=== PATIENT | male | born 1950 | race Caucasian/White ===

== ENCOUNTER → 2016-08-12 | Outpatient (CLI) | payer OTHER ==
[~2016-08-12] MED LIST: ACET-1138 PO; ASPEC81 PO; CLB200 PO; CLC100 PO; CYAN1LOZ PO; FRRG PO; MULT-506 PO; OMEG10007 PO; PRT40 PO; PYRI50TA77 PO; RXC5 PO; SNK PO; VTMD1000 PO
[2016-08-12 12:26] LABS: BASO % 0.4 %; BASO ABS # 0.02 K/uL (0-0.2); COMPLETE YES; EOS % 1.9 %; IG% 0.2 %; LYMPH % 42.2 %; LYMPH ABS # 1.96 K/uL (1.2-3.4); MEAN CELL VOLUME 90.5 fL (80-100); MEAN CORPUSCULAR HEMOGLOBIN 31.6 pg (25-34); MEAN CORPUSCULAR HGB CONC 34.9 g/dl (32-36); MEAN PLATELET VOLUME 10.4 fL (7.4-10.4); MONO % 12.3 %; PLATELET COUNT 215 K/uL (130-400); RED BLOOD COUNT 4.53 M/uL (4.7-6.1); WHITE BLOOD COUNT 4.64 K/uL (4.8-10.8)
== END | disposition home or self-care (01) ==
LOC: C.LABPVFM 10:07
PROVIDERS: ATTEND Nurse Practitioner
DX: D64.9 Anemia, unspecified (principal)

== ENCOUNTER → 2017-02-12 | Outpatient (CLI) | payer OTHER ==
[2017-02-12 17:49] LABS: BASO % 0.4 %; BASO ABS # 0.02 K/uL (0-0.2); COMPLETE YES; EOS % 0.6 %; HEMATOCRIT 42.4 % (42-52); IG% 0.2 %; LYMPH % 27.1 %; LYMPH ABS # 1.29 K/uL (1.2-3.4); MEAN CELL VOLUME 89.5 fL (80-100); MEAN CORPUSCULAR HEMOGLOBIN 30.6 pg (25-34); MEAN CORPUSCULAR HGB CONC 34.2 g/dl (32-36); MEAN PLATELET VOLUME 10.3 fL (7.4-10.4); MONO % 9.2 %; NEUT % 62.5 %; PLATELET COUNT 198 K/uL (130-400); RED BLOOD COUNT 4.74 M/uL (4.7-6.1); WHITE BLOOD COUNT 4.76 K/uL (4.8-10.8)
[2017-02-12 18:11] LABS: BLOOD UREA NITROGEN 13 mg/dl (7-18); BUN/CREATININE RATIO 11.6 (10-20); CALCIUM 9.4 mg/dl (8.5-10.1); CARBON DIOXIDE 26 mmol/L (21-32); CHLORIDE 108 mmol/L (98-107); GLUCOSE 90 mg/dl (70-99); POTASSIUM 4.1 mmol/L (3.5-5.1); SODIUM 140 mmol/L (136-145)
[2017-02-13 12:47] LABS: LYME DISEASE AB IGG NEG (NEG); LYME DISEASE AB IGM NEG (NEG)
== END | disposition home or self-care (01) ==
LOC: C.LABPVFM 16:16
PROVIDERS: ATTEND Nurse Practitioner
DX: R41.3 Other amnesia (principal); R53.83 Other fatigue; D64.9 Anemia, unspecified

== ENCOUNTER 2021-02-14 21:11 | Inpatient (IN) ==
--- NOTE | 2021-02-14 21:21 | Emergency Department Note ---
History of Present Illness General Chief Complaint: Altered Mental Status Stated Complaint: PSYCH EVAL Time Seen by Provider: 02/14/21 21:20 Source: EMS Mode of arrival: EMS Limitations: altered mental status History of Present Illness Provider complaint: other (Dementia) Onset (ago): month(s) Duration: getting worse History of same: Yes Relieved By: + none Exacerbated By: + none Context: no recent alcohol abuse or no recent drug abuse Associated psychiatric symptoms: no depression, no suicidal ideation, no homicidal ideation, no racing thoughts, no auditory hallucinations or no visual hallucinations Associated symptoms: no confusion or no shortness of breath Treatments prior to arrival: + none Home Medications Medication Instructions Recorded Confirmed Type multivit with min-folic 1 tab PO DAILY 03/10/19 01/14/21 History acid-lutein 400 mcg-250 mcg chewable tablet (Centrum Silver) cholecalciferol (vitamin D3) 125 5,000 units PO DAILY #30 tab 05/21/19 01/14/21 History mcg (5,000 unit) tablet atorvastatin 10 mg tablet 10 mg PO DAILY #30 tab 07/22/20 01/14/21 Rx aspirin 81 mg tablet,delayed 81 mg PO DAILY 08/28/20 01/14/21 History release (Aspirin Low Dose) buspirone 5 mg tablet 5 mg PO DAILY #30 tab 09/05/20 01/14/21 Rx donepezil 10 mg tablet 10 mg PO DAILY #30 tab 09/05/20 01/14/21 Rx magnesium 250 mg tablet 250 mg PO DAILY #30 tab 09/05/20 01/14/21 Rx docusate sodium 100 mg capsule 100 mg PO BID PRN 10/23/20 01/14/21 History (Colace) tamsulosin 0.4 mg capsule 0.4 mg PO DAILY #30 cap 10/23/20 01/14/21 Rx omeprazole 20 mg capsule,delayed 20 mg PO DAILY #30 cap 11/14/20 01/14/21 Rx release quetiapine 25 mg tablet (Seroquel) 25 mg PO DAILY #30 tab 01/14/21 01/14/21 Rx escitalopram oxalate 20 mg tablet 20 mg PO DAILY #30 tab 02/07/21 Rx Allergies Allergy/AdvReac Type Severity Reaction Status Date / Time No Known Allergies Allergy Verified 01/14/21 10:57 Past Med/Surg History Medical History Arthritis of right hip Cellulitis and abscess of face Cerebral infarct Dementia Dental abscess Depression with anxiety Elevated BP without diagnosis of hypertension Expressive aphasia Hyperlipidemia Vitamin D insufficiency Surgical History H/O total hip arthroplasty Right History of hernia repair Family History Mother Myocardial infarction Other Hypertension Denies family history of Ovarian cancer Prostate cancer Breast cancer Colorectal cancer Social History Smoking Status: Unknown if ever smoked Second Hand Exposure: No (unknown); Do You Dip or Chew Tobacco: No (unknown); Tobacco Cessation Education Requested by Patient: No (unknown) Hx Alcohol Use: No (unknown) Hx Substance Use: No Preferred Language: Korean Communication Ability: Impaired Superintendent Plant Required: No Beliefs That Will Affect Care: None marital status: Single Current Living Situation: Alone Current Living Situation Comment: pt lives at home alone, family is concerned for safety. current occupational status: disabled Other Information That Helps Us Care for You: No Feels Safe at Home: Yes Safety Concerns: Feels Safe At This Time Childhood Exposure to Second-Hand Smoke: No caffeine: Yes during the past year weight has: remained stable Dental Care, Regularly: Yes Seatbelt Use: always Sunscreen Use: No Assistive Devices: None Review of Systems See HPI for pertinent positives & negatives. Unobtainable due to cognitive status Physical Exam Vital Signs Vital Signs - 24 hr 02/14/21 21:31 02/14/21 22:08 02/15/21 00:05 Temperature 36.7 C Temperature Source Oral Pulse Rate 78 Pulse Rate [Apical] 64 90 Pulse Rate [Right Finger] Pulse Rhythm [Apical] Regular Pulse Strength [Apical] Respiratory Rate 20 16 20 Respiratory Effort / Characteristics Non-Labored Non-Labored Spontaneous Respiratory Depth Normal Normal Normal Respiratory Pattern Blood Pressure 144/85 H Blood Pressure [Left Arm] Blood Pressure [Right Arm] 144/106 H 130/91 Blood Pressure Mean 104 Blood Pressure Mean [Left Arm] Blood Pressure Mean [Right Arm] 118 104 Blood Pressure Position [Left Arm] Blood Pressure Position [Right Arm] Pulse Oximetry 95 96 96 Oxygen Delivery Method Room Air Room Air Room Air Sepsis Recent Fever Within 48 Hours No Sepsis New/Unexplained Change in Mental Status N/A Sepsis Action Taken by Nursing No Action Required 02/15/21 01:00 02/15/21 07:48 Temperature 37.2 C 36.7 C Temperature Source Oral Oral Pulse Rate Pulse Rate [Apical] 71 Pulse Rate [Right Finger] 55 L Pulse Rhythm [Apical] Regular Pulse Strength [Apical] Normal Respiratory Rate 18 16 Respiratory Effort / Characteristics Non-Labored Spontaneous Respiratory Depth Normal Respiratory Pattern Regular Blood Pressure Blood Pressure [Left Arm] 142/83 H Blood Pressure [Right Arm] 162/97 H Blood Pressure Mean Blood Pressure Mean [Left Arm] 102 Blood Pressure Mean [Right Arm] 118 Blood Pressure Position [Left Arm] Sitting Blood Pressure Position [Right Arm] Sitting Pulse Oximetry 96 97 Oxygen Delivery Method Room Air Room Air Sepsis Recent Fever Within 48 Hours Sepsis New/Unexplained Change in Mental Status Sepsis Action Taken by Nursing GENERAL: Disheveled in appearance, no apparent distress. EYE EXAM: Normal conjunctiva. PERRL, no anisocoria and EOM's grossly intact w/o pain. OROPHARYNX: Moist mucus membranes. Grossly normal dentition. NECK: Supple, no nuchal rigidity, no adenopathy, non-tender. No signs of meningismus. LUNGS: Clear to auscultation. Normal chest wall mechanics. HEART: NSR, no MRG. ABDOMEN: Abdomen soft, non-tender, normo-active bowel sounds, no masses, no rebound or guarding. BACK: No CVA TTP. SKIN: No rashes and no bruising. UPPER EXTREMITIES: Upper extremities are grossly normal. LOWER EXTREMITIES: Grossly normal, no edema. NEURO EXAM: Awake and alert, occasionally follows basic commands, disorganized and occasionally tangential nonslurred speech, cranial nerves II-XII grossly intact, moves all 4 extremities on command w/o issue. Course Administered Medications Aspirin (Aspirin 81 Mg Ectab) 81 mg PO DAILY [facility] Stop: 03/17/21 08:59 Last Admin: 02/15/21 08:33 Dose: 81 mg Documented by: [id number] Atorvastatin Calcium (Atorvastatin 10 Mg Tab) 10 mg PO DAILY [facility] Stop: 03/17/21 08:59 Last Admin: 02/15/21 08:34 Dose: 10 mg Documented by: [id number] Buspirone HCl (Buspirone 5 Mg Tab) 5 mg PO DAILY [facility] Stop: 03/17/21 08:59 Last Admin: 02/15/21 08:34 Dose: 5 mg Documented by: [id number] Donepezil HCl (Donepezil Hcl 10 Mg Tab) 10 mg PO DAILY [facility] Stop: 03/17/21 08:59 Last Admin: 02/15/21 08:34 Dose: 10 mg Documented by: [id number] Escitalopram Oxalate (Escitalopram Oxalate 20 Mg Tab) 20 mg PO DAILY [facility] Stop: 03/17/21 08:59 Last Admin: 02/15/21 08:35 Dose: 20 mg Documented by: [id number] Multivitamins/Minerals (Cerovite Adv Formula Tab) 1 tab PO DAILY [facility] Stop: 03/17/21 08:59 Last Admin: 02/15/21 08:35 Dose: 1 tab Documented by: [id number] Pantoprazole Sodium (Pantoprazole 40 Mg Tab) 40 mg PO DAILY [facility] Stop: 03/17/21 08:59 Last Admin: 02/15/21 08:35 Dose: 40 mg Documented by: [id number] Quetiapine Fumarate (Quetiapine Fumarate 25 Mg Tablet) 25 mg PO DAILY [facility] Stop: 03/17/21 08:59 Last Admin: 02/15/21 08:35 Dose: 25 mg Documented by: [id number] Tamsulosin HCl (Tamsulosin Hcl 0.4 Mg Cap) 0.4 mg PO DAILY [facility] Stop: 03/17/21 08:59 Last Admin: 02/15/21 08:35 Dose: 0.4 mg Documented by: [id number] Vitamin D (Cholecalciferol 1,000 Units 25 Mcg Tab) 5,000 units PO DAILY [facility] Stop: 03/17/21 08:59 Last Admin: 02/15/21 08:34 Dose: 5,000 units Documented by: [id number] Discontinued Medications Ceftriaxone Sodium (Rocephin) 2,000 mg in 70 mls @ 140 mls/hr IV NOW STA Stop: 02/14/21 23:43 Last Infusion: 02/15/21 00:04 Dose: 0 mls/hr Documented by: [id number] Admin: 02/14/21 23:25 Dose: 140 mls/hr Documented by: [id number] Medical Decision Making Differential Diagnosis Infection, dehydration, metabolic abnormality, hypo/hyperglycemia, electrolyte disturbance, anemia, hypoxia, cardiac sources, intracerebral event, toxicologic, neurologic, as well as other pathologies. Medical Records Attestation: I reviewed the patient's medical records. Home Medications Current Medication List: was personally reviewed by me Laboratory Data Attestation: I reviewed the patient's lab results. Result diagrams: 02/15/21 08:29 02/15/21 08:29 Lab Results 02/14/21 02/14/21 02/14/21 Range/Units 21:30 22:00 22:00 WBC 5.75 (4.8-10.8) K/uL RBC 4.52 L (4.7-6.1) M/uL Hgb 13.8 L (14.0-18.0) g/dL Hct 40.4 L (42-52) % MCV 89.4 (80-100) fL MCH 30.5 (25-34) pg MCHC 34.2 (32-36) g/dL RDW Std Deviation 44.4 (36.4-46.3) fL RDW Coeff of Anjelica 13.5 (11.5-14.5) % Plt Count 168 (130-400) K/uL MPV 10.2 (7.4-10.4) fL Immature Gran % (Auto) 0.2 % Neut % (Auto) 68.7 % Lymph % (Auto) 16.5 % [place] % (Auto) 12.0 % Eos % (Auto) 2.4 % Baso % (Auto) 0.2 % Neut # (Auto) 3.95 (1.4-6.5) K/uL Lymph # (Auto) 0.95 L (1.2-3.4) K/uL [place] # (Auto) 0.69 H (0.11-0.59) K/uL Eos # (Auto) 0.14 (0-0.5) K/uL Baso # (Auto) 0.01 (0-0.2) K/uL Immature Gran # (Auto) 0.01 (0.00-0.02) K/uL PT 10.1 (9.0-12.0) Seconds INR 1.0 (0.9-1.1) Sodium (136-145) mmol/L Potassium (3.5-5.1) mmol/L Chloride (98-107) mmol/L Carbon Dioxide (21-32) mmol/L Anion Gap (3-11) BUN (7-18) mg/dl Creatinine (0.6-1.4) mg/dl Est Cr Clr Drug Dosing ml/min Est GFR ( Amer) ml/min Est GFR (Non-Af Amer) ml/min BUN/Creatinine Ratio (10-20) Glucose (70-99) mg/dl Calcium (8.5-10.1) mg/dl Total Bilirubin (0.2-1) mg/dl AST (15-37) U/L ALT (12-78) U/L Alkaline Phosphatase (45-117) U/L Troponin I (0-0.045) ng/ml Total Protein (6.4-8.2) gm/dl Albumin (3.4-5.0) gm/dl Globulin (2.5-4.0) gm/dl Albumin/Globulin Ratio (0.9-2) TSH (0.300-4.500) uIu/ml Urine Color Yellow Urine Appearance Cloudy A (Clear) Urine pH 5.5 (4.5-7.5) Ur Specific [place] 1.005 (1.000-1.030) Urine Protein Negative (Negative) Urine Glucose (UA) Negative (Negative) Urine Ketones Negative (Negative) Urine Blood Trace H (Negative) Urine Nitrite Negative (Negative) Urine Bilirubin Negative (Negative) Urine Urobilinogen Negative (Negative) Ur Leukocyte Esterase 2+ H (Negative) Urine WBC (Auto) 10-30 H (0-5) /hpf Urine RBC (Auto) 5-10 H (0-4) /hpf U Hyaline Cast (Auto) 1-5 (0-5) /lpf U Epithel Cells (Auto) 0-5 (0-5) /lpf Urine Bacteria (Auto) 4+ H (Negative) COVID-19 Eval Order SARS-CoV-2 (PCR) (Negative) 02/14/21 02/14/21 02/14/21 Range/Units 22:00 22:00 22:00 WBC (4.8-10.8) K/uL RBC (4.7-6.1) M/uL Hgb (14.0-18.0) g/dL Hct (42-52) % MCV (80-100) fL MCH (25-34) pg MCHC (32-36) g/dL RDW Std Deviation (36.4-46.3) fL RDW Coeff of Anjelica (11.5-14.5) % Plt Count (130-400) K/uL MPV (7.4-10.4) fL Immature Gran % (Auto) % Neut % (Auto) % Lymph % (Auto) % [place] % (Auto) % Eos % (Auto) % Baso % (Auto) % Neut # (Auto) (1.4-6.5) K/uL Lymph # (Auto) (1.2-3.4) K/uL [place] # (Auto) (0.11-0.59) K/uL Eos # (Auto) (0-0.5) K/uL Baso # (Auto) (0-0.2) K/uL Immature Gran # (Auto) (0.00-0.02) K/uL PT (9.0-12.0) Seconds INR (0.9-1.1) Sodium 135 L (136-145) mmol/L Potassium 3.7 (3.5-5.1) mmol/L Chloride 104 (98-107) mmol/L Carbon Dioxide 27 (21-32) mmol/L Anion Gap 4.0 (3-11) BUN 15 (7-18) mg/dl Creatinine 1.02 (0.6-1.4) mg/dl Est Cr Clr Drug Dosing 48.3 ml/min Est GFR ( Amer) 86.5 ml/min Est GFR (Non-Af Amer) 74.6 ml/min BUN/Creatinine Ratio 14.4 (10-20) Glucose 91 (70-99) mg/dl Calcium 8.7 (8.5-10.1) mg/dl Total Bilirubin 0.9 (0.2-1) mg/dl AST 21 (15-37) U/L ALT 33 (12-78) U/L Alkaline Phosphatase 89 (45-117) U/L Troponin I < 0.015 (0-0.045) ng/ml Total Protein 7.0 (6.4-8.2) gm/dl Albumin 3.5 (3.4-5.0) gm/dl Globulin 3.5 (2.5-4.0) gm/dl Albumin/Globulin Ratio 1.0 (0.9-2) TSH 3.350 (0.300-4.500) uIu/ml Urine Color Urine Appearance (Clear) Urine pH (4.5-7.5) Ur Specific [place] (1.000-1.030) Urine Protein (Negative) Urine Glucose (UA) (Negative) Urine Ketones (Negative) Urine Blood (Negative) Urine Nitrite (Negative) Urine Bilirubin (Negative) Urine Urobilinogen (Negative) Ur Leukocyte Esterase (Negative) Urine WBC (Auto) (0-5) /hpf Urine RBC (Auto) (0-4) /hpf U Hyaline Cast (Auto) (0-5) /lpf U Epithel Cells (Auto) (0-5) /lpf Urine Bacteria (Auto) (Negative) COVID-19 Eval Order Cancelled Covid19 at [facility] SARS-CoV-2 (PCR) (Negative) 02/14/21 02/15/21 02/15/21 Range/Units 22:00 08:29 08:29 WBC 5.36 (4.8-10.8) K/uL RBC 4.75 (4.7-6.1) M/uL Hgb 14.5 (14.0-18.0) g/dL Hct 42.7 (42-52) % MCV 89.9 (80-100) fL MCH 30.5 (25-34) pg MCHC 34.0 (32-36) g/dL RDW Std Deviation 44.6 (36.4-46.3) fL RDW Coeff of Anjelica 13.5 (11.5-14.5) % Plt Count 172 (130-400) K/uL MPV 9.7 (7.4-10.4) fL Immature Gran % (Auto) 0.2 % Neut % (Auto) 57.8 % Lymph % (Auto) 24.4 % [place] % (Auto) 13.8 % Eos % (Auto) 3.4 % Baso % (Auto) 0.4 % Neut # (Auto) 3.10 (1.4-6.5) K/uL Lymph # (Auto) 1.31 (1.2-3.4) K/uL [place] # (Auto) 0.74 H (0.11-0.59) K/uL Eos # (Auto) 0.18 (0-0.5) K/uL Baso # (Auto) 0.02 (0-0.2) K/uL Immature Gran # (Auto) 0.01 (0.00-0.02) K/uL PT (9.0-12.0) Seconds INR (0.9-1.1) Sodium 138 (136-145) mmol/L Potassium 3.8 (3.5-5.1) mmol/L Chloride 109 H (98-107) mmol/L Carbon Dioxide 25 (21-32) mmol/L Anion Gap 4.0 (3-11) BUN 14 (7-18) mg/dl Creatinine 0.99 (0.6-1.4) mg/dl Est Cr Clr Drug Dosing 49.8 ml/min Est GFR ( Amer) 89.7 ml/min Est GFR (Non-Af Amer) 77.4 ml/min BUN/Creatinine Ratio 14.3 (10-20) Glucose 85 (70-99) mg/dl Calcium 9.2 (8.5-10.1) mg/dl Total Bilirubin (0.2-1) mg/dl AST (15-37) U/L ALT (12-78) U/L Alkaline Phosphatase (45-117) U/L Troponin I (0-0.045) ng/ml Total Protein (6.4-8.2) gm/dl Albumin (3.4-5.0) gm/dl Globulin (2.5-4.0) gm/dl Albumin/Globulin Ratio (0.9-2) TSH (0.300-4.500) uIu/ml Urine Color Urine Appearance (Clear) Urine pH (4.5-7.5) Ur Specific [place] (1.000-1.030) Urine Protein (Negative) Urine Glucose (UA) (Negative) Urine Ketones (Negative) Urine Blood (Negative) Urine Nitrite (Negative) Urine Bilirubin (Negative) Urine Urobilinogen (Negative) Ur Leukocyte Esterase (Negative) Urine WBC (Auto) (0-5) /hpf Urine RBC (Auto) (0-4) /hpf U Hyaline Cast (Auto) (0-5) /lpf U Epithel Cells (Auto) (0-5) /lpf Urine Bacteria (Auto) (Negative) COVID-19 Eval Order SARS-CoV-2 (PCR) NEGATIVE (Negative) ECG Data Additional Comments: Normal sinus rhythm, rate of 75, normal [place], wide QRS, right bundle branch block pattern. Left axis deviation. No significant change from comparison EKG August 29, 2020. MDM Narrative Patient did present with concern for change in mentation. The patient does live on his own but is cared for by his brothers intermittently. One of the primary caretakers is Med. There is no designated POA. Patient has had worsening dementia over the last several months. No reported trauma. The patient has not been bathing showering and refuses to use indoor plumbing. The patient was found to be trying to use the bathroom outside and was perseverating out in the [place] his [place] when police arrived and subsequently did bring the patient here for further evaluation and treatment. No reported trauma. Home health has been evaluating the patient. Patient did have bladder completed along with an EKG. The patient's blood work is grossly unremarkable. Urinalysis does show the possibility of infection and given the patient's worsening dementia will be treated with Rocephin. Covid negative. As the patient is unable to be placed at this time believe the patient would warrant medical admission and further evaluation and treatment. I did speak with the on-call hospitalist Dr. Dennis and the patient was admitted to the medicine service. Impression & Plan Acute UTI, Dementia Discharge Plan Visit Data Chief Complaint: Altered Mental Status Stated Complaint: PSYCH EVAL ED Provider: Huseyin Suazo Discharge Problem: Acute UTI, Dementia Patient Disposition: Admitted As Inpatient Discharge Instructions Interventions: ED Discharge Assessment Last Done: 02/15/21 00:34
[2021-02-14 21:52] LABS: Appearance Urine Cloudy (Clear); Bacteria Urine Automated 4+ (Negative); Bilirubin Urine Negative (Negative); Blood Urine Trace (Negative); Color Urine Yellow; Epithelial Cell Urine Auto 0-5 /lpf (0-5); Glucose Urine UA Negative (Negative); Ketones Urine Negative (Negative); Leukocyte Esterase Urine 2+ (Negative); Nitrite Urine Negative (Negative); Protein Urine Negative (Negative); Specific Gravity Urine 1.005 (1.000-1.030); Urobilinogen Urine Negative (Negative); pH Urine 5.5 (4.5-7.5)
[2021-02-14 22:24] LABS: Prothrombin Time 10.1 Seconds (9.0-12.0)
[2021-02-14 22:28] LABS: Basophils # (auto) 0.01 K/uL (0-0.2); Basophils % (auto) 0.2 %; Eosinophils # (auto) 0.14 K/uL (0-0.5); Eosinophils % (auto) 2.4 %; Hematocrit (blood only) 40.4 % (42-52); Hemoglobin 13.8 g/dL (14.0-18.0); Immature Granulocytes # (auto) 0.01 K/uL (0.00-0.02); Immature Granulocytes % (auto) 0.2 %; Lymphocytes # (auto) 0.95 K/uL (1.2-3.4); Lymphocytes % (auto) 16.5 %; Mean Corpuscular Hemoglobin 30.5 pg (25-34); Mean Corpuscular Hgb Conc 34.2 g/dL (32-36); Mean Corpuscular Volume 89.4 fL (80-100); Mean Platelet Volume 10.2 fL (7.4-10.4); Monocytes # (auto) 0.69 K/uL (0.11-0.59); Neutrophils # (auto) 3.95 K/uL (1.4-6.5); Neutrophils % (auto) 68.7 %; Platelet Count 168 K/uL (130-400); RDW Coefficient of Variation 13.5 % (11.5-14.5); RDW Standard Deviation 44.4 fL (36.4-46.3); Red Blood Count 4.52 M/uL (4.7-6.1); White Blood Count 5.75 K/uL (4.8-10.8)
[2021-02-14 22:39] LABS: Alanine Aminotransferase 33 U/L (12-78); Albumin Level 3.5 gm/dl (3.4-5.0); Aspartate Aminotransferase 21 U/L (15-37); BUN Creatinine Ratio 14.4 (10-20); Blood Urea Nitrogen 15 mg/dl (7-18); Calcium 8.7 mg/dl (8.5-10.1); Carbon Dioxide 27 mmol/L (21-32); Chloride 104 mmol/L (98-107); Creatinine Clr Calc Pharmacy 48.3 ml/min; Est GFR (African American) 86.5 ml/min; Est GFR (Non-African American) 74.6 ml/min; Glucose 91 mg/dl (70-99); Potassium 3.7 mmol/L (3.5-5.1); Sodium 135 mmol/L (136-145)
[2021-02-14 22:49] LABS: Alkaline Phosphatase 89 U/L (45-117); Bilirubin,Total 0.9 mg/dl (0.2-1); Globulin 3.5 gm/dl (2.5-4.0); Troponin I < 0.015 ng/ml (0-0.045)
[2021-02-14] MEDS ORDERED: cefTRIAXone SODIUM 2,000 MG/70 ML BAG IV STA (23:14)
--- NOTE | 2021-02-14 23:52 | History & Physical Report ---
Date of Service February 14, 2021 Assessment & Plan (1) Altered mental state: Plan: AMS Unclear if this is from his prior stroke with expressive aphasia, or secondary to his UTI or related to his history of dementia or some combination of these. No clear electrolyte abnormalities - continue to treat infection as below - continue Dementia management as below - continue to reorient - call family to get collateral as well as a sense of his baseline Complicated UTI complicated by gender, prior history of recurrent UTI with no prior positive urine cultures nl. WBC, afebrile, unclear if symptomatic - continue Ceftriaxone - follow up urine cultures, tailor abx. to sensitivity - follow CBC BPH - continue Tamsulosin - bladder scan as needed Dementia - continue home Donepezil HLD - continue statin Hx. Stroke - continue ASA GERD - continue PPI DVT: SCD's Code: full Diet: regular Dispo: PT, OT, and Case management for discharge planning ordered (2) Complicated UTI (urinary tract infection): (3) BPH (benign prostatic hyperplasia): (4) Dementia: (5) Cerebral infarct: (6) Hyperlipidemia: (7) Expressive aphasia: (8) GERD (gastroesophageal reflux disease): (9) Insomnia: History of Present Illness Chief Complaint: AMS Primary Care Provider: TATYANA Haney Americo Anderson presented to the ER for altered mental status. He was seen by his PCP Dr. Corona one day prior where it was noted that he had not had any recent falls but does have a history of BPH with prior UTI's. He was not able to answer any of my questions when I spoke with him. He was tangential and confabulating. He was brought in by the police for acting bizarre. He lives alone but has family that will check in on him. Allergies Allergy/AdvReac Type Severity Reaction Status Date / Time No Known Allergies Allergy Verified 01/14/21 10:57 Home Medications Medication Instructions Recorded Confirmed Type multivit with min-folic 1 tab PO DAILY 03/10/19 01/14/21 History acid-lutein 400 mcg-250 mcg chewable tablet (Centrum Silver) cholecalciferol (vitamin D3) 125 5,000 units PO DAILY #30 tab 05/21/19 01/14/21 History mcg (5,000 unit) tablet atorvastatin 10 mg tablet 10 mg PO DAILY #30 tab 07/22/20 01/14/21 Rx aspirin 81 mg tablet,delayed 81 mg PO DAILY 08/28/20 01/14/21 History release (Aspirin Low Dose) buspirone 5 mg tablet 5 mg PO DAILY #30 tab 09/05/20 01/14/21 Rx donepezil 10 mg tablet 10 mg PO DAILY #30 tab 09/05/20 01/14/21 Rx magnesium 250 mg tablet 250 mg PO DAILY #30 tab 09/05/20 01/14/21 Rx docusate sodium 100 mg capsule 100 mg PO BID PRN 10/23/20 01/14/21 History (Colace) tamsulosin 0.4 mg capsule 0.4 mg PO DAILY #30 cap 10/23/20 01/14/21 Rx omeprazole 20 mg capsule,delayed 20 mg PO DAILY #30 cap 11/14/20 01/14/21 Rx release quetiapine 25 mg tablet (Seroquel) 25 mg PO DAILY #30 tab 01/14/21 01/14/21 Rx escitalopram oxalate 20 mg tablet 20 mg PO DAILY #30 tab 02/07/21 Rx Past Med/Surg History Medical History Arthritis of right hip Cellulitis and abscess of face Cerebral infarct Dementia Dental abscess Depression with anxiety Elevated BP without diagnosis of hypertension Expressive aphasia Hyperlipidemia Vitamin D insufficiency Surgical History H/O total hip arthroplasty Right History of hernia repair Family History Mother Myocardial infarction Other Hypertension Denies family history of Ovarian cancer Prostate cancer Breast cancer Colorectal cancer Social History Smoking Status: Unknown if ever smoked Second Hand Exposure: No (unknown); Do You Dip or Chew Tobacco: No (unknown); Tobacco Cessation Education Requested by Patient: No (unknown) Hx Alcohol Use: No (unknown) Hx Substance Use: No Preferred Language: Malawian Communication Ability: Impaired Zipper Trimmer Required: No Beliefs That Will Affect Care: None marital status: Single Current Living Situation: Alone Current Living Situation Comment: pt lives at home alone, family is concerned for safety. current occupational status: disabled Other Information That Helps Us Care for You: No Feels Safe at Home: Yes Safety Concerns: Feels Safe At This Time Childhood Exposure to Second-Hand Smoke: No caffeine: Yes during the past year weight has: remained stable Dental Care, Regularly: Yes Seatbelt Use: always Sunscreen Use: No Assistive Devices: None Review of Systems Review of Systems: Unobtainable due to cognitive status Physical Exam Constitutional: WD/WN, vitals as above Eyes: PERRL, conjunctivae normal, anicteric sclerae ENMT: external ear and nose normal, oropharynx normal Neck: normal visual inspection Respiratory: normal respiratory effort, able to speak in complete sentences and symmetric chest movement; does not use accessory muscles and no cough Cardiovascular: Rate/Rhythm: regular rate and regular rhythm Heart Sounds: no murmur Extremities: no pedal edema Gastrointestinal (Abdomen): - soft, nTTP - bowel sounds present - no masses appreciated - no guarding Skin: no rashes, warm and dry Neurologic: awake and + confused; no focal motor deficits Psychiatric: Orientation: + not alert and + not oriented x 3 Eye Contact: + poor eye contact Affect: euthymic affect Results & Data Results & Data ([facility]) Vital Signs (Past 12 Hours) Vital Signs Temp Pulse Pulse Resp BP BP Pulse Ox 02/14/21 22:08 64 16 144/106 H 96 02/14/21 21:31 36.7 C 78 20 144/85 H 95 CBC Results Results Complete Blood Count Results: RBC 4.75 M/uL (4.7-6.1) 02/15/21 WBC 5.36 K/uL (4.8-10.8) 02/15/21 Hgb 14.5 g/dL (14.0-18.0) 02/15/21 Hct 42.7 % (42-52) 02/15/21 Plt Count 172 K/uL (130-400) 02/15/21 Chemistry (BMP) Results BMP Results: Sodium 138 mmol/L (136-145) 02/15/21 Potassium 3.8 mmol/L (3.5-5.1) 02/15/21 Chloride 109 mmol/L (98-107) H 02/15/21 BUN 14 mg/dl (7-18) 02/15/21 Creatinine 0.99 mg/dl (0.6-1.4) 02/15/21 Glucose 85 mg/dl (70-99) 02/15/21 Code Status & VTE Plan VTE Prophylaxis Plan VTE Prophylaxis will be ordered: Yes Supervising Physician Co-Signing Physician Notes Attending addendum: I have physically seen this patient, have supervised the medical residents activities, and agree with the H&P unless as otherwise noted. Assessment and Plan: Confusion/underlying dementia/halfway placement- Likely aggravated by underlying UTI, which will be treated Consult social service, Consult PT/OT Complicated UTI- Follow urine culture and sensitivities Empiric ceftriaxone 2 g IV daily, that was begun in the ED IV fluids Remaining orders and notations as noted Resident Activity Tracking Resident Involvement: Resident Care Provided Care Provided: Adult Hospital Medicine
[2021-02-15] MEDS ORDERED: DOCUSATE SODIUM 100 MG CAP PO PRN (00:53)
[2021-02-15] MEDS ORDERED: POLYETHYLENE (MIRALAX) 17 GM PACK PO PRN (00:53)
[2021-02-15] MEDS ORDERED: ACETAMINOPHEN 325 MG TAB PO PRN (00:53)
--- NOTE | 2021-02-15 07:47 | Electrocardiogram Report ---
Test Reason : Blood Pressure : / mmHG Vent. Rate : 075 BPM Atrial Rate : 075 BPM P-R Int : 194 ms QRS Dur : 148 ms QT Int : 428 ms P-R-T Axes : 044 -30 009 degrees QTc Int : 477 ms Normal sinus rhythm Left atrial enlargement Left axis deviation Right bundle branch block Abnormal ECG When compared with ECG of 29-AUG-2020 17:05, No significant change was found Confirmed by Gray Melendez ([id number]) on 02/15/2021 7:46:42 AM Referred By: REFERRED SELF Confirmed By:Gray Melendez
[2021-02-15] MEDS: ASPIRIN 81 MG ECTAB PO SCH (08:33)
[2021-02-15] MEDS: ATORVASTATIN 10 MG TAB PO SCH (08:34)
[2021-02-15] MEDS: busPIRone 5 MG TAB PO SCH (08:34)
[2021-02-15] MEDS: CHOLECALCIFEROL 1,000 UNITS 25 MCG TAB PO SCH (08:34)
[2021-02-15] MEDS: DONEPEZIL HCL 10 MG TAB PO SCH (08:34)
[2021-02-15] MEDS: TAMSULOSIN HCL 0.4 MG CAP PO SCH (08:35)
[2021-02-15] MEDS: PANTOprazole 40 MG TAB PO SCH (08:35)
[2021-02-15] MEDS: ESCITALOPRAM OXALATE 20 MG TAB PO SCH (08:35)
[2021-02-15] MEDS: CEROVITE ADV FORMULA TAB PO SCH (08:35)
[2021-02-15] MEDS: QUEtiapine FUMARATE 25 MG TABLET PO SCH (08:35)
[2021-02-15 09:10] LABS: Basophils # (auto) 0.02 K/uL (0-0.2); Basophils % (auto) 0.4 %; Eosinophils # (auto) 0.18 K/uL (0-0.5); Eosinophils % (auto) 3.4 %; Hematocrit (blood only) 42.7 % (42-52); Hemoglobin 14.5 g/dL (14.0-18.0); Immature Granulocytes # (auto) 0.01 K/uL (0.00-0.02); Immature Granulocytes % (auto) 0.2 %; Lymphocytes # (auto) 1.31 K/uL (1.2-3.4); Lymphocytes % (auto) 24.4 %; Mean Corpuscular Hemoglobin 30.5 pg (25-34); Mean Corpuscular Volume 89.9 fL (80-100); Mean Platelet Volume 9.7 fL (7.4-10.4); Monocytes # (auto) 0.74 K/uL (0.11-0.59); Monocytes % (auto) 13.8 %; Neutrophils % (auto) 57.8 %; Platelet Count 172 K/uL (130-400); RDW Coefficient of Variation 13.5 % (11.5-14.5); RDW Standard Deviation 44.6 fL (36.4-46.3); Red Blood Count 4.75 M/uL (4.7-6.1); White Blood Count 5.36 K/uL (4.8-10.8)
[2021-02-15 09:26] LABS: BUN Creatinine Ratio 14.3 (10-20); Calcium 9.2 mg/dl (8.5-10.1); Creatinine Clr Calc Pharmacy 49.8 ml/min; Est GFR (African American) 89.7 ml/min; Est GFR (Non-African American) 77.4 ml/min; Potassium 3.8 mmol/L (3.5-5.1)
--- NOTE | 2021-02-15 10:09 | Hospitalist Progress Note ---
Date of Service February 15, 2021 Assessment & Plan (1) Altered mental state: Plan: 70 yo M with PMH of stroke with expressive aphasia, dementia, BPH, recurrent UTIs, insomnia presenting with altered mental status AMS - Likely multifactorial with contribution from past stroke with expressive aphasia, dementia and current UTI - Encourage frequent reorientation and redirection - Seroquel 12.5 mg PRN for agitation/delirium - Labs ordered today to evaluate for organic cause of AMS- B12, TSH, RPR, B1 Dementia - Continue donepezil - Case management in process of facilitating patient's discharge to [facility] for long-term care Complicated UTI - complicated by gender, prior history of recurrent UTI with no prior positive urine cultures - WBC wnl, afebrile, no symptoms at this time - continue Ceftriaxone - follow up urine cultures, tailor abx. to sensitivity - follow CBC BPH - continue Tamsulosin - bladder scan as needed HLD - continue statin Hx. Stroke - continue ASA GERD - continue PPI DVT: SCD's Code: full Diet: regular Dispo: PT, OT, and Case management. Family strongly advocates for care facility rather than return to home (2) Complicated UTI (urinary tract infection): (3) BPH (benign prostatic hyperplasia): (4) Dementia: (5) Cerebral infarct: (6) Hyperlipidemia: (7) Expressive aphasia: (8) GERD (gastroesophageal reflux disease): (9) Insomnia: Admission and Anticipated Discharge Date Admission Date: February 14, 2021 Supervising Physician Co-Signing Physician Notes Attending Attestation Pt seen/examined, chart reviewed, care plan d/w PGY1 Dr Jorge Alberto Joel. I agree w/ the russ components of his documentation. Pt unable to provide any meaningful history or ROS during my bedside visit. exam - gen - NAD, oriented to person only mouth - MMM heart - RRR, s1 s2 lungs - CTA b/l abd - soft NT ext - no edema musculo - no signs of injury psych - oriented to person only; alert; does follow commands although inconsistently A/P: advancing dementia with behavioral disturbance leading to admission. ?UTI (and/or prostatitis)? suspect the bulk of what family is seeing at home is simply worsening of his advanced dementia. to be complete will check "mimics" including B12, B1, TSH, RPR. needs LANA to r/o prostatitis as urine cx is negative. agree w/ SNF placement in memory unit. Jonh Lowry MD Subjective Pt was distracted and inconsistently responded to interviewer in morning. Denied acute complaints, says he's voiding without issue. Asked for brother's presence repeatedly. Spoke with family to get collateral, pt has reportedly had dementia for at least past 2 years and has acutely worsened over last few months. They worry for his safety and believe he should be in a care facility after discharge as pt lives alone in mobile home and needs constant supervision by family members. Review of Systems Review of Systems: All systems reviewed & are unremarkable except as noted in HPI & below Limited by patient's mental status Physical Exam Constitutional: WD/WN, vitals as above Eyes: PERRL, conjunctivae normal, anicteric sclerae Neck: normal visual inspection Respiratory: normal respiratory effort; no respiratory distress Cardiovascular: Rate/Rhythm: regular rate and regular rhythm Heart Sounds: no murmur Extremities: no pedal edema Gastrointestinal (Abdomen): normal bowel sounds, soft, nontender, no hepatosplenomegaly Skin: no rashes, warm and dry Neurologic: deep tendon reflexes 2+ bilaterally, awake and + confused; no focal motor deficits AOx1 Psychiatric: Orientation: + not alert and + not oriented x 3 Eye Contact: + poor eye contact Affect: euthymic affect Results & Data Results & Data ([facility]) Vital Signs (Past 12 Hours) Vital Signs Temp Pulse Pulse Resp BP BP Pulse Ox 02/15/21 07:48 36.7 C 55 L 16 142/83 H 97 02/15/21 01:00 37.2 C 71 18 162/97 H 96 02/15/21 00:05 90 20 130/91 96 Resident Activity Tracking Resident Involvement: Resident Care Provided Care Provided: Adult Hospital Medicine
[2021-02-15 13:39] LABS: Thyroid Stimulating Hormone 5.68 uIu/ml (0.300-4.500)
[2021-02-15 13:52] LABS: T4 Free Thyroxine 1.21 ng/dl (0.8-1.6)
--- NOTE | 2021-02-15 19:49 | Billing Data ---
Date of Service February 15, 2021 Coding Level of Care Code 91873 Initial Inpt Care Lvl 2
[2021-02-15] MEDS: QUEtiapine FUMARATE 25 MG TABLET PO PRN (21:03)
--- NOTE | 2021-02-15 21:55 | Billing Data ---
Date of Service February 15, 2021 Coding Level of Care Code 37905 Subseq Hosp Care Lvl 2
[2021-02-15] MEDS ORDERED: cefTRIAXone SODIUM 1,000 MG in DEXTROSE 5% 50 ML IV SCH (22:00)
[2021-02-16 06:13] LABS: Basophils # (auto) 0.01 K/uL (0-0.2); Basophils % (auto) 0.2 %; Eosinophils # (auto) 0.17 K/uL (0-0.5); Eosinophils % (auto) 3.7 %; Hematocrit (blood only) 41.2 % (42-52); Hemoglobin 13.9 g/dL (14.0-18.0); Immature Granulocytes # (auto) 0.01 K/uL (0.00-0.02); Immature Granulocytes % (auto) 0.2 %; Lymphocytes # (auto) 1.41 K/uL (1.2-3.4); Lymphocytes % (auto) 30.5 %; Mean Corpuscular Hemoglobin 30.3 pg (25-34); Mean Corpuscular Hgb Conc 33.7 g/dL (32-36); Mean Platelet Volume 9.7 fL (7.4-10.4); Monocytes # (auto) 0.64 K/uL (0.11-0.59); Monocytes % (auto) 13.8 %; Neutrophils # (auto) 2.39 K/uL (1.4-6.5); Neutrophils % (auto) 51.6 %; Platelet Count 163 K/uL (130-400); RDW Coefficient of Variation 13.7 % (11.5-14.5); Red Blood Count 4.58 M/uL (4.7-6.1); White Blood Count 4.63 K/uL (4.8-10.8)
[2021-02-16 06:44] LABS: Albumin Level 3.5 gm/dl (3.4-5.0); BUN Creatinine Ratio 13.9 (10-20); Calcium 9.3 mg/dl (8.5-10.1); Creatinine Clr Calc Pharmacy 45.2 ml/min; Est GFR (African American) 79.8 ml/min; Est GFR (Non-African American) 68.9 ml/min; Potassium 3.6 mmol/L (3.5-5.1)
[2021-02-16 06:47] LABS: Bilirubin,Total 1.2 mg/dl (0.2-1); Globulin 3.4 gm/dl (2.5-4.0); Total Protein 6.9 gm/dl (6.4-8.2)
[2021-02-16] MEDS: CHOLECALCIFEROL 1,000 UNITS 25 MCG TAB PO SCH (09:20)
[2021-02-16] MEDS: DONEPEZIL HCL 10 MG TAB PO SCH (09:20)
[2021-02-16] MEDS: QUEtiapine FUMARATE 25 MG TABLET PO SCH (09:20)
[2021-02-16] MEDS: CEROVITE ADV FORMULA TAB PO SCH (09:20)
[2021-02-16] MEDS: ATORVASTATIN 10 MG TAB PO SCH (09:20)
[2021-02-16] MEDS: PANTOprazole 40 MG TAB PO SCH (09:21)
[2021-02-16] MEDS: busPIRone 5 MG TAB PO SCH (09:21)
[2021-02-16] MEDS: ESCITALOPRAM OXALATE 20 MG TAB PO SCH (09:21)
[2021-02-16] MEDS: TAMSULOSIN HCL 0.4 MG CAP PO SCH (09:21)
[2021-02-16] MEDS: ASPIRIN 81 MG ECTAB PO SCH (09:21)
--- NOTE | 2021-02-16 09:30 | Hospitalist Progress Note ---
Date of Service February 16, 2021 Assessment & Plan (1) Altered mental state: Plan: 70 yo M with PMH of stroke with expressive aphasia, dementia, BPH, recurrent UTIs, insomnia presenting with altered mental status and acute UTI AMS - Likely multifactorial with contribution from past stroke with expressive aphasia, dementia and current UTI - Encourage frequent reorientation and redirection - Seroquel 12.5 mg PRN for agitation/delirium - B12 wnl, TSH elevated to 5.7 from 3.4 on day prior- possibly subclinical hypothyroidism, will recheck - RPR pending, B1 pending Dementia - Continue donepezil - Case management in process of facilitating patient's discharge to [facility] long term for long-term care Complicated UTI/prostatis - Complicated by gender, prior history of recurrent UTI with no prior positive urine cultures - No leukocytosis, afebrile, no symptoms at this time - UCx negative, will treat as prostatitis- d/c ceftriaxone, initiate Keflex 500 mg BID - PSA ordered BPH - continue Tamsulosin - bladder scan as needed HLD - continue statin Hx. Stroke - continue ASA GERD - continue PPI DVT: SCD's Code: full Diet: regular Dispo: PT, OT, and Case management. Family strongly advocates for care facility rather than return to home (2) Complicated UTI (urinary tract infection): (3) BPH (benign prostatic hyperplasia): (4) Dementia: (5) Cerebral infarct: (6) Hyperlipidemia: (7) Expressive aphasia: (8) GERD (gastroesophageal reflux disease): (9) Insomnia: Admission and Anticipated Discharge Date Admission Date: February 15, 2021 Supervising Physician Co-Signing Physician Notes Attending Attestation Pt seen/examined, chart reviewed, care plan d/w PGY1 Dr Jorge Alberto Joel. I agree w/ the russ components of his documentation. Pt again unable to provide any meaningful history or ROS during my bedside visit. None of his speech or sentences made any sense. exam - gen - NAD, oriented to person only, sitting in chair mouth - MMM heart - RRR, s1 s2 lungs - CTA b/l abd - soft NT ND BS+ ext - no edema psych - oriented to person only; alert; does follow commands although very inconsistently A/P: 1. advancing dementia with behavioral disturbance leading to admission. 2. ?UTI (and/or prostatitis)? although urine cx was negative. advise LANA and/or checking PSA to r/o prostatitis. while waiting to do both would d/c rocephin; change to keflex 500 BID. cont seroquel for behavioral disturbance - adjust as needed. await B1, RPR labs. B12 wnl. TSH on 02/14 was wnl. PT, OT evals. dispo - SNF. Jonh Lowry MD Subjective Pt was distracted and inconsistently responded to interviewer in morning. Denied acute complaints, stated he's voiding without issue but interview limited by patient's mental status. Review of Systems Review of Systems: Limited by patient's mental status Physical Exam Constitutional: WD/WN, vitals as above Eyes: PERRL, conjunctivae normal, anicteric sclerae Neck: normal visual inspection Respiratory: normal respiratory effort; no respiratory distress Cardiovascular: Rate/Rhythm: regular rate and regular rhythm Heart Sounds: no murmur Extremities: no pedal edema Gastrointestinal (Abdomen): normal bowel sounds, soft, nontender, no hepatosplenomegaly Skin: no rashes, warm and dry Neurologic: + confused; no focal motor deficits Psychiatric: Orientation: oriented to person; + not oriented to place and + not oriented to time Eye Contact: + poor eye contact Results & Data Results & Data ([facility]) Vital Signs (Past 12 Hours) Vital Signs Temp Pulse Resp BP Pulse Ox 02/16/21 08:05 36.4 C L 69 14 116/77 94 02/15/21 23:26 36.6 C 62 18 127/84 94 Resident Activity Tracking Resident Involvement: Resident Care Provided Care Provided: Adult Hospital Medicine
--- NOTE | 2021-02-16 20:02 | Billing Data ---
Date of Service February 16, 2021 Coding Level of Care Code 58579 Subseq Hosp Care Lvl 2
[2021-02-16] MEDS: cephALEXin 500 MG CAP PO SCH (20:23)
[2021-02-17 07:04] LABS: Basophils # (auto) 0.02 K/uL (0-0.2); Basophils % (auto) 0.5 %; Eosinophils # (auto) 0.19 K/uL (0-0.5); Eosinophils % (auto) 4.4 %; Hemoglobin 13.9 g/dL (14.0-18.0); Immature Granulocytes # (auto) 0.01 K/uL (0.00-0.02); Immature Granulocytes % (auto) 0.2 %; Lymphocytes # (auto) 1.39 K/uL (1.2-3.4); Lymphocytes % (auto) 31.9 %; Mean Corpuscular Hemoglobin 30.4 pg (25-34); Mean Corpuscular Hgb Conc 33.9 g/dL (32-36); Mean Corpuscular Volume 89.7 fL (80-100); Mean Platelet Volume 9.9 fL (7.4-10.4); Monocytes # (auto) 0.63 K/uL (0.11-0.59); Monocytes % (auto) 14.4 %; Neutrophils # (auto) 2.12 K/uL (1.4-6.5); Neutrophils % (auto) 48.6 %; Platelet Count 161 K/uL (130-400); RDW Coefficient of Variation 13.5 % (11.5-14.5); RDW Standard Deviation 44.6 fL (36.4-46.3); Red Blood Count 4.57 M/uL (4.7-6.1); White Blood Count 4.36 K/uL (4.8-10.8)
--- NOTE | 2021-02-17 07:11 | Hospitalist Progress Note ---
Date of Service February 17, 2021 Assessment & Plan (1) Altered mental state: Plan: 70 yo M with PMH of stroke with expressive aphasia, dementia, BPH, recurrent UTIs, insomnia presenting with altered mental status and acute UTI AMS - Likely multifactorial with contribution from past stroke with expressive aphasia, dementia and current UTI. Most contribution is likely from acute worsening of baseline dementia as opposed to acute UTI (which may not represent true infection) - Encourage frequent reorientation and redirection - Seroquel 12.5 mg PRN for agitation/delirium - B12 wnl, TSH elevated to 5.7 from 3.4 on day prior- possibly subclinical hypothyroidism, will recheck - RPR pending, B1 pending Dementia - Continue donepezil - Case management in process of facilitating patient's discharge to [facility] for long-term care. Bed available tomorrow. Complicated UTI/prostatitis - Complicated by gender, prior history of recurrent UTI with no prior positive urine cultures - No leukocytosis, afebrile, no symptoms at this time - UCx negative, will treat as prostatitis- d/c ceftriaxone, initiated Keflex 500 mg BID - PSA- 1.89 and LANA normal, patient unlikely to have prostatitis BPH - continue Tamsulosin - bladder scan as needed HLD - continue statin Hx. Stroke - continue ASA GERD - continue PPI DVT: SCD's Code: full Diet: regular Dispo: [facility] on 02/18 (2) Complicated UTI (urinary tract infection): (3) BPH (benign prostatic hyperplasia): (4) Dementia: (5) Cerebral infarct: (6) Hyperlipidemia: (7) Expressive aphasia: (8) GERD (gastroesophageal reflux disease): (9) Insomnia: Admission and Anticipated Discharge Date Admission Date: February 15, 2021 Supervising Physician Co-Signing Physician Notes I personally examined the patient and verified all russ points of history and exam, discussed case, and agree with decision making with Dr Joel. No meaningful HPI or review of systems obtainable. Vitals noted, in general he is awake and alert disoriented pleasant no distress. HEENT normocephalic atraumatic mucous membranes moist. Breathing unlabored no accessory muscle use good effort. Skin shows no rashes no pallor or icterus. Dementia with behavioral disturbance and questionable UTIcontinue current care. Work on SNF placement. Given his dementia, would hesitate to immediately label all altered mental status as a UTIwould want to look for other metabolic causes, or if he has a positive UA look for other signs or symptoms of urinary tract infection, given how relatively common asymptomatic bacteriuria is. Stable for SNF when bed availableotherwise as above. Subjective Pt inconsistently responded to interviewer in morning. Denied acute complaints, stated he's voiding without issue but interview limited by patient's mental status. Review of Systems Review of Systems: Limited by patient's mental status Physical Exam Constitutional: WD/WN, vitals as above Eyes: PERRL, conjunctivae normal, anicteric sclerae Neck: normal visual inspection Respiratory: normal respiratory effort; no respiratory distress Cardiovascular: Rate/Rhythm: regular rate and regular rhythm Heart Sounds: no murmur Extremities: no pedal edema Gastrointestinal (Abdomen): normal bowel sounds, soft, nontender, no hepatosplenomegaly Skin: no rashes, warm and dry Neurologic: + confused; no focal motor deficits Psychiatric: Orientation: oriented to person; + not oriented to place and + not oriented to time Eye Contact: + poor eye contact Affect: euthymic affect Genitourinary: LANA- prostate enlarged, nontender, no nodularity felt Results & Data Results & Data ([facility]) Vital Signs (Past 12 Hours) Vital Signs Temp Pulse Resp BP Pulse Ox 02/17/21 00:01 93 02/16/21 23:40 36.6 C 70 18 154/89 H 88 L Resident Activity Tracking Resident Involvement: Resident Care Provided Care Provided: Adult Hospital Medicine
[2021-02-17 07:48] LABS: BUN Creatinine Ratio 15.5 (10-20); Calcium 8.7 mg/dl (8.5-10.1); Creatinine Clr Calc Pharmacy 38.8 ml/min; Est GFR (African American) 66.4 ml/min; Est GFR (Non-African American) 57.3 ml/min; Potassium 3.9 mmol/L (3.5-5.1); Prostate Specific Antigen 1.89 ng/ml (0-4)
[2021-02-17] MEDS: cephALEXin 500 MG CAP PO SCH ×2 (08:12→20:05)
[2021-02-17] MEDS: CHOLECALCIFEROL 1,000 UNITS 25 MCG TAB PO SCH (08:12)
[2021-02-17] MEDS: ESCITALOPRAM OXALATE 20 MG TAB PO SCH (08:12)
[2021-02-17] MEDS: ATORVASTATIN 10 MG TAB PO SCH (08:12)
[2021-02-17] MEDS: CEROVITE ADV FORMULA TAB PO SCH (08:12)
[2021-02-17] MEDS: busPIRone 5 MG TAB PO SCH (08:13)
[2021-02-17] MEDS: PANTOprazole 40 MG TAB PO SCH (08:13)
[2021-02-17] MEDS: QUEtiapine FUMARATE 25 MG TABLET PO SCH (08:13)
[2021-02-17] MEDS: TAMSULOSIN HCL 0.4 MG CAP PO SCH (08:13)
[2021-02-17] MEDS: DONEPEZIL HCL 10 MG TAB PO SCH (08:13)
[2021-02-17] MEDS: ASPIRIN 81 MG ECTAB PO SCH (08:13)
--- NOTE | 2021-02-17 12:57 | Discharge Summary ---
Date of Service February 18, 2021 Admission HPI Per Admitting Provider Americo Anderson presented to the ER for altered mental status. He was seen by his PCP Dr. Corona one day prior where it was noted that he had not had any recent falls but does have a history of BPH with prior UTI's. He was not able to answer any of my questions when I spoke with him. He was tangential and confabulating. He was brought in by the police for acting bizarre. He lives alone but has family that will check in on him. Admission Exam Per Admitting Provider Constitutional: WD/WN, vitals as above Eyes: PERRL, conjunctivae normal, anicteric sclerae ENMT: external ear and nose normal, oropharynx normal Neck: normal visual inspection Respiratory: normal respiratory effort, able to speak in complete sentences and symmetric chest movement; does not use accessory muscles and no cough Cardiovascular: Rate/Rhythm: regular rate and regular rhythm Heart Sounds: no murmur Extremities: no pedal edema Gastrointestinal (Abdomen) - soft, nTTP - bowel sounds present - no masses appreciated - no guarding Skin: no rashes, warm and dry Neurologic: awake and + confused; no focal motor deficits Psychiatric: Orientation: + not alert and + not oriented x 3 Eye Contact: + poor eye contact Affect: euthymic affect Principal Diagnosis Altered mental status Discharge Exam Constitutional WD/WN, vitals as above Eyes PERRL, conjunctivae normal, anicteric sclerae ENMT external ear and nose normal, oropharynx normal Neck normal visual inspection Respiratory normal respiratory effort; no respiratory distress Cardiovascular Rate/Rhythm: regular rate and regular rhythm Heart Sounds: no murmur Extremities: no pedal edema Gastrointestinal (Abdomen) normal bowel sounds, soft, nontender, no hepatosplenomegaly Skin no rashes, warm and dry Neurologic + confused; no focal motor deficits Psychiatric Orientation: oriented to person; + not oriented to place and + not oriented to time Eye Contact: + poor eye contact Affect: euthymic affect Genitourinary Prostate normal, nontender Discharge Data Allergies Allergy/AdvReac Type Severity Reaction Status Date / Time No Known Allergies Allergy Verified 01/14/21 10:57 Consultations 02/14/21 23:27 ED Decision to Admit Stat Hospital Course (1) Altered mental state: 70 yo M with PMH of stroke with expressive aphasia, dementia, BPH, recurrent UTIs, insomnia presenting with altered mental status and acute UTI. Hospitalized from 02/14 to 02/18 for AMS. AMS/Dementia - Likely multifactorial with contribution from past stroke with expressive aphasia, dementia and current potential UTI. Pt responded fairly well to redirection and did not have any behavioral issues during hospital stay. No PRNs for agitation or delirium were administered. Home donepezil was continued. Collateral from family revealed patient's dementia has acutely worsened over past few months and they believe he cannot live safely alone. Pt's AMS did not improve during hospital stay. Given his history of previous recurrent UTIs despite negative urine cultures and currently asymptomatic with repeat negative urine culture, it is less likely his AMS can be attributed to UTI. It is more likely his AMS is due to his worsening baseline dementia. Further deteriorations in mental status should warrant evaluation beyond possible UTI, including encephalopathy and neuropsychiatric conditions such as B12 deficiency, liver or thyroid dysfunction. Complicated UTI/prostatitis - Urinalysis was suspicious for infection, which was complicated by gender, prior history of recurrent UTI with no prior positive urine cultures. Ceftriaxone was initiated in ED. Pt did not have any fevers, nausea, vomiting, abdominal pain, dysuria or urinary incontinence/frequency. Ceftriaxone was later discontinued in place of Keflex. Prostatitis was also considered, though less likely due to negative LANA and PSA in normal range. Pt discharged with 5 days of PO Keflex to treat possible UTI. BPH - Continued tamsulosin HLD - Continued home atorvastatin Hx. Stroke - Continued daily ASA GERD - Continued PPI (2) Complicated UTI (urinary tract infection): (3) BPH (benign prostatic hyperplasia): (4) Dementia: (5) Cerebral infarct: (6) Hyperlipidemia: (7) Expressive aphasia: (8) GERD (gastroesophageal reflux disease): (9) Insomnia: Discharge Plan Discharge Items Patient Disposition: Home - Home Health Services Reason For Visit: COMPLICATED UTI Discharge Diagnosis: Altered mental status Activity: Per Instructions section Non-emergency contact: Primary Care Provider Call non-emergency contact if: you have any medication questions, your symptoms worsen and you have a fever Follow-up/Referrals: Bailee Corona CRNP [Primary Care Provider] - Diet: Heart Healthy Addtl Attending Provider Instructions: You were admitted to the hospital for altered mental status. Altered mental status -You were admitted to the hospital for altered mental status. We performed several tests to determine the cause of your symptoms, and found that you may have had a urinary tract infection. We treated you with antibiotics, which you will continue after discharge. Your altered mental status may be linked to the possible urinary tract infection you had as well as your diagnosed dementia. You will be transferred to a half-way facility after discharge for long-term care. A discharge summary will be sent to your primary care physician to ensure continuity of care. Please bring this discharge summary with you to your next office appointment so that your provider can review it at that time. Follow-up appointments: Make a follow-up appointment with your PCP within the next week. It is very important that you follow up with them shortly after discharge from the hospital. Keep all your follow-up appointments as already scheduled. If you cannot make an appointment, notify your provider. Medications: Your medication list has been reviewed and reconciled upon discharge to ensure accuracy and continuity of care. An updated list of all your medications is included with your hospital discharge paperwork. Please review this list closely, and make note of any changes. We sent a new medication called Keflex to your pharmacy. Take Keflex 500 mg twice a day for 5 days Take your medications as instructed; do not skip a dose of your medicines. Make sure all of your doctors know every medicine you are taking (including [id number] medicines, vitamins, and supplements). Call your primary care provider before taking any new medicines (including [id number] medicines, vitamins, and supplements), because some of these may interact with your current medications, or may make your symptoms worse. Tell your primary care provider if you cannot afford your medications. CONTACT YOUR PRIMARY CARE PROVIDER if you experience any of the following: Fever Pain when urinating Inability to hold urine Abdominal pain Difficulty following your treatment plan, or difficulty taking medications CALL 911 OR GO TO THE EMERGENCY DEPARTMENT if you experience any of the following: Sudden, severe abdominal pain or nausea/vomiting Severe chest pain, or chest pain that radiates (moves) to your jaw or arm Sudden, severe shortness of breath or difficulty breathing Thank you for allowing us to participate in your care. Pending Studies at Discharge: No Stand-Alone Forms: My [employer], Smoking Cessation Medications and DC Order Prescriptions: New cephalexin 500 mg Capsule 500 mg PO BID Qty: 10 RF: 0 Continued atorvastatin 10 mg tablet 10 mg PO DAILY Qty: 30 RF: 11 omeprazole 20 mg capsule,delayed release(DR/EC) 20 mg PO DAILY Qty: 30 RF: 5 escitalopram oxalate 20 mg tablet 20 mg PO DAILY Qty: 30 RF: 11 magnesium 250 mg tablet 250 mg PO DAILY Qty: 30 RF: 0 donepezil 10 mg tablet 10 mg PO DAILY Qty: 30 RF: 11 buspirone 5 mg tablet 5 mg PO DAILY Qty: 30 RF: 11 docusate sodium [Colace] 100 mg capsule 100 mg PO BID PRNRF: 0 tamsulosin 0.4 mg capsule 0.4 mg PO DAILY Qty: 30 RF: 11 quetiapine [Seroquel] 25 mg tablet 25 mg PO DAILY Qty: 30 RF: 5 Centrum Silver 400-250 mcg tablet,chewable 1 tab PO DAILY RF: 0 cholecalciferol (vitamin D3) 5,000 unit tablet 5,000 units PO DAILY Qty: 30 RF: 0 aspirin [Aspirin Low Dose] 81 mg Tablet,Delayed Release (Dr/Ec) 81 mg PO DAILY RF: 0 Admission Data Admit Date/Time: 02/15/21 10:07 Attending Provider: Zeus Rangel Admit Provider: Benito Dominguez Primary Care Provider: Bailee Corona Other Providers: Quentin Mandujano ; [facility] ; [facility] ; Jonh Lowry Other Interventions: Discharge Summary Assessment (RN) Last Done: 02/18/21 11:20 Resident Activity Tracking Resident Involvement: Resident Care Provided Care Provided: Adult Hospital Medicine
--- NOTE | 2021-02-17 19:49 | Billing Data ---
Date of Service February 17, 2021 Coding Level of Care Code 53610 Subseq Hosp Care Lvl 2
[2021-02-18] MEDS: CHOLECALCIFEROL 1,000 UNITS 25 MCG TAB PO SCH (07:27)
[2021-02-18] MEDS: ESCITALOPRAM OXALATE 20 MG TAB PO SCH (07:27)
[2021-02-18] MEDS: cephALEXin 500 MG CAP PO SCH ×2 (07:27→20:18)
[2021-02-18] MEDS: ASPIRIN 81 MG ECTAB PO SCH (07:27)
[2021-02-18] MEDS: DONEPEZIL HCL 10 MG TAB PO SCH (07:27)
[2021-02-18] MEDS: TAMSULOSIN HCL 0.4 MG CAP PO SCH (07:28)
[2021-02-18] MEDS: ATORVASTATIN 10 MG TAB PO SCH (07:28)
[2021-02-18] MEDS: CEROVITE ADV FORMULA TAB PO SCH (07:28)
[2021-02-18] MEDS: PANTOprazole 40 MG TAB PO SCH (07:28)
[2021-02-18] MEDS: busPIRone 5 MG TAB PO SCH (07:28)
[2021-02-18] MEDS: QUEtiapine FUMARATE 25 MG TABLET PO SCH (07:28)
[2021-02-18 07:51] LABS: Hematocrit (blood only) 44.7 % (42-52); Hemoglobin 15.3 g/dL (14.0-18.0); Mean Corpuscular Hemoglobin 30.7 pg (25-34); Mean Corpuscular Hgb Conc 34.2 g/dL (32-36); Mean Corpuscular Volume 89.8 fL (80-100); Mean Platelet Volume 9.5 fL (7.4-10.4); Platelet Count 167 K/uL (130-400); RDW Coefficient of Variation 13.5 % (11.5-14.5); RDW Standard Deviation 44.7 fL (36.4-46.3); Red Blood Count 4.98 M/uL (4.7-6.1); White Blood Count 5.81 K/uL (4.8-10.8)
[2021-02-18 08:19] LABS: BUN Creatinine Ratio 16.4 (10-20); Calcium 9.2 mg/dl (8.5-10.1); Creatinine Clr Calc Pharmacy 38.8 ml/min; Est GFR (African American) 66.4 ml/min; Est GFR (Non-African American) 57.3 ml/min; Potassium 3.7 mmol/L (3.5-5.1)
--- NOTE | 2021-02-18 16:23 | Hospitalist Progress Note ---
Date of Service February 18, 2021 Assessment & Plan (1) Altered mental state: Plan: 70 yo M with PMH of stroke with expressive aphasia, dementia, BPH, recurrent UTIs, insomnia presenting with altered mental status and acute UTI. Hospitalized from 02/14 to 02/18 for AMS. AMS/Dementia - Likely multifactorial with contribution from past stroke with expressive aphasia, dementia and current potential UTI. Pt responds fairly well to redirection and no behavioral issues yet during hospital stay. Given his history of previous recurrent UTIs despite negative urine cultures and currently asymptomatic with repeat negative urine culture, it is less likely his AMS can be attributed to UTI. It is more likely his AMS is due to his worsening baseline dementia. Further deteriorations in mental status should warrant evaluation beyond possible UTI, including encephalopathy and neuropsychiatric conditions such as B12 deficiency, liver or thyroid dysfunction - Continue home donepezil - Seroquel PRN for agitation - Patient medically stable and awaiting completion of disposition planning and discharge to long-term care facility. Case management ongoing. Complicated UTI/prostatitis - Urinalysis was suspicious for infection, which was complicated by gender, prior history of recurrent UTI with no prior positive urine cultures. Ceftriaxone was initiated in ED. Pt did not have any fevers, nausea, vomiting, abdominal pain, dysuria or urinary incontinence/frequency. Ceftriaxone was later discontinued in place of Keflex. Prostatitis was also considered, though less likely due to negative LANA and PSA in normal range. -Continuing 5 days of PO Keflex to treat possible UTI. BPH - Continued tamsulosin HLD - Continued home atorvastatin Hx. Stroke - Continued daily ASA GERD - Continued PPI (2) Complicated UTI (urinary tract infection): (3) BPH (benign prostatic hyperplasia): (4) Dementia: (5) Cerebral infarct: (6) Hyperlipidemia: (7) Expressive aphasia: (8) GERD (gastroesophageal reflux disease): (9) Insomnia: Admission and Anticipated Discharge Date Admission Date: February 15, 2021 Supervising Physician Co-Signing Physician Notes I personally examined the patient and verified all russ points of history and exam, discussed case, and agree with decision making with Dr Joel. No meaningful HPI or review of systems obtainable. Vitals noted, in general he is awake and alert disoriented pleasant no distress. HEENT normocephalic atraumatic mucous membranes moist. Breathing unlabored no accessory muscle use good effort. Skin shows no rashes no pallor or icterus. Dementia with behavioral disturbance and questionable UTIcontinue current care. Working on SNF placement. Given his dementia, would hesitate to immediately label all altered mental status as a UTIwould want to look for other metabolic causes, or if he has a positive UA look for other signs or symptoms of urinary tract infection, given how relatively common asymptomatic bacteriuria is. Stable for SNF when bed availableotherwise as above. awaiting placement - situation apparently somewhat difficult Subjective Pt inconsistently responded to interviewer in morning. Denied acute complaints, stated he's voiding without issue but interview limited by patient's mental status. Review of Systems Review of Systems: All systems reviewed & are unremarkable except as noted in Subjective Limited by patient's mental status Physical Exam Constitutional: WD/WN, vitals as above Eyes: PERRL, conjunctivae normal, anicteric sclerae ENMT: external ear and nose normal, oropharynx normal Neck: normal visual inspection Respiratory: normal respiratory effort; no respiratory distress Cardiovascular: Rate/Rhythm: regular rate and regular rhythm Heart Sounds: no murmur Extremities: no pedal edema Gastrointestinal (Abdomen): normal bowel sounds, soft, nontender, no hepatosplenomegaly Skin: no rashes, warm and dry Neurologic: + confused; no focal motor deficits Psychiatric: Orientation: oriented to person; + not oriented to place and + not oriented to time Eye Contact: + poor eye contact Results & Data Results & Data ([facility]) Vital Signs (Past 12 Hours) Vital Signs Temp Pulse Pulse Resp BP BP Pulse Ox 02/18/21 11:20 36.3 C L 71 61 16 167/82 H 128/82 95 02/18/21 07:56 36.3 C L 61 16 128/82 95 Resident Activity Tracking Resident Involvement: Resident Care Provided Care Provided: Adult Hospital Medicine
--- NOTE | 2021-02-18 19:20 | Billing Data ---
Date of Service February 18, 2021 Coding Level of Care Code 24152 Subseq Hosp Care Lvl 1
[2021-02-19] MEDS: cephALEXin 500 MG CAP PO SCH ×2 (07:27→20:16)
[2021-02-19] MEDS: CHOLECALCIFEROL 1,000 UNITS 25 MCG TAB PO SCH (07:27)
[2021-02-19] MEDS: TAMSULOSIN HCL 0.4 MG CAP PO SCH (07:27)
[2021-02-19] MEDS: ATORVASTATIN 10 MG TAB PO SCH (07:28)
[2021-02-19] MEDS: busPIRone 5 MG TAB PO SCH (07:28)
[2021-02-19] MEDS: CEROVITE ADV FORMULA TAB PO SCH (07:28)
[2021-02-19] MEDS: QUEtiapine FUMARATE 25 MG TABLET PO SCH (07:28)
[2021-02-19] MEDS: PANTOprazole 40 MG TAB PO SCH (07:28)
[2021-02-19] MEDS: ASPIRIN 81 MG ECTAB PO SCH (07:29)
[2021-02-19] MEDS: DONEPEZIL HCL 10 MG TAB PO SCH (07:29)
[2021-02-19] MEDS: ESCITALOPRAM OXALATE 20 MG TAB PO SCH (07:29)
--- NOTE | 2021-02-19 17:44 | Hospitalist Progress Note ---
Date of Service February 19, 2021 Assessment & Plan (1) Altered mental state: Plan: 70 yo M with PMH of stroke with expressive aphasia, dementia, BPH, recurrent UTIs, insomnia presenting with altered mental status and acute UTI AMS/Dementia - Likely multifactorial with contribution from past stroke with expressive aphasia, dementia and current potential UTI. Pt responds fairly well to redirection and no behavioral issues yet during hospital stay. Given his history of previous recurrent UTIs despite negative urine cultures and currently asymptomatic with repeat negative urine culture, it is less likely his AMS can be attributed to UTI. It is more likely his AMS is due to his worsening baseline dementia. Further deteriorations in mental status should warrant evaluation beyond possible UTI, including encephalopathy and neuropsychiatric conditions such as B12 deficiency, liver or thyroid dysfunction - Continue home donepezil - Seroquel PRN for agitation - Patient medically stable and awaiting completion of disposition planning and discharge to long-term care facility. Case management ongoing. Complicated UTI/prostatitis - Urinalysis was suspicious for infection, which was complicated by gender, prior history of recurrent UTI with no prior positive urine cultures. Ceftriaxone was initiated in ED. Pt did not have any fevers, nausea, vomiting, abdominal pain, dysuria or urinary incontinence/frequency. Ceftriaxone was later discontinued in place of Keflex. Prostatitis was also considered, though less likely due to negative LANA and PSA in normal range. -Continuing PO Keflex to treat possible UTI. BPH - Continue tamsulosin HLD - Continue home atorvastatin Hx. Stroke - Continue daily ASA GERD - Continue PPI (2) Complicated UTI (urinary tract infection): (3) BPH (benign prostatic hyperplasia): (4) Dementia: (5) Cerebral infarct: (6) Hyperlipidemia: (7) Expressive aphasia: (8) GERD (gastroesophageal reflux disease): (9) Insomnia: Admission and Anticipated Discharge Date Admission Date: February 15, 2021 Supervising Physician Co-Signing Physician Notes I personally examined the patient and verified all russ points of history and exam, discussed case, and agree with decision making with Dr Joel. No meaningful HPI or review of systems obtainable. Vitals noted, sleeping comfortably, no distress. HEENT normocephalic atraumatic mucous membranes moist. Breathing unlabored no accessory muscle use good effort. Skin shows no rashes no pallor or icterus. Dementia with behavioral disturbance and questionable UTIcontinue current care. Working on SNF placement. Given his dementia, would hesitate to immediately label all altered mental status as a UTIwould want to look for other metabolic causes, or if he has a positive UA look for other signs or symptoms of urinary tract infection, given how relatively common asymptomatic bacteriuria is. Stable for SNF when bed availableotherwise as above. awaiting placement - situation apparently somewhat difficult Subjective Pt inconsistently responded to interviewer in morning. Denied acute complaints but interview limited by patient's mental status. Review of Systems Review of Systems: Limited by patient's mental status Physical Exam Constitutional: WD/WN, vitals as above Eyes: PERRL, conjunctivae normal, anicteric sclerae Neck: normal visual inspection Respiratory: normal respiratory effort; no respiratory distress Cardiovascular: Rate/Rhythm: regular rate and regular rhythm Heart Sounds: no murmur Extremities: no pedal edema Gastrointestinal (Abdomen): normal bowel sounds, soft, nontender, no hepatosplenomegaly Skin: no rashes, warm and dry Neurologic: + confused; no focal motor deficits Psychiatric: Orientation: oriented to person; + not oriented to place and + not oriented to time Eye Contact: + poor eye contact Affect: euthymic affect Results & Data Results & Data ([facility]) Vital Signs (Past 12 Hours) Vital Signs Temp Pulse Resp BP BP Pulse Ox 02/19/21 15:42 36.7 C 55 L 16 157/96 H 96 02/19/21 07:44 36.5 C 61 16 119/69 94 Resident Activity Tracking Resident Involvement: Resident Care Provided Care Provided: Adult Hospital Medicine
--- NOTE | 2021-02-19 19:29 | Billing Data ---
Date of Service February 19, 2021 Coding Level of Care Code 61764 Subseq Hosp Care Lvl 1
[2021-02-20] MEDS: CHOLECALCIFEROL 1,000 UNITS 25 MCG TAB PO SCH (08:08)
[2021-02-20] MEDS: busPIRone 5 MG TAB PO SCH (08:08)
[2021-02-20] MEDS: cephALEXin 500 MG CAP PO SCH ×2 (08:08→20:42)
[2021-02-20] MEDS: CEROVITE ADV FORMULA TAB PO SCH (08:08)
[2021-02-20] MEDS: DONEPEZIL HCL 10 MG TAB PO SCH (08:08)
[2021-02-20] MEDS: TAMSULOSIN HCL 0.4 MG CAP PO SCH (08:08)
[2021-02-20] MEDS: ASPIRIN 81 MG ECTAB PO SCH (08:09)
[2021-02-20] MEDS: ESCITALOPRAM OXALATE 20 MG TAB PO SCH (08:09)
[2021-02-20] MEDS: ATORVASTATIN 10 MG TAB PO SCH (08:09)
[2021-02-20] MEDS: QUEtiapine FUMARATE 25 MG TABLET PO SCH (08:09)
[2021-02-20] MEDS: PANTOprazole 40 MG TAB PO SCH (08:09)
--- NOTE | 2021-02-20 18:35 | Hospitalist Progress Note ---
Date of Service February 20, 2021 Assessment & Plan (1) Altered mental state: Plan: 70 yo M with PMH of stroke with expressive aphasia, dementia, BPH, recurrent UTIs, insomnia presenting with altered mental status and acute UTI AMS/Dementia - Likely multifactorial with contribution from past stroke with expressive aphasia, dementia and current potential UTI. Pt responds fairly well to redirection and no behavioral issues yet during hospital stay. Given his history of previous recurrent UTIs despite negative urine cultures and currently asymptomatic with repeat negative urine culture, it is less likely his AMS can be attributed to UTI. It is more likely his AMS is due to his worsening baseline dementia. Further deteriorations in mental status should warrant evaluation beyond possible UTI, including encephalopathy and neuropsychiatric conditions such as B12 deficiency, liver or thyroid dysfunction - Continue home donepezil - Seroquel PRN for agitation - Patient medically stable dispo planning has been difficult. pt's son and case management working on it. Complicated UTI/prostatitis - Urinalysis was suspicious for infection, which was complicated by gender, prior history of recurrent UTI with no prior positive urine cultures. Ceftriaxone was initiated in ED. Pt did not have any fevers, nausea, vomiting, abdominal pain, dysuria or urinary incontinence/frequency. Ceftriaxone was later discontinued in place of Keflex. Prostatitis was also considered, though less likely due to negative LANA and PSA in normal range. -Continuing PO Keflex to treat possible UTI. BPH - Continue tamsulosin HLD - Continue home atorvastatin Hx. Stroke - Continue daily ASA GERD - Continue PPI (2) Complicated UTI (urinary tract infection): (3) BPH (benign prostatic hyperplasia): (4) Dementia: (5) Cerebral infarct: (6) Hyperlipidemia: (7) Expressive aphasia: (8) GERD (gastroesophageal reflux disease): (9) Insomnia: Admission and Anticipated Discharge Date Admission Date: February 15, 2021 Subjective no new problems identified, still waiting placement. sleeping comfortably. Physical Exam Physical Exam: resting comforatbly nad heent nc at mmm breathing unlabored no accessory muscles good effort skin no rashes no pallor or icterus Results & Data Results & Data ([facility]) Vital Signs (Past 12 Hours) Vital Signs Temp Pulse Resp BP Pulse Ox 02/20/21 15:53 98.1 F 69 18 130/81 95 02/20/21 08:17 97.9 F 52 L 16 121/81 99 PG Care Time/CCT Total # of Minutes Spent Total Time Spent with Patient: Total time spent is greater than 50% in coordination of care (as documented) at patient's floor/unit and/or counseling patient: Coding Level of Care Code 40626 Subseq Hosp Care Lvl 1 Diagnoses Altered mental state R41.82 Complicated UTI (urinary tract infection) N39.0 BPH (benign prostatic hyperplasia) N40.0 Dementia F03.90 Cerebral infarct I63.9 Hyperlipidemia E78.5 Expressive aphasia R47.01 GERD (gastroesophageal reflux disease) K21.9 Insomnia G47.00
[2021-02-21] MEDS: cephALEXin 500 MG CAP PO SCH ×2 (10:05→20:37)
[2021-02-21] MEDS: ATORVASTATIN 10 MG TAB PO SCH (10:05)
[2021-02-21] MEDS: ESCITALOPRAM OXALATE 20 MG TAB PO SCH (10:06)
[2021-02-21] MEDS: busPIRone 5 MG TAB PO SCH (10:06)
[2021-02-21] MEDS: PANTOprazole 40 MG TAB PO SCH (10:06)
[2021-02-21] MEDS: ASPIRIN 81 MG ECTAB PO SCH (10:06)
[2021-02-21] MEDS: CEROVITE ADV FORMULA TAB PO SCH (10:06)
[2021-02-21] MEDS: CHOLECALCIFEROL 1,000 UNITS 25 MCG TAB PO SCH (10:06)
[2021-02-21] MEDS: QUEtiapine FUMARATE 25 MG TABLET PO SCH (10:06)
[2021-02-21] MEDS: TAMSULOSIN HCL 0.4 MG CAP PO SCH (10:07)
[2021-02-21] MEDS: DONEPEZIL HCL 10 MG TAB PO SCH (10:07)
--- NOTE | 2021-02-21 19:14 | Hospitalist Progress Note ---
Date of Service February 21, 2021 Assessment & Plan (1) Altered mental state: Plan: 70 yo M with PMH of stroke with expressive aphasia, dementia, BPH, recurrent UTIs, insomnia presenting with altered mental status and acute UTI AMS/Dementia - Likely multifactorial with contribution from past stroke with expressive aphasia, dementia and current potential UTI. Pt responds fairly well to redirection and no behavioral issues yet during hospital stay. Given his history of previous recurrent UTIs despite negative urine cultures and currently asymptomatic with repeat negative urine culture, it is less likely his AMS can be attributed to UTI. It is more likely his AMS is due to his worsening baseline dementia. Further deteriorations in mental status should warrant evaluation beyond possible UTI, including encephalopathy and neuropsychiatric conditions such as B12 deficiency, liver or thyroid dysfunction - Continue home donepezil - Seroquel PRN for agitation - Patient medically stable dispo planning has been difficult. pt's son and case management working on it. It sounds like he may be able to move to personal care by early to mid next week Complicated UTI/prostatitis - Urinalysis was suspicious for infection, which was complicated by gender, prior history of recurrent UTI with no prior positive urine cultures. Ceftriaxone was initiated in ED. Pt did not have any fevers, nausea, vomiting, abdominal pain, dysuria or urinary incontinence/frequency. Ceftriaxone was later discontinued in place of Keflex. Prostatitis was also considered, though less likely due to negative LANA and PSA in normal range. -Continuing PO Keflex to treat possible UTI. 7 days total for complicated UTI. BPH - Continue tamsulosin HLD - Continue home atorvastatin Hx. Stroke - Continue daily ASA GERD - Continue PPI (2) Complicated UTI (urinary tract infection): (3) BPH (benign prostatic hyperplasia): (4) Dementia: (5) Cerebral infarct: (6) Hyperlipidemia: (7) Expressive aphasia: (8) GERD (gastroesophageal reflux disease): (9) Insomnia: Admission and Anticipated Discharge Date Admission Date: February 15, 2021 Subjective Eating breakfast. Still has his pancake left, although he has his syrup open. No complaints that he can voice. Review of Systems Review of Systems: Unobtainable due to cognitive status Physical Exam Physical Exam: Awake and alert but seems quite disoriented today. Pleasant no distress. HEENT normocephalic atraumatic mucous membranes moist. Breathing unlabored no accessory muscle use good effort. Skin shows no rashes no pallor or icterus. Neuro without focal deficits. Results & Data Results & Data ([facility]) Vital Signs (Past 12 Hours) Vital Signs Temp Pulse Resp BP Pulse Ox 02/21/21 14:59 97.9 F 89 16 136/90 95 02/21/21 07:54 98.6 F 67 16 132/80 95 PG Care Time/CCT Total # of Minutes Spent Total Time Spent with Patient: Total time spent is greater than 50% in coordination of care (as documented) at patient's floor/unit and/or counseling patient: Coding Level of Care Code 10990 Subseq Hosp Care Lvl 1 Diagnoses Altered mental state R41.82 Complicated UTI (urinary tract infection) N39.0 BPH (benign prostatic hyperplasia) N40.0 Dementia F03.90 Cerebral infarct I63.9 Hyperlipidemia E78.5 Expressive aphasia R47.01 GERD (gastroesophageal reflux disease) K21.9 Insomnia G47.00
[2021-02-22] MEDS: CEROVITE ADV FORMULA TAB PO SCH (09:35)
[2021-02-22] MEDS: cephALEXin 500 MG CAP PO SCH ×2 (09:35→21:54)
[2021-02-22] MEDS: ASPIRIN 81 MG ECTAB PO SCH (09:36)
[2021-02-22] MEDS: QUEtiapine FUMARATE 25 MG TABLET PO SCH (09:36)
[2021-02-22] MEDS: ATORVASTATIN 10 MG TAB PO SCH (09:37)
[2021-02-22] MEDS: TAMSULOSIN HCL 0.4 MG CAP PO SCH (09:37)
[2021-02-22] MEDS: busPIRone 5 MG TAB PO SCH (09:37)
[2021-02-22] MEDS: ESCITALOPRAM OXALATE 20 MG TAB PO SCH (09:37)
[2021-02-22] MEDS: CHOLECALCIFEROL 1,000 UNITS 25 MCG TAB PO SCH (09:38)
[2021-02-22] MEDS: DONEPEZIL HCL 10 MG TAB PO SCH (09:38)
[2021-02-22] MEDS: PANTOprazole 40 MG TAB PO SCH (09:38)
--- NOTE | 2021-02-22 19:47 | Hospitalist Progress Note ---
Date of Service February 22, 2021 Assessment & Plan (1) Altered mental state: Plan: 70 yo M with PMH of stroke with expressive aphasia, dementia, BPH, recurrent UTIs, insomnia presenting with altered mental status and acute UTI AMS/Dementia - Likely multifactorial with contribution from past stroke with expressive aphasia, dementia and current potential UTI. Pt responds fairly well to redirection and no behavioral issues yet during hospital stay. Given his history of previous recurrent UTIs despite negative urine cultures and currently asymptomatic with repeat negative urine culture, it is less likely his AMS can be attributed to UTI. It is more likely his AMS is due to his worsening baseline dementia. Further deteriorations in mental status should warrant evaluation beyond possible UTI, including encephalopathy and neuropsychiatric conditions such as B12 deficiency, liver or thyroid dysfunction - Continue home donepezil - Seroquel PRN for agitation - Patient medically stable, anticipate probably personal care next week for disposition. Complicated UTI/prostatitis - Urinalysis was suspicious for infection, which was complicated by gender, prior history of recurrent UTI with no prior positive urine cultures. Ceftriaxone was initiated in ED. Pt did not have any fevers, nausea, vomiting, abdominal pain, dysuria or urinary incontinence/frequency. Ceftriaxone was later discontinued in place of Keflex. Prostatitis was also considered, though less likely due to negative LANA and PSA in normal range. -Continuing PO Keflex to treat possible UTI. 7 days total for complicated UTI. (Antibiotics to be completed after morning dose of 8/8) BPH - Continue tamsulosin HLD - Continue home atorvastatin Hx. Stroke - Continue daily ASA GERD - Continue PPI (2) Complicated UTI (urinary tract infection): (3) BPH (benign prostatic hyperplasia): (4) Dementia: (5) Cerebral infarct: (6) Hyperlipidemia: (7) Expressive aphasia: (8) GERD (gastroesophageal reflux disease): (9) Insomnia: Admission and Anticipated Discharge Date Admission Date: February 15, 2021 Subjective Sleeping comfortably. No new issues identified. Physical Exam Physical Exam: In general he is laying in bed appearing comfortable no distress. HEENT normocephalic atraumatic. Breathing unlabored no accessory muscle use. Skin without pallor or icterus. No new focal neuro deficits at rest. Results & Data Results & Data ([facility]) Vital Signs (Past 12 Hours) Vital Signs Temp Pulse Pulse Resp BP Pulse Ox 02/22/21 15:53 98.6 F 102 H 17 122/86 97 02/22/21 12:15 96.4 F L 68 18 121/79 94 02/22/21 07:57 98.1 F 63 14 120/76 94 PG Care Time/CCT Total # of Minutes Spent Total Time Spent with Patient: Total time spent is greater than 50% in coordination of care (as documented) at patient's floor/unit and/or counseling patient: Coding Level of Care Code 76431 Subseq Hosp Care Lvl 1 Diagnoses Altered mental state R41.82 Complicated UTI (urinary tract infection) N39.0 BPH (benign prostatic hyperplasia) N40.0 Dementia F03.90 Cerebral infarct I63.9 Hyperlipidemia E78.5 Expressive aphasia R47.01 GERD (gastroesophageal reflux disease) K21.9 Insomnia G47.00
[2021-02-23] MEDS: cephALEXin 500 MG CAP PO SCH (09:01)
[2021-02-23] MEDS: QUEtiapine FUMARATE 25 MG TABLET PO SCH (09:02)
[2021-02-23] MEDS: busPIRone 5 MG TAB PO SCH (09:02)
[2021-02-23] MEDS: ESCITALOPRAM OXALATE 20 MG TAB PO SCH (09:03)
[2021-02-23] MEDS: DONEPEZIL HCL 10 MG TAB PO SCH (09:03)
[2021-02-23] MEDS: ASPIRIN 81 MG ECTAB PO SCH (09:03)
[2021-02-23] MEDS: TAMSULOSIN HCL 0.4 MG CAP PO SCH (09:03)
[2021-02-23] MEDS: CHOLECALCIFEROL 1,000 UNITS 25 MCG TAB PO SCH (09:03)
[2021-02-23] MEDS: CEROVITE ADV FORMULA TAB PO SCH (09:04)
[2021-02-23] MEDS: PANTOprazole 40 MG TAB PO SCH (09:04)
[2021-02-23] MEDS: ATORVASTATIN 10 MG TAB PO SCH (09:04)
--- NOTE | 2021-02-23 16:54 | Hospitalist Progress Note ---
Date of Service February 23, 2021 Assessment & Plan (1) Altered mental state: Plan: 70 yo M with PMH of stroke with expressive aphasia, dementia, BPH, recurrent UTIs, insomnia presenting with altered mental status and acute UTI AMS/Dementia - Likely multifactorial with contribution from past stroke with expressive aphasia, dementia and current potential UTI. Pt responds fairly well to redirection and no behavioral issues yet during hospital stay. Given his history of previous recurrent UTIs despite negative urine cultures and currently asymptomatic with repeat negative urine culture, it is less likely his AMS can be attributed to UTI. It is more likely his AMS is due to his worsening baseline dementia. Further deteriorations in mental status should warrant evaluation beyond possible UTI, including encephalopathy and neuropsychiatric conditions such as B12 deficiency, liver or thyroid dysfunction - Continue home donepezil - Seroquel PRN for agitation - Patient medically stable, anticipate probably personal care next week for disposition. (See case management notes) Complicated UTI/prostatitis - Urinalysis was suspicious for infection, which was complicated by gender, prior history of recurrent UTI with no prior positive urine cultures. Ceftriaxone was initiated in ED. Pt did not have any fevers, nausea, vomiting, abdominal pain, dysuria or urinary incontinence/frequency. Ceftriaxone was later discontinued in place of Keflex. Prostatitis was also considered, though less likely due to negative LANA and PSA in normal range. -Continuing PO Keflex to treat possible UTI. Was treated for 7 days total for complicated UTI. BPH - Continue tamsulosin HLD - Continue home atorvastatin Hx. Stroke - Continue daily ASA GERD - Continue PPI (2) Complicated UTI (urinary tract infection): (3) BPH (benign prostatic hyperplasia): (4) Dementia: (5) Cerebral infarct: (6) Hyperlipidemia: (7) Expressive aphasia: (8) GERD (gastroesophageal reflux disease): (9) Insomnia: Admission and Anticipated Discharge Date Admission Date: February 15, 2021 Subjective Sleeping comfortably Physical Exam Physical Exam: Sleeping comfortably. No distress. HEENT normocephalic atraumatic. Breathing unlabored no accessory muscle use. No focal neuro deficits at rest. Results & Data Results & Data ([facility]) Vital Signs (Past 12 Hours) Vital Signs Temp Pulse Resp BP Pulse Ox 02/23/21 14:56 98.2 F 90 18 136/90 93 02/23/21 07:40 97.7 F 74 16 123/80 94 PG Care Time/CCT Total # of Minutes Spent Total Time Spent with Patient: Total time spent is greater than 50% in coordination of care (as documented) at patient's floor/unit and/or counseling patient: Coding Level of Care Code 82675 Subseq Hosp Care Lvl 1 Diagnoses Altered mental state R41.82 Complicated UTI (urinary tract infection) N39.0 BPH (benign prostatic hyperplasia) N40.0 Dementia F03.90 Cerebral infarct I63.9 Hyperlipidemia E78.5 Expressive aphasia R47.01 GERD (gastroesophageal reflux disease) K21.9 Insomnia G47.00
[2021-02-23] MEDS: QUEtiapine FUMARATE 25 MG TABLET PO PRN (21:20)
--- NOTE | 2021-02-24 09:12 | Hospitalist Progress Note ---
Date of Service February 24, 2021 Assessment & Plan (1) Altered mental state: Plan: 70 yo M with PMH of stroke with expressive aphasia, dementia, BPH, recurrent UTIs, insomnia presenting with altered mental status and acute UTI encephalopathy suspect metabolic encephalopathy - Likely multifactorial with contribution from past stroke with expressive aphasia, dementia and initial concern for UTI. Pt responds fairly well to redirection and no behavioral issues yet during hospital stay. Given his negative urine cultures and currently asymptomatic with repeat negative urine culture, It is more likely his AMS is due to his worsening baseline dementia. - Continue home donepezil - Seroquel scheduled for sleep and PRN for agitation - Patient medically stable, anticipate probably personal care next week for disposition. (See case management notes) Complicated UTI/prostatitis - Urinalysis was suspicious for infection, which was complicated by gender, prior history of recurrent UTI with no prior positive urine cultures. Ceftriaxone was initiated in ED. Pt did not have any fevers, nausea, vomiting, abdominal pain, dysuria or urinary incontinence/frequency. Ceftriaxone was later discontinued in place of Keflex. Prostatitis was also considered, though less likely due to negative LANA and PSA in normal range. -Continuing PO Keflex to treat possible UTI. Was treated for 7 days total for complicated UTI. BPH - Continue tamsulosin HLD - Continue home atorvastatin Hx. Stroke - Continue daily ASA GERD - Continue PPI (2) Complicated UTI (urinary tract infection): (3) BPH (benign prostatic hyperplasia): (4) Dementia: (5) Cerebral infarct: (6) Hyperlipidemia: (7) Expressive aphasia: (8) GERD (gastroesophageal reflux disease): (9) Insomnia: Admission and Anticipated Discharge Date Admission Date: February 15, 2021 Subjective Patient was seen with presence of his at the bedside reportedly he had a difficult morning ambulating around taking his clothes off etc. Patient continues with encephalopathy felt to be secondary to prolonged hypoglycemic state Review of Systems Review of Systems: Unable to obtain due to mental status Physical Exam Physical Exam: The patient appeared well nourished and normally developed. He was slow of mentation and speech but when aroused he was able to have somewhat of a slow conversation with simple answers Vital signs as documented. Head exam is normocephalic atraumatic Neck is without JVD, thyromegaly, or carotid bruits. Lungs are clear to auscultation, no focal loss of breath sounds Cardiac exam, Rhythm is regular.. No murmurs, rubs or gallops. Abdominal exam reveals normal bowel sounds, soft non tender, no masses Extremities are nonedematous and both pedal pulses are present Neurologic exam is awake and able to follow commands,, no focal loss of strength or sensation Skin is without bruises or rashes Psychologically is with concerns for encephalopathy unclear if longstanding memory issues are present Results & Data Results & [facility] ([facility]) Vital Signs (Past 12 Hours) Vital Signs Temp Pulse Resp BP Pulse Ox 02/24/21 07:42 98.2 F 66 16 109/67 93 02/23/21 22:40 98.8 F 74 16 135/75 94 PG Care Time/CCT Total # of Minutes Spent Total Time Spent with Patient: Total time spent is greater than 50% in coordination of care (as documented) at patient's floor/unit and/or counseling patient: Coding Level of Care Code 64299 Subseq Hosp Care Lvl 2 Diagnoses Altered mental state R41.82 Complicated UTI (urinary tract infection) N39.0 BPH (benign prostatic hyperplasia) N40.0 Dementia F03.90 Cerebral infarct I63.9 Hyperlipidemia E78.5 Expressive aphasia R47.01 GERD (gastroesophageal reflux disease) K21.9 Insomnia G47.00
[2021-02-24] MEDS: ATORVASTATIN 10 MG TAB PO SCH (10:04)
[2021-02-24] MEDS: ASPIRIN 81 MG ECTAB PO SCH (10:04)
[2021-02-24] MEDS: CHOLECALCIFEROL 1,000 UNITS 25 MCG TAB PO SCH (10:04)
[2021-02-24] MEDS: busPIRone 5 MG TAB PO SCH (10:04)
[2021-02-24] MEDS: PANTOprazole 40 MG TAB PO SCH (10:05)
[2021-02-24] MEDS: ESCITALOPRAM OXALATE 20 MG TAB PO SCH (10:05)
[2021-02-24] MEDS: DONEPEZIL HCL 10 MG TAB PO SCH (10:05)
[2021-02-24] MEDS: CEROVITE ADV FORMULA TAB PO SCH (10:05)
[2021-02-24] MEDS: TAMSULOSIN HCL 0.4 MG CAP PO SCH (10:05)
[2021-02-24] MEDS ORDERED: MELATONIN 3 MG TAB PO ONE (17:42)
[2021-02-24] MEDS ORDERED: QUEtiapine FUMARATE 25 MG TABLET PO SCH ×2 (21:00)
[2021-02-25 08:34] LABS: Hematocrit (blood only) 39.2 % (42-52); Hemoglobin 13.6 g/dL (14.0-18.0); Mean Corpuscular Hemoglobin 31.1 pg (25-34); Mean Corpuscular Hgb Conc 34.7 g/dL (32-36); Mean Corpuscular Volume 89.5 fL (80-100); Mean Platelet Volume 9.7 fL (7.4-10.4); Platelet Count 194 K/uL (130-400); RDW Coefficient of Variation 13.2 % (11.5-14.5); RDW Standard Deviation 43.4 fL (36.4-46.3); Red Blood Count 4.38 M/uL (4.7-6.1); White Blood Count 6.67 K/uL (4.8-10.8)
--- NOTE | 2021-02-25 08:57 | Hospitalist Progress Note ---
Date of Service February 25, 2021 Assessment & Plan (1) Altered mental state: Plan: 70 yo M with PMH of stroke with expressive aphasia, dementia, BPH, recurrent UTIs, insomnia presenting with altered mental status and acute UTI encephalopathy suspect metabolic encephalopathy - Likely multifactorial with contribution from past stroke with expressive aphasia, dementia and initial concern for UTI. Pt responds fairly well to redirection and no behavioral issues yet during hospital stay. Given his negative urine cultures and currently asymptomatic with repeat negative urine culture, It is more likely his AMS is due to his worsening baseline dementia. - Continue home donepezil - Seroquel PRN for agitation - Patient medically stable, anticipate probably personal care this week for disposition. (See case management notes) Complicated UTI/prostatitis - Urinalysis was suspicious for infection, which was complicated by gender, prior history of recurrent UTI with no prior positive urine cultures. Ceftriaxone was initiated in ED. Pt did not have any fevers, nausea, vomiting, abdominal pain, dysuria or urinary incontinence/frequency. Ceftriaxone was later discontinued in place of Keflex. Prostatitis was also considered, though less likely due to negative LANA and PSA in normal range. -Completed PO Keflex to treat possible UTI, treated for 7 days total for complicated UTI. BPH - Continue tamsulosin HLD - Continue home atorvastatin Hx. Stroke - Continue daily ASA GERD - Continue PPI (2) Complicated UTI (urinary tract infection): (3) BPH (benign prostatic hyperplasia): (4) Dementia: (5) Cerebral infarct: (6) Hyperlipidemia: (7) Expressive aphasia: (8) GERD (gastroesophageal reflux disease): (9) Insomnia: Admission and Anticipated Discharge Date Admission Date: February 15, 2021 Subjective pt is pleasantly confused but answers questions non sensically for personal long-term placement Review of Systems Review of Systems: Unable to obtain due to mental status Physical Exam Physical Exam: The patient appeared well nourished and normally developed. He was slow of mentation and speech but when aroused he was able to have somewhat of a slow conversation with simple answers Vital signs as documented. Head exam is normocephalic atraumatic Neck is without JVD, thyromegaly, or carotid bruits. Lungs are clear to auscultation, no focal loss of breath sounds Cardiac exam, Rhythm is regular.. No murmurs, rubs or gallops. Abdominal exam reveals normal bowel sounds, soft non tender, no masses Extremities are nonedematous and both pedal pulses are present Neurologic exam is awake and able to follow commands,, no focal loss of strength or sensation Skin is without bruises or rashes Psychologically is with concerns for encephalopathy unclear if longstanding memory issues are present Results & Data Results & Data ([facility]) Vital Signs (Past 12 Hours) Vital Signs Temp Pulse Resp BP Pulse Ox 02/25/21 08:11 98.4 F 64 16 134/84 94 02/24/21 22:44 97.5 F L 72 18 121/79 93 PG Care Time/CCT Total # of Minutes Spent Total Time Spent with Patient: Total time spent is greater than 50% in coor dination of care (as documented) at patient's floor/unit and/or counseling patient: Coding Level of Care Code 27369 Subseq Hosp Care Lvl 3 Diagnoses Altered mental state R41.82 Complicated UTI (urinary tract infection) N39.0 BPH (benign prostatic hyperplasia) N40.0 Dementia F03.90 Cerebral infarct I63.9 Hyperlipidemia E78.5 Expressive aphasia R47.01 GERD (gastroesophageal reflux disease) K21.9 Insomnia G47.00
[2021-02-25 09:04] LABS: BUN Creatinine Ratio 16.9 (10-20); Calcium 8.8 mg/dl (8.5-10.1); Creatinine Clr Calc Pharmacy 49.8 ml/min; Est GFR (African American) 89.7 ml/min; Est GFR (Non-African American) 77.4 ml/min; Potassium 3.6 mmol/L (3.5-5.1)
[2021-02-25] MEDS: DONEPEZIL HCL 10 MG TAB PO SCH (10:00)
[2021-02-25] MEDS: PANTOprazole 40 MG TAB PO SCH (10:00)
[2021-02-25] MEDS: CEROVITE ADV FORMULA TAB PO SCH (10:00)
[2021-02-25] MEDS: CHOLECALCIFEROL 1,000 UNITS 25 MCG TAB PO SCH (10:00)
[2021-02-25] MEDS: TAMSULOSIN HCL 0.4 MG CAP PO SCH (10:00)
[2021-02-25] MEDS: ESCITALOPRAM OXALATE 20 MG TAB PO SCH (10:00)
[2021-02-25] MEDS: ASPIRIN 81 MG ECTAB PO SCH (10:00)
[2021-02-25] MEDS: ATORVASTATIN 10 MG TAB PO SCH (10:00)
[2021-02-26] MEDS: ESCITALOPRAM OXALATE 20 MG TAB PO SCH (08:46)
[2021-02-26] MEDS: DONEPEZIL HCL 10 MG TAB PO SCH (08:46)
[2021-02-26] MEDS: ATORVASTATIN 10 MG TAB PO SCH (08:47)
[2021-02-26] MEDS: ASPIRIN 81 MG ECTAB PO SCH (08:47)
[2021-02-26] MEDS: CHOLECALCIFEROL 1,000 UNITS 25 MCG TAB PO SCH (08:47)
[2021-02-26] MEDS: CEROVITE ADV FORMULA TAB PO SCH (08:47)
[2021-02-26] MEDS: PANTOprazole 40 MG TAB PO SCH (08:47)
[2021-02-26] MEDS: TAMSULOSIN HCL 0.4 MG CAP PO SCH (08:48)
--- NOTE | 2021-02-26 17:40 | Discharge Summary ---
Date of Service February 26, 2021 Principal Diagnosis infectious encephalopathy from complicated UTI POA dementia Discharge Exam Patient was pleasantly demented cooperative and appeared in no distress Discharge Data Allergies Allergy/AdvReac Type Severity Reaction Status Date / Time No Known Allergies Allergy Verified 01/14/21 10:57 Consultations 02/14/21 23:27 ED Decision to Admit Stat Hospital Course (1) Altered mental state: 70 yo M with PMH of stroke with expressive aphasia, dementia, BPH, recurrent UTIs, insomnia presenting with altered mental status and acute UTI encephalopathy suspect metabolic encephalopathy - Likely multifactorial with contribution from past stroke with expressive aphasia, dementia and initial concern for UTI. Pt responds fairly well to redirection and no behavioral issues yet during hospital stay. It is more likely his altered sensorium is contributed to his worsening baseline dementia. - Continue home donepezil -May consider Seroquel PRN for agitation - Patient medically stable, anticipate probably personal care this week for disposition. (See case management notes) Complicated UTI/prostatitis - Urinalysis was suspicious for infection, which was complicated by gender, prior history of recurrent UTI with no prior positive urine cultures. Ceftriaxone was initiated in ED. Pt did not have any fevers, nausea, vomiting, abdominal pain, dysuria or urinary incontinence/frequency. Ceftriaxone was later discontinued in place of Keflex. Prostatitis was also considered, though less likely due to negative LANA and PSA in normal range. -Completed PO Keflex to treat possible UTI, for complicated UTI. BPH - Continue tamsulosin HLD - Continue home atorvastatin Hx. Stroke - Continue daily ASA GERD - Continue PPI (2) Complicated UTI (urinary tract infection): (3) BPH (benign prostatic hyperplasia): (4) Dementia: (5) Cerebral infarct: (6) Hyperlipidemia: (7) Expressive aphasia: (8) GERD (gastroesophageal reflux disease): (9) Insomnia: Total Time Total Time Spent Total Time Spent (In Minutes): It required less than 30 minutes to prepare this patient for discharge Discharge Plan Discharge Items Patient Disposition: Personal Shelter Reason For Visit: COMPLICATED UTI Discharge Diagnosis: Altered mental status Activity: Per Instructions section Non-emergency contact: Primary Care Provider Call non-emergency contact if: you have any medication questions, your symptoms worsen and you have a fever Follow-up/Referrals: Bailee Corona CRNP [Primary Care Provider] - 03/03/21 11:00 am Diet: Heart Healthy Addtl Attending Provider Instructions: You were admitted to the hospital for altered mental status. Altered mental status -You were admitted to the hospital for altered mental status. We performed several tests to determine the cause of your symptoms, and found that you may have had a urinary tract infection. We treated you with antibiotics, which you will continue after discharge. Your altered mental status may be linked to the possible urinary tract infection you had as well as your diagnosed dementia. You will be transferred to a senior care facility after discharge for long-term care. A discharge summary will be sent to your primary care physician to ensure continuity of care. Please bring this discharge summary with you to your next office appointment so that your provider can review it at that time. Follow-up appointments: Make a follow-up appointment with your PCP within the next week. It is very important that you follow up with them shortly after discharge from the hospital. Keep all your follow-up appointments as already scheduled. If you cannot make an appointment, notify your provider. Medications: Your medication list has been reviewed and reconciled upon discharge to ensure accuracy and continuity of care. An updated list of all your medications is included with your hospital discharge paperwork. Please review this list closely, and make note of any changes. We sent a new medication called Keflex to your pharmacy. Take Keflex 500 mg twice a day for 5 days Take your medications as instructed; do not skip a dose of your medicines. Make sure all of your doctors know every medicine you are taking (including [id number] medicines, vitamins, and supplements). Call your primary care provider before taking any new medicines (including [id number] medicines, vitamins, and supplements), because some of these may interact with your current medications, or may make your symptoms worse. Tell your primary care provider if you cannot afford your medications. CONTACT YOUR PRIMARY CARE PROVIDER if you experience any of the following: Fever Pain when urinating Inability to hold urine Abdominal pain Difficulty following your treatment plan, or difficulty taking medications CALL 911 OR GO TO THE EMERGENCY DEPARTMENT if you experience any of the following: Sudden, severe abdominal pain or nausea/vomiting Severe chest pain, or chest pain that radiates (moves) to your jaw or arm Sudden, severe shortness of breath or difficulty breathing Thank you for allowing us to participate in your care. Pending Studies at Discharge: No Stand-Alone Forms: My [facility], Smoking Cessation Skilled Items Patient informed of condition?: Yes DNR: No Discharge Level of Care: Other Communicable Disease: No Discharge Prognosis: Stable Lines: None Urinary Catheter: No Medications and DC Order Prescriptions: New cephalexin 500 mg Capsule 500 mg PO BID Qty: 10 RF: 0 Continued magnesium 250 mg tablet 250 mg PO DAILY Qty: 30 RF: 0 atorvastatin 10 mg tablet 10 mg PO DAILY Qty: 30 RF: 11 donepezil 10 mg tablet 10 mg PO DAILY Qty: 30 RF: 11 aspirin [Aspirin Low Dose] 81 mg Tablet,Delayed Release (Dr/Ec) 81 mg PO DAILY Qty: 90 RF: 3 tamsulosin 0.4 mg capsule 0.4 mg PO DAILY Qty: 30 RF: 11 docusate sodium [Colace] 100 mg capsule 100 mg PO BID PRN (Reason: constipation) Qty: 90 RF: 0 omeprazole 20 mg capsule,delayed release(DR/EC) 20 mg PO DAILY Qty: 30 RF: 5 escitalopram oxalate 20 mg tablet 20 mg PO DAILY Qty: 30 RF: 11 cholecalciferol (vitamin D3) 5,000 unit tablet 5,000 units PO DAILY Qty: 30 RF: 0 Centrum Silver 400-250 mcg tablet,chewable 1 tab PO DAILY Qty: 90 RF: 3 Discontinued buspirone 5 mg tablet 5 mg PO DAILY Qty: 30 RF: 11 quetiapine [Seroquel] 25 mg tablet 25 mg PO DAILY Qty: 30 RF: 5 Discharge Orders: Discharge Order (Routine); Ordered 02/26/21 Ordered By: Wang Coles Admission Data Admit Date/Time: 02/15/21 10:07 Attending Provider: Wang Coles Admit Provider: Benito Dominguez Primary Care Provider: Bailee Corona Other Providers: Quentin Mandujano ; Jonh Lowry Other Interventions: Discharge Summary Assessment (RN) Last Done: 02/26/21 09:58 Coding Level of Care Code D/C DAY MANAGEMENT <30 MINS Diagnoses Altered mental state R41.82 Complicated UTI (urinary tract infection) N39.0 BPH (benign prostatic hyperplasia) N40.0 Dementia F03.90 Cerebral infarct I63.9 Hyperlipidemia E78.5 Expressive aphasia R47.01 GERD (gastroesophageal reflux disease) K21.9 Insomnia G47.00
== END 2021-02-26 11:08 | disposition home or self-care (01) | DRG 689 ==
LOC: ED 21:11 → 3N 21:11 → SUATTDRO 02-15 10:07
DX: G93.41 Metabolic encephalopathy; Z79.82 Long term (current) use of aspirin; K21.9 Gastro-esophageal reflux disease without esophagitis; N39.0 Urinary tract infection, site not specified; E78.5 Hyperlipidemia, unspecified; F03.90 Unspecified dementia, unspecified severity, without behavioral disturbance, psychotic disturbance, mood disturbance, and anxiety; N41.9 Inflammatory disease of prostate, unspecified; I69.320 Aphasia following cerebral infarction; N40.0 Benign prostatic hyperplasia without lower urinary tract symptoms

== ENCOUNTER 2021-08-25 17:54 | Inpatient (IN) ==
[2021-08-25] MEDS ORDERED: LORazepam 2 MG/4 ML VIAL IV STA (18:31)
[2021-08-25] MEDS ORDERED: SODIUM CHLORIDE 0.9% 1000ML 1,000 ML IV ONE ×2 (18:31→18:36)
[2021-08-25] MEDS ORDERED: cefTRIAXone SODIUM 1,000 MG/50 ML BAG IV STA (18:31)
--- NOTE | 2021-08-25 18:36 | Emergency Department Note ---
Impression & Plan Sepsis, Altered mental state, Acute UTI ED Provider Note NAME: LAURA DOE AGE: 70 SEX: M : 1950 ARRIVES VIA: Ambulance INFORMANT: Patient, Concha Groves [facility] ED PROVIDER(S): Zeus Whitfield DO CHIEF COMPLAINT: Altered mental status HPI: Patient is a 70-year-old male brought in from [facility] for increased agitation and confusion over this past weekend. It has been getting gradually worse and today he has been uncontrollable and very agitated. He has been very agitated and aggressive towards everyone within [place]. He was brought in by police and EMS handcuffed spitting and kicking. He denies all complaints. He denies any headache or change in vision. No chest pain or shortness of breath. No cough or runny nose. No belly pain, nausea, vomiting, or diarrhea. No dysuria, urgency, or frequency. His brother notes that he sometimes does get this and has severe dementia and has had UTIs recently Concha from the [facility] gives the remainder of the history as directed above. ROS: Review of systems Limited secondary to mentation PAST MEDICAL HISTORY:See Below PAST SURGICAL HISTORY:See Below FAMILY HISTORY:See Below SOCIAL HISTORY:See Below HOME MEDICATIONS:See Below ALLERGIES:See Below VITALS:See Below PHYSICAL EXAMINATION: GENERAL: Lying in bed agitated already in four-point restraints HEAD: NC/AT EYE EXAM: normal conjunctiva. PERRL and EOM's grossly intact. OROPHARYNX: no exudate, no erythema, lips, buccal mucosa, and tongue normal and mucous membranes are moist NECK: supple, no nuchal rigidity, no adenopathy, non-tender LUNGS: Clear to auscultation. Normal chest wall mechanics HEART: no murmurs, S1 normal and S2 normal ABDOMEN: abdomen soft, non-tender, normo-active bowel sounds, no masses, no rebound or guarding. UPPER EXTREMITIES: upper extremities are grossly normal. LOWER EXTREMITIES: No pitting edema. NEURO EXAM: Awake alert oriented to person but not place or year thrashing around in four-point restraints MEDICAL DECISION MAKING: Patient is a 70-year-old gentleman who presents ER for above-stated complaint. Patient was febrile and extremely agitated.He was given IV Ativan for sedation time 2 mg. IV was established blood work was obtained. Labs show Mild leuk openia 3.9 thousand. No significant anemia. INR was unremarkable. BMP with a slightly elevated BUN at 25. Lactate was elevated at 3. LFTs bilirubin and troponin was negative. Lipase is unremarkable. UA does suggest a UTI although was contaminated. He was given IV fluids and IV Rocephin. He was updated bedside. CT head was negative. Did discuss with family attempted to call his brother initially upon arrival and then discussed with the [facility] and also contacted his brother Kory who agreed with treatment And sedation for the agitation. He was restrained. He was given Ativan and eventually removed from restraints. Triage Nursing notes reviewed. Limited review of prior medical records performed Vital Signs: reviewed and remarkable for febrile Differential diagnosis: Differential diagnoses includes but is not limited to toxic, metabolic, infectious, traumatic, cardiac, neurologic, hematologic, psychiatric and inflammatory etiologies. ER treatment provided: See below Diagnostics interpreted by me: ECG: none Cardiac Monitoring: An order was placed for continuous cardiac monitoring. The monitor shows a rate of 55 with sinus rhythm. Laboratory studies: As stated above and show below. Imaging studies: CT head was negative Chest x-ray was unremarkable Consultation(s): none Procedures: none Critical Care: I have personally spent 32 minutes of critical care time in the direct manageme nt of this patient. This includes bedside care, interpretation of diagnostic studies, and testing, discussion with consultants, patient, and family members, and other required patient management activities. This 32 minutes is in excess of all separately billable procedures. Past Med/Surg History Medical History Arthritis of right hip Cellulitis and abscess of face Dementia Dental abscess Depression with anxiety Elevated BP without diagnosis of hypertension Expressive aphasia Hyperlipidemia Vitamin D insufficiency Surgical History H/O total hip arthroplasty Right History of hernia repair Family History Mother Myocardial infarction Other Hypertension Denies family history of Ovarian cancer Prostate cancer Breast cancer Colorectal cancer Social History Smoking Status: Unknown if ever smoked Second Hand Exposure: No (unknown); Hx Alcohol Use: No (unknown) Hx Substance Use: No Preferred Language: Amharic Communication Ability: Impaired [employer] Intern[employer] Required: No Beliefs That Will Affect Care: None marital status: Single Current Living Situation: Alone Current Living Situation Comment: pt lives at home alone, family is concerned for safety. current occupational status: disabled Feels Safe at Home: Declines to Answer Childhood Exposure to Second-Hand Smoke: No caffeine: Yes during the past year weight has: remained stable Dental Care, Regularly: Yes Seatbelt Use: always Sunscreen Use: No Assistive Devices: None Allergies Allergies Allergy/AdvReac Type Severity Reaction Status Date / Time No Known Allergies Allergy Verified 08/25/21 19:21 Home Meds Home Medications Medication Instructions Recorded Confirmed docusate sodium 100 mg capsule 100 mg PO DAILY 08/25/21 08/25/21 (Colace) multivitamin-iron 9 mg-folic acid 1 tab PO DAILY 08/25/21 08/25/21 400 mcg-calcium and minerals tablet (Therems-M) quetiapine 50 mg tablet 50 mg PO HS 08/25/21 08/25/21 Previous Rx's Medication Instructions Recorded aspirin 81 mg tablet,delayed 81 mg PO DAILY #90 tab 02/26/21 release (Aspirin Low Dose) atorvastatin 10 mg tablet 10 mg PO DAILY #30 tab 02/26/21 cholecalciferol (vitamin D3) 125 5,000 units PO DAILY #30 tab 02/26/21 mcg (5,000 unit) tablet donepezil 10 mg tablet 10 mg PO DAILY #30 tab 02/26/21 escitalopram oxalate 20 mg tablet 20 mg PO DAILY #30 tab 02/26/21 omeprazole 20 mg capsule,delayed 20 mg PO DAILY #30 cap 02/26/21 release tamsulosin 0.4 mg capsule 0.4 mg PO DAILY #30 cap 02/26/21 Results & Data (ED) Vital Signs Vital Signs - 24 hr 08/25/21 17:41 08/25/21 18:27 08/25/21 19:20 Temperature 38.1 C H Temperature Source Rectal Pulse Rate 90 72 Pulse Rate from SpO2 Sensor Pulse Rhythm Regular Pulse Strength Normal Respiratory Rate 16 15 Respiratory Effort / Characteristics Non-Labored Respiratory Depth Normal Blood Pressure 133/84 Blood Pressure Mean 100 Blood Pressure Position Lying Pulse Oximetry 98 96 Oxygen Delivery Method Room Air Sepsis Recent Fever Within 48 Hours Yes Sepsis New/Unexplained Change in Mental Status Yes Sepsis Action Taken by Nursing Physician Notified 08/25/21 19:30 08/25/21 20:00 08/25/21 20:30 Temperature Temperature Source Pulse Rate 71 61 59 L Pulse Rate from SpO2 Sensor Pulse Rhythm Pulse Strength Respiratory Rate 16 17 21 Respiratory Effort / Characteristics Respiratory Depth Blood Pressure 140/74 Blood Pressure Mean 96 Blood Pressure Position Pulse Oximetry Oxygen Delivery Method Sepsis Recent Fever Within 48 Hours Sepsis New/Unexplained Change in Mental Status Sepsis Action Taken by Nursing 08/25/21 21:00 08/25/21 21:30 Temperature Temperature Source Pulse Rate 54 L 52 L Pulse Rate from SpO2 Sensor 54 L 52 L Pulse Rhythm Pulse Strength Respiratory Rate 15 13 Respiratory Effort / Characteristics Respiratory Depth Blood Pressure Blood Pressure Mean Blood Pressure Position Pulse Oximetry 93 94 Oxygen Delivery Method Sepsis Recent Fever Within 48 Hours Sepsis New/Unexplained Change in Mental Status Sepsis Action Taken by Nursing Laboratory Data Result diagrams: 08/25/21 18:46 08/25/21 18:46 Lab Results 08/25/21 08/25/21 08/25/21 Range/Units 18:46 18:46 18:46 WBC 3.93 L (4.8-10.8) K/uL RBC 4.41 L (4.7-6.1) M/uL Hgb 13.8 L (14.0-18.0) g/dL Hct 40.1 L (42-52) % MCV 90.9 (80-100) fL MCH 31.3 (25-34) pg MCHC 34.4 (32-36) g/dL RDW Std Deviation 43.8 (36.4-46.3) fL RDW Coeff of Anjelica 13.2 (11.5-14.5) % Plt Count 137 (130-400) K/uL MPV 9.8 (7.4-10.4) fL Immature Gran % (Auto) 0.0 % Neut % (Auto) 52.3 % Lymph % (Auto) 32.1 % [place] % (Auto) 14.5 % Eos % (Auto) 0.8 % Baso % (Auto) 0.3 % Neut # (Auto) 2.06 (1.4-6.5) K/uL Lymph # (Auto) 1.26 (1.2-3.4) K/uL [place] # (Auto) 0.57 (0.11-0.59) K/uL Eos # (Auto) 0.03 (0-0.5) K/uL Baso # (Auto) 0.01 (0-0.2) K/uL Immature Gran # (Auto) 0.00 (0.00-0.02) K/uL PT 10.3 (9.0-12.0) Seconds INR 1.0 (0.9-1.1) Sodium 137 (136-145) mmol/L Potassium 3.9 (3.5-5.1) mmol/L Chloride 103 (98-107) mmol/L Carbon Dioxide 22 (21-32) mmol/L Anion Gap 12 H (3-11) BUN 25 H (6-23) mg/dl Creatinine 1.39 (0.6-1.4) mg/dl Est Cr Clr Drug Dosing Not Reportable Est GFR ( Amer) 59.5 ml/min Est GFR (Non-Af Amer) 51.3 ml/min BUN/Creatinine Ratio 18.0 (10-20) Glucose 92 (70-99(Fasting)) mg/dl Lactate (0.4-2.0) mmol/L Calcium 9.3 (8.5-10.1) mg/dl Total Bilirubin 0.6 (0.2-1.0) mg/dl AST 20 (13-39) U/L ALT 16 (7-52) U/L Alkaline Phosphatase 82 (34-104) U/L Troponin I < 0.03 (0-0.04) ng/ml Total Protein 6.9 (6.0-8.3) gm/dl Albumin 4.1 (3.4-5.0) gm/dl Globulin 2.8 (2.5-4.0) gm/dl Albumin/Globulin Ratio 1.5 (0.9-2) Lipase 37 (11-82) U/L Urine Color Urine Appearance (Clear) Urine pH (4.5-7.5) Ur Specific [place] (1.000-1.030) Urine Protein (Negative) Urine Glucose (UA) (Negative) Urine Ketones (Negative) Urine Blood (Negative) Urine Nitrite (Negative) Urine Bilirubin (Negative) Urine Urobilinogen (Negative) Ur Leukocyte Esterase (Negative) Urine WBC (Auto) (0-5) /hpf Urine RBC (Auto) (0-4) /hpf U Hyaline Cast (Auto) (0-5) /lpf U Epithel Cells (Auto) (0-5) /lpf Urine Bacteria (Auto) (Negative) Urine Yeast (None Prsent) SARS-CoV-2, RNA, NAAT (NEGATIVE) 08/25/21 08/25/21 08/25/21 Range/Units 18:46 18:46 18:46 WBC (4.8-10.8) K/uL RBC (4.7-6.1) M/uL Hgb (14.0-18.0) g/dL Hct (42-52) % MCV (80-100) fL MCH (25-34) pg MCHC (32-36) g/dL RDW Std Deviation (36.4-46.3) fL RDW Coeff of Anjelica (11.5-14.5) % Plt Count (130-400) K/uL MPV (7.4-10.4) fL Immature Gran % (Auto) % Neut % (Auto) % Lymph % (Auto) % [place] % (Auto) % Eos % (Auto) % Baso % (Auto) % Neut # (Auto) (1.4-6.5) K/uL Lymph # (Auto) (1.2-3.4) K/uL [place] # (Auto) (0.11-0.59) K/uL Eos # (Auto) (0-0.5) K/uL Baso # (Auto) (0-0.2) K/uL Immature Gran # (Auto) (0.00-0.02) K/uL PT (9.0-12.0) Seconds INR (0.9-1.1) Sodium (136-145) mmol/L Potassium (3.5-5.1) mmol/L Chloride (98-107) mmol/L Carbon Dioxide (21-32) mmol/L Anion Gap (3-11) BUN (6-23) mg/dl Creatinine (0.6-1.4) mg/dl Est Cr Clr Drug Dosing Est GFR ( Amer) ml/min Est GFR (Non-Af Amer) ml/min BUN/Creatinine Ratio (10-20) Glucose (70-99(Fasting)) mg/dl Lactate 3.9 H* (0.4-2.0) mmol/L Calcium (8.5-10.1) mg/dl Total Bilirubin (0.2-1.0) mg/dl AST (13-39) U/L ALT (7-52) U/L Alkaline Phosphatase (34-104) U/L Troponin I (0-0.04) ng/ml Total Protein (6.0-8.3) gm/dl Albumin (3.4-5.0) gm/dl Globulin (2.5-4.0) gm/dl Albumin/Globulin Ratio (0.9-2) Lipase (11-82) U/L Urine Color Dark Yellow Urine Appearance Turbid A (Clear) Urine pH 5.0 (4.5-7.5) Ur Specific [place] 1.028 (1.000-1.030) Urine Protein 1+ H (Negative) Urine Glucose (UA) Negative (Negative) Urine Ketones 1+ H (Negative) Urine Blood 3+ H (Negative) Urine Nitrite Negative (Negative) Urine Bilirubin Negative (Negative) Urine Urobilinogen Negative (Negative) Ur Leukocyte Esterase 3+ H (Negative) Urine WBC (Auto) >30 H (0-5) /hpf Urine RBC (Auto) 5-10 H (0-4) /hpf U Hyaline Cast (Auto) 1-5 (0-5) /lpf U Epithel Cells (Auto) 20-30 H (0-5) /lpf Urine Bacteria (Auto) Negative (Negative) Urine Yeast Budding A (None Prsent) SARS-CoV-2, RNA, NAAT NEGATIVE (NEGATIVE) 08/25/21 Range/Units 20:43 WBC (4.8-10.8) K/uL RBC (4.7-6.1) M/uL Hgb (14.0-18.0) g/dL Hct (42-52) % MCV (80-100) fL MCH (25-34) pg MCHC (32-36) g/dL RDW Std Deviation (36.4-46.3) fL RDW Coeff of Anjelica (11.5-14.5) % Plt Count (130-400) K/uL MPV (7.4-10.4) fL Immature Gran % (Auto) % Neut % (Auto) % Lymph % (Auto) % [place] % (Auto) % Eos % (Auto) % Baso % (Auto) % Neut # (Auto) (1.4-6.5) K/uL Lymph # (Auto) (1.2-3.4) K/uL [place] # (Auto) (0.11-0.59) K/uL Eos # (Auto) (0-0.5) K/uL Baso # (Auto) (0-0.2) K/uL Immature Gran # (Auto) (0.00-0.02) K/uL PT (9.0-12.0) Seconds INR (0.9-1.1) Sodium (136-145) mmol/L Potassium (3.5-5.1) mmol/L Chloride (98-107) mmol/L Carbon Dioxide (21-32) mmol/L Anion Gap (3-11) BUN (6-23) mg/dl Creatinine (0.6-1.4) mg/dl Est Cr Clr Drug Dosing Est GFR ( Amer) ml/min Est GFR (Non-Af Amer) ml/min BUN/Creatinine Ratio (10-20) Glucose (70-99(Fasting)) mg/dl Lactate 0.8 (0.4-2.0) mmol/L Calcium (8.5-10.1) mg/dl Total Bilirubin (0.2-1.0) mg/dl AST (13-39) U/L ALT (7-52) U/L Alkaline Phosphatase (34-104) U/L Troponin I (0-0.04) ng/ml Total Protein (6.0-8.3) gm/dl Albumin (3.4-5.0) gm/dl Globulin (2.5-4.0) gm/dl Albumin/Globulin Ratio (0.9-2) Lipase (11-82) U/L Urine Color Urine Appearance (Clear) Urine pH (4.5-7.5) Ur Specific [place] (1.000-1.030) Urine Protein (Negative) Urine Glucose (UA) (Negative) Urine Ketones (Negative) Urine Blood (Negative) Urine Nitrite (Negative) Urine Bilirubin (Negative) Urine Urobilinogen (Negative) Ur Leukocyte Esterase (Negative) Urine WBC (Auto) (0-5) /hpf Urine RBC (Auto) (0-4) /hpf U Hyaline Cast (Auto) (0-5) /lpf U Epithel Cells (Auto) (0-5) /lpf Urine Bacteria (Auto) (Negative) Urine Yeast (None Prsent) SARS-CoV-2, RNA, NAAT (NEGATIVE) Administered Medications Discontinued Medications Sodium Chloride (Nss 1000ml) 1,000 mls @ 999 mls/hr IV .Q1H1M ONE Stop: 08/25/21 19:31 Last Infusion: 08/25/21 19:42 Dose: 0 mls/hr Documented by: [id number] Admin: 08/25/21 18:41 Dose: 999 mls/hr Documented by: [id number] Ceftriaxone Sodium (Rocephin) 1,000 mg in 50 mls @ 100 mls/hr IV NOW STA Stop: 08/25/21 19:00 Last Infusion: 08/25/21 19:14 Dose: 0 mls/hr Documented by: [id number] Admin: 08/25/21 18:44 Dose: 100 mls/hr Documented by: [id number] Lorazepam (Ativan) 2 mg in 4 mls @ 4 mls/min IV NOW STA Stop: 08/25/21 18:32 Last Admin: 08/25/21 18:39 Dose: 4 mls/min Documented by: [id number] Sodium Chloride (Nss 1000ml) 1,000 mls @ 999 mls/hr IV .Q1H1M ONE Stop: 08/25/21 19:36 Last Infusion: 08/25/21 19:42 Dose: 0 mls/hr Documented by: [id number] Admin: 08/25/21 18:41 Dose: 999 mls/hr Documented by: [id number] Imaging Data Radiologist's Impression: Chest X-Ray 08/25/21 18:27 XR chest 1V portable CLINICAL HISTORY: Altered mental status. COMPARISON STUDY: Chest radiograph October 12, 2020. FINDINGS: Lung volumes are mildly diminished. Hazy left basilar density is unchanged. There is no pneumothorax or pleural effusion. Cardiac size is normal. Mediastinal contours are normal. There is no evidence for pulmonary edema. IMPRESSION: No acute cardiopulmonary findings. No significant change in appearance of the chest. ACT 112: Negative or not required by law. Electronically signed by: Tra Fernandez M.D. 08/25/2021 7:[address] 08/25/21 18:36 CT OF THE HEAD WITHOUT CONTRAST CLINICAL HISTORY: Altered mental status. COMPARISON STUDY: Head CT June 03, 2018. MRI of the brain June 21, 2018. CT DOSE: 1311.06 mGy.cm TECHNIQUE: Helical axial images of the head were obtained without IV contrast. Automated exposure control was utilized for the study. A dose lowering technique was utilized adhering to the principles of ALARA. FINDINGS: No acute intracranial hemorrhage, midline shift or mass effect is present. The ventricular system is unremarkable. White matter hypodensity suggests small vessel disease. The basal cisterns are patent. No extra-axial collections are present. There are no findings to suggest acute dural sinus thrombosis or acute territorial infarct. No significant calvarial abnormalities are present. IMPRESSION: No acute intracranial findings. ACT 112: Negative or not required by law. Electronically signed by: Tra Fernandez M.D. 08/25/2021 8:36 PM Discharge Plan Visit Data Chief Complaint: Urinary Symptoms ED Provider: Zeus Whitfield Discharge Problem: Sepsis, Altered mental state, Acute UTI Forms Stand Alone Forms: My [facility] Prescriptions Prescriptions: No Action atorvastatin 10 mg tablet 10 mg PO DAILY Qty: 30 RF: 11 donepezil 10 mg tablet 10 mg PO DAILY Qty: 30 RF: 11 aspirin [Aspirin Low Dose] 81 mg Tablet,Delayed Release (Dr/Ec) 81 mg PO DAILY Qty: 90 RF: 3 tamsulosin 0.4 mg capsule 0.4 mg PO DAILY Qty: 30 RF: 11 omeprazole 20 mg capsule,delayed release(DR/EC) 20 mg PO DAILY Qty: 30 RF: 5 escitalopram oxalate 20 mg tablet 20 mg PO DAILY Qty: 30 RF: 11 cholecalciferol (vitamin D3) 5,000 unit tablet 5,000 units PO DAILY Qty: 30 RF: 0 quetiapine 50 mg tablet 50 mg PO HS RF: 0 Therems-M 9 mg iron-400 mcg Tablet 1 tab PO DAILY RF: 0 docusate sodium [Colace] 100 mg capsule 100 mg PO DAILY RF: 0 Referrals Referrals: Kalie Orozco [Primary Care Provider] -
[2021-08-25 19:03] LABS: Basophils # (auto) 0.01 K/uL (0-0.2); Basophils % (auto) 0.3 %; Eosinophils # (auto) 0.03 K/uL (0-0.5); Eosinophils % (auto) 0.8 %; Hematocrit (blood only) 40.1 % (42-52); Hemoglobin 13.8 g/dL (14.0-18.0); Lymphocytes # (auto) 1.26 K/uL (1.2-3.4); Lymphocytes % (auto) 32.1 %; Mean Corpuscular Hemoglobin 31.3 pg (25-34); Mean Corpuscular Hgb Conc 34.4 g/dL (32-36); Mean Corpuscular Volume 90.9 fL (80-100); Mean Platelet Volume 9.8 fL (7.4-10.4); Monocytes # (auto) 0.57 K/uL (0.11-0.59); Monocytes % (auto) 14.5 %; Neutrophils # (auto) 2.06 K/uL (1.4-6.5); Neutrophils % (auto) 52.3 %; Platelet Count 137 K/uL (130-400); RDW Coefficient of Variation 13.2 % (11.5-14.5); RDW Standard Deviation 43.8 fL (36.4-46.3); Red Blood Count 4.41 M/uL (4.7-6.1); White Blood Count 3.93 K/uL (4.8-10.8)
[2021-08-25 19:16] LABS: Prothrombin Time 10.3 Seconds (9.0-12.0)
[2021-08-25 19:18] LABS: Appearance Urine Turbid (Clear); Bacteria Urine Automated Negative (Negative); Bilirubin Urine Negative (Negative); Blood Urine 3+ (Negative); Color Urine Dark Yellow; Epithelial Cell Urine Auto 20-30 /lpf (0-5); Glucose Urine UA Negative (Negative); Ketones Urine 1+ (Negative); Leukocyte Esterase Urine 3+ (Negative); Nitrite Urine Negative (Negative); Protein Urine 1+ (Negative); Specific Gravity Urine 1.028 (1.000-1.030); Urobilinogen Urine Negative (Negative); WBC Urine Automated >30 /hpf (0-5)
[2021-08-25 19:24] LABS: Alanine Aminotransferase 16 U/L (7-52); Albumin Globulin Ratio 1.5 (0.9-2); Albumin Level 4.1 gm/dl (3.4-5.0); Alkaline Phosphatase 82 U/L (34-104); Anion Gap 12 (3-11); Aspartate Aminotransferase 20 U/L (13-39); Bilirubin,Total 0.6 mg/dl (0.2-1.0); Blood Urea Nitrogen 25 mg/dl (6-23); Calcium 9.3 mg/dl (8.5-10.1); Carbon Dioxide 22 mmol/L (21-32); Chloride 103 mmol/L (98-107); Est GFR (African American) 59.5 ml/min; Est GFR (Non-African American) 51.3 ml/min; Globulin 2.8 gm/dl (2.5-4.0); Glucose 92 mg/dl (70-99(Fasting)); Lipase 37 U/L (11-82); Potassium 3.9 mmol/L (3.5-5.1); Sodium 137 mmol/L (136-145); Total Protein 6.9 gm/dl (6.0-8.3); Troponin I < 0.03 ng/ml (0-0.04)
--- NOTE | 2021-08-25 19:46 | XRay Report ---
XR chest 1V portable CLINICAL HISTORY: Altered mental status. COMPARISON STUDY: Chest radiograph October 12, 2020. FINDINGS: Lung volumes are mildly diminished. Hazy left basilar density is unchanged. There is no pne umothorax or pleural effusion. Cardiac size is normal. Mediastinal contours are normal. There is no e vidence for pulmonary edema. IMPRESSION: No acute cardiopulmonary findings. No significant change in appearance of the chest. ACT 112: Negative or not required by law. Electronically signed by: Tra Fernandez M.D. 08/25/2021 7:45 PM
--- NOTE | 2021-08-25 20:38 | CT Scan Report ---
CT OF THE HEAD WITHOUT CONTRAST CLINICAL HISTORY: Altered mental status. COMPARISON STUDY: Head CT June 03, 2018. MRI of the brain June 21, 2018. CT DOSE: 1311.06 mGy.cm TECHNIQUE: Helical axial images of the head were obtained without IV contrast. Automated exposure con trol was utilized for the study. A dose lowering technique was utilized adhering to the principles o f ALARA. FINDINGS: No acute intracranial hemorrhage, midline shift or mass effect is present. The ventricular system is unremarkable. White matter hypodensity suggests small vessel disease. The basal cisterns ar e patent. No extra-axial collections are present. There are no findings to suggest acute dural sinus thrombosis or acute territorial infarct. No significant calvarial abnormalities are present. IMPRESSION: No acute intracranial findings. ACT 112: Negative or not required by law. Electronically signed by: Tra Fernandez M.D. 08/25/2021 8:36 PM
--- NOTE | 2021-08-25 21:31 | History & Physical Report ---
Date of Service August 25, 2021 Assessment & Plan (1) Altered mental state: Plan: Patient presents with agitated delirium - confusion, combativeness and aggression - progressive over the last 2-3 days. Possibly secondary to UTI as below. Patient has had similar presentations with UTI in the past. He is febrile at 38.1, blood pressure stable. Lactate initially 3.9 which has improved to 0.8 with IVF (2L NSS given in ER) - possibly secondary to agitation with underlying sepsis as well. CT Head is unremarkable - no acute intracranial pathology. -Admit to medical -Maintain 1:1 observation as needed -Restraints as needed -Fall precautions -Check Mg, PO4, TSH, Ammonia -Frequent orientation and delirium prevention strategies -Continue Seroquel qHS (2) Complicated UTI (urinary tract infection): Plan: Urine culture sent -Monitor culture results -Continue Ceftriaxone 1gm IV daily (3) Dementia: Plan: Chronic -Continue Aricept 10mg po daily -Frequent orientation, avoid delirium inducing agents (4) GERD (gastroesophageal reflux disease): Plan: Chronic -Pepcid 40mg po daily while inpatient (5) BPH (benign prostatic hyperplasia): Plan: Chronic -Continue Flomax -Monitor UOP, Bladder scan as needed for decreased UOP (6) Hyperlipidemia: Plan: Chronic -Continue Atorvastatin 10mg po daily Plan: F/E/N - NSS at 80mL/hr x 1 liter, montior electrolytes and replete as needed - check Mg and PO4 x 1, regular diet as tolerated when mental state improves Ppx - Lovenox Code - Full per chart review Dispo - Observation to medical History of Present Illness Chief Complaint: [facility] Primary Care Provider: [facility] Americo Anderson is a 70yo C male with histoyr of HLP, GERD and Dementia presenting from his prison with worsening agitation and combativeness. Patient has had some worsening confusion over the last 2-3 days. Tonight he was very combative with staff and residents at [facility]. He was brought in by police and EMS - handcuffs in place. Patient was kicking, spitting and cursing at staff. Limited history obtained but patient denies all complaints, specific ally GOFF, visual change, chest pain, SOB, cough, runny nose, abdominal pain, nausea, vomiting, diarrhea or dysuria. ER Course: Ceftriaxone 1gm, NSS x 2L, Ativan 2mg IV Allergies Allergy/AdvReac Type Severity Reaction Status Date / Time No Known Allergies Allergy Verified 08/25/21 19:21 Home Medications Medication Instructions Recorded Confirmed Type aspirin 81 mg tablet,delayed 81 mg PO DAILY #90 tab 02/26/21 08/25/21 Rx release (Aspirin Low Dose) atorvastatin 10 mg tablet 10 mg PO DAILY #30 tab 02/26/21 08/25/21 Rx cholecalciferol (vitamin D3) 125 5,000 units PO DAILY #30 tab 02/26/21 08/25/21 Rx mcg (5,000 unit) tablet donepezil 10 mg tablet 10 mg PO DAILY #30 tab 02/26/21 08/25/21 Rx escitalopram oxalate 20 mg tablet 20 mg PO DAILY #30 tab 02/26/21 08/25/21 Rx omeprazole 20 mg capsule,delayed 20 mg PO DAILY #30 cap 02/26/21 08/25/21 Rx release tamsulosin 0.4 mg capsule 0.4 mg PO DAILY #30 cap 02/26/21 08/25/21 Rx docusate sodium 100 mg capsule 100 mg PO DAILY 08/25/21 08/25/21 History (Colace) multivitamin-iron 9 mg-folic acid 1 tab PO DAILY 08/25/21 08/25/21 History 400 mcg-calcium and minerals tablet (Therems-M) quetiapine 50 mg tablet 50 mg PO HS 08/25/21 08/25/21 History Past Med/Surg History Medical History Arthritis of right hip Cellulitis and abscess of face Dementia Dental abscess Depression with anxiety Elevated BP without diagnosis of hypertension Expressive aphasia Hyperlipidemia Vitamin D insufficiency Surgical History H/O total hip arthroplasty Right History of hernia repair Family History Mother Myocardial infarction Other Hypertension Denies family history of Ovarian cancer Prostate cancer Breast cancer Colorectal cancer Social History Smoking Status: Unknown if ever smoked Second Hand Exposure: No (unknown); Hx Alcohol Use: No (unknown) Hx Substance Use: No Preferred Language: Serbian Communication Ability: Impaired Medical Office Specialist Required: No Beliefs That Will Affect Care: None marital status: Single Current Living Situation: Alone Current Living Situation Comment: pt lives at home alone, family is concerned for safety. current occupational status: disabled Feels Safe at Home: Declines to Answer Childhood Exposure to Second-Hand Smoke: No caffeine: Yes during the past year weight has: remained stable Dental Care, Regularly: Yes Seatbelt Use: always Sunscreen Use: No Assistive Devices: None Review of Systems Review of Systems: Unobtainable due to reduced consciousness Physical Exam Physical Exam: General: patient somnolent after receiving Ativan in the ER, unable to answer questions or follow commands. PERRL, withdraws 4 extremities from noxious stimuli Skin: warm, dry, intact, bruising present on bilateral arms, legs HEENT: NC/AT, PERRL, anicteric sclera, conjunctiva without injection, external ear normal to inspection, nares patent, moist mucus membranes, trachea midline, no LAD, no thyromegaly, no JVD Heart: +S1/S2, regular, no m/r/g Lungs: equal air entry bilaterally, no rales/rhonchi/wheezes Abd: +BS, soft, NT/ND, no masses/organomegaly/ascites Ext: warm, 2+ pulses in UE/LE bilaterally, no clubbing/cyanosis or edema Neuro:somnolent after sedation, nonverbal at present, no focal deficits on limited exam Results & Data Results & Data ([facility]) Vital Signs (Past 12 Hours) Vital Signs Temp Pulse Resp BP Pulse Ox 08/25/21 18:27 96 08/25/21 17:41 38.1 C H 90 16 133/84 98 Laboratory Results Laboratory Results WBC 3.93 K/uL (4.8-10.8) L 08/25/21 18:46 RBC 4.41 M/uL (4.7-6.1) L 08/25/21 18:46 Hgb 13.8 g/dL (14.0-18.0) L 08/25/21 18:46 Hct 40.1 % (42-52) L 08/25/21 18:46 MCV 90.9 fL (80-100) 08/25/21 18:46 MCH 31.3 pg (25-34) 08/25/21 18:46 MCHC 34.4 g/dL (32-36) 08/25/21 18:46 RDW Std Deviation 43.8 fL (36.4-46.3) 08/25/21 18:46 RDW Coeff of Anjelica 13.2 % (11.5-14.5) 08/25/21 18:46 Plt Count 137 K/uL (130-400) 08/25/21 18:46 MPV 9.8 fL (7.4-10.4) 08/25/21 18:46 Immature Gran % (Auto) 0.0 % 08/25/21 18:46 Neut % (Auto) 52.3 % 08/25/21 18:46 Lymph % (Auto) 32.1 % 08/25/21 18:46 Mckean % (Auto) 14.5 % 08/25/21 18:46 Eos % (Auto) 0.8 % 08/25/21 18:46 Baso % (Auto) 0.3 % 08/25/21 18:46 Neut # (Auto) 2.06 K/uL (1.4-6.5) 08/25/21 18:46 Lymph # (Auto) 1.26 K/uL (1.2-3.4) 08/25/21 18:46 Mckean # (Auto) 0.57 K/uL (0.11-0.59) 08/25/21 18:46 Eos # (Auto) 0.03 K/uL (0-0.5) 08/25/21 18:46 Baso # (Auto) 0.01 K/uL (0-0.2) 08/25/21 18:46 Immature Gran # (Auto) 0.00 K/uL (0.00-0.02) 08/25/21 18:46 PT 10.3 Seconds (9.0-12.0) 08/25/21 18:46 INR 1.0 (0.9-1.1) 08/25/21 18:46 Sodium 137 mmol/L (136-145) 08/25/21 18:46 Potassium 3.9 mmol/L (3.5-5.1) 08/25/21 18:46 Chloride 103 mmol/L (98-107) 08/25/21 18:46 Carbon Dioxide 22 mmol/L (21-32) 08/25/21 18:46 Anion Gap 12 (3-11) H 08/25/21 18:46 BUN 25 mg/dl (6-23) H 08/25/21 18:46 Creatinine 1.39 mg/dl (0.6-1.4) 08/25/21 18:46 Est Cr Clr Drug Dosing Not Reportable 08/25/21 18:46 Est GFR ( Amer) 59.5 ml/min 08/25/21 18:46 Est GFR (Non-Af Amer) 51.3 ml/min 08/25/21 18:46 BUN/Creatinine Ratio 18.0 (10-20) 08/25/21 18:46 Glucose 92 mg/dl (70-99(Fasting)) 08/25/21 18:46 Lactate 0.8 mmol/L (0.4-2.0) 08/25/21 20:43 Calcium 9.3 mg/dl (8.5-10.1) 08/25/21 18:46 Total Bilirubin 0.6 mg/dl (0.2-1.0) 08/25/21 18:46 AST 20 U/L (13-39) 08/25/21 18:46 ALT 16 U/L (7-52) 08/25/21 18:46 Alkaline Phosphatase 82 U/L (34-104) 08/25/21 18:46 Troponin I < 0.03 ng/ml (0-0.04) 08/25/21 18:46 Total Protein 6.9 gm/dl (6.0-8.3) 08/25/21 18:46 Albumin 4.1 gm/dl (3.4-5.0) 08/25/21 18:46 Globulin 2.8 gm/dl (2.5-4.0) 08/25/21 18:46 Albumin/Globulin Ratio 1.5 (0.9-2) 08/25/21 18:46 Lipase 37 U/L (11-82) 08/25/21 18:46 Urine Color Dark Yellow 08/25/21 18:46 Urine Appearance Turbid (Clear) A 08/25/21 18:46 Urine pH 5.0 (4.5-7.5) 08/25/21 18:46 Ur Specific Jennings 1.028 (1.000-1.030) 08/25/21 18:46 Urine Protein 1+ (Negative) H 08/25/21 18:46 Urine Glucose (UA) Negative (Negative) 08/25/21 18:46 Urine Ketones 1+ (Negative) H 08/25/21 18:46 Urine Blood 3+ (Negative) H 08/25/21 18:46 Urine Nitrite Negative (Negative) 08/25/21 18:46 Urine Bilirubin Negative (Negative) 08/25/21 18:46 Urine Urobilinogen Negative (Negative) 08/25/21 18:46 Ur Leukocyte Esterase 3+ (Negative) H 08/25/21 18:46 Urine WBC (Auto) >30 /hpf (0-5) H 08/25/21 18:46 Urine RBC (Auto) 5-10 /hpf (0-4) H 08/25/21 18:46 U Hyaline Cast (Auto) 1-5 /lpf (0-5) 08/25/21 18:46 U Epithel Cells (Auto) 20-30 /lpf (0-5) H 08/25/21 18:46 Urine Bacteria (Auto) Negative (Negative) 08/25/21 18:46 Urine Yeast Budding (None Prsent) A 08/25/21 18:46 SARS-CoV-2, RNA, NAAT NEGATIVE (NEGATIVE) 08/25/21 18:46 Impressions Chest X-Ray 08/25/21 18:27 XR chest 1V portable CLINICAL HISTORY: Altered mental status. COMPARISON STUDY: Chest radiograph October 12, 2020. FINDINGS: Lung volumes are mildly diminished. Hazy left basilar density is unchanged. There is no pneumothorax or pleural effusion. Cardiac size is normal. Mediastinal contours are normal. There is no evidence for pulmonary edema. IMPRESSION: No acute cardiopulmonary findings. No significant change in appearance of the chest. ACT 112: Negative or not required by law. Electronically signed by: Tra Fernandez M.D. 08/25/2021 7:[address] 08/25/21 18:36 CT OF THE HEAD WITHOUT CONTRAST CLINICAL HISTORY: Altered mental status. COMPARISON STUDY: Head CT June 03, 2018. MRI of the brain June 21, 2018. CT DOSE: 1311.06 mGy.cm TECHNIQUE: Helical axial images of the head were obtained without IV contrast. Automated exposure control was utilized for the study. A dose lowering technique was utilized adhering to the principles of ALARA. FINDINGS: No acute intracranial hemorrhage, midline shift or mass effect is present. The ventricular system is unremarkable. White matter hypodensity suggests small vessel disease. The basal cisterns are patent. No extra-axial collections are present. There are no findings to suggest acute dural sinus thrombosis or acute territorial infarct. No significant calvarial abnormalities are present. IMPRESSION: No acute intracranial findings. ACT 112: Negative or not required by law. Electronically signed by: Tra Fernandez M.D. 08/25/2021 8:36 PM Code Status & VTE Plan VTE Prophylaxis Plan VTE Prophylaxis will be ordered: Yes PG Care Time/CCT Total # of Minutes Spent Total Time Spent with Patient: Total time spent is greater than 50% in coordination of care (as documented) at patient's floor/unit and/or counseling patient: Coding Level of Care Code INT OBSERVATION CARE 70M LVL 3 Diagnoses Altered mental state R41.82 Dementia F03.91 Dementia behavioral disturbance: with behavioral disturbance Dementia type: unspecified type Complicated UTI (urinary tract infection) N39.0 GERD (gastroesophageal reflux disease) K21.9 BPH (benign prostatic hyperplasia) N40.0 Hyperlipidemia E78.5 (1) Dementia Dementia behavioral disturbance: with behavioral disturbance Dementia type: unspecified type Qualified Code(s): F03.91 - Unspecified dementia with behavioral disturbance
[2021-08-25] MEDS ORDERED: SODIUM CHLORIDE 0.9% 1000ML 1,000 ML IV SCH (23:31)
[2021-08-25] MEDS ORDERED: ONDANSETRON INJ 2 MG/ML 2 ML VIAL IV PRN (23:31)
[2021-08-25] MEDS ORDERED: ACETAMINOPHEN 325 MG TAB PO PRN (23:31)
[2021-08-26 00:01] LABS: Magnesium 1.8 mg/dl (1.7-2.4); Phosphorus 3.3 mg/dl (2.5-4.9)
[2021-08-26] MEDS: ENOXAPARIN INJ 40 MG/0.4 ML SYR SQ SCH ×2 (00:44→20:03)
[2021-08-26 05:52] LABS: Basophils # (auto) 0.01 K/uL (0-0.2); Basophils % (auto) 0.3 %; Eosinophils # (auto) 0.03 K/uL (0-0.5); Hematocrit (blood only) 41.3 % (42-52); Hemoglobin 13.8 g/dL (14.0-18.0); Lymphocytes # (auto) 1.31 K/uL (1.2-3.4); Lymphocytes % (auto) 42.3 %; Mean Corpuscular Hemoglobin 30.5 pg (25-34); Mean Corpuscular Hgb Conc 33.4 g/dL (32-36); Mean Corpuscular Volume 91.2 fL (80-100); Mean Platelet Volume 9.8 fL (7.4-10.4); Monocytes # (auto) 0.51 K/uL (0.11-0.59); Monocytes % (auto) 16.5 %; Neutrophils # (auto) 1.24 K/uL (1.4-6.5); Neutrophils % (auto) 39.9 %; Platelet Count 120 K/uL (130-400); RDW Coefficient of Variation 13.3 % (11.5-14.5); RDW Standard Deviation 44.3 fL (36.4-46.3); Red Blood Count 4.53 M/uL (4.7-6.1)
[2021-08-26 06:13] LABS: BUN Creatinine Ratio 17.9 (10-20); Calcium 8.3 mg/dl (8.5-10.1); Est GFR (African American) 94.3 ml/min; Est GFR (Non-African American) 81.3 ml/min; Potassium 3.7 mmol/L (3.5-5.1)
[2021-08-26 06:22] LABS: Thyroid Stimulating Hormone 4.592 uIu/ml (0.300-4.500)
[2021-08-26 06:49] LABS: Ovalocytes 1+
[2021-08-26 07:11] LABS: T4 Free Thyroxine 0.76 ng/dl (0.61-1.60)
[2021-08-26] MEDS: ESCITALOPRAM OXALATE 20 MG TAB PO SCH (08:05)
[2021-08-26] MEDS: ATORVASTATIN 10 MG TAB PO SCH (08:06)
[2021-08-26] MEDS: ASPIRIN 81 MG ECTAB PO SCH (08:06)
[2021-08-26] MEDS: CHOLECALCIFEROL 5,000 UNITS 125 MCG TAB PO SCH (08:07)
[2021-08-26] MEDS: TAMSULOSIN HCL 0.4 MG CAP PO SCH (08:07)
[2021-08-26] MEDS: DONEPEZIL HCL 10 MG TAB PO SCH (08:07)
[2021-08-26] MEDS: DOCUSATE SODIUM 100 MG CAP PO SCH (08:08)
[2021-08-26] MEDS: FAMOTIDINE 40 MG TABLET PO SCH (08:08)
[2021-08-26] MEDS ORDERED: FLUCONAZOLE 200 MG/100 ML BAG IV ONE (09:00)
--- NOTE | 2021-08-26 15:23 | Hospitalist Progress Note ---
Date of Service August 26, 2021 Assessment & Plan (1) Altered mental state: Plan: Patient presents with agitated delirium - confusion, combativeness and aggression - progressive over the last 2-3 days. Acute metabolic encephalopathy which is multifactoral likely exacerbated UTI and bacteremia as below. Patient has had similar presentations with UTI in the past. He is febrile at 38.1, blood pressure stable. Lactate initially 3.9 which has improved to 0.8 with IVF (2L NSS given in ER). CT Head is unremarkable - no acute intracranial pathology. -Admit to medical -Maintain 1:1 observation as needed -Restraints as needed -Fall precautions -Check Mg, PO4, TSH, Ammonia -Frequent orientation and delirium prevention strategies -Continue Seroquel qHS (2) Sepsis: Plan: -Met sepsis criteria w/ fever, HR 90, elevated lactate, grossly infected urine which has now resolved, afebrile and lactate normalized w/ hydration -Continue empiric abx -Gentle maintenance fluids were ordered at 80 ml/hr but pt ripped tubing apart -Blood cultures ordered, first set positive for GPC as noted below -Await final urine and blood culture results (3) Bacteremia: Plan: -Preliminary growth of GPC noted on first set of blood cultures -Await second set -Continue Rocephin for now until final culture data received -I would presume that urine is the source (4) Complicated UTI (urinary tract infection): Plan: Urine culture sent, although noting preliminarily no growth his grossly positive UA would suggest otherwise -Continue Ceftriaxone 1gm IV daily -Follow up with final culture results -Add Diflucan 200mg IV x1 (given today 08/26) and then start 100mg daily x 6 days for total of 7 (5) Dementia: Plan: Chronic -Continue Aricept 10mg po daily -Frequent orientation, avoid delirium inducing agents (6) GERD (gastroesophageal reflux disease): Plan: Chronic -Pepcid 40mg po daily while inpatient (7) BPH (benign prostatic hyperplasia): Plan: Chronic -Continue Flomax -Monitor UOP, Bladder scan as needed for decreased UOP (8) Hyperlipidemia: Plan: Chronic -Continue Atorvastatin 10mg po daily (9) Pancytopenia: Plan: -?d/t current infection -Monitor, as previously his wbc count has been normal prior to this admission -Platelets normal on 08/25 Plan: Make full admission due to bacteremia Await culture results Will need PT/OT assessment if/when he is more cooperative Follow up labs in AM Continue current interventions as above Admission and Anticipated Discharge Date Admission Date: August 25, 2021 Subjective Patient was seen on rounds this morning. He was agitated and not cooperative this morning. Wouldn't answer any questions. Per RN, ripped tubing apart that was infusing IVF. Review of Systems Review of Systems: Pt agitated w/ history of dementia, so accurate ROS is not obtainable Physical Exam Physical Exam: Exam was limited due to his lack of cooperation GENERAL: 70 yo well-developed, well-nourished WM. NAD. LUNGS: Clear to auscultation bilaterally. No W/R/R. CARDIOVASCULAR: Regular rate and rhythm. No M/G/R. No JVD. ABDOMEN: unable to examine EXTREMITIES: No edema. Non-tender. Peripheral pulses +2/4. NEUROLOGIC: agitated and uncooperative during my visit PSYCHIATRIC: Uncooperative SKIN: Warm, dry, intact. Results & Data Results & Data ([facility]) Vital Signs (Past 12 Hours) Vital Signs Temp Pulse Resp BP Pulse Ox 08/26/21 07:24 36.4 C L 84 18 122/75 99 Laboratory Results 08/26/21 05:38 08/26/21 05:38 PG Care Time/CCT Total # of Minutes Spent Total Time Spent with Patient: Total time spent is greater than 50% in coordination of care (as documented) at patient's floor/unit and/or counseling patient: Coding Level of Care Code 97732 Subseq Hosp Care Lvl 2 Diagnoses Altered mental state R41.82 Altered mental status type: unspecified Complicated UTI (urinary tract infection) N39.0 Dementia F03.91 Dementia behavioral disturbance: with behavioral disturbance Dementia type: unspecified type GERD (gastroesophageal reflux disease) K21.9 BPH (benign prostatic hyperplasia) N40.0 Hyperlipidemia E78.5 Bacteremia R78.81 Sepsis A41.9 Sepsis acute organ dysfunction status: unspecified Sepsis type: sepsis due to unspecified organism Pancytopenia D61.818 (1) Altered mental state Altered mental status type: unspecified Qualified Code(s): R41.82 - Altered mental status, unspecified (2) Dementia Dementia behavioral disturbance: with behavioral disturbance Dementia type: unspecified type Qualified Code(s): F03.91 - Unspecified dementia with behavioral disturbance (3) Sepsis Sepsis acute organ dysfunction status: unspecified Sepsis type: sepsis due to unspecified organism Qualified Code(s): A41.9 - Sepsis, unspecified organism
[2021-08-26] MEDS ORDERED: cefTRIAXone SODIUM 1,000 MG in DEXTROSE 5% 50 ML IV SCH (18:00)
[2021-08-26] MEDS: QUEtiapine FUMARATE 25 MG TABLET PO SCH (20:02)
[2021-08-27 07:13] LABS: Basophils # (auto) 0.02 K/uL (0-0.2); Basophils % (auto) 0.5 %; Eosinophils # (auto) 0.07 K/uL (0-0.5); Eosinophils % (auto) 1.9 %; Hemoglobin 13.3 g/dL (14.0-18.0); Lymphocytes # (auto) 1.46 K/uL (1.2-3.4); Lymphocytes % (auto) 39.8 %; Mean Corpuscular Hemoglobin 30.4 pg (25-34); Mean Corpuscular Hgb Conc 33.3 g/dL (32-36); Mean Corpuscular Volume 91.5 fL (80-100); Mean Platelet Volume 10.2 fL (7.4-10.4); Monocytes # (auto) 0.58 K/uL (0.11-0.59); Monocytes % (auto) 15.8 %; Neutrophils # (auto) 1.54 K/uL (1.4-6.5); Platelet Count 126 K/uL (130-400); RDW Coefficient of Variation 13.4 % (11.5-14.5); RDW Standard Deviation 44.5 fL (36.4-46.3); Red Blood Count 4.37 M/uL (4.7-6.1); White Blood Count 3.67 K/uL (4.8-10.8)
[2021-08-27 07:35] LABS: BUN Creatinine Ratio 12.6 (10-20); Calcium 8.5 mg/dl (8.5-10.1); Creatinine Clr Calc Pharmacy 54.5 ml/min; Est GFR (African American) 85.5 ml/min; Est GFR (Non-African American) 73.8 ml/min; Magnesium 1.8 mg/dl (1.7-2.4); Ovalocytes 1+; Potassium 3.4 mmol/L (3.5-5.1)
[2021-08-27] MEDS: ESCITALOPRAM OXALATE 20 MG TAB PO SCH (08:10)
[2021-08-27] MEDS: DONEPEZIL HCL 10 MG TAB PO SCH (08:11)
[2021-08-27] MEDS: FAMOTIDINE 40 MG TABLET PO SCH (08:11)
[2021-08-27] MEDS: ASPIRIN 81 MG ECTAB PO SCH (08:11)
[2021-08-27] MEDS: DOCUSATE SODIUM 100 MG CAP PO SCH (08:12)
[2021-08-27] MEDS: CHOLECALCIFEROL 5,000 UNITS 125 MCG TAB PO SCH (08:12)
[2021-08-27] MEDS: TAMSULOSIN HCL 0.4 MG CAP PO SCH (08:12)
[2021-08-27] MEDS: ATORVASTATIN 10 MG TAB PO SCH (08:13)
[2021-08-27] MEDS: FLUCONAZOLE 100 MG TAB PO SCH (08:15)
--- NOTE | 2021-08-27 08:30 | Hospitalist Progress Note ---
Date of Service August 27, 2021 Assessment & Plan (1) Altered mental state: Plan: Patient presents with agitated delirium - confusion, combativeness and aggression - progressive over the last 2-3 days. Acute metabolic encephalopathy which is multifactoral likely exacerbated UTI and bacteremia as below. Patient has had similar presentations with UTI in the past. He is febrile at 38.1, blood pressure stable. Lactate initially 3.9 which has improved to 0.8 with IVF (2L NSS given in ER). CT Head is unremarkable - no acute intracranial pathology. -Admit to medical -Maintain 1:1 observation as needed -Restraints as needed -Fall precautions -Check Mg, PO4, TSH, Ammonia -Frequent orientation and delirium prevention strategies -Continue Seroquel qHS (2) Sepsis: Plan: -Met sepsis criteria w/ fever, HR 90, elevated lactate, grossly infected urine which has now resolved, afebrile and lactate normalized w/ hydration -Continue empiric abx -Gentle maintenance fluids were ordered at 80 ml/hr but pt ripped tubing apart -Blood cultures ordered, first set positive for GPC as noted below -Await final urine and blood culture results (3) Bacteremia: Plan: -Preliminary growth of GPC noted on first set of blood cultures -Await second set -Continue Rocephin for now until final culture data received -I would presume that urine is the source (4) Complicated UTI (urinary tract infection): Plan: Urine culture sent, although noting preliminarily no growth his grossly positive UA would suggest otherwise -Continue Ceftriaxone 1gm IV daily -Follow up with final culture results -Add Diflucan 200mg IV x1 (given today 08/26) and then start 100mg daily x 6 days for total of 7 (5) Dementia: Plan: Chronic -Continue Aricept 10mg po daily -Frequent orientation, avoid delirium inducing agents (6) GERD (gastroesophageal reflux disease): Plan: Chronic -Pepcid 40mg po daily while inpatient (7) BPH (benign prostatic hyperplasia): Plan: Chronic -Continue Flomax -Monitor UOP, Bladder scan as needed for decreased UOP (8) Hyperlipidemia: Plan: Chronic -Continue Atorvastatin 10mg po daily (9) Pancytopenia: Plan: -?d/t current infection -Monitor, as previously his wbc count has been normal prior to this admission -Platelets normal on 08/25 Plan: Make full admission due to bacteremia Await culture results Will need PT/OT assessment if/when he is more cooperative Follow up labs in AM Continue current interventions as above Admission and Anticipated Discharge Date Admission Date: August 26, 2021 Results & Data Results & Data ([facility]) Vital Signs (Past 12 Hours) Vital Signs Temp Pulse Resp BP BP Pulse Ox 08/27/21 07:16 98.2 F 88 18 129/73 98 08/26/21 22:25 98.1 F 63 16 108/69 96 PG Care Time/CCT Total # of Minutes Spent Total Time Spent with Patient: Total time spent is greater than 50% in coordination of care (as documented) at patient's floor/unit and/or counseling patient: Coding Diagnoses Altered mental state R41.82 Altered mental status type: unspecified Sepsis A41.9 Sepsis acute organ dysfunction status: unspecified Sepsis type: sepsis due to unspecified organism Bacteremia R78.81 Complicated UTI (urinary tract infection) N39.0 Dementia F03.91 Dementia behavioral disturbance: with behavioral disturbance Dementia type: unspecified type GERD (gastroesophageal reflux disease) K21.9 BPH (benign prostatic hyperplasia) N40.0 Hyperlipidemia E78.5 Pancytopenia D61.818 (1) Altered mental state Altered mental status type: unspecified Qualified Code(s): R41.82 - Altered mental status, unspecified (2) Sepsis Sepsis acute organ dysfunction status: unspecified Sepsis type: sepsis due to unspecified organism Qualified Code(s): A41.9 - Sepsis, unspecified organism (3) Dementia Dementia behavioral disturbance: with behavioral disturbance Dementia type: unspecified type Qualified Code(s): F03.91 - Unspecified dementia with behavioral disturbance
[2021-08-27] MEDS ORDERED: POTASSIUM CHLORIDE CRTAB 20 MEQ TABCR PO STA ×2 (08:38→11:33)
[2021-08-27] MEDS ORDERED: VANCOMYCIN CONSULT ACTIVE PRN (11:38)
--- NOTE | 2021-08-27 11:38 | Hospitalist Progress Note ---
Date of Service August 27, 2021 Assessment & Plan (1) Altered mental state: Plan: Patient presents with agitated delirium - confusion, combativeness and aggression - progressive over the last 2-3 days. Acute metabolic encephalopathy which is multifactoral likely exacerbated UTI and bacteremia as below. Patient has had similar presentations with UTI in the past. CT Head is unremarkable - no acute intracranial pathology. -Maintain 1:1 observation as needed -Restraints as needed -Fall precautions -Frequent orientation and delirium prevention strategies -Continue Seroquel qHS (2) Bacteremia: Plan: -Preliminary growth of GPC noted on first set of blood cultures -Second set is still pending -Continue on Rocephin; however, staph species is noted, thus will need to d/c Rocephin and start Vanco -Will order Vancomycin 1g IV now and then pharm to continue dosing (3) Complicated UTI (urinary tract infection): Plan: Urine culture sent, although noting preliminarily no growth his grossly positive UA would suggest otherwise -D/C Rocephin as noted above, change to Vanco -Continue daily Diflucan 100mg x 5 more doses after today for jarvis in urine -Attempted CT imaging to r/o pyelo or hydro, unfortunately, pt refused, will attempt portable renal ultrasound. U/S is not modality of choice for inflammation, but may be the only imaging study that patient will comply with. -Due to the recurrence of his UTIs, will consider urology consult while he is in house (4) Dementia: Plan: Chronic -Continue Aricept 10mg po daily -Frequent orientation, avoid delirium inducing agents (5) GERD (gastroesophageal reflux disease): Plan: Chronic -Pepcid 40mg po daily while inpatient (6) BPH (benign prostatic hyperplasia): Plan: Chronic -Continue Flomax -Monitor UOP, Bladder scan as needed for decreased UOP (7) Hyperlipidemia: Plan: Chronic -Continue Atorvastatin 10mg po daily (8) Pancytopenia: Plan: -?d/t current infection -Monitor, as previously his wbc count has been normal prior to this admission -Platelets normal on 08/25, slowly improving (9) Hypokalemia: Plan: -Replacement ordered Plan: Change abx, await final culture results Will need PT/OT assessment if/when he is more cooperative Renal ultrasound Replace K+ Follow up labs in AM Continue current interventions as above D/C planning Admission and Anticipated Discharge Date Admission Date: August 26, 2021 Subjective Pt seen on rounds this morning. He is currently resting in bed, being cooperative and voices no complaints. Denies cp, dyspnea, n/v/d, abd pain. A CT scan was ordered this morning to further assess his tract and kidneys, while he was pleasant prior to going to radiology, when he got down there he refused the scan. Study was subsequently not performed. No other issues/concerns verbalized by RN. Review of Systems Review of Systems: Unremarkable except for as noted in HPI and below. Again, obtaining an accurate ROS in this patient is difficult due to his dementia. Physical Exam Physical Exam: GENERAL: 70 yo well-developed, well-nourished WM. Cooperative. NAD. LUNGS: Clear to auscultation bilaterally. No accessory muscle use. No W/R/R. CARDIOVASCULAR: Regular rate and rhythm. ABDOMEN: Soft, non-tender and non-distended. BS normoactive x 4 quad. EXTREMITIES: No edema. Non-tender. Peripheral pulses +2/4. NEUROLOGIC: Awake, alert. PSYCHIATRIC: Cooperative. Appropriate mood and affect. SKIN: Warm, dry, intact. Abrasion noted to RLL. Results & Data Results & Data ([facility]) Vital Signs (Past 12 Hours) Vital Signs Temp Pulse Resp BP Pulse Ox 08/27/21 07:16 36.8 C 88 18 129/73 98 Laboratory Results 08/27/21 06:44 08/27/21 06:44 Spec: [id number] Collected: 08/25/21 Received: 08/25/[address]: Zeus Whitfield, Source: Blood OV Order: Ordered: Blood Culture Comments: Comment Default is separate sites, same time Blood culture drawn venously from Right Arm. Procedure Result Verified Site Blood Culture Aerobic Preliminary 08/27/21 Organism 1 Staphylococcus species Sens Sensitivities Dependent on Further Identification Phoned positive Blood Culture Gram Stain report to MARGARITO HAWKINS on 08/26/21 at 1346 by [id number]. [place] [id number]. Blood Culture Anaerobic Preliminary 08/27/21 Organism 1 Staphylococcus species Sens Sensitivities Dependent on Further Identification PG Care Time/CCT Total # of Minutes Spent Total Time Spent with Patient: Total time spent is greater than 50% in coordination of care (as documented) at patient's floor/unit and/or counseling patient: Coding Level of Care Code 12543 Subseq Hosp Care Lvl 2 Diagnoses Altered mental state R41.82 Altered mental status type: unspecified Bacteremia R78.81 Complicated UTI (urinary tract infection) N39.0 Dementia F03.91 Dementia behavioral disturbance: with behavioral disturbance Dementia type: unspecified type GERD (gastroesophageal reflux disease) K21.9 BPH (benign prostatic hyperplasia) N40.0 Hyperlipidemia E78.5 Pancytopenia D61.818 Hypokalemia E87.6 (1) Dementia Dementia behavioral disturbance: with behavioral disturbance Dementia type: unspecified type Qualified Code(s): F03.91 - Unspecified dementia with behavioral disturbance (2) Altered mental state Altered mental status type: unspecified Qualified Code(s): R41.82 - Altered mental status, unspecified
[2021-08-27] MEDS ORDERED: VANCOMYCIN HCL 1,500 MG in SODIUM CHLORIDE 0.9% 500 ML IV ONE (12:00)
--- NOTE | 2021-08-27 14:44 | Pharmacy Report ---
Pharmacy Vanc AUC Short Note - Date of Service August 27, 2021 - Assessment & Plan Assessment * Mr Anderson is a 70 year old M receiving Vancomycin for treatment of bacteremia, ?UTI. * Pertinent microbiologic data includes: 1/2 blood cx with Staph sp x2, UCx: no growth (though UA grossly positive) * BCx PCR: negative S aureus, negative MRSA --- suspect Coag neg staph. Hope to de-escalate therapy when sensitivities available. * PMH significant for recurrent UTIs, BPH, dementia, assisted resident. Plan Vancomycin * AUC/JERED is the preferred PK/PD target for vancomycin * AUC guided dosing is effective and associated with decreased risk of nephrotoxicity compared to traditional trough targets * Vanc 1500mg (~22 mg/kg) x1 dose, then * Vanc 750mg IV q12h * This regimen is predicted to produce a trough level of 18.2 mcg/mL, and is predicted to achieve target AUC/JERED of 400-600 mg/L.hr. It may be associated with a 14% risk of nephrotoxicity * Will check a vanc level in the next day or so, if patient remains on vancomycin (cultures pending). Pharmacy will continue to follow and will adjust dose/frequency as necessary. Thank you.
--- NOTE | 2021-08-27 19:03 | Ultrasound Report ---
RENAL ULTRASOUND HISTORY: Flank pain. r/o hydro COMPARISON: None. FINDINGS: Right kidney: 9.7 cm. No hydronephrosis. Normal corticomedullary differentiation and cortical thickne ss. Left kidney: 9.1 cm. No hydronephrosis. Normal corticomedullary differentiation and cortical thicknes s. Bladder: The bladder is decompressed. There is mild bladder wall thickening. A small hyperechoic focu s within the bladder base is difficult to assess due to the bladder decompression. IMPRESSION: 1. No hydronephrosis. 2. The bladder is decompressed. This may account for the bladder wall thickening. Recommend correlati on with urinalysis. 3. A small hyperechoic focus within the bladder base which is difficult to assess due to the bladder decompression. This could represent median lobe hypertrophy of the prostate gland. A bladder mass is considered less likely not entirely excluded. Consider repeat dedicated bladder ultrasound once the p atient's bladder is full. ACT 112: Negative or not required by law. Electronically signed by: Noe Oliveira M.D. 08/27/2021 7:01 PM
[2021-08-27] MEDS: QUEtiapine FUMARATE 25 MG TABLET PO SCH (20:38)
[2021-08-27] MEDS: ENOXAPARIN INJ 40 MG/0.4 ML SYR SQ SCH (20:38)
[2021-08-28] MEDS: VANCOMYCIN HCL 750 MG in SODIUM CHLORIDE 0.9% 250 ML IV SCH ×3 (00:52→23:29)
[2021-08-28 06:54] LABS: Basophils # (auto) 0.01 K/uL (0-0.2); Basophils % (auto) 0.3 %; Eosinophils # (auto) 0.15 K/uL (0-0.5); Eosinophils % (auto) 4.4 %; Hematocrit (blood only) 42.7 % (42-52); Hemoglobin 14.4 g/dL (14.0-18.0); Lymphocytes # (auto) 1.21 K/uL (1.2-3.4); Lymphocytes % (auto) 35.5 %; Mean Corpuscular Hgb Conc 33.7 g/dL (32-36); Mean Corpuscular Volume 91.8 fL (80-100); Mean Platelet Volume 10.2 fL (7.4-10.4); Monocytes # (auto) 0.45 K/uL (0.11-0.59); Monocytes % (auto) 13.2 %; Neutrophils # (auto) 1.59 K/uL (1.4-6.5); Neutrophils % (auto) 46.6 %; Platelet Count 130 K/uL (130-400); RDW Coefficient of Variation 13.5 % (11.5-14.5); RDW Standard Deviation 44.7 fL (36.4-46.3); Red Blood Count 4.65 M/uL (4.7-6.1); White Blood Count 3.41 K/uL (4.8-10.8)
[2021-08-28 07:56] LABS: BUN Creatinine Ratio 15.9 (10-20); Calcium 8.8 mg/dl (8.5-10.1); Creatinine Clr Calc Pharmacy 52.4 ml/min; Est GFR (African American) 81.7 ml/min; Est GFR (Non-African American) 70.5 ml/min; Potassium 4.3 mmol/L (3.5-5.1)
[2021-08-28] MEDS: ASPIRIN 81 MG ECTAB PO SCH (09:16)
[2021-08-28] MEDS: DONEPEZIL HCL 10 MG TAB PO SCH (09:17)
[2021-08-28] MEDS: ATORVASTATIN 10 MG TAB PO SCH (09:17)
[2021-08-28] MEDS: DOCUSATE SODIUM 100 MG CAP PO SCH (09:17)
[2021-08-28] MEDS: CHOLECALCIFEROL 5,000 UNITS 125 MCG TAB PO SCH (09:17)
[2021-08-28] MEDS: FLUCONAZOLE 100 MG TAB PO SCH (09:18)
[2021-08-28] MEDS: FAMOTIDINE 40 MG TABLET PO SCH (09:18)
[2021-08-28] MEDS: ESCITALOPRAM OXALATE 20 MG TAB PO SCH (09:18)
[2021-08-28] MEDS: TAMSULOSIN HCL 0.4 MG CAP PO SCH (09:19)
--- NOTE | 2021-08-28 15:52 | Hospitalist Progress Note ---
Date of Service August 28, 2021 Assessment & Plan (1) Altered mental state: Plan: Patient presents with agitated delirium - confusion, combativeness and aggression - progressive over the last 2-3 days. Acute metabolic encephalopathy which is multifactoral likely exacerbated UTI and bacteremia as below. Patient has had similar presentations with UTI in the past. CT Head is unremarkable - no acute intracranial pathology. -Maintain 1:1 observation as needed -Restraints as needed -Fall precautions -Frequent orientation and delirium prevention strategies -Continue Seroquel qHS -Suspect that this is all secondary to his acute infection -He does not warrant psych eval -Pt has been pleasant and cooperative last two days (I suspect d/t his UTI being treated) (2) Bacteremia: Plan: -Preliminary growth of GPC noted on first set of blood cultures which was identified as coagulase neg staph on final -Abx were changed from Rocephin to Vanco when GPC were noted on prelim blood culture -Only 1 set out of the 2 blood cultures obtained were positive -I suspect that this represents a contaminant as pt only had one isolated low grade temp on admission and no leukocytosis -Will subsequently only treat for total of 7 days as patient is NOT bacteremic (3) Complicated UTI (urinary tract infection): Plan: Urine culture sent, although noting preliminarily no growth his grossly positive UA would suggest otherwise -D/C Rocephin as noted above, changed to Vanco on 08/27 d/t GPC on one set of blood cultures -Continue daily Diflucan 100mg x 5 more doses after today for jarvis in urine -Renal u/s performed, findings c/w cystitis. Also questionable bladder mass, will warrant urology f/u -Due to the recurrence of his UTIs & abnormality on ultrasound, I did ask urology to see him, but they felt he could follow up as outpatient -Will treat for total of 7 days of antibiotics -At this time will NOT place pt on chronic antibiotic suppression, this can be d/w urology as outpatient (4) Dementia: Plan: Chronic -Continue Aricept 10mg po daily -Frequent orientation, avoid delirium inducing agents (5) GERD (gastroesophageal reflux disease): Plan: Chronic -Pepcid 40mg po daily while inpatient (6) BPH (benign prostatic hyperplasia): Plan: Chronic -Continue Flomax -Monitor UOP, Bladder scan as needed for decreased UOP (7) Hyperlipidemia: Plan: Chronic -Continue Atorvastatin 10mg po daily (8) Pancytopenia: Plan: -H&H normalized -Platelets have also normalized today -Likely transient drop d/t current infection (9) Hypokalemia: Plan: -Replaced/resolved Plan: Discussed d/c planning w/ case management. Plan to return to [facility]. No need to obtain f/u labs in AM Will d/c Vancomycin after dose is completed this evening and start oral Cefdinir in AM Admission and Anticipated Discharge Date Admission Date: August 26, 2021 Subjective Pt seen on rounds this morning. He is currently resting in bed, being cooperative and voices no complaints. No issues reported by RN. Review of Systems Review of Systems: Unremarkable except for as noted in HPI and below. Again, obtaining an accurate ROS in this patient is difficult due to his dementia. Physical Exam Physical Exam: GENERAL: 70 yo well-developed, well-nourished WM. Cooperative. NAD. LUNGS: Clear to auscultation bilaterally. No accessory muscle use. No W/R/R. CARDIOVASCULAR: Regular rate and rhythm. ABDOMEN: Soft, non-tender and non-distended. BS normoactive x 4 quad. EXTREMITIES: No edema. Non-tender. Peripheral pulses +2/4. PSYCHIATRIC: Cooperative. Appropriate mood and affect. SKIN: Warm, dry, intact. Results & Data Results & Data ([facility]) Vital Signs (Past 12 Hours) Vital Signs Temp Pulse Resp BP BP Pulse Ox 08/28/21 15:26 36.5 C 59 L 18 123/82 98 08/28/21 07:25 36.4 C L 66 16 133/80 97 Laboratory Results 08/28/21 06:16 08/28/21 06:16 Diagnostic Findings Renal Ultrasound 08/27/21 14:30 RENAL ULTRASOUND HISTORY: Flank pain. r/o hydro COMPARISON: None. FINDINGS: Right kidney: 9.7 cm. No hydronephrosis. Normal corticomedullary differentiation and cortical thickness. Left kidney: 9.1 cm. No hydronephrosis. Normal corticomedullary differentiation and cortical thickness. Bladder: The bladder is decompressed. There is mild bladder wall thickening. A small hyperechoic focus within the bladder base is difficult to assess due to the bladder decompression. IMPRESSION: 1. No hydronephrosis. 2. The bladder is decompressed. This may account for the bladder wall thickening. Recommend correlation with urinalysis. 3. A small hyperechoic focus within the bladder base which is difficult to assess due to the bladder decompression. This could represent median lobe hypertrophy of the prostate gland. A bladder mass is considered less likely not entirely excluded. Consider repeat dedicated bladder ultrasound once the patient's bladder is full. ACT 112: Negative or not required by law. Electronically signed by: Noe Oliveira M.D. 08/27/2021 7:01 PM PG Care Time/CCT Total # of Minutes Spent Total Time Spent with Patient: Total time spent is greater than 50% in coordination of care (as documented) at patient's floor/unit and/or counseling patient: Coding Level of Care Code 83973 Subseq Hosp Care Lvl 2 Diagnoses Altered mental state R41.82 Altered mental status type: unspecified Bacteremia R78.81 Complicated UTI (urinary tract infection) N39.0 Dementia F03.91 Dementia behavioral disturbance: with behavioral disturbance Dementia type: unspecified type GERD (gastroesophageal reflux disease) K21.9 BPH (benign prostatic hyperplasia) N40.0 Hyperlipidemia E78.5 Pancytopenia D61.818 Hypokalemia E87.6 (1) Altered mental state Altered mental status type: unspecified Qualified Code(s): R41.82 - Altered mental status, unspecified (2) Dementia Dementia behavioral disturbance: with behavioral disturbance Dementia type: unspecified type Qualified Code(s): F03.91 - Unspecified dementia with behavioral disturbance
[2021-08-28] MEDS: QUEtiapine FUMARATE 25 MG TABLET PO SCH (20:19)
[2021-08-28] MEDS: ENOXAPARIN INJ 40 MG/0.4 ML SYR SQ SCH (20:19)
[2021-08-29] MEDS ORDERED: CEFDINIR 300 MG CAP PO SCH (09:00)
[2021-08-29] MEDS: DONEPEZIL HCL 10 MG TAB PO SCH (09:47)
[2021-08-29] MEDS: FLUCONAZOLE 100 MG TAB PO SCH (09:47)
[2021-08-29] MEDS: TAMSULOSIN HCL 0.4 MG CAP PO SCH (09:47)
[2021-08-29] MEDS: ASPIRIN 81 MG ECTAB PO SCH (09:47)
[2021-08-29] MEDS: ESCITALOPRAM OXALATE 20 MG TAB PO SCH (09:47)
[2021-08-29] MEDS: FAMOTIDINE 40 MG TABLET PO SCH (09:47)
[2021-08-29] MEDS: CHOLECALCIFEROL 5,000 UNITS 125 MCG TAB PO SCH (09:47)
[2021-08-29] MEDS: DOCUSATE SODIUM 100 MG CAP PO SCH (09:48)
[2021-08-29] MEDS: ATORVASTATIN 10 MG TAB PO SCH (09:48)
[2021-08-29] MEDS ORDERED: VANCOMYCIN TROUGH ONE (11:30)
--- NOTE | 2021-08-29 11:31 | Discharge Summary ---
Date of Service August 29, 2021 Admission HPI Per Admitting Provider Americo Anderson is a 70yo C male with histoyr of HLP, GERD and Dementia presenting from his custodial with worsening agitation and combativeness. Patient has had some worsening confusion over the last 2-3 days. Tonight he was very combative with staff and residents at [place]. He was brought in by police and EMS - handcuffs in place. Patient was kicking, spitting and cursing at staff. Limited history obtained but patient denies all complaints, specifically GOFF, visual change, chest pain, SOB, cough, runny nose, abdominal pain, nausea, vomiting, diarrhea or dysuria. ER Course: Ceftriaxone 1gm, NSS x 2L, Ativan 2mg IV Principal Diagnosis 1. UTI 2. Agitated behavior d/t #1 3. Possible bladder mass--will require f/u Discharge Exam GENERAL: 70 yo well-developed, well-nourished WM. Cooperative. NAD. LUNGS: Clear to auscultation bilaterally. No accessory muscle use. No W/R/R. CARDIOVASCULAR: Regular rate and rhythm. ABDOMEN: Soft, non-tender and non-distended. BS normoactive x 4 quad. EXTREMITIES: No edema. Non-tender. Peripheral pulses +2/4. PSYCHIATRIC: Cooperative. Appropriate mood and affect. SKIN: Warm, dry, intact. Discharge Data Allergies Allergy/AdvReac Type Severity Reaction Status Date / Time No Known Allergies Allergy Verified 08/25/21 19:21 Consultations 08/25/21 20:37 ED Decision to Admit Stat Ordered Studies Chest X-Ray 08/25/21 18:27 XR chest 1V portable CLINICAL HISTORY: Altered mental status. COMPARISON STUDY: Chest radiograph October 12, 2020. FINDINGS: Lung volumes are mildly diminished. Hazy left basilar density is unchanged. There is no pneumothorax or pleural effusion. Cardiac size is normal. Mediastinal contours are normal. There is no evidence for pulmonary edema. IMPRESSION: No acute cardiopulmonary findings. No significant change in appearance of the chest. ACT 112: Negative or not required by law. Electronically signed by: Tra Fernandez M.D. 08/25/2021 7:[address] 08/25/21 18:36 CT OF THE HEAD WITHOUT CONTRAST CLINICAL HISTORY: Altered mental status. COMPARISON STUDY: Head CT June 03, 2018. MRI of the brain June 21, 2018. CT DOSE: 1311.06 mGy.cm TECHNIQUE: Helical axial images of the head were obtained without IV contrast. Automated exposure control was utilized for the study. A dose lowering technique was utilized adhering to the principles of ALARA. FINDINGS: No acute intracranial hemorrhage, midline shift or mass effect is present. The ventricular system is unremarkable. White matter hypodensity suggests small vessel disease. The basal cisterns are patent. No extra-axial collections are present. There are no findings to suggest acute dural sinus thrombosis or acute territorial infarct. No significant calvarial abnormalities are present. IMPRESSION: No acute intracranial findings. ACT 112: Negative or not required by law. Electronically signed by: Tra Fernandez M.D. 08/25/2021 8:36 PM Renal Ultrasound 08/27/21 14:30 RENAL ULTRASOUND HISTORY: Flank pain. r/o hydro COMPARISON: None. FINDINGS: Right kidney: 9.7 cm. No hydronephrosis. Normal corticomedullary differentiation and cortical thickness. Left kidney: 9.1 cm. No hydronephrosis. Normal corticomedullary differentiation and cortical thickness. Bladder: The bladder is decompressed. There is mild bladder wall thickening. A small hyperechoic focus within the bladder base is difficult to assess due to the bladder decompression. IMPRESSION: 1. No hydronephrosis. 2. The bladder is decompressed. This may account for the bladder wall thickening. Recommend correlation with urinalysis. 3. A small hyperechoic focus within the bladder base which is difficult to assess due to the bladder decompression. This could represent median lobe hypertrophy of the prostate gland. A bladder mass is considered less likely not entirely excluded. Consider repeat dedicated bladder ultrasound once the patient's bladder is full. ACT 112: Negative or not required by law. Electronically signed by: Noe Oliveira M.D. 08/27/2021 7:01 PM Hospital Course (1) Altered mental state: Patient presents with agitated delirium - confusion, combativeness and aggression - progressive over the last 2-3 days. Acute metabolic encephalopathy which is multifactoral likely exacerbated UTI and bacteremia as below. Patient has had similar presentations with UTI in the past. CT Head is unremarkable - no acute intracranial pathology. -Fall precautions -Frequent orientation and delirium prevention strategies -Continue Seroquel qHS -Suspect that this is all secondary to his acute infection -He does not warrant psych eval -Pt has been pleasant and cooperative last two days (I suspect d/t his UTI being treated) (2) Bacteremia: -Preliminary growth of GPC noted on first set of blood cultures which was identified as coagulase neg staph on final -Abx were changed from Rocephin to Vanco when GPC were noted on prelim blood culture -Only 1 set out of the 2 blood cultures obtained were positive -I suspect that this represents a contaminant as pt only had one isolated low grade temp on admission and no leukocytosis -Will subsequently only treat for total of 7 days as patient is NOT bacteremic (3) Complicated UTI (urinary tract infection): Urine culture sent, although noting preliminarily no growth his grossly positive UA would suggest otherwise -D/C Rocephin as noted above, changed to Vanco on 08/27 d/t GPC on one set of blood cultures. -Continue daily Diflucan 100mg x 4 more doses after today for jarvis in urine -Renal u/s performed, findings c/w cystitis. Also questionable bladder mass, will warrant urology f/u -Due to the recurrence of his UTIs & abnormality on ultrasound, I did ask urology to see him, but they felt he could follow up as outpatient -Will treat for total of 7 days of antibiotics -At this time will NOT place pt on chronic antibiotic suppression, this can be d/w urology as outpatient -Transitioned to oral Cefdinir this morning and will be completed as outpatient (4) Dementia: Chronic -Continue Aricept 10mg po daily -Frequent orientation, avoid delirium inducing agents (5) GERD (gastroesophageal reflux disease): Chronic -Pepcid 40mg po daily while inpatient (6) BPH (benign prostatic hyperplasia): Chronic -Continue Flomax -Monitor UOP, Bladder scan as needed for decreased UOP (7) Hyperlipidemia: Chronic -Continue Atorvastatin 10mg po daily (8) Pancytopenia: -H&H normalized -Platelets have also normalized today -Likely transient drop d/t current infection (9) Hypokalemia: -Replaced/resolved Patient is medically and hemodynamically stable for discharge back to [facility] today. Recommend follow up with PCP at [facility]. Will require f/u with urology due to questionable bladder mass. Complete course of antibiotics as directed. Above plan of care d/w Dr. Coles who has also seen this patient prior to discharge. Total Time Total Time Spent Total Time Spent (In Minutes): >30 minutes Discharge Plan Discharge Items Patient Disposition: Personal [facility] Reason For Visit: AGITATION, UTI Discharge Diagnosis: Urinary tract infection with agitated behavior (likely secondary to infection) Activity: Resume your previous activity Non-emergency contact: Primary Care Provider Call non-emergency contact if: you have any medication questions and your symptoms worsen Follow-up/Referrals: Elliott Jefferson DO [Physician] - 09/03/21 1:40 pm ([facility]) Kalie Orozco [Primary Care Provider] - Diet: Regular Addtl Attending Provider Instructions: * Complete course of Cefdinir & Fluconazole for urinary tract infection--this is what was contributing to the agitated behavior * Follow up with healthcare provider at [facility] * Follow up with Urology regarding possible bladder mass noted on ultrasound Pending Studies at Discharge: No Stand-Alone Forms: My [facility] [employer], Smoking Cessation Skilled Items Patient informed of condition?: Yes DNR: No Discharge Level of Care: Other Communicable Disease: No Discharge Prognosis: Improving Lines: None Urinary Catheter: No Medications and DC Order Prescriptions: New fluconazole 100 mg Tablet 100 mg PO QAM Qty: 4 RF: 0 cefdinir 300 mg capsule 300 mg PO BID 3 Days Qty: 7 RF: 0 Continued atorvastatin 10 mg tablet 10 mg PO DAILY Qty: 30 RF: 11 donepezil 10 mg tablet 10 mg PO DAILY Qty: 30 RF: 11 aspirin [Aspirin Low Dose] 81 mg Tablet,Delayed Release (Dr/Ec) 81 mg PO DAILY Qty: 90 RF: 3 tamsulosin 0.4 mg capsule 0.4 mg PO DAILY Qty: 30 RF: 11 omeprazole 20 mg capsule,delayed release(DR/EC) 20 mg PO DAILY Qty: 30 RF: 5 escitalopram oxalate 20 mg tablet 20 mg PO DAILY Qty: 30 RF: 11 cholecalciferol (vitamin D3) 5,000 unit tablet 5,000 units PO DAILY Qty: 30 RF: 0 quetiapine 50 mg tablet 50 mg PO HS RF: 0 Therems-M 9 mg iron-400 mcg Tablet 1 tab PO DAILY RF: 0 docusate sodium [Colace] 100 mg capsule 100 mg PO DAILY RF: 0 Discharge Orders: Discharge Order (Routine); Ordered 08/29/21 Ordered By: Peyton Guzman Admission Data Admit Date/Time: 08/26/21 15:24 Attending Provider: Wang Coles Admit Provider: Zaida Rod Primary Care Provider: Kalie Orozco Other Providers: Zaida Rod Other Interventions: Discharge Summary Assessment (RN) Last Done: 08/29/21 11:13 Coding Level of Care Code D/C DAY MANAGEMENT >30 MINS Diagnoses Altered mental state R41.82 Altered mental status type: unspecified Bacteremia R78.81 Complicated UTI (urinary tract infection) N39.0 Dementia F03.91 Dementia behavioral disturbance: with behavioral disturbance Dementia type: unspecified type GERD (gastroesophageal reflux disease) K21.9 BPH (benign prostatic hyperplasia) N40.0 Hyperlipidemia E78.5 Pancytopenia D61.818 Hypokalemia E87.6
[2021-08-29] MEDS ORDERED: HALOPERIDOL LACTATE 5 MG/ML 1 ML VIAL IM STA (11:51)
--- NOTE | 2021-09-08 11:14 | Coding Query ---
To promote full compliance with coding requirements relating to patient care, provider participation is requested in all cases of countersinker uncertainty. Please assist us with the question(s) below: Coding Question(s): The diagnosis below was documented in the ER, H&P, and 08/26 Progress Note, then subsequently fell off all further documentation. Please indicate if it is still a possible diagnosis or ruled out. Physician's Response(s): SEPSIS - (documented on ER, H&P and the 08/26 Progress Note documents, "Sepsis: - Met sepsis criteria w/ fever, HR 90, elevated lactate, grossly infected urine which has now resolved". The bacteremia is ruled out as of Discharge Summary, however, it is not clear if Sepsis was still possible or ruled-out) ( ) Diagnosed and POA ( ) Diagnosed and not POA (X) Ruled out ( ) Other (please specify) MTDD
== END 2021-08-29 12:04 | disposition home or self-care (01) | DRG 727 ==
LOC: 3N 17:54 → ED 17:54 → SUATTDRO 21:30 → 3N 23:02

== ENCOUNTER 2021-09-19 20:15 | Inpatient (IN) ==
[2021-09-19] MEDS ORDERED: SODIUM CHLORIDE 0.9% 1000ML 1,000 ML IV ONE (20:39)
--- NOTE | 2021-09-19 20:43 | Emergency Department Note ---
Impression & Plan Aggressive behavior, Acute UTI (urinary tract infection), Dementia ED Provider Note Name: LAURA DOE Age: 70 Sex: M Arrives Via: Ambulance Informant: EMS, Nursing ED Provider: Gene Stevens MD Chief Complaint: Agitation Impression: As per impressions above Medical Decision Makin-year-old gentleman arrives for evaluation of agitation and aggressive behavior. He has severe dementia and lives in an Alzheimer's unit at local nursing facility. This evening patient with worsening aggressive behavior and attacking staff. EMS and police were required to bring the patient to the ER and in route he received 2 mg of Ativan resulting in patient calming down and eventually falling asleep. Work-up here included septic work-up given his history of sepsis just a month ago with similar agitation. Fortunately does not appear that he is septic at this time with a normal lactate no white blood cell count elevation no fever. He does have a UTI on work-up. His abdomen soft he is breathing comfortably and is in no distress. He was given IV Rocephin given the history of pansensitive UTI. We did discuss case with his nursing facility but given the degree of agitation earlier they do not feel comfortable with him being returned at this time. Hospitalist was consulted for further management. There is no report of head injury nor falls and thus I do not feel getting a CT head at this time would be indicated given the findings of likely UTI. Prior Medical Record and Triage/Nursing Notes reviewed by Me Additional history obtained from chart Differentials:Infection, hypoglycemia, electrolyte abnormalities, overdose, toxicologic, cardiac sources, intracerebral event, neurologic, trauma, as well as other pathologies. Vital Signs: reviewed and remarkable for no significant abnormalities Interventions: Rocephin 1 g IV Labs:Reviewed and remarkable for no significant abnormalities Imaging:Acute findings as per radiologist. CXR EKG:Per My Interpretation: Indication AMS: NSR 62 bpm, qtc 456 with RBBB. No Ectopy. No Ischemia. Compared to EKG 02/14/21, no significant changes. Consults:Dr Delbert Oconnor hospitalist Plan: Disposition:Hospitalization. Condition: Fair History of Present Illness:70-year-old gentleman arrives for evaluation of acute altered mental status. Patient with long history of dementia lives in a nursing facility. Over the last day has been increasingly agitated and aggressive towards staff. Apparently he was hitting and biting staff. EMS and police were called and patient was handcuffed and tied to a bed to be brought into the ER for further evaluation. According to nursing patient achieved 2 mg IM Ativan by EMS prior to arrival which helped calm the patient down. Patient has no complaints eyes everything. He has no memory of what happened and cannot relate what is going on. Due to his dementia he is unable to give a story as to the current situation. I will note patient denies any current pain or difficulty breathing and is in no distress. Reportedly patient was admitted about 1 month ago for acute sepsis causing similar altered mental status. 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 EYES: No scleral icterus, unremarkable pupils. ENT: Mucous membranes moist, no nasal congestion. NECK: No masses appreciated, nomeningismus, trachea is midline. RESPIRATORY: No dyspnea. Clear to auscultation and equal bilaterally. No wheeze, no rhonchi. CARDIOVASCULAR: Regular rate and rhythm.No murmurs, rubs, gallops appreciated. GASTROINTESTINAL: Abdomen soft, non-tender, no peritonitis.Bowel sounds positive.No masses appreciated. BACK: No midline tenderness, no CVA tenderness EXTREMITIES: Normal motion all extremities, no cyanosis, no edema. NEUROLOGIC: Alert looking around room, not oriented, no acute motor or sensory deficits, no focal weakness, cranial nerves grossly intact. SKIN: No rash, no jaundice, no diaphoresis. PSYCH: dementia, periodically laughing GCS: 15 ED Course: Times/Reassessments: Sleeping no distress and no further agitation Gene Stevens MD Past Med/Surg History Medical History Arthritis of right hip Cellulitis and abscess of face Dementia Dental abscess Depression with anxiety Elevated BP without diagnosis of hypertension Expressive aphasia Hyperlipidemia Vitamin D insufficiency Surgical History H/O total hip arthroplasty History of hernia repair Family History Mother Myocardial infarction Other Hypertension Denies family history of Ovarian cancer Prostate cancer Breast cancer Colorectal cancer Social History Smoking Status: Unknown if ever smoked Second Hand Exposure: No (unknown); Preferred Language: Telugu Communication Ability: Impaired [employer] Commanding Officer Required: No Beliefs That Will Affect Care: None marital status: Single Current Living Situation: [facility] Current Living Situation Comment: [facility] current occupational status: disabled Feels Safe at Home: Yes Childhood Exposure to Second-Hand Smoke: No caffeine: Yes during the past year weight has: remained stable Dental Care, Regularly: Yes Seatbelt Use: always Sunscreen Use: No Assistive Devices: None Allergies Allergies Allergy/AdvReac Type Severity Reaction Status Date / Time No Known Allergies Allergy Verified 09/19/21 21:47 Home Meds Home Medications Medication Instructions Recorded Confirmed docusate sodium 100 mg capsule 100 mg PO DAILY 08/25/21 09/19/21 (Colace) quetiapine 50 mg tablet 50 mg PO HS 08/25/21 09/19/21 atorvastatin 10 mg tablet 10 mg PO HS 09/19/21 09/19/21 donepezil 10 mg tablet 10 mg PO HS 09/19/21 09/19/21 [id number]-[id number]-[id number] tablet 1 tab PO QAM 09/19/21 09/19/21 Previous Rx's Medication Instructions Recorded aspirin 81 mg tablet,delayed 81 mg PO DAILY #90 tab 02/26/21 release (Aspirin Low Dose) cholecalciferol (vitamin D3) 125 5,000 units PO DAILY #30 tab 02/26/21 mcg (5,000 unit) tablet escitalopram oxalate 20 mg tablet 20 mg PO DAILY #30 tab 02/26/21 omeprazole 20 mg capsule,delayed 20 mg PO DAILY #30 cap 02/26/21 release tamsulosin 0.4 mg capsule 0.4 mg PO DAILY #30 cap 09/03/21 Results & Data (ED) Vital Signs Vital Signs - 24 hr 09/19/21 20:07 09/19/21 22:07 Temperature 37.1 C Temperature Source Oral Pulse Rate 87 Pulse Rate [Finger] 87 75 Respiratory Rate 21 20 Blood Pressure 122/92 Blood Pressure [Right Arm] 122/92 123/81 Blood Pressure Mean 102 Blood Pressure Mean [Right Arm] 102 95 Pulse Oximetry 94 98 Oxygen Delivery Method Room Air Room Air Sepsis Recent Fever Within 48 Hours No Sepsis New/Unexplained Change in Mental Status Yes Sepsis Action Taken by Nursing Physician Notified Laboratory Data Result diagrams: 09/19/21 20:54 09/19/21 20:54 Lab Results 09/19/21 09/19/21 09/19/21 Range/Units 20:54 20:54 20:54 WBC 4.30 L (4.8-10.8) K/uL RBC 4.45 L (4.7-6.1) M/uL Hgb 13.9 L (14.0-18.0) g/dL Hct 40.4 L (42-52) % MCV 90.8 (80-100) fL MCH 31.2 (25-34) pg MCHC 34.4 (32-36) g/dL RDW Std Deviation 43.7 (36.4-46.3) fL RDW Coeff of Anjelica 13.1 (11.5-14.5) % Plt Count 150 (130-400) K/uL MPV 10.1 (7.4-10.4) fL Immature Gran % (Auto) 0.0 % Neut % (Auto) 53.7 % Lymph % (Auto) 32.6 % [place] % (Auto) 11.6 % Eos % (Auto) 1.6 % Baso % (Auto) 0.5 % Neut # (Auto) 2.31 (1.4-6.5) K/uL Lymph # (Auto) 1.40 (1.2-3.4) K/uL [place] # (Auto) 0.50 (0.11-0.59) K/uL Eos # (Auto) 0.07 (0-0.5) K/uL Baso # (Auto) 0.02 (0-0.2) K/uL Immature Gran # (Auto) 0.00 (0.00-0.02) K/uL Sodium 139 (136-145) mmol/L Potassium 3.7 (3.5-5.1) mmol/L Chloride 105 (98-107) mmol/L Carbon Dioxide 28 (21-32) mmol/L Anion Gap 6 (3-11) BUN 21 (6-23) mg/dl Creatinine 1.22 (0.6-1.4) mg/dl Est Cr Clr Drug Dosing Not Reportable Est GFR ( Amer) 69.7 ml/min Est GFR (Non-Af Amer) 60.1 ml/min BUN/Creatinine Ratio 17.2 (10-20) Glucose 85 (70-99(Fasting)) mg/dl Lactate 1.5 (0.4-2.0) mmol/L Calcium 9.9 (8.5-10.1) mg/dl Total Bilirubin 1.0 (0.2-1.0) mg/dl Direct Bilirubin 0.2 (0-0.2) mg/dl AST 17 (13-39) U/L ALT 14 (7-52) U/L Alkaline Phosphatase 69 (34-104) U/L Troponin I < 0.03 (0-0.04) ng/ml Total Protein 6.8 (6.0-8.3) gm/dl Albumin 4.3 (3.4-5.0) gm/dl Lipase 52 (11-82) U/L Procalcitonin (0-0.5) ng/ml Urine Color Urine Appearance (Clear) Urine pH (4.5-7.5) Ur Specific [place] (1.000-1.030) Urine Protein (Negative) Urine Glucose (UA) (Negative) Urine Ketones (Negative) Urine Blood (Negative) Urine Nitrite (Negative) Urine Bilirubin (Negative) Urine Urobilinogen (Negative) Ur Leukocyte Esterase (Negative) Urine WBC (Auto) (0-5) /hpf Urine RBC (Auto) (0-4) /hpf U Hyaline Cast (Auto) (0-5) /lpf U Epithel Cells (Auto) (0-5) /lpf Urine Bacteria (Auto) (Negative) Urine Yeast Urine Sperm (None Prsent) SARS-CoV-2, RNA, NAAT (NEGATIVE) 09/19/21 09/19/21 09/19/21 Range/Units 20:54 21:00 21:51 WBC (4.8-10.8) K/uL RBC (4.7-6.1) M/uL Hgb (14.0-18.0) g/dL Hct (42-52) % MCV (80-100) fL MCH (25-34) pg MCHC (32-36) g/dL RDW Std Deviation (36.4-46.3) fL RDW Coeff of Anjelica (11.5-14.5) % Plt Count (130-400) K/uL MPV (7.4-10.4) fL Immature Gran % (Auto) % Neut % (Auto) % Lymph % (Auto) % [place] % (Auto) % Eos % (Auto) % Baso % (Auto) % Neut # (Auto) (1.4-6.5) K/uL Lymph # (Auto) (1.2-3.4) K/uL [place] # (Auto) (0.11-0.59) K/uL Eos # (Auto) (0-0.5) K/uL Baso # (Auto) (0-0.2) K/uL Immature Gran # (Auto) (0.00-0.02) K/uL Sodium (136-145) mmol/L Potassium (3.5-5.1) mmol/L Chloride (98-107) mmol/L Carbon Dioxide (21-32) mmol/L Anion Gap (3-11) BUN (6-23) mg/dl Creatinine (0.6-1.4) mg/dl Est Cr Clr Drug Dosing Est GFR ( Amer) ml/min Est GFR (Non-Af Amer) ml/min BUN/Creatinine Ratio (10-20) Glucose (70-99(Fasting)) mg/dl Lactate (0.4-2.0) mmol/L Calcium (8.5-10.1) mg/dl Total Bilirubin (0.2-1.0) mg/dl Direct Bilirubin (0-0.2) mg/dl AST (13-39) U/L ALT (7-52) U/L Alkaline Phosphatase (34-104) U/L Troponin I (0-0.04) ng/ml Total Protein (6.0-8.3) gm/dl Albumin (3.4-5.0) gm/dl Lipase (11-82) U/L Procalcitonin < 0.05 (0-0.5) ng/ml Urine Color Yellow Urine Appearance Turbid A (Clear) Urine pH 5.5 (4.5-7.5) Ur Specific [place] 1.016 (1.000-1.030) Urine Protein 1+ H (Negative) Urine Glucose (UA) Negative (Negative) Urine Ketones Negative (Negative) Urine Blood 2+ H (Negative) Urine Nitrite Negative (Negative) Urine Bilirubin Negative (Negative) Urine Urobilinogen Negative (Negative) Ur Leukocyte Esterase 3+ H (Negative) Urine WBC (Auto) >30 H (0-5) /hpf Urine RBC (Auto) 0-4 (0-4) /hpf U Hyaline Cast (Auto) 1-5 (0-5) /lpf U Epithel Cells (Auto) 10-20 H (0-5) /lpf Urine Bacteria (Auto) Negative (Negative) Urine Yeast Not Reportable Urine Sperm Present A (None Prsent) SARS-CoV-2, RNA, NAAT NEGATIVE (NEGATIVE) Administered Medications Discontinued Medications Sodium Chloride (Nss 1000ml) 1,000 mls @ 999 mls/hr IV .[id number] ONE Stop: 09/19/21 21:39 Last Infusion: 09/19/21 22:28 Dose: 0 mls/hr Documented by: [id number] Admin: 09/19/21 21:07 Dose: 999 mls/hr Documented by: [id number] Imaging Data Radiologist's Impression: Chest X-Ray 09/19/21 20:39 XR chest 1V portable CLINICAL HISTORY: sepsis TECHNIQUE: Single frontal radiograph of the chest was obtained. Comparison: Comparison is made to chest one view 08/25/2021 FINDINGS: No lines and tubes are seen. The cardiomediastinal silhouette is normal. Lungs are underinflated but clear. No evidence of pleural effusion or pneumothorax. IMPRESSION: No acute chest disease. ACT 112: Negative or not required by law. Electronically signed by: Alan De Leon M.D. 09/19/2021 9:19 PM Discharge Plan Visit Data Chief Complaint: Confusion Stated Complaint: AMS ED Provider: Gene Stevens Discharge Problem: Aggressive behavior, Acute UTI (urinary tract infection), Dementia Forms Stand Alone Forms: [facility] [employer] Safety Step Prescriptions Prescriptions: No Action tamsulosin 0.4 mg capsule 0.4 mg PO DAILY Qty: 30 RF: 11 aspirin [Aspirin Low Dose] 81 mg Tablet,Delayed Release (Dr/Ec) 81 mg PO DAILY Qty: 90 RF: 3 omeprazole 20 mg capsule,delayed release(DR/EC) 20 mg PO DAILY Qty: 30 RF: 5 escitalopram oxalate 20 mg tablet 20 mg PO DAILY Qty: 30 RF: 11 cholecalciferol (vitamin D3) 5,000 unit tablet 5,000 units PO DAILY Qty: 30 RF: 0 Cerovite Silver Tablet 1 tab PO QAM RF: 0 atorvastatin 10 mg tablet 10 mg PO HS RF: 0 donepezil 10 mg tablet 10 mg PO HS RF: 0 quetiapine 50 mg tablet 50 mg PO HS RF: 0 docusate sodium [Colace] 100 mg capsule 100 mg PO DAILY RF: 0 Referrals Referrals: Kalie Orozco [Primary Care Provider] - Discharge Problem: Dementia Qualifiers: Dementia type: Alzheimer's Alzheimer's disease onset: early-onset Dementia behavioral disturbance: with behavioral disturbance Qualified Code(s): G30.0 - Alzheimer's disease with early onset
[2021-09-19 21:03] LABS: Basophils # (auto) 0.02 K/uL (0-0.2); Basophils % (auto) 0.5 %; Eosinophils # (auto) 0.07 K/uL (0-0.5); Eosinophils % (auto) 1.6 %; Hematocrit (blood only) 40.4 % (42-52); Hemoglobin 13.9 g/dL (14.0-18.0); Lymphocytes % (auto) 32.6 %; Mean Corpuscular Hemoglobin 31.2 pg (25-34); Mean Corpuscular Hgb Conc 34.4 g/dL (32-36); Mean Corpuscular Volume 90.8 fL (80-100); Mean Platelet Volume 10.1 fL (7.4-10.4); Monocytes % (auto) 11.6 %; Neutrophils # (auto) 2.31 K/uL (1.4-6.5); Neutrophils % (auto) 53.7 %; Platelet Count 150 K/uL (130-400); RDW Coefficient of Variation 13.1 % (11.5-14.5); RDW Standard Deviation 43.7 fL (36.4-46.3); Red Blood Count 4.45 M/uL (4.7-6.1)
--- NOTE | 2021-09-19 21:21 | XRay Report ---
XR chest 1V portable CLINICAL HISTORY: sepsis TECHNIQUE: Single frontal radiograph of the chest was obtained. Comparison: Comparison is made to chest one view 08/25/2021 FINDINGS: No lines and tubes are seen. The cardiomediastinal silhouette is normal. Lungs are underinflated but clear. No evidence of pleural effusion or pneumothorax. IMPRESSION: No acute chest disease. ACT 112: Negative or not required by law. Electronically signed by: Alan De Leon M.D. 09/19/2021 9:19 PM
[2021-09-19 21:26] LABS: Alanine Aminotransferase 14 U/L (7-52); Albumin Level 4.3 gm/dl (3.4-5.0); Alkaline Phosphatase 69 U/L (34-104); Anion Gap 6 (3-11); Aspartate Aminotransferase 17 U/L (13-39); BUN Creatinine Ratio 17.2 (10-20); Bilirubin Direct 0.2 mg/dl (0-0.2); Blood Urea Nitrogen 21 mg/dl (6-23); Calcium 9.9 mg/dl (8.5-10.1); Carbon Dioxide 28 mmol/L (21-32); Chloride 105 mmol/L (98-107); Est GFR (African American) 69.7 ml/min; Est GFR (Non-African American) 60.1 ml/min; Glucose 85 mg/dl (70-99(Fasting)); Lipase 52 U/L (11-82); Potassium 3.7 mmol/L (3.5-5.1); Sodium 139 mmol/L (136-145); Total Protein 6.8 gm/dl (6.0-8.3)
[2021-09-19 21:28] LABS: Troponin I < 0.03 ng/ml (0-0.04)
[2021-09-19 22:33] LABS: Appearance Urine Turbid (Clear); Bacteria Urine Automated Negative (Negative); Bilirubin Urine Negative (Negative); Blood Urine 2+ (Negative); Color Urine Yellow; Glucose Urine UA Negative (Negative); Ketones Urine Negative (Negative); Leukocyte Esterase Urine 3+ (Negative); Nitrite Urine Negative (Negative); Protein Urine 1+ (Negative); Specific Gravity Urine 1.016 (1.000-1.030); Urobilinogen Urine Negative (Negative); WBC Urine Automated >30 /hpf (0-5); pH Urine 5.5 (4.5-7.5)
[2021-09-19] MEDS ORDERED: cefTRIAXone SODIUM 1,000 MG/50 ML BAG IV STA (22:58)
[2021-09-19 23:11] LABS: RBC Urine Automated 0-4 /hpf (0-4); Sperm Urine Present (None Prsent)
--- NOTE | 2021-09-19 23:24 | History & Physical Report ---
Date of Service September 19, 2021 Assessment & Plan (1) Aggressive behavior: Plan: Aggressive behavior/dementia/agitation history- Patient referred from his current living facility due to agitation with aggressive behavior toward nurses Presumptively secondary to encephalopathy from UTI aggravating underlying baseline dementia Continue baseline medications: Aspirin, donepezil, Escitalopram and quetiapine Monitor behavior closely during this admission (2) Acute UTI (urinary tract infection): Plan: Acute urinary tract infection/BPH with LUTS- Follow urine culture sensitivity Ceftriaxone 1 g IV daily Continue tamsulosin (3) Dementia: Plan: See above (4) GERD (gastroesophageal reflux disease): Plan: Change omeprazole to pantoprazole per formulary interchange (5) BPH (benign prostatic hyperplasia): Plan: See above (6) Hyperlipidemia: Plan: Continue atorvastatin History of Present Illness Chief Complaint: HPI and review of systems are significantly reduced due to patient's mental state. Primary Care Provider: [facility] [place] Patient was brought to the emergency department by EMS due to agitation at his current living facility. He was found to have a urinary tract infection, but did not show any significant agitation while in the emergency department. Allergies Allergy/AdvReac Type Severity Reaction Status Date / Time No Known Allergies Allergy Verified 09/19/21 21:47 Home Medications Medication Instructions Recorded Confirmed Type aspirin 81 mg tablet,delayed 81 mg PO DAILY #90 tab 02/26/21 09/19/21 Rx release (Aspirin Low Dose) cholecalciferol (vitamin D3) 125 5,000 units PO DAILY #30 tab 02/26/21 09/19/21 Rx mcg (5,000 unit) tablet escitalopram oxalate 20 mg tablet 20 mg PO DAILY #30 tab 02/26/21 09/19/21 Rx omeprazole 20 mg capsule,delayed 20 mg PO DAILY #30 cap 02/26/21 09/19/21 Rx release docusate sodium 100 mg capsule 100 mg PO DAILY 08/25/21 09/19/21 History (Colace) quetiapine 50 mg tablet 50 mg PO HS 08/25/21 09/19/21 History tamsulosin 0.4 mg capsule 0.4 mg PO DAILY #30 cap 09/03/21 09/19/21 Rx atorvastatin 10 mg tablet 10 mg PO HS 09/19/21 09/19/21 History donepezil 10 mg tablet 10 mg PO HS 09/19/21 09/19/21 History vjjyytqnauwn-phzlbhjr-gcjqjx tablet 1 tab PO QAM 09/19/21 09/19/21 History Past Med/Surg History Medical History Arthritis of right hip Cellulitis and abscess of face Dementia Dental abscess Depression with anxiety Elevated BP without diagnosis of hypertension Expressive aphasia Hyperlipidemia Vitamin D insufficiency Surgical History H/O total hip arthroplasty History of hernia repair Family History Mother Myocardial infarction Other Hypertension Denies family history of Ovarian cancer Prostate cancer Breast cancer Colorectal cancer Social History Smoking Status: Unknown if ever smoked Second Hand Exposure: No (unknown); Hx Alcohol Use: No (Unknown: Patient unable to answer.) Hx Substance Use: No (Unknown: Patient unable to answer.) Preferred Language: Yoruba Communication Ability: Effective School Lunch Monitor Required: No Beliefs That Will Affect Care: None marital status: Single Current Living Situation: Care Home Current Living Situation Comment: [facility]. current occupational status: disabled Other Information That Helps Us Care for You: No Feels Safe at Home: Yes Safety Concerns: Feels Safe At This Time Childhood Exposure to Second-Hand Smoke: No caffeine: Yes during the past year weight has: remained stable Dental Care, Regularly: Yes Seatbelt Use: always Sunscreen Use: No Assistive Devices: Walker Review of Systems Review of Systems: Patient unable to contribute to review of systems due to altered mental state and baseline dementia Physical Exam Physical Exam: The patient is awake, confused, well developed and well nourished, normocephalic and atraumatic, lying in bed and in no acute distress. HEENT--PERRL, EOMI, mucous membranes and oropharynx dry. Neck--supple. No JVD. No bruits. Thyroid normal, trachea midline, no adenopathy. Heart--normal S1 and S2. No murmurs, rubs or gallops. Lungs--clear bilaterally, no respiratory distress, no accessory muscle use. Abdomen--normal bowel sounds and soft. Nontender. Nondistended Extremities--no cyanosis or clubbing. No edema. Dermatologic--normal skin turgor, normal color, no abnormal lymph nodes, no rash. Neurologic--cranial nerves II through XII grossly intact. Rheumatologic--normal range of motion. Psychiatric--confused. Results & Data Results & Data ([facility]) Vital Signs (Past 12 Hours) Vital Signs Temp Pulse Pulse Resp BP BP Pulse Ox 09/19/21 22:07 75 20 123/81 98 09/19/21 20:07 37.1 C 87 87 21 122/92 122/92 94 Laboratory Results Laboratory Results WBC 4.30 K/uL (4.8-10.8) L 09/19/21 20:54 RBC 4.45 M/uL (4.7-6.1) L 09/19/21 20:54 Hgb 13.9 g/dL (14.0-18.0) L 09/19/21 20:54 Hct 40.4 % (42-52) L 09/19/21 20:54 MCV 90.8 fL (80-100) 09/19/21 20:54 MCH 31.2 pg (25-34) 09/19/21 20:54 MCHC 34.4 g/dL (32-36) 09/19/21 20:54 RDW Std Deviation 43.7 fL (36.4-46.3) 09/19/21 20:54 RDW Coeff of Anjelica 13.1 % (11.5-14.5) 09/19/21 20:54 Plt Count 150 K/uL (130-400) 09/19/21 20:54 MPV 10.1 fL (7.4-10.4) 09/19/21 20:54 Immature Gran % (Auto) 0.0 % 09/19/21 20:54 Neut % (Auto) 53.7 % 09/19/21 20:54 Lymph % (Auto) 32.6 % 09/19/21 20:54 [place] % (Auto) 11.6 % 09/19/21 20:54 Eos % (Auto) 1.6 % 09/19/21 20:54 Baso % (Auto) 0.5 % 09/19/21 20:54 Neut # (Auto) 2.31 K/uL (1.4-6.5) 09/19/21 20:54 Lymph # (Auto) 1.40 K/uL (1.2-3.4) 09/19/21 20:54 [place] # (Auto) 0.50 K/uL (0.11-0.59) 09/19/21 20:54 Eos # (Auto) 0.07 K/uL (0-0.5) 09/19/21 20:54 Baso # (Auto) 0.02 K/uL (0-0.2) 09/19/21 20:54 Immature Gran # (Auto) 0.00 K/uL (0.00-0.02) 09/19/21 20:54 Sodium 139 mmol/L (136-145) 09/19/21 20:54 Potassium 3.7 mmol/L (3.5-5.1) 09/19/21 20:54 Chloride 105 mmol/L (98-107) 09/19/21 20:54 Carbon Dioxide 28 mmol/L (21-32) 09/19/21 20:54 Anion Gap 6 (3-11) 09/19/21 20:54 BUN 21 mg/dl (6-23) 09/19/21 20:54 Creatinine 1.22 mg/dl (0.6-1.4) 09/19/21 20:54 Est Cr Clr Drug Dosing Not Reportable 09/19/21 20:54 Est GFR ( Amer) 69.7 ml/min 09/19/21 20:54 Est GFR (Non-Af Amer) 60.1 ml/min 09/19/21 20:54 BUN/Creatinine Ratio 17.2 (10-20) 09/19/21 20:54 Glucose 85 mg/dl (70-99(Fasting)) 09/19/21 20:54 Lactate 1.5 mmol/L (0.4-2.0) 09/19/21 20:54 Calcium 9.9 mg/dl (8.5-10.1) 09/19/21 20:54 Total Bilirubin 1.0 mg/dl (0.2-1.0) 09/19/21 20:54 Direct Bilirubin 0.2 mg/dl (0-0.2) 09/19/21 20:54 AST 17 U/L (13-39) 09/19/21 20:54 ALT 14 U/L (7-52) 09/19/21 20:54 Alkaline Phosphatase 69 U/L (34-104) 09/19/21 20:54 Troponin I < 0.03 ng/ml (0-0.04) 09/19/21 20:54 Total Protein 6.8 gm/dl (6.0-8.3) 09/19/21 20:54 Albumin 4.3 gm/dl (3.4-5.0) 09/19/21 20:54 Lipase 52 U/L (11-82) 09/19/21 20:54 Procalcitonin < 0.05 ng/ml (0-0.5) 09/19/21 20:54 Urine Color Yellow 09/19/21 21:51 Urine Appearance Turbid (Clear) A 09/19/21 21:51 Urine pH 5.5 (4.5-7.5) 09/19/21 21:51 Ur Specific [place] 1.016 (1.000-1.030) 09/19/21 21:51 Urine Protein 1+ (Negative) H 09/19/21 21:51 Urine Glucose (UA) Negative (Negative) 09/19/21 21:51 Urine Ketones Negative (Negative) 09/19/21 21:51 Urine Blood 2+ (Negative) H 09/19/21 21:51 Urine Nitrite Negative (Negative) 09/19/21 21:51 Urine Bilirubin Negative (Negative) 09/19/21 21:51 Urine Urobilinogen Negative (Negative) 09/19/21 21:51 Ur Leukocyte Esterase 3+ (Negative) H 09/19/21 21:51 Urine WBC (Auto) >30 /hpf (0-5) H 09/19/21 21:51 Urine RBC (Auto) 0-4 /hpf (0-4) 09/19/21 21:51 U Hyaline Cast (Auto) 1-5 /lpf (0-5) 09/19/21 21:51 U Epithel Cells (Auto) 10-20 /lpf (0-5) H 09/19/21 21:51 Urine Bacteria (Auto) Negative (Negative) 09/19/21 21:51 Urine Yeast Not Reportable 09/19/21 21:51 Urine Sperm Present (None Prsent) A 09/19/21 21:51 SARS-CoV-2, RNA, NAAT NEGATIVE (NEGATIVE) 09/19/21 21:00 Impressions Chest X-Ray 09/19/21 20:39 XR chest 1V portable CLINICAL HISTORY: sepsis TECHNIQUE: Single frontal radiograph of the chest was obtained. Comparison: Comparison is made to chest one view 08/25/2021 FINDINGS: No lines and tubes are seen. The cardiomediastinal silhouette is normal. Lungs are underinflated but clear. No evidence of pleural effusion or pneumothorax. IMPRESSION: No acute chest disease. ACT 112: Negative or not required by law. Electronically signed by: Alan De Leon M.D. 09/19/2021 9:19 PM Code Status & VTE Plan Code Status Full code VTE Prophylaxis Plan VTE Prophylaxis will be ordered: Yes PG Care Time/CCT Total # of Minutes Spent Total Time Spent with Patient: Total time spent is greater than 50% in coordination of care (as documented) at patient's floor/unit and/or counseling patient: Coding Level of Care Code INT OBSERVATION CARE 70M LVL 3 Diagnoses Aggressive behavior R46.89 Acute UTI (urinary tract infection) N39.0 Dementia G30.0; F02.81 Alzheimer's disease onset: early-onset Dementia behavioral disturbance: with behavioral disturbance Dementia type: Alzheimer's GERD (gastroesophageal reflux disease) K21.9 BPH (benign prostatic hyperplasia) N40.0 Hyperlipidemia E78.5 (1) Dementia Alzheimer's disease onset: early-onset Dementia behavioral disturbance: with behavioral disturbance Dementia type: Alzheimer's Qualified Code(s): G30.0 - Alzheimer's disease with early onset; F02.81 - Dementia in other diseases classified elsewhere with behavioral disturbance
[2021-09-20] MEDS ORDERED: ONDANSETRON INJ 2 MG/ML 2 ML VIAL IV PRN (00:22)
[2021-09-20] MEDS ORDERED: HALOPERIDOL LACTATE 5 MG/ML 1 ML VIAL IM STA ×2 (08:36→08:37)
[2021-09-20] MEDS ORDERED: HALOPERIDOL LACTATE 5 MG/ML 1 ML VIAL ONE (08:38)
[2021-09-20] MEDS ORDERED: LORazepam 2 MG/1 ML VIAL IV STA (08:42)
[2021-09-20] MEDS ORDERED: LORazepam 2 MG/1 ML VIAL ONE ×2 (08:43→19:03)
[2021-09-20] MEDS ORDERED: THIAMINE HCL 500 MG in SODIUM CHLORIDE 0.9% 50 ML IV ONE (09:30)
[2021-09-20] MEDS: cefTRIAXone SODIUM 1,000 MG in DEXTROSE 5% 50 ML IV SCH (10:00)
--- NOTE | 2021-09-20 11:26 | Hospitalist Progress Note ---
Date of Service September 20, 2021 Assessment & Plan (1) Aggressive behavior: Plan: Aggressive behavior/dementia/agitation history- Patient referred from current living facility at [facility] due to severe agitation with aggressive behavior towards nursing Concha from facility reached out, requesting psych consult for combative/mood swings as I have noticed this seems to be progressively worsening and is concerned that patient could act out to patient's On admission assumed acute on chronic with worsened encephalopathy from UTI which patient has experienced before with worsening of baseline dementia Patient has been undergoing work-up for potential bladder cancer, was recommended for additional potential cystoscopy/CT with contrast but it does not appear this is been done. Head CT performed 08/25 although without contrast did not show any acute intracranial hemorrhage, midline shift, mass-effect, extra- axial collections, or obvious masses. 09/20 patient with code méndez, violent behavior yelling out nursing staff with various swings taken at providers/staff. Patient extremely combative and not redirectable, yells that Brain is not his name and repeats "get the fuck out."Require 2 mg of Ativan for sedation in the ER previously. In order to protect patient and staff safety patient did require both physical restraints and pharmacologic treatment with IM Haldol initially 2 mg but ultimately given 5 due to severity of combativeness and 2 mg of IV Ativan. - Continue ASA - Continue donepezil - Continue lexapro - Continue Quetiapine. EKG 09/20/21: QTc <480 (456), nsr. Continue UTI treatment as patient has had severe exacerbation with these in the past, but concerned that be having progressive behavioral disturbance with dementia versus involvement of bladder cancer/metabolic encephalopathy as noted below (2) Acute UTI (urinary tract infection): Plan: - Acute urinary tract infection/BPH with LUTS- - UC pending - Rocephin 1g daily - Continue tamsulosin - Attempting to obtain collateral regarding status of patient's potential bladder cancer evaluation and work-up was recently started by urology. Family was not available by phone morning of 09/20. [facility], patient unable to tolerate CT due to severe agitation at this time but would benefit from a CThead with CTA/P w/wo (3) Dementia: Plan: See above (4) GERD (gastroesophageal reflux disease): Plan: Change omeprazole to pantoprazole per formulary interchange (5) BPH (benign prostatic hyperplasia): Plan: See above (6) Hyperlipidemia: Plan: Continue atorvastatin Admission and Anticipated Discharge Date Admission Date: September 19, 2021 Subjective Code dev called for patient first in the morning, violent behavior yelling out nursing staff with various swings taken at providers/staff. Patient extremely combative and not redirectable, yells that Brain is not his name and repeats "get the fuck out."Require 2 mg of Ativan for sedation in the ER previously. In order to protect patient and staff safety patient did require both physical restraints and pharmacologic treatment with IM Haldol initially 2 mg but ultimately given 5 due to severity of combativeness and 2 mg of IV Ativan. Patient revisited in afternoon, still somnolent but improving, but actively confused and subjective unavailable. Attempted to call family, no answer at contact numbers. Review of Systems Review of Systems: Unobtainable due to cognitive status Physical Exam Physical Exam: General: Extremely agitated, not cooperative for exam see subjective. HEENT: Atraumatic, normocephalic. Dual acuity and hearing grossly intact. Pulm: Agitated but in no respiratory distress. On revisit in afternoon symmetrical chest rise, normal breathing. Cardiac: Unable to be assessed at time of morning visit Abdominal: Nontender, nondistended, soft. BS present. Extremities: Thin, warm, dry, atraumatic Results & Data Results & Data ([facility]) Vital Signs (Past 12 Hours) Vital Signs Temp Pulse Pulse Resp BP Pulse Ox 09/20/21 00:21 70 18 97 09/20/21 00:15 36.4 C L 54 L 18 137/83 96 PG Care Time/CCT Total # of Minutes Spent Total Time Spent with Patient: Total time spent is greater than 50% in coordination of care (as documented) at patient's floor/unit and/or counseling patient: Coding Level of Care Code 18424 Subseq Hosp Care Lvl 2 Diagnoses Aggressive behavior R46.89 Acute UTI (urinary tract infection) N39.0 Dementia G30.0; F02.81 Alzheimer's disease onset: early-onset Dementia behavioral disturbance: with behavioral disturbance Dementia type: Alzheimer's GERD (gastroesophageal reflux disease) K21.9 BPH (benign prostatic hyperplasia) N40.0 Hyperlipidemia E78.5 (1) Dementia Alzheimer's disease onset: early-onset Dementia behavioral disturbance: with behavioral disturbance Dementia type: Alzheimer's Qualified Code(s): G30.0 - Alzheimer's disease with early onset; F02.81 - Dementia in other diseases classified elsewhere with behavioral disturbance
[2021-09-20] MEDS: ASPIRIN 81 MG ECTAB PO SCH (16:17)
[2021-09-20] MEDS: ENOXAPARIN INJ 30 MG/0.3 ML SYR SQ SCH (16:18)
[2021-09-20] MEDS: DOCUSATE SODIUM 100 MG CAP PO SCH (16:18)
[2021-09-20] MEDS: CHOLECALCIFEROL 5,000 UNITS 125 MCG TAB PO SCH (16:18)
[2021-09-20] MEDS: CEROVITE ADV FORMULA TAB PO SCH (16:19)
[2021-09-20] MEDS: ESCITALOPRAM OXALATE 20 MG TAB PO SCH (16:19)
[2021-09-20] MEDS: PANTOprazole 40 MG TAB PO SCH (16:20)
[2021-09-20] MEDS: TAMSULOSIN HCL 0.4 MG CAP PO SCH (16:20)
[2021-09-20] MEDS: ATORVASTATIN 10 MG TAB PO SCH (20:22)
[2021-09-20] MEDS: DONEPEZIL HCL 10 MG TAB PO SCH (20:23)
[2021-09-20] MEDS: QUEtiapine FUMARATE 25 MG TABLET PO SCH (20:23)
--- NOTE | 2021-09-21 06:21 | Electrocardiogram Report ---
Test Reason : Blood Pressure : / mmHG Vent. Rate : 062 BPM Atrial Rate : 062 BPM P-R Int : 196 ms QRS Dur : 148 ms QT Int : 450 ms P-R-T Axes : 036 -25 -09 degrees QTc Int : 456 ms Normal sinus rhythm Right bundle branch block Possible Anterolateral infarct , age undetermined Abnormal ECG When compared with ECG of 14-FEB-2021 21:47, Borderline criteria for Anterolateral infarct are now Present Confirmed by Jim Mcdaniel ([id number]) on 09/21/2021 6:20:45 AM Referred By: REFERRED SELF Confirmed By:Jim Mcdaniel
[2021-09-21] MEDS: DOCUSATE SODIUM 100 MG CAP PO SCH (08:05)
[2021-09-21] MEDS: ASPIRIN 81 MG ECTAB PO SCH (08:05)
[2021-09-21] MEDS: CEROVITE ADV FORMULA TAB PO SCH (08:05)
[2021-09-21] MEDS: ENOXAPARIN INJ 30 MG/0.3 ML SYR SQ SCH (08:05)
[2021-09-21] MEDS: PANTOprazole 40 MG TAB PO SCH (08:05)
[2021-09-21] MEDS: cefTRIAXone SODIUM 1,000 MG in DEXTROSE 5% 50 ML IV SCH (08:05)
[2021-09-21] MEDS: CHOLECALCIFEROL 5,000 UNITS 125 MCG TAB PO SCH (08:05)
[2021-09-21] MEDS: ESCITALOPRAM OXALATE 20 MG TAB PO SCH (08:05)
[2021-09-21] MEDS: TAMSULOSIN HCL 0.4 MG CAP PO SCH (08:06)
[2021-09-21 08:27] LABS: Basophils # (auto) 0.01 K/uL (0-0.2); Basophils % (auto) 0.1 %; Eosinophils # (auto) 0.07 K/uL (0-0.5); Eosinophils % (auto) 0.8 %; Hematocrit (blood only) 39.9 % (42-52); Immature Granulocytes # (auto) 0.02 K/uL (0.00-0.02); Immature Granulocytes % (auto) 0.2 %; Lymphocytes # (auto) 0.97 K/uL (1.2-3.4); Lymphocytes % (auto) 11.3 %; Mean Corpuscular Hemoglobin 31.7 pg (25-34); Mean Corpuscular Hgb Conc 35.1 g/dL (32-36); Mean Corpuscular Volume 90.3 fL (80-100); Mean Platelet Volume 9.9 fL (7.4-10.4); Monocytes # (auto) 1.11 K/uL (0.11-0.59); Monocytes % (auto) 12.9 %; Neutrophils % (auto) 74.7 %; Platelet Count 139 K/uL (130-400); RDW Coefficient of Variation 13.1 % (11.5-14.5); RDW Standard Deviation 43.1 fL (36.4-46.3); Red Blood Count 4.42 M/uL (4.7-6.1); White Blood Count 8.58 K/uL (4.8-10.8)
[2021-09-21 08:46] LABS: BUN Creatinine Ratio 15.9 (10-20); Calcium 8.5 mg/dl (8.5-10.1); Creatinine Clr Calc Pharmacy 51.8 ml/min; Est GFR (African American) 81.7 ml/min; Est GFR (Non-African American) 70.5 ml/min; Magnesium 1.8 mg/dl (1.7-2.4); Phosphorus 2.7 mg/dl (2.5-4.9); Potassium 3.8 mmol/L (3.5-5.1)
[2021-09-21] MEDS: LORazepam 2 MG/1 ML VIAL IV PRN ×3 (08:56→20:41)
--- NOTE | 2021-09-21 16:00 | Hospitalist Progress Note ---
Date of Service September 21, 2021 Assessment & Plan (1) Aggressive behavior: Plan: Aggressive behavior/dementia/agitation history- Patient referred from current living facility at [place] due to severe agitation with aggressive behavior towards nursing Concha from facility reached out, requesting psych consult for combative/mood swings as I have noticed this seems to be progressively worsening and is concerned that patient could act out to other patients On admission assumed acute on chronic with worsened encephalopathy from UTI which patient has experienced before with worsening of baseline dementia Patient has been undergoing work-up for potential bladder cancer, was recommended for additional potential cystoscopy/CT with contrast but it does not appear this is been done. Head CT performed 08/25 although without contrast did not show any acute intracranial hemorrhage, midline shift, mass-effect, extra- axial collections, or obvious masses. 09/20 patient with code méndez, violent behavior yelling out nursing staff with various swings taken at providers/staff. Patient extremely combative and not redirectable, yells that Brain is not his name and repeats "get the f-- out."Required 2 mg of Ativan for sedation in the ER previously. In order to protect patient and staff safety patient did require both physical restraints and pharmacologic treatment with IM Haldol initially 2 mg but ultimately given 5 due to severity of combativeness and 2 mg of IV Ativan. Continue donepezil, Lexapro, Seroquel- EKG 09/20/21: QTc <480 (456), nsr. Continue UTI treatment as patient has had severe exacerbation with these in the past, but concerned that be having progressive behavioral disturbance with dementia versus involvement of bladder cancer/metabolic encephalopathy as noted below Consult psych to determine if adjustment to his current medication regimen may better manage his symptoms that are likely d/t progressively worsening dementia Maintain four-point restraints as long as patient continues to have aggressive and violent behavior. (2) Acute UTI (urinary tract infection): Plan: Acute urinary tract infection/BPH with LUTS- UC pending--prelim results note no growth (<1,000 colonies) but based on urinalysis, will treat Continue Rocephin 1g daily Continue tamsulosin Attempting to obtain collateral regarding status of patient's potential bladder cancer evaluation and work-up was recently started by urology. Family was not available by phone morning of 09/20. A CT of his abdomen and pelvis was attempted during his last admission however he refused the scan after he went down to radiology. Subsequently, kidney ultrasound was ordered and performed at bedside. (3) Dementia: Plan: See above (4) GERD (gastroesophageal reflux disease): Plan: Change omeprazole to pantoprazole per formulary interchange (5) BPH (benign prostatic hyperplasia): Plan: See above (6) Hyperlipidemia: Plan: Continue atorvastatin Plan: Interventions as outlined above Psych consult, appreciate recommendations Admission and Anticipated Discharge Date Admission Date: September 19, 2021 Subjective Patient seen on daily rounds this morning. He is currently resting comfortably in bed, he is currently in four-point restraints due to violent/aggressive behavior. Currently subdued, RN had just medicated w/ Ativan prior to my visit. Remains confused but not cursing or acting violent/aggressive presently. Review of Systems Review of Systems: Patient unable to contribute to review of systems due to altered mental state and baseline dementia Physical Exam Physical Exam: GENERAL: 70 yo well-developed, well-nourished WM. NAD. LUNGS: Clear to auscultation bilaterally. No w/r/r. CARDIOVASCULAR: Regular rate and rhythm. No M/G/R. No JVD. ABDOMEN: Soft, non-tender and non-distended. BS normal x 4 quad. EXTREMITIES: No edema. Non-tender. Peripheral pulses +2/4. in 4-point restraints. NEUROLOGIC: Awake, alert but subdued. Confused. No obvious neurologic deficits. PSYCHIATRIC: Confused, somewhat cooperative. SKIN: Warm, dry, intact. No rashes or lesions. Results & Data Results & Data ([facility]) Vital Signs (Past 12 Hours) Vital Signs Temp Pulse Resp BP Pulse Ox 09/21/21 05:07 36.5 C 67 14 118/77 98 Laboratory Results 09/21/21 08:15 09/21/21 08:15 PG Care Time/CCT Total # of Minutes Spent Total Time Spent with Patient: Total time spent is greater than 50% in coordination of care (as documented) at patient's floor/unit and/or counseling patient: Coding Level of Care Code 59224 Subseq Hosp Care Lvl 2 Diagnoses Aggressive behavior R46.89 Acute UTI (urinary tract infection) N39.0 Dementia G30.0; F02.81 Alzheimer's disease onset: early-onset Dementia behavioral disturbance: with behavioral disturbance Dementia type: Alzheimer's GERD (gastroesophageal reflux disease) K21.9 BPH (benign prostatic hyperplasia) N40.0 Hyperlipidemia E78.5 (1) Dementia Alzheimer's disease onset: early-onset Dementia behavioral disturbance: with behavioral disturbance Dementia type: Alzheimer's Qualified Code(s): G30.0 - Alzheimer's disease with early onset; F02.81 - Dementia in other diseases classified elsewhere with behavioral disturbance
[2021-09-21] MEDS: ATORVASTATIN 10 MG TAB PO SCH (20:39)
[2021-09-21] MEDS: DONEPEZIL HCL 10 MG TAB PO SCH (20:39)
[2021-09-21] MEDS: QUEtiapine FUMARATE 25 MG TABLET PO SCH (20:39)
[2021-09-22] MEDS: ASPIRIN 81 MG ECTAB PO SCH (08:29)
[2021-09-22] MEDS: DOCUSATE SODIUM 100 MG CAP PO SCH (08:30)
[2021-09-22] MEDS: cefTRIAXone SODIUM 1,000 MG in DEXTROSE 5% 50 ML IV SCH (08:30)
[2021-09-22] MEDS: CEROVITE ADV FORMULA TAB PO SCH (08:30)
[2021-09-22] MEDS: TAMSULOSIN HCL 0.4 MG CAP PO SCH (08:30)
[2021-09-22] MEDS: CHOLECALCIFEROL 5,000 UNITS 125 MCG TAB PO SCH (08:30)
[2021-09-22] MEDS: ESCITALOPRAM OXALATE 20 MG TAB PO SCH (08:30)
[2021-09-22] MEDS: ENOXAPARIN INJ 30 MG/0.3 ML SYR SQ SCH (08:30)
[2021-09-22] MEDS: PANTOprazole 40 MG TAB PO SCH (08:30)
[2021-09-22] MEDS: LORazepam 2 MG/1 ML VIAL IV PRN ×2 (08:58→19:59)
--- NOTE | 2021-09-22 13:07 | Hospitalist Progress Note ---
Date of Service September 22, 2021 Assessment & Plan (1) Aggressive behavior: Plan: Aggressive behavior/dementia/agitation history- Patient referred from current living facility at [place] due to severe agitation with aggressive behavior towards nursing Concha from facility reached out, requesting psych consult for combative/mood swings as I have noticed this seems to be progressively worsening and is concerned that patient could act out to other patients On admission assumed acute on chronic with worsened encephalopathy from UTI which patient has experienced before with worsening of baseline dementia Patient has been undergoing work-up for potential bladder cancer, was recommended for additional potential cystoscopy/CT with contrast but it does not appear this is been done. Head CT performed 08/25 although without contrast did not show any acute intracranial hemorrhage, midline shift, mass-effect, extra- axial collections, or obvious masses. 09/20 patient with code méndez, violent behavior yelling out nursing staff with various swings taken at providers/staff. Patient extremely combative and not redirectable, yells that Brain is not his name and repeats "get the f-- out."Required 2 mg of Ativan for sedation in the ER previously. In order to protect patient and staff safety patient did require both physical restraints and pharmacologic treatment with IM Haldol initially 2 mg but ultimately given 5 due to severity of combativeness and 2 mg of IV Ativan. Apparently a staff member was exposed to bodily fluids--obtained consent from brother, Brad, on 09/22 to test pt for HIV Continue donepezil, Lexapro, Seroquel- EKG 09/20/21: QTc <480 (456), nsr. Continue UTI treatment as patient has had severe exacerbation with these in the past, but concerned that be having progressive behavioral disturbance with dementia versus involvement of bladder cancer/metabolic encephalopathy as noted below Consult psych to determine if adjustment to his current medication regimen may better manage his symptoms that are likely d/t progressively worsening dementia Four-point restraints to be utilized in event of aggressive and violent behavior. (2) Acute UTI (urinary tract infection): Plan: Acute urinary tract infection/BPH with LUTS- UC pending--prelim results note no growth (<1,000 colonies) but based on urinalysis, will treat Continue Rocephin 1g daily Continue tamsulosin Attempting to obtain collateral regarding status of patient's potential bladder cancer evaluation and work-up was recently started by urology. Family is unsure as to where he is at in this process. Will reach out to urology regarding this. A CT of his abdomen and pelvis was attempted during his last admission however he refused the scan after he went down to radiology. Subsequently, kidney ultrasound was ordered and performed at bedside. (3) Dementia: Plan: See above (4) GERD (gastroesophageal reflux disease): Plan: Change omeprazole to pantoprazole per formulary interchange (5) BPH (benign prostatic hyperplasia): Plan: See above (6) Hyperlipidemia: Plan: Continue atorvastatin Plan: Interventions as outlined above Psych consult, appreciate recommendations As noted above, HIV testing to be carried out d/t staff exposure to bodily fluids--I personally obtained consent from brother, Brad, on 09/22 Admission and Anticipated Discharge Date Admission Date: September 19, 2021 Subjective Patient seen on daily rounds this morning. He is currently out of his restraints and is resting peacefully. Per RN, had just been medicated prior to my visit with Ativan. Review of Systems Review of Systems: Patient unable to contribute to review of systems due to altered mental state and baseline dementia Physical Exam Physical Exam: GENERAL: 70 yo well-developed, well-nourished WM. NAD. LUNGS: Clear to auscultation bilaterally. No w/r/r. CARDIOVASCULAR: Regular rate and rhythm. No M/G/R. No JVD. ABDOMEN: Soft, non-tender and non-distended. BS normal x 4 quad. EXTREMITIES: No edema. Non-tender. Peripheral pulses +2/4. in 4-point restraints. NEUROLOGIC: Awakens briefly but then dozes back off. No obvious neurologic deficits. PSYCHIATRIC: Confused SKIN: Warm, dry, intact. No rashes or lesions. Results & Data Results & Data ([facility]) Vital Signs (Past 12 Hours) Vital Signs Temp Pulse Resp BP Pulse Ox 09/21/21 21:07 87 16 129/80 99 09/21/21 20:35 99 09/21/21 15:55 36.1 C L 87 18 129/80 99 Intake and Output 09/21/21 09/22/21 09/22/21 22:59 06:59 14:59 Intake Total 250 / 750 350 / 750 290 / 290 Output Total 150 / 150 Balance 250 / 600 200 / 600 290 / 290 Intake: IV 50 / 50 cefTRIAXone SODIUM 1,000 mg In 50 / 50 Dextrose 5% 50 ml @ 100 mls/hr IV Q24H [facility] Rx#:[id number] Oral 250 / 700 350 / 700 240 / 240 Output: Urine 150 / 150 Other: # Unmeasured Voids 1 1 1 Laboratory Results no labs drawn this AM PG Care Time/CCT Total # of Minutes Spent Total Time Spent with Patient: Total time spent is greater than 50% in coordination of care (as documented) at patient's floor/unit and/or counseling patient: Coding Level of Care Code 46847 Subseq Hosp Care Lvl 2 Diagnoses Aggressive behavior R46.89 Acute UTI (urinary tract infection) N39.0 Dementia G30.0; F02.81 Alzheimer's disease onset: early-onset Dementia behavioral disturbance: with behavioral disturbance Dementia type: Alzheimer's GERD (gastroesophageal reflux disease) K21.9 BPH (benign prostatic hyperplasia) N40.0 Hyperlipidemia E78.5 (1) Dementia Alzheimer's disease onset: early-onset Dementia behavioral disturbance: with behavioral disturbance Dementia type: Alzheimer's Qualified Code(s): G30.0 - Alzheimer's disease with early onset; F02.81 - Dementia in other diseases classified elsewhere with behavioral disturbance
[2021-09-22] MEDS ORDERED: QUEtiapine FUMARATE 25 MG TABLET PO ONE (13:24)
[2021-09-22] MEDS ORDERED: OLANZapine 10 MG/2.1 ML SDV IM PRN (13:35)
[2021-09-22] MEDS ORDERED: QUEtiapine FUMARATE 25 MG TABLET PO PRN (15:01)
--- NOTE | 2021-09-22 15:01 | Psychiatric Consultation ---
Date of Consultation September 22, 2021 Impression / Recommendations Impression Diagnostically consistent with encephalopathy/delirium, presumably from UTI, superimposed on progressive major cognitive impairment with behavioral disturbance. Goal in dementia is to avoid medication management of behaviors if possible by maximizing non-pharmacologic strategies for behavioral management. However, given worsening agitation/aggression he requires ongoing antipsychotic use and titration as risk/benefit profile continues to favor treatment. Note all antipsychotic medications carry black box warning for increased risk of all- cause mortality in setting of dementia. EKG QTc <500ms. Unclear specific etiology of dementia but no known history of visual hallucinations to suggest lewy body, no evidence per chart review for Parkinson's. Suspect Alzheimer's versus vascular. If he continues to require antipsychotic dose escalations may consider reducing escitalopram to reduce risk of further QTc prolongation. If further dose increases of seroquel are ineffective will consider risperidone. (1) Encephalopathy: (2) Major neurocognitive disorder due to multiple etiologies with behavioral disturbance: (3) Expressive aphasia: -Could consider 1-on-1 given level of agitation but seems that this often increases his agitation -Increase seroquel 50 mg BID po & 25 mg BID prn for agitation if he agrees to po option -For behavioral emergency: olanzapine 2.5 mg ODT or IM x 1 (DO NOT exceed 10mg per 24 hours, NEVER co-administer with IM or IV benzodiazepines, avoid within 2 hours of IM or IV benzo use) -Attempt to limit use of lorazepam as this can worsen delirium and cause paradoxically increase in agitation in dementia -Continue medical workup to rule out and treat any underlying causes contributing to potential delirium, avoid or limit use of deliriogenic medications (benzodiazepines, opioids, anticholinergics) -Continue with delirium prevention measures: raising blinds during the day, closing at night, frequent re-orientation, contact with family/friends, explaining procedures/nursing care measures prior to physical contact, correct any hearing and visual impairments Psych History Identifying Data 70 yo man with history of agitated delirium, dementia with behavioral disturbance, UTI, HLD, expressive aphasia, GERD admitted medically from his personal half-way for increasing aggression and concern for UTI. Psychiatry was consulted for recommendations given agitation. Chief Complaint "mumbles" History of Present Illness Americo has a history of recent admission for acute agitation and worsening aggression in the setting of UTI on top of worsening dementia. He was readmitted on 09/19/21 for similar behavioral agitation with multiple code méndez events since admission. He has received IM haldol, IV ativan and po seroquel with limited benefit. He has also required periods of mechanical restraint due to agitation toward nursing staff including biting, scratching and hitting providers causing visible damage. He intermittently agrees to take po medication. On the way to see him for the consult, a code méndez was called and he was observed to kick and try to bite staff and to repeatedly remove blankets or coverings from his body, preferring to remain nude. Per discussion with nursing staff as soon as mechanical restraints are removed he tends to quickly re- escalate either due to getting out of bed and becoming quickly agitated by nursing attempts to re-direct him or to walk with him to ensure his safety. Periods of agitation seem to be triggered by interactions with care providers or on awakening. At times documentation notes that he seems to believe he is in his home, tends to be confused about his current location. Provided reassurance and re-oriented him. He attempted to verbalize a few times in response to my questions but speech is mumbled and non-comprehensible. Allergies Allergy/AdvReac Type Severity Reaction Status Date / Time No Known Allergies Allergy Verified 09/19/21 21:47 Home Medications Medication Instructions Recorded Confirmed Type aspirin 81 mg tablet,delayed 81 mg PO DAILY #90 tab 02/26/21 09/19/21 Rx release (Aspirin Low Dose) cholecalciferol (vitamin D3) 125 5,000 units PO DAILY #30 tab 02/26/21 09/19/21 Rx mcg (5,000 unit) tablet escitalopram oxalate 20 mg tablet 20 mg PO DAILY #30 tab 02/26/21 09/19/21 Rx omeprazole 20 mg capsule,delayed 20 mg PO DAILY #30 cap 02/26/21 09/19/21 Rx release docusate sodium 100 mg capsule 100 mg PO DAILY 08/25/21 09/19/21 History (Colace) quetiapine 50 mg tablet 50 mg PO HS 08/25/21 09/19/21 History tamsulosin 0.4 mg capsule 0.4 mg PO DAILY #30 cap 09/03/21 09/19/21 Rx atorvastatin 10 mg tablet 10 mg PO HS 09/19/21 09/19/21 History donepezil 10 mg tablet 10 mg PO HS 09/19/21 09/19/21 History elhpllafopaq-ijreviza-gigrcn tablet 1 tab PO QAM 09/19/21 09/19/21 History Personal History Living Arrangements: Personal Care Facility Beliefs That Will Affect Care: None Patient History Medical History Arthritis of right hip Cellulitis and abscess of face Dementia Dental abscess Depression with anxiety Elevated BP without diagnosis of hypertension Expressive aphasia Hyperlipidemia Vitamin D insufficiency Surgical History H/O total hip arthroplasty Right History of hernia repair Family History Mother Myocardial infarction Other Hypertension Denies family history of Ovarian cancer Prostate cancer Breast cancer Colorectal cancer Social History Smoking Status: Unknown if ever smoked Second Hand Exposure: No (unknown); Hx Alcohol Use: No (Unknown: Patient unable to answer.) Hx Substance Use: No (Unknown: Patient unable to answer.) Preferred Language: Austrian Communication Ability: Effective Food Service Order Clerk Required: No Beliefs That Will Affect Care: None marital status: Single Current Living Situation: Senior Care Current Living Situation Comment: [employer]. current occupational status: disabled Other Information That Helps Us Care for You: No Feels Safe at Home: Yes Safety Concerns: Feels Safe At This Time Childhood Exposure to Second-Hand Smoke: No caffeine: Yes during the past year weight has: remained stable Dental Care, Regularly: Yes Seatbelt Use: always Sunscreen Use: No Assistive Devices: None and Walker Physical Exam Psychiatric: Orientation: alert and oriented to person Apperance: appropriately groomed; + inappropriately dressed Eye Contact: + poor eye contact Motor Behavior: no abnormal motor movements Speech: + abnormal rat e/rhythm/volume of speech (expressive aphasia) Affect: + blunted affect Mood: + irritable mood Thought Process: + incoherent thought process Cognition: + recent memory not intact, + remote memory not intact, + attention not intact and + language not intact Insight: + severely impaired insight Judgement: + severely impaired judgement Vital Signs (Past 24 Hours): Last Vital Signs Temp 36.1 C L 09/21/21 15:55 Pulse 87 09/21/21 21:07 Resp 16 09/21/21 21:07 BP 129/80 09/21/21 21:07 Pulse Ox 99 09/21/21 21:07 Review of Systems Unobtainable due to cognitive status Results & Data (PSY) Laboratory Results electrolytes normal Diagnostic Findings EKG on 09/19/21 with QTc 456 Medications Administered Aspirin (Aspirin 81 Mg Ectab) 81 mg PO DAILY KAI Stop: 10/20/21 08:59 Last Admin: 09/22/21 08:29 Dose: 81 mg Documented by: [id number] Admin: 09/21/21 08:05 Dose: Not Given Documented by: [id number] Admin: 09/20/21 16:17 Dose: Not Given Documented by: [id number] Atorvastatin Calcium (Atorvastatin 10 Mg Tab) 10 mg PO HS KAI Stop: 10/20/21 20:59 Last Admin: 09/21/21 20:39 Dose: 10 mg Documented by: [id number] Admin: 09/20/21 20:22 Dose: Not Given Documented by: [id number] Docusate Sodium (Docusate Sodium 100 Mg Cap) 100 mg PO DAILY KAI Stop: 10/20/21 08:59 Last Admin: 09/22/21 08:30 Dose: Not Given Documented by: [id number] Admin: 09/21/21 08:05 Dose: Not Given Documented by: [id number] Admin: 09/20/21 16:18 Dose: Not Given Documented by: [id number] Donepezil HCl (Donepezil Hcl 10 Mg Tab) 10 mg PO HS KAI Stop: 10/20/21 20:59 Last Admin: 09/21/21 20:39 Dose: 10 mg Documented by: [id number] Admin: 09/20/21 20:23 Dose: Not Given Documented by: [id number] Enoxaparin Sodium (Enoxaparin Inj 30 Mg/0.3 Ml Syr) 30 mg SQ Q24H KAI Stop: 10/20/21 08:59 Last Admin: 09/22/21 08:30 Dose: Not Given Documented by: [id number] Admin: 09/21/21 08:05 Dose: Not Given Documented by: [id number] Admin: 09/20/21 16:18 Dose: Not Given Documented by: [id number] Escitalopram Oxalate (Escitalopram Oxalate 20 Mg Tab) 20 mg PO DAILY KAI Stop: 10/20/21 08:59 Last Admin: 09/22/21 08:30 Dose: 20 mg Documented by: [id number] Admin: 09/21/21 08:05 Dose: Not Given Documented by: [id number] Admin: 09/20/21 16:19 Dose: Not Given Documented by: [id number] Ceftriaxone Sodium 1,000 mg/ (Dextrose) 50 mls @ 100 mls/hr IV Q24H [facility]; Protocol Stop: 09/30/21 08:59 Last Infusion: 09/22/21 09:00 Dose: 0 mls/hr Documented by: [id number] Admin: 09/22/21 08:30 Dose: 100 mls/hr Documented by: [id number] Infusion: 09/21/21 08:40 Dose: 0 mls/hr Documented by: [id number] Admin: 09/21/21 08:05 Dose: 100 mls/hr Documented by: [id number] Infusion: 09/20/21 10:30 Dose: 0 mls/hr Documented by: [id number] Admin: 09/20/21 10:00 Dose: 100 mls/hr Documented by: [id number] Lorazepam (Lorazepam 2 Mg/1 Ml Vial) 1 mg IV Q4H PRN PRN Reason: Agitation Stop: 10/20/21 19:05 Last Admin: 09/22/21 08:58 Dose: 1 mg Documented by: [id number] Admin: 09/21/21 20:41 Dose: 1 mg Documented by: [id number] Admin: 09/21/21 14:05 Dose: 1 mg Documented by: [id number] Admin: 09/21/21 08:56 Dose: 1 mg Documented by: [id number] Multivitamins/Minerals (Cerovite Adv Formula Tab) 1 tab PO QAM [facility] Stop: 10/20/21 08:59 Last Admin: 09/22/21 08:30 Dose: 1 tab Documented by: [id number] Admin: 09/21/21 08:05 Dose: Not Given Documented by: [id number] Admin: 09/20/21 16:19 Dose: Not Given Documented by: [id number] Olanzapine (Olanzapine 10 Mg/2.1 Ml Sdv) 2.5 mg IM TID PRN PRN Reason: Agitation Stop: 10/22/21 13:34 Last Admin: 09/22/21 14:22 Dose: 2.5 mg Documented by: [id number] Pantoprazole Sodium (Pantoprazole 40 Mg Tab) 40 mg PO DAILY [facility] Stop: 10/20/21 08:59 Last Admin: 09/22/21 08:30 Dose: 40 mg Documented by: [id number] Admin: 09/21/21 08:05 Dose: Not Given Documented by: [id number] Admin: 09/20/21 16:20 Dose: Not Given Documented by: [id number] Tamsulosin HCl (Tamsulosin Hcl 0.4 Mg Cap) 0.4 mg PO DAILY [facility] Stop: 10/20/21 08:59 Last Admin: 09/22/21 08:30 Dose: 0.4 mg Documented by: [id number] Admin: 09/21/21 08:06 Dose: Not Given Documented by: [id number] Admin: 09/20/21 16:20 Dose: Not Given Documented by: [id number] Vitamin D (Cholecalciferol 5,000 Units 125 Mcg Tab) 5,000 units PO DAILY KAI Stop: 10/20/21 08:59 Last Admin: 09/22/21 08:30 Dose: 5,000 units Documented by: [id number] Admin: 09/21/21 08:05 Dose: Not Given Documented by: [id number] Admin: 09/20/21 16:18 Dose: Not Given Documented by: [id number] Coding Level of Care Code 43305 Inpt Consult Level 3 Diagnoses Encephalopathy G93.40 Major neurocognitive disorder due to multiple etiologies with behavioral disturbance F02.81 Expressive aphasia R47.01
[2021-09-22] MEDS: DONEPEZIL HCL 10 MG TAB PO SCH (19:42)
[2021-09-22] MEDS: QUEtiapine FUMARATE 25 MG TABLET PO SCH (19:42)
[2021-09-22] MEDS: ATORVASTATIN 10 MG TAB PO SCH (19:42)
[2021-09-23] MEDS: LORazepam 2 MG/1 ML VIAL IV PRN ×2 (00:22→05:48)
[2021-09-23] MEDS: cefTRIAXone SODIUM 1,000 MG in DEXTROSE 5% 50 ML IV SCH (08:40)
[2021-09-23] MEDS: ENOXAPARIN INJ 30 MG/0.3 ML SYR SQ SCH (08:40)
[2021-09-23] MEDS: QUEtiapine FUMARATE 25 MG TABLET PO SCH ×2 (08:41→20:02)
[2021-09-23] MEDS: OLANZapine ZYDIS 5 MG ORALLY DIS. TAB PO PRN (08:41)
[2021-09-23] MEDS: ASPIRIN 81 MG ECTAB PO SCH (08:41)
[2021-09-23] MEDS: TAMSULOSIN HCL 0.4 MG CAP PO SCH (08:42)
[2021-09-23] MEDS: ESCITALOPRAM OXALATE 20 MG TAB PO SCH (08:42)
[2021-09-23] MEDS: CHOLECALCIFEROL 5,000 UNITS 125 MCG TAB PO SCH (08:42)
[2021-09-23] MEDS: CEROVITE ADV FORMULA TAB PO SCH (08:42)
[2021-09-23] MEDS: PANTOprazole 40 MG TAB PO SCH (08:43)
[2021-09-23] MEDS: DOCUSATE SODIUM 100 MG CAP PO SCH (08:43)
--- NOTE | 2021-09-23 11:29 | Psychiatric Progress Note ---
Date of Service September 23, 2021 Impression / Recommendations Impression Diagnostically consistent with encephalopathy/delirium, presumably from UTI, superimposed on progressive major cognitive impairment with behavioral disturbance. Goal in dementia is to avoid medication management of behaviors if possible by maximizing non-pharmacologic strategies for behavioral management. However, given worsening agitation/aggression he requires ongoing antipsychotic use and titration as risk/benefit profile continues to favor treatment. Note all antipsychotic medications carry black box warning for increased risk of all- cause mortality in setting of dementia. EKG QTc <500ms. Unclear specific etiology of dementia but no known history of visual hallucinations to suggest lewy body, no evidence per chart review for Parkinson's. Suspect Alzheimer's versus vascular. 09/23/21: Given ongoing concern for potential delirium contribution would continue to attempt to limit lorazepam and utilize alternative prn medications for agitation. Continue to maximize behavioral interventions and strategies such as providing music or other activities he enjoys doing at [facility], clustering care, encouraging activity when he allows for staff assistance, pre-medicating with prn seroquel if he requires care that it is anticipated may provoke anxiety, utilizing 1:1 if he in restraints and minimizing restraints as much as possible. Consider addition of PT to help with movement/reducing delirium/main taining strength. Appears to be tolerating higher dose of seroquel and prn doses without any evidence for EPS or side effects. Continue with current doses. (1) Encephalopathy: (2) Major neurocognitive disorder due to multiple etiologies with behavioral disturbance: (3) Expressive aphasia: -Could consider 1-on-1 given level of agitation, especially if requiring restraints -Consider PT to help encourage movement during the day and improve stability if tolerated -Continue with seroquel 50 mg BID po & 25 mg BID prn for agitation if he agrees to po option -For behavioral emergency: olanzapine 2.5 mg ODT or IM x 1 (DO NOT exceed 10mg per 24 hours, NEVER co-administer with IM or IV benzodiazepines, avoid within 2 hours of IM or IV benzo use) -Attempt to limit use of lorazepam as this can worsen delirium and cause paradoxically increase in agitation in dementia -Continue medical workup to rule out and treat any underlying causes contributing to potential delirium, avoid or limit use of deliriogenic medications (benzodiazepines, opioids, anticholinergics) -Continue with delirium prevention measures: raising blinds during the day, closing at night, frequent re-orientation, contact with family/friends, explaining procedures/nursing care measures prior to physical contact, correct any hearing and visual impairments, clustering care Interval History Identifying Information 70 yo man with history of agitated delirium, dementia with behavioral disturbance, UTI, HLD, expressive aphasia, GERD admitted medically from his personal custodial for increasing aggression and concern for UTI. Psychiatry was consulted for recommendations given agitation. Chief Complaint sleeping Review of Systems Notes Ate breakfast, sleeping Subjective Subjective Patient was seen & assessed and interval progress reviewed. Per review of chart he required soft mechanical restraint for most of the afternoon yesterday and overnight and received prn doses of lorazepam 1mg IV x3 overnight. This morning he took his po medications including the additional of seroquel in qAM. He appeared to have eaten about 1/2 of his breakfast and was sleeping this morning in his room and given periods of agitation it was not deemed helpful to wake him up so he was left to sleep. Assessed skin integrity around his soft restraints with no visible bruising or skin breakdown. He was no longer in leg restraints and but still with arm restraints. Discussed with nursing and loosened arm restraints so he was able to fully move his arms within the bed and around without being able to fully extend out to hit staff. No evidence for muscle stiffness nor EPS on exam. Physical Exam Psychiatric Orientation: + not alert Apperance: appropriately dressed and appropriately groomed Eye Contact: + poor eye contact Motor Behavior: no abnormal motor movements Affect: + constricted affect Insight: + severely impaired insight Judgement: + severely impaired judgement Vital Signs (Past 24 Hours) Last Vital Signs Temp 36.9 C 09/23/21 07:51 Pulse 61 09/23/21 07:51 Resp 15 09/23/21 07:51 BP 109/66 09/23/21 07:51 Pulse Ox 97 09/23/21 07:51 Results & Data ([facility]) Current Inpatient Medications Current Inpatient Medications: Current Inpatient Medications Acetaminophen (Acetaminophen 325 Mg Tab) 650 mg PO Q4H PRN PRN Reason: pain/fever Stop: 10/20/21 00:21 Aspirin (Aspirin 81 Mg Ectab) 81 mg PO DAILY [facility] Stop: 10/20/21 08:59 Last Admin: 09/23/21 08:41 Dose: 81 mg Documented by: Atorvastatin Calcium (Atorvastatin 10 Mg Tab) 10 mg PO HS KAI Stop: 10/20/21 20:59 Last Admin: 09/22/21 19:42 Dose: 10 mg Documented by: Docusate Sodium (Docusate Sodium 100 Mg Cap) 100 mg PO DAILY [facility] Stop: 10/20/21 08:59 Last Admin: 09/23/21 08:43 Dose: 100 mg Documented by: Donepezil HCl (Donepezil Hcl 10 Mg Tab) 10 mg PO HS [facility] Stop: 10/20/21 20:59 Last Admin: 09/22/21 19:42 Dose: 10 mg Documented by: Enoxaparin Sodium (Enoxaparin Inj 30 Mg/0.3 Ml Syr) 30 mg SQ Q24H [facility] Stop: 10/20/21 08:59 Last Admin: 09/23/21 08:40 Dose: 30 mg Documented by: Escitalopram Oxalate (Escitalopram Oxalate 20 Mg Tab) 20 mg PO DAILY [facility] Stop: 10/20/21 08:59 Last Admin: 09/23/21 08:42 Dose: 20 mg Documented by: Ceftriaxone Sodium 1,000 mg/ (Dextrose) 50 mls @ 100 mls/hr IV Q24H [facility]; Protocol Stop: 09/30/21 08:59 Last Infusion: 09/23/21 09:18 Dose: Infused Documented by: Lorazepam (Lorazepam 2 Mg/1 Ml Vial) 1 mg IV Q4H PRN PRN Reason: Agitation Stop: 10/20/21 19:05 Last Admin: 09/23/21 05:48 Dose: 1 mg Documented by: Melatonin (Melatonin 3 Mg Tab) 3 mg PO HS PRN PRN Reason: Sleep Stop: 10/20/21 19:08 Multivitamins/Minerals (Cerovite Adv Formula Tab) 1 tab PO QAM [facility] Stop: 10/20/21 08:59 Last Admin: 09/23/21 08:42 Dose: 1 tab Documented by: Olanzapine (Olanzapine 10 Mg/2.1 Ml Sdv) 2.5 mg IM QID PRN PRN Reason: Agitation Stop: 10/22/21 13:34 Olanzapine (Olanzapine Zydis 5 Mg Orally Dis. Tab) 2.5 mg PO QID PRN PRN Reason: Agitation Stop: 10/22/21 15:00 Last Admin: 09/23/21 08:41 Dose: 2.5 mg Documented by: Ondansetron HCl (Ondansetron Inj 2 Mg/Ml 2 Ml Vial) 4 mg IV Q6H PRN PRN Reason: Nausea Stop: 10/20/21 00:21 Pantoprazole Sodium (Pantoprazole 40 Mg Tab) 40 mg PO DAILY KAI Stop: 10/20/21 08:59 Last Admin: 09/23/21 08:43 Dose: 40 mg Documented by: Quetiapine Fumarate (Quetiapine Fumarate 25 Mg Tablet) 50 mg PO BID [facility]AI Stop: 10/22/21 20:59 Last Admin: 09/23/21 08:41 Dose: 50 mg Documented by: Quetiapine Fumarate (Quetiapine Fumarate 25 Mg Tablet) 25 mg PO BID PRN PRN Reason: Agitation Stop: 10/22/21 20:59 Tamsulosin HCl (Tamsulosin Hcl 0.4 Mg Cap) 0.4 mg PO DAILY [facility] Stop: 10/20/21 08:59 Last Admin: 09/23/21 08:42 Dose: 0.4 mg Documented by: Vitamin D (Cholecalciferol 5,000 Units 125 Mcg Tab) 5,000 units PO DAILY [facility] Stop: 10/20/21 08:59 Last Admin: 09/23/21 08:42 Dose: 5,000 units Documented by:
--- NOTE | 2021-09-23 13:36 | Hospitalist Progress Note ---
Date of Service September 23, 2021 Assessment & Plan (1) Aggressive behavior: Plan: Aggressive behavior/dementia/agitation history- Patient referred from current living facility at [facility] due to severe agitation with aggressive behavior towards nursing Concha from facility reached out, requested psych consult for combative/mood swings as I have noticed this seems to be progressively worsening and is concerned that patient could act out to other patients On admission assumed acute on chronic with worsened encephalopathy from UTI which patient has experienced before with worsening of baseline dementia Patient has been undergoing work-up for potential bladder cancer, was recommended for additional potential cystoscopy which hasn't been done yet. Head CT performed 08/25 although without contrast did not show any acute intracranial pathology. 09/20 patient with code méndez, violent behavior yelling out nursing staff with various swings taken at providers/staff. Patient extremely combative and not redirectable, yells that Brain is not his name and repeats "get the f-- out."Required 2 mg of Ativan for sedation in the ER previously. In order to protect patient and staff safety patient did require both physical restraints and pharmacologic treatment with IM Haldol initially 2 mg but ultimately given 5 due to severity of combativeness and 2 mg of IV Ativan. Apparently a staff member was exposed to bodily fluids--obtained consent from brother, Brad, on 09/22 to test pt for HIV Continue donepezil, Lexapro, Seroquel- EKG 09/20/21: QTc <480 (456), nsr. Continue UTI treatment as patient has had severe exacerbation with these in the past, but concerned that behaviors reflect dementia with progressive behavioral disturbance vs metabolic encephalopathy d/t UTI as noted below Consulted psych, seen by Dr. Rome, appreciate her recommendations Four-point restraints to be utilized in event of aggressive and violent behavior. Avoid IV Ativan as if these behaviors are reflective of delirium, benzodiazepines will potentially exacerbate behaviors. Subsequently will discontinue. IM Zyprexa will be utilized as needed for agitation as preferred first-line. Will increase Seroquel to 50mg BID and also use 25mg BID prn agitation (if he is able/willing/cooperative with PO, if not then IM Zyprexa will be used). (2) Acute UTI (urinary tract infection): Plan: Acute urinary tract infection/BPH with LUTS- UC with no growth (<1,000 colonies) but based on urinalysis, will treat Continue Rocephin 1g daily, today day #4 Continue tamsulosin Attempted to obtain information re: work up for bladder tumor, he was seen by urology last month with plan to set up o/p cysto. Family is no longer interested in pursuing this work up. A CT of his abdomen and pelvis was attempted during his last admission however he refused the scan after he went down to radiology. (3) Dementia: Plan: See above (4) GERD (gastroesophageal reflux disease): Plan: Change omeprazole to pantoprazole per formulary interchange (5) BPH (benign prostatic hyperplasia): Plan: See above (6) Hyperlipidemia: Plan: Continue atorvastatin Plan: I have had a lengthy conversation with patient's brothers, Med and Brad this morning, ultimately their next of kin as Americo's mother recently 2 weeks ago. He does have an adult son however is estranged and the son was adopted by another man so subsequently Americo no longer is his legal parent. Regardless, Brain's brothers want to discuss plans moving forward with the son but they seem to be the primary decision makers. No one holds POA for Brain. At this time, family does not wish to pursue further work-up for possible bladder cancer as they understand that this ultimately will not change his progression in his dementia. Furthermore, they understand that attempting to work him up for this may only further exacerbate his agitation and combative behavior. It is not even certain that he would cooperate with treatment if cancer was diagnosed. I have also discussed with him the possibility of initiating hospice. They do seem to be interested in this. Lastly, it has been decided to make Brain a DNR/DNI as they have verbalized that he would not want aggressive/heroic measures to sustain his life. Admission and Anticipated Discharge Date Admission Date: September 22, 2021 Subjective Patient seen on daily rounds this morning. Patient is currently asleep, but remains in restraints. RN was able to get him to take his pills this morning. It was noted that patient was medicated 3 times on 7p to 7a shift with IV Ativan 1mg by nursing. This was given instead of the preferred IM Zyprexa. Review of Systems Review of Systems: Patient unable to contribute to review of systems due to altered mental state and baseline dementia Physical Exam 2 Physical Exam: GENERAL: 70 yo well-developed, well-nourished WM. NAD. LUNGS: Clear to auscultation bilaterally. No w/r/r. CARDIOVASCULAR: Regular rate and rhythm. No M/G/R. No JVD. ABDOMEN: Soft, non-tender and non-distended. BS normal x 4 quad. EXTREMITIES: No edema. Non-tender. Peripheral pulses +2/4. PSYCHIATRIC: Sleeping presently in 4 point restraints during my exam SKIN: Warm, dry, intact. No rashes or lesions. Results & Data Results & Data ([facility]) Vital Signs (Past 12 Hours) Vital Signs Temp Pulse Resp BP Pulse Ox 09/23/21 07:51 36.9 C 61 15 109/66 97 Laboratory Results none today PG Care Time/CCT Total # of Minutes Spent Total Time Spent with Patient: Total time spent is greater than 50% in coordination of care (as documented) at patient's floor/unit and/or counseling patient: Coding Level of Care Code 67014 Subseq Hosp Care Lvl 2 Diagnoses Aggressive behavior R46.89 Acute UTI (urinary tract infection) N39.0 Dementia G30.0; F02.81 Alzheimer's disease onset: early-onset Dementia behavioral disturbance: with behavioral disturbance Dementia type: Alzheimer's GERD (gastroesophageal reflux disease) K21.9 BPH (benign prostatic hyperplasia) N40.0 Hyperlipidemia E78.5 (1) Dementia Alzheimer's disease onset: early-onset Dementia behavioral disturbance: with behavioral disturbance Dementia type: Alzheimer's Qualified Code(s): G30.0 - Alzheimer's disease with early onset; F02.81 - Dementia in other diseases classified elsewhere with behavioral disturbance
[2021-09-23] MEDS: ATORVASTATIN 10 MG TAB PO SCH (20:02)
[2021-09-23] MEDS: DONEPEZIL HCL 10 MG TAB PO SCH (20:02)
[2021-09-23] MEDS: OLANZapine 10 MG/2.1 ML SDV IM PRN (21:58)
[2021-09-24] MEDS: QUEtiapine FUMARATE 25 MG TABLET PO SCH ×2 (09:25→19:50)
[2021-09-24] MEDS: CHOLECALCIFEROL 5,000 UNITS 125 MCG TAB PO SCH (09:25)
[2021-09-24] MEDS: cefTRIAXone SODIUM 1,000 MG in DEXTROSE 5% 50 ML IV SCH (09:25)
[2021-09-24] MEDS: ASPIRIN 81 MG ECTAB PO SCH (09:26)
[2021-09-24] MEDS: TAMSULOSIN HCL 0.4 MG CAP PO SCH (09:26)
[2021-09-24] MEDS: ENOXAPARIN INJ 30 MG/0.3 ML SYR SQ SCH (09:26)
[2021-09-24] MEDS: PANTOprazole 40 MG TAB PO SCH (09:26)
[2021-09-24] MEDS: CEROVITE ADV FORMULA TAB PO SCH (09:26)
[2021-09-24] MEDS: ESCITALOPRAM OXALATE 20 MG TAB PO SCH (09:26)
[2021-09-24] MEDS: DOCUSATE SODIUM 100 MG CAP PO SCH (09:27)
--- NOTE | 2021-09-24 11:01 | Hospitalist Progress Note ---
Date of Service September 24, 2021 Assessment & Plan (1) Aggressive behavior: Plan: Aggressive behavior/dementia/agitation history- Patient referred from current living facility at [place] due to severe agitation with aggressive behavior towards nursing Concha from facility reached out, requested psych consult for combative/mood swings as I have noticed this seems to be progressively worsening and is concerned that patient could act out to other patients On admission assumed acute on chronic with worsened encephalopathy from UTI which patient has experienced before with worsening of baseline dementia Patient has been undergoing work-up for potential bladder cancer, was recommended for additional potential cystoscopy which hasn't been done yet. Head CT performed 08/25 although without contrast did not show any acute intracranial pathology. 09/20 patient with code méndez, violent behavior yelling out nursing staff with various swings taken at providers/staff. Patient extremely combative and not redirectable, yells that Brain is not his name and repeats "get the f-- out."Required 2 mg of Ativan for sedation in the ER previously. In order to protect patient and staff safety patient did require both physical restraints and pharmacologic treatment with IM Haldol initially 2 mg but ultimately given 5 due to severity of combativeness and 2 mg of IV Ativan. Apparently a staff member was exposed to bodily fluids--obtained consent from brother, Brad, on 09/22 to test pt for HIV Continue donepezil, Lexapro, Seroquel- EKG 09/20/21: QTc <480 (456), nsr. Continue UTI treatment as patient has had severe exacerbation with these in the past, but concerned that behaviors reflect dementia with progressive behavioral disturbance vs metabolic encephalopathy d/t UTI as noted below Consulted psych, seen by Dr. Rome, appreciate her recommendations Four-point restraints to be utilized in event of aggressive and violent behavior. Avoid IV Ativan as if these behaviors are reflective of delirium, benzodiazepines will potentially exacerbate behaviors. Subsequently will discontinue. IM Zyprexa will be utilized as needed for agitation as preferred first-line. Will increase Seroquel to 50mg BID and also use 25mg BID prn agitation (if he is able/willing/cooperative with PO, if not then IM Zyprexa will be used). (2) Acute UTI (urinary tract infection): Plan: Acute urinary tract infection/BPH with LUTS- UC with no growth (<1,000 colonies) but based on urinalysis, will treat Continue Rocephin 1g daily, today day #5/ Continue tamsulosin Attempted to obtain information re: work up for bladder tumor, he was seen by urology last month with plan to set up o/p cysto. Family is no longer interested in pursuing this work up. A CT of his abdomen and pelvis was attempted during his last admission however he refused the scan after he went down to radiology. Documented fever in chart of 38.4 C at 0112obtain stat CBC with differential, BMP, if able to obtain a repeat UA will also do so (3) Dementia: Plan: See above (4) GERD (gastroesophageal reflux disease): Plan: Change omeprazole to pantoprazole per formulary interchange (5) BPH (benign prostatic hyperplasia): Plan: See above (6) Hyperlipidemia: Plan: Continue atorvastatin Plan: I have had a lengthy conversation with patient's brothers, Med and Brad this morning, ultimately they're next of kin as Americo's mother recently 2 weeks ago. He does have an adult son however is estranged and the son was adopted by another man so subsequently Americo no longer is his legal parent. Regardless, Brain's brothers want to discuss plans moving forward with the son but they seem to be the primary decision makers. No one holds POA for Brain. At this time, family does not wish to pursue further work-up for possible bladder cancer as they understand that this ultimately will not change his progression in his dementia. Furthermore, they understand that attempting to work him up for this may only further exacerbate his agitation and combative behavior. It is not even certain that he would cooperate with treatment if cancer was diagnosed. I have also discussed with him the possibility of initiating hospice. They do seem to be interested in this. Lastly, it has been decided to make Brain a DNR/DNI as they have verbalized that he would not want aggressive/heroic measures to sustain his life. Repeat labs as indicated above to rule out infection as contributing factor to patient's agitation and combative behavior. It is possible he does have an underlying urinary tract infection that is not responding to the IV Rocephin. Unfortunately, without accurate culture data, this is only speculation and not confirmed. Therefore, it is reasonable to repeat labs and UA with urine culture. Admission and Anticipated Discharge Date Admission Date: September 22, 2021 Subjective Patient seen on daily rounds this morning. Patient is currently asleep, but his upper extremities are currently in restraints. Per nursing, patient was agitated and combative overnight but responded favorably to the IM Zyprexa. Appears upon chart review that patient did have a fever of 38.4 Celsius; however, doesn't appear a provider was made aware and no labs or repeat UA was obtained. Review of Systems Review of Systems: Patient unable to contribute to review of systems due to altered mental state and baseline dementia Physical Exam Physical Exam: GENERAL: 70 yo well-developed, well-nourished WM. NAD. LUNGS: Clear to auscultation bilaterally. No w/r/r. CARDIOVASCULAR: Regular rate and rhythm. No M/G/R. No JVD. ABDOMEN: Soft, non-tender and non-distended. BS normal x 4 quad. EXTREMITIES: No edema. Non-tender. Peripheral pulses +2/4. PSYCHIATRIC: Sleeping presently in 2 point restraints (b/l UE) during my exam SKIN: Warm, dry, intact. No rashes or lesions. Results & Data Results & Data ([facility]) Vital Signs (Past 12 Hours) Vital Signs Temp Pulse Resp BP Pulse Ox 09/24/21 01:12 38.4 C H 75 18 114/75 95 PG Care Time/CCT Total # of Minutes Spent Total Time Spent with Patient: Total time spent is greater than 50% in coordination of care (as documented) at patient's floor/unit and/or counseling patient: Coding Level of Care Code 51427 Subseq Hosp Care Lvl 2 Diagnoses Aggressive behavior R46.89 Acute UTI (urinary tract infection) N39.0 Dementia G30.0; F02.81 Alzheimer's disease onset: early-onset Dementia behavioral disturbance: with behavioral disturbance Dementia type: Alzheimer's GERD (gastroesophageal reflux disease) K21.9 BPH (benign prostatic hyperplasia) N40.0 Hyperlipidemia E78.5 (1) Dementia Alzheimer's disease onset: early-onset Dementia behavioral disturbance: with behavioral disturbance Dementia type: Alzheimer's Qualified Code(s): G30.0 - Alzheimer's disease with early onset; F02.81 - Dementia in other diseases classified elsewhere with behavioral disturbance
[2021-09-24 11:36] LABS: Basophils # (auto) 0.01 K/uL (0-0.2); Basophils % (auto) 0.1 %; Eosinophils # (auto) 0.07 K/uL (0-0.5); Hematocrit (blood only) 41.4 % (42-52); Hemoglobin 14.1 g/dL (14.0-18.0); Lymphocytes # (auto) 1.66 K/uL (1.2-3.4); Lymphocytes % (auto) 23.4 %; Mean Corpuscular Hemoglobin 31.1 pg (25-34); Mean Corpuscular Volume 91.2 fL (80-100); Mean Platelet Volume 10.5 fL (7.4-10.4); Monocytes # (auto) 0.87 K/uL (0.11-0.59); Monocytes % (auto) 12.3 %; Neutrophils # (auto) 4.47 K/uL (1.4-6.5); Neutrophils % (auto) 63.2 %; Platelet Count 154 K/uL (130-400); RDW Coefficient of Variation 13.3 % (11.5-14.5); RDW Standard Deviation 44.1 fL (36.4-46.3); Red Blood Count 4.54 M/uL (4.7-6.1); White Blood Count 7.08 K/uL (4.8-10.8)
[2021-09-24 11:40] LABS: Mean Corpuscular Hgb Conc 34.1 g/dL (32-36)
[2021-09-24 12:01] LABS: BUN Creatinine Ratio 22.5 (10-20); Calcium 9.5 mg/dl (8.5-10.1); Creatinine Clr Calc Pharmacy 49.9 ml/min; Est GFR (African American) 78.1 ml/min; Est GFR (Non-African American) 67.4 ml/min; Potassium 3.9 mmol/L (3.5-5.1)
--- NOTE | 2021-09-24 16:20 | Psychiatric Progress Note ---
Date of Service September 24, 2021 Impression / Recommendations Impression Diagnostically consistent with encephalopathy/delirium, presumably from UTI, superimposed on progressive major cognitive impairment with behavioral disturbance. Goal in dementia is to avoid medication management of behaviors if possible by maximizing non-pharmacologic strategies for behavioral management. However, given worsening agitation/aggression he requires ongoing antipsychotic use and titration as risk/benefit profile continues to favor treatment. Note all antipsychotic medications carry black box warning for increased risk of all- cause mortality in setting of dementia. EKG QTc <500ms. Unclear specific etiology of dementia but no known history of visual hallucinations to suggest lewy body, no evidence per chart review for Parkinson's. Suspect Alzheimer's versus vascular. 09/24/21: Continue to focus on behavioral strategies for de-escalation. Focus on removing soft restraints as soon as possible once he is calm. No evidence for EPS, appears to be tolerating scheduled seroquel and prn IM zyprexa well with less agitation today. (1) Encephalopathy: (2) Major neurocognitive disorder due to multiple etiologies with behavioral disturbance: (3) Expressive aphasia: -Could consider 1-on-1 given periods of agitation, especially if requiring restraints -Consider PT to help encourage movement during the day and improve stability if tolerated -Continue with seroquel 50 mg BID po & 25 mg BID prn for agitation if he agrees to po option -For behavioral emergency: olanzapine 2.5 mg ODT or IM x 1 (DO NOT exceed 10mg per 24 hours, NEVER co-administer with IM or IV benzodiazepines, avoid within 2 hours of IM or IV benzo use) -Attempt to limit use of lorazepam as this can worsen delirium and cause paradoxically increase in agitation in dementia -Continue medical workup to rule out and treat any underlying causes contributing to potential delirium, avoid or limit use of deliriogenic medications (benzodiazepines, opioids, anticholinergics) -Continue with delirium prevention measures: raising blinds during the day, closing at night, frequent re-orientation, contact with family/friends, explaining procedures/nursing care measures prior to physical contact, correct any hearing and visual impairments, clustering care Interval History Identifying Information 70 yo man with history of agitated delirium, dementia with behavioral disturbance, UTI, HLD, expressive aphasia, GERD admitted medically from his personal [facility] for increasing aggression and concern for UTI. Psychiatry was consulted for recommendations given agitation. Chief Complaint "yes". Subjective Subjective Patient was seen & assessed and interval progress reviewed. Stopped in to see Americo around 1pm-he appeared calm, was awake and watched TV. Made limited eye contact but vocalized a few words "no", "yes" in regard to questions about if he wanted more water. No other spontaneous speech. No evidence for EPS. He accepted offer to drink some water. No evidence for pain. Examined soft restraint sites and no evidence for skin breakdown. Physical Exam Psychiatric Orientation: oriented to person Apperance: appropriately dressed and appropriately groomed Eye Contact: + poor eye contact Motor Behavior: no abnormal motor movements Speech: + abnormal rate/rhythm/volume of speech (brief, soft) Affect: + constricted affect Cognition: language grossly intact (very sparse); + recent memory not intact, + remote memory not intact and + attention not intact Insight: + severely impaired insight Judgement: + severely impaired judgement Vital Signs (Past 24 Hours) Last Vital Signs Temp 35.8 C L 09/24/21 15:34 Pulse 52 L 09/24/21 15:34 Resp 16 09/24/21 15:34 BP 98/73 L 09/24/21 15:34 Pulse Ox 97 09/24/21 15:34 [facility] & [facility] Laboratory Results Laboratory Results - last 24 hr 09/24/21 09/24/21 11:15 11:15 WBC 7.08 RBC 4.54 L Hgb 14.1 Hct 41.4 L MCV 91.2 MCH 31.1 MCHC 34.1 RDW Std Deviation 44.1 RDW Coeff of Anjelica 13.3 Plt Count 154 MPV 10.5 H Immature Gran % (Auto) 0.0 Neut % (Auto) 63.2 Lymph % (Auto) 23.4 [place] % (Auto) 12.3 Eos % (Auto) 1.0 Baso % (Auto) 0.1 Neut # (Auto) 4.47 Lymph # (Auto) 1.66 [place] # (Auto) 0.87 H Eos # (Auto) 0.07 Baso # (Auto) 0.01 Immature Gran # (Auto) 0.00 Sodium 141 Potassium 3.9 Chloride 108 H Carbon Dioxide 25 Anion Gap 8 BUN 25 H Creatinine 1.11 Est Cr Clr Drug Dosing 49.9 Est GFR ( Amer) 78.1 Est GFR (Non-Af Amer) 67.4 BUN/Creatinine Ratio 22.5 H Glucose 118 H Calcium 9.5 Current Inpatient Medications Current Inpatient Medications: Current Inpatient Medications Acetaminophen (Acetaminophen 325 Mg Tab) 650 mg PO Q4H PRN PRN Reason: pain/fever Stop: 10/20/21 00:21 Aspirin (Aspirin 81 Mg Ectab) 81 mg PO DAILY [facility] Stop: 10/20/21 08:59 Last Admin: 09/24/21 09:26 Dose: 81 mg Documented by: Atorvastatin Calcium (Atorvastatin 10 Mg Tab) 10 mg PO HS [facility] Stop: 10/20/21 20:59 Last Admin: 09/23/21 20:02 Dose: 10 mg Documented by: Docusate Sodium (Docusate Sodium 100 Mg Cap) 100 mg PO DAILY [facility] Stop: 10/20/21 08:59 Last Admin: 09/24/21 09:27 Dose: 100 mg Documented by: Donepezil HCl (Donepezil Hcl 10 Mg Tab) 10 mg PO HS [facility] Stop: 10/20/21 20:59 Last Admin: 09/23/21 20:02 Dose: 10 mg Documented by: Enoxaparin Sodium (Enoxaparin Inj 30 Mg/0.3 Ml Syr) 30 mg SQ Q24H [facility] Stop: 10/20/21 08:59 Last Admin: 09/24/21 09:26 Dose: 30 mg Documented by: Escitalopram Oxalate (Escitalopram Oxalate 20 Mg Tab) 20 mg PO DAILY KAI Stop: 10/20/21 08:59 Last Admin: 09/24/21 09:26 Dose: 20 mg Documented by: Ceftriaxone Sodium 1,000 mg/ (Dextrose) 50 mls @ 100 mls/hr IV Q24H [facility]; Protocol Stop: 09/30/21 08:59 Last Infusion: 09/24/21 10:56 Dose: Infused Documented by: Melatonin (Melatonin 3 Mg Tab) 3 mg PO HS PRN PRN Reason: Sleep Stop: 10/20/21 19:08 Multivitamins/Minerals (Cerovite Adv Formula Tab) 1 tab PO QAM [facility] Stop: 10/20/21 08:59 Last Admin: 09/24/21 09:26 Dose: 1 tab Documented by: Olanzapine (Olanzapine 10 Mg/2.1 Ml Sdv) 2.5 mg IM QID PRN PRN Reason: Agitation Stop: 10/22/21 13:34 Last Admin: 09/23/21 21:58 Dose: 2.5 mg Documented by: Olanzapine (Olanzapine Zydis 5 Mg Orally Dis. Tab) 2.5 mg PO QID PRN PRN Reason: Agitation Stop: 10/22/21 15:00 Last Admin: 09/23/21 08:41 Dose: 2.5 mg Documented by: Ondansetron HCl (Ondansetron Inj 2 Mg/Ml 2 Ml Vial) 4 mg IV Q6H PRN PRN Reason: Nausea Stop: 10/20/21 00:21 Pantoprazole Sodium (Pantoprazole 40 Mg Tab) 40 mg PO DAILY KAI Stop: 10/20/21 08:59 Last Admin: 09/24/21 09:26 Dose: 40 mg Documented by: Quetiapine Fumarate (Quetiapine Fumarate 25 Mg Tablet) 50 mg PO BID KAI Stop: 10/22/21 20:59 Last Admin: 09/24/21 09:25 Dose: 50 mg Documented by: Quetiapine Fumarate (Quetiapine Fumarate 25 Mg Tablet) 25 mg PO BID PRN PRN Reason: Agitation Stop: 10/22/21 20:59 Tamsulosin HCl (Tamsulosin Hcl 0.4 Mg Cap) 0.4 mg PO DAILY KAI Stop: 10/20/21 08:59 Last Admin: 09/24/21 09:26 Dose: 0.4 mg Documented by: Vitamin D (Cholecalciferol 5,000 Units 125 Mcg Tab) 5,000 units PO DAILY KAI Stop: 10/20/21 08:59 Last Admin: 09/24/21 09:25 Dose: 5,000 units Documented by:
[2021-09-24 19:27] LABS: Appearance Urine Clear (Clear); Bacteria Urine Automated Negative (Negative); Blood Urine Negative (Negative); Color Urine Dark Yellow; Epithelial Cell Urine Auto 0-5 /lpf (0-5); Glucose Urine UA Negative (Negative); Ketones Urine 2+ (Negative); Leukocyte Esterase Urine 2+ (Negative); Nitrite Urine Positive (Negative); Protein Urine Trace (Negative); RBC Urine Automated 0-4 /hpf (0-4); Specific Gravity Urine 1.036 (1.000-1.030); Urobilinogen Urine Negative (Negative); WBC Urine Automated >30 /hpf (0-5)
[2021-09-24 19:41] LABS: Bilirubin Urine 1+ (Negative)
[2021-09-24] MEDS: DONEPEZIL HCL 10 MG TAB PO SCH (19:50)
[2021-09-24] MEDS: ATORVASTATIN 10 MG TAB PO SCH (19:50)
[2021-09-24] MEDS: OLANZapine ZYDIS 5 MG ORALLY DIS. TAB PO PRN (19:59)
[2021-09-24] MEDS: MELATONIN 3 MG TAB PO PRN (19:59)
[2021-09-25] MEDS: cefTRIAXone SODIUM 1,000 MG in DEXTROSE 5% 50 ML IV SCH (08:11)
[2021-09-25] MEDS: CHOLECALCIFEROL 5,000 UNITS 125 MCG TAB PO SCH (08:12)
[2021-09-25] MEDS: QUEtiapine FUMARATE 25 MG TABLET PO SCH ×2 (08:12→19:49)
[2021-09-25] MEDS: OLANZapine ZYDIS 5 MG ORALLY DIS. TAB PO PRN ×2 (08:12→20:46)
[2021-09-25] MEDS: PANTOprazole 40 MG TAB PO SCH (08:13)
[2021-09-25] MEDS: CEROVITE ADV FORMULA TAB PO SCH (08:13)
[2021-09-25] MEDS: TAMSULOSIN HCL 0.4 MG CAP PO SCH (08:13)
[2021-09-25] MEDS: ESCITALOPRAM OXALATE 20 MG TAB PO SCH (08:14)
[2021-09-25] MEDS: ENOXAPARIN INJ 30 MG/0.3 ML SYR SQ SCH (08:14)
[2021-09-25] MEDS: ASPIRIN 81 MG ECTAB PO SCH (08:14)
[2021-09-25] MEDS: DOCUSATE SODIUM 100 MG CAP PO SCH (09:58)
--- NOTE | 2021-09-25 10:30 | Hospitalist Progress Note ---
Date of Service September 25, 2021 Assessment & Plan (1) Aggressive behavior: Plan: Aggressive behavior/dementia/agitation history- Patient referred from current living facility at [facility] due to severe agitation with aggressive behavior towards nursing Concha from facility reached out, requested psych consult for combative/mood swings as I have noticed this seems to be progressively worsening and is concerned that patient could act out to other patients On admission assumed acute on chronic with worsened encephalopathy from UTI which patient has experienced before with worsening of baseline dementia Patient has been undergoing work-up for potential bladder cancer, was recommended for additional potential cystoscopy which hasn't been done yet. Head CT performed 08/25 although without contrast did not show any acute intracranial pathology. 09/20 patient with code méndez, violent behavior yelling out nursing staff with various swings taken at providers/staff. Patient extremely combative and not redirectable, yells that Brain is not his name and repeats "get the f-- out."Required 2 mg of Ativan for sedation in the ER previously. In order to protect patient and staff safety patient did require both physical restraints and pharmacologic treatment with IM Haldol initially 2 mg but ultimately given 5 due to severity of combativeness and 2 mg of IV Ativan. Apparently a staff member was exposed to bodily fluids--obtained consent from brother, Brad, on 09/22 to test pt for HIV which came back negative. Continue donepezil, Lexapro, Seroquel- EKG 09/20/21: QTc <480 (456), nsr. Continue UTI treatment as patient has had severe exacerbation with these in the past, but concerned that behaviors reflect dementia with progressive behavioral disturbance vs metabolic encephalopathy d/t UTI as noted below Consulted psych, seen by Dr. Rome, appreciate her recommendations Four-point restraints to be utilized in event of aggressive and violent behavior. Avoid IV Ativan as if these behaviors are reflective of delirium, benzodiazepines will potentially exacerbate behaviors. Subsequently will discontinue. IM Zyprexa will be utilized as needed for agitation as preferred first-line. Will increase Seroquel to 50mg BID and also use 25mg BID prn agitation (if he is able/willing/cooperative with PO, if not then IM Zyprexa will be used). At this time, cannot rule out delirium/metabolic encephalopathy as underlying cause of aggressive behaviors/agitation given that his repeat UA on 09/24 appears grossly infected. Urine culture pending, repeat blood cultures drawn on 09/25. (2) Acute UTI (urinary tract infection): Plan: Acute urinary tract infection/BPH with LUTS- UC with no growth (<1,000 colonies) but treated based on initial UA Treated (empirically) with Rocephin x 6 days Continue tamsulosin Attempted to obtain information re: work up for bladder tumor, he was seen by urology last month with plan to set up o/p cysto. Family is no longer interested in pursuing this work up. A CT of his abdomen and pelvis was attempted during his last admission however he refused the scan after he went down to radiology. Documented fever in chart of 38.4 C on 09/24 @ 0112repeat UA appears grossly infected, wbc count normal, urine appears concentrated and more acidic Gentle IV fluid hydration as he will tolerated Change IV antibiotics as follows: D/C Rocephin and start Invanz 1 g IV daily. I did discuss this with pharmacist prior to initiating this antibiotic and she is in agreement. Urine culture pending, will tailor antibiotics accordingly once culture data is finalized Ask urology to weigh in on case d/t recurrent UTIs, ?chronic abx suppression, appreciate recommendations (3) Dementia: Plan: See above (4) GERD (gastroesophageal reflux disease): Plan: Change omeprazole to pantoprazole per formulary interchange (5) BPH (benign prostatic hyperplasia): Plan: See above (6) Hyperlipidemia: Plan: Continue atorvastatin Plan: 09/23/21: I had a lengthy conversation with patient's brothers, Med and Brad on 09/23, ultimately they're next of kin as Americo's mother recently 2 weeks ago. He does have an adult son however is estranged and the son was adopted by his step father so subsequently Americo no longer is his legal parent. Also an adult daughter who Brain hasn't spoken to in 30 years. Regardless, Brain's brothers want to discuss plans moving forward with the son but they seem to be the primary decision makers. No one holds POA for Brain. At this time, family does not wish to pursue further work-up for possible bladder cancer as they understand that this ultimately will not change his progression in his dementia. Furthermore, they understand that attempting to work him up for this may only further exacerbate his agitation and combative behavior. It is not even certain that he would cooperate with treatment if cancer was diagnosed. I have also discussed with him the possibility of initiating hospice at some point. They do seem to be interested in this. Lastly, it has been decided to make Brain a DNR/DNI as they have verbalized that he would not want aggressive/heroic measures to sustain his life. 09/25/21: Evidently, there was an extensive conversation documented by case management and Med on 09/23/2021 after the conversation that I had with both Kory and Med together. According to the documentation, Med seemed to misinterpret some of the information indicating that I had recommended hospice, that the patient "likely has cancer," and if diagnosed with cancer that it would "likely not be able to be treated." This is not accurate. I actually spoke with Kory on both 09/22 and then again together with his brother, Med, on 09/23. During both discussions, I indicated that it is possible that Brain does have cancer but it is not known without pursuing diagnostic testing including cystoscopy and biopsy. The extent of my conversation also included that it is not certain that he would cooperate with not only the diagnostic testing but the treatment which may or may not include chemotherapy and/or radiation. However, it is not able to be determined what type of treatment would be necessary without confirming the diagnosis. Furthermore, I mentioned that hospice could be something to consider as an additional resource and form of support given the extent of social issues that the family is currently dealing with (recent of their mother and personal issues themselves). He would likely be hospice appropriate given his progressive dementia. I told the family that we could provide them with more information regarding hospice if they were interested; but, in the interim, I am treating him for a UTI and working with psychiatry to adjust other medications in hopes that we may see improvement in his behaviors. Lastly, I did NOT state that the patient could not return to [facility]. I did, however, state that if his behaviors did not improve and they did not feel that it would be SAFE for him to return to [facility], that we may have to consider other options, such as a facility that has a locked memory support unit. It was at that time that they verbalized interest in the [facility] which I stated we could look into. I have reached back out to Kory after reviewing this information in the chart but he was not available to discuss in order to clarify the above. Will reach back out to him this afternoon. I have spent an extensive amount of time on this case today (~60 minutes), reviewing records, reaching out to family, and discussions with other disciplines including pharmacy and psychiatry. Admission and Anticipated Discharge Date Admission Date: September 22, 2021 Subjective Patient seen on daily rounds this morning. He is currently awake, alert and talking but saying things that are nonsensical. Currently in 4 point restraints but not acting agitated. He states "I'm not going to hurt you." Per RN, pt was agitated again overnight despite Seroquel and Zyprexa. Was placed back in 4 point restraints that were continued until this morning. Review of Systems Review of Systems: Patient unable to contribute to review of systems due to altered mental state and baseline dementia Physical Exam Physical Exam: GENERAL: 70 yo well-developed, well-nourished WM. NAD. LUNGS: Clear to auscultation bilaterally. No w/r/r. CARDIOVASCULAR: Regular rate and rhythm. No M/G/R. No JVD. ABDOMEN: Soft, non-tender and non-distended. BS normal x 4 quad. EXTREMITIES: No edema. Non-tender. Peripheral pulses +2/4. PSYCHIATRIC: Sleeping presently in 2 point restraints (b/l UE) during my exam SKIN: Warm, dry, intact. No rashes or lesions. Results & Data Results & Data ([facility]) Vital Signs (Past 12 Hours) Vital Signs Temp Pulse Resp BP BP Pulse Ox 09/25/21 08:45 36.8 C 81 16 113/63 95 09/24/21 23:41 37.4 C 81 18 126/78 93 Laboratory Results 09/24/21 11:15 09/24/21 11:15 Urinalysis pH=5.0 Specific gravity=1.036 Urine glucose=negative Urine ketones=2+ Urine nitrites=Positive A Urine bilirubin=1+ Urine leukocyte esterase=2+ Urine WBC= >30 Urine RBC=0-4 PG Care Time/CCT Total # of Minutes Spent Total Time Spent with Patient: Total time spent is greater than 50% in coordination of care (as documented) at patient's floor/unit and/or counseling patient: Coding Level of Care Code 85604 Subseq Hosp Care Lvl 3 Diagnoses Aggressive behavior R46.89 Acute UTI (urinary tract infection) N39.0 Dementia G30.0; F02.81 Alzheimer's disease onset: early-onset Dementia behavioral disturbance: with behavioral disturbance Dementia type: Alzheimer's GERD (gastroesophageal reflux disease) K21.9 BPH (benign prostatic hyperplasia) N40.0 Hyperlipidemia E78.5 (1) Dementia Alzheimer's disease onset: early-onset Dementia behavioral disturbance: with behavioral disturbance Dementia type: Alzheimer's Qualified Code(s): G30.0 - Alzheimer's disease with early onset; F02.81 - Dementia in other diseases classified elsewhere with behavioral disturbance
[2021-09-25] MEDS: ERTAPENEM SODIUM 1,000 MG in SYRINGE 0 ML IV SCH (11:38)
[2021-09-25] MEDS: SODIUM CHLORIDE 0.9% 1000ML 1,000 ML IV SCH (12:10)
[2021-09-25] MEDS: OLANZapine 10 MG/2.1 ML SDV IM PRN (15:30)
[2021-09-25] MEDS ORDERED: OPTIRAY 320 100ml IV ONE (18:36)
--- NOTE | 2021-09-25 18:49 | CT Scan Report ---
ABDOMEN AND PELVIS CT WITH IV CONTRAST CT DOSE: 329.22 mGy.cm HISTORY: recurrent urinary tract infection, questionable bladder tumor TECHNIQUE: Multiaxial CT images of the abdomen and pelvis were performed following the use of intrave nous contrast. A dose lowering technique was utilized adhering to the principles of ALARA. COMPARISON STUDY: Renal ultrasound . FINDINGS: Mild dependent changes seen at the lung bases. Mild motion artifact. No pneumoperitoneum. N o pneumatosis. There is a right total hip arthroplasty. Bilateral L5 spondylolysis with associated gr mono 1 anterolisthesis. No suspicious lytic or blastic osseous lesions. The gallbladder is mildly dist ended. No gallbladder wall thickening. Normal caliber common bile duct. No hepatic or splenic masses. The adrenal glands, kidneys, and pancreas are unremarkable. The main portal vein is patent. Normal c aliber abdominal aorta. No retroperitoneal lymphadenopathy. No hydronephrosis. The prostate gland is moderately enlarged measuring 6 cm. No significant pelvic free fluid. Evaluation the bladder is near nondiagnostic due to the metallic artifact from the right hip prosthesis. No large bladder mass is id entified by CT. The bladder is completely filled with gas. Mild bladder wall thickening/trabeculation is noted. This is nonspecific but could be due to chronic outlet obstruction from the enlarged prost ate gland or a mild cystitis. Correlation with urinalysis recommended. No pelvic lymphadenopathy. Col onic diverticulosis. There is a single focus of gas within close proximity to the posterior bladder w all best seen image 341. This appears to represent a sigmoid diverticulum. A colovesical fistula is c onsidered less likely but not entirely excluded given the extensive gas within the bladder. There is also mild fat stranding at this location and mild colonic wall thickening raising the possibility of a mild acute diverticulitis. IMPRESSION: 1. Near nondiagnostic evaluation of the bladder due to the metallic artifact the right hip prosthesis . 2. The bladder is almost completely filled with gas. This is nonspecific but could be due to recent c atheterization/instrumentation. In addition, there are is a single focus of gas within close proximit y to the posterior bladder wall as described above. This appears to represent a sigmoid diverticulum. A colovesical fistula is considered less likely but not entirely excluded given the extensive gas wi thin the bladder. There is also mild fat stranding at this location and mild colonic wall thickening raising the possibility of a mild acute diverticulitis. Consider follow-up endoscopy to exclude the l ess likely possibility of underlying colonic lesion. 3. Mild bladder wall thickening/trabeculation. This is likely due to the chronic outlet obstruction f rom the enlarged prostate gland. A mild cystitis could also have a similar appearance. Recommend tamara elation with urinalysis. 4. Additional findings as described above. ACT 112: Negative or not required by law. Electronically signed by: Noe Oliveira M.D. 09/25/2021 6:48 PM
[2021-09-25] MEDS: MELATONIN 3 MG TAB PO PRN (19:49)
[2021-09-25] MEDS: DONEPEZIL HCL 10 MG TAB PO SCH (19:49)
[2021-09-25] MEDS: ATORVASTATIN 10 MG TAB PO SCH (19:49)
--- NOTE | 2021-09-25 22:00 | Communication Note ---
Date of Service: September 25, 2021 Brief Psych Contact Note: Saw Americo in the afternoon and he appeared more alert, was talking a variety of reality-based topics and less agitated, able to tolerate keeping on gown and blankets today. Per chart had increased agitation overnight especially with episodes of incontinence requiring nursing interventions. No evidence for EPS. A/Plan: Slight improvement today, more alert though still agitated with nursing care. -continue to limit soft restraint use to only when necessary for acute agitation/dangerousness -no new recommendations, continue with seroquel and zyprexa as needed for acute agitation.
[2021-09-26] MEDS: SODIUM CHLORIDE 0.9% 1000ML 1,000 ML IV SCH ×2 (00:48→12:33)
[2021-09-26] MEDS: ESCITALOPRAM OXALATE 20 MG TAB PO SCH (08:01)
[2021-09-26] MEDS: OLANZapine ZYDIS 5 MG ORALLY DIS. TAB PO PRN ×2 (08:01→21:07)
[2021-09-26] MEDS: QUEtiapine FUMARATE 25 MG TABLET PO SCH ×2 (08:01→20:19)
[2021-09-26] MEDS: TAMSULOSIN HCL 0.4 MG CAP PO SCH (08:01)
[2021-09-26] MEDS: ENOXAPARIN INJ 30 MG/0.3 ML SYR SQ SCH (08:02)
[2021-09-26] MEDS: ASPIRIN 81 MG ECTAB PO SCH (08:02)
[2021-09-26] MEDS: PANTOprazole 40 MG TAB PO SCH (08:02)
[2021-09-26] MEDS: CHOLECALCIFEROL 5,000 UNITS 125 MCG TAB PO SCH (08:02)
[2021-09-26] MEDS: CEROVITE ADV FORMULA TAB PO SCH (08:02)
[2021-09-26] MEDS: DOCUSATE SODIUM 100 MG CAP PO SCH (08:03)
[2021-09-26] MEDS: FINASTERIDE 5 MG TAB PO SCH (10:00)
[2021-09-26] MEDS: ERTAPENEM SODIUM 1,000 MG in SYRINGE 0 ML IV SCH (10:01)
--- NOTE | 2021-09-26 10:01 | Hospitalist Progress Note ---
Date of Service September 26, 2021 Assessment & Plan (1) Aggressive behavior: Plan: Aggressive behavior/dementia/agitation history- Patient referred from current living facility at [place] due to severe agitation with aggressive behavior towards nursing Concha from facility reached out, requested psych consult for combative/mood swings as I have noticed this seems to be progressively worsening and is concerned that patient could act out to other patients On admission assumed acute on chronic with worsened encephalopathy from UTI which patient has experienced before with worsening of baseline dementia Patient has been undergoing work-up for potential bladder cancer, was recommended for additional potential cystoscopy which hasn't been done yet. Head CT performed 08/25 although without contrast did not show any acute intracranial pathology. 09/20 patient with code méndez, violent behavior yelling out nursing staff with various swings taken at providers/staff. Patient extremely combative and not redirectable, yells that Brain is not his name and repeats "get the f-- out."Required 2 mg of Ativan for sedation in the ER previously. In order to protect patient and staff safety patient did require both physical restraints and pharmacologic treatment with IM Haldol initially 2 mg but ultimately given 5 due to severity of combativeness and 2 mg of IV Ativan. Apparently a staff member was exposed to bodily fluids--obtained consent from brother, Brad, on 09/22 to test pt for HIV which came back negative. Continue donepezil, Lexapro, Seroquel- EKG 09/20/21: QTc <480 (456), nsr. Continue UTI treatment as patient has had severe exacerbation with these in the past, but concerned that behaviors reflect dementia with progressive behavioral disturbance vs metabolic encephalopathy d/t UTI as noted below Consulted psych, seen by Dr. Rome, appreciate her recommendations Four-point restraints to be utilized in event of aggressive and violent behavior. Avoid IV Ativan as if these behaviors are reflective of delirium, benzodiazepines will potentially exacerbate behaviors. Subsequently discontinued. IM Zyprexa will be utilized as needed for agitation as preferred first-line. Will increase Seroquel to 50mg BID and also use 25mg BID prn agitation (if he is able/willing/cooperative with PO, if not then IM Zyprexa will be used). At this time, cannot rule out delirium/metabolic encephalopathy as underlying cause of aggressive behaviors/agitation given that his repeat UA on 09/24 appears grossly infected. Urine culture thus far shows no growth (<1,000 colonies) on prelim report, repeat blood cultures drawn on 09/25 are still pending; however, continue IV Invanz as outlined below (2) Acute UTI (urinary tract infection): Plan: Acute urinary tract infection/BPH with LUTS- UC with no growth (<1,000 colonies) but treated based on initial UA Treated (empirically) with Rocephin x 6 days Continue tamsulosin Attempted to obtain information re: work up for bladder tumor, he was seen by urology last month with plan to set up o/p cysto. Family is no longer interested in pursuing this work up. A CT of his abdomen and pelvis was attempted during his last admission however he refused the scan after he went down to radiology. Documented fever in chart of 38.4 C on 09/24 @ 0112repeat UA appears grossly infected, wbc count normal, urine appears concentrated and more acidic Gentle IV fluid hydration as he will tolerated Change IV antibiotics as follows: Rocephin d/c'd and started Invanz 1 g IV daily on 09/25. I did discuss this with pharmacist prior to initiating this antibiotic and she was in agreement. Urine culture prelim results as above (no growth), continue Invanz for now Asked urology to weigh in on case d/t recurrent UTIs, recurrent dirty UAs despite negative cultures, now abnormal CT, d/w Cristian Chappell PA-C, formal consult placed (3) Dementia: Plan: See above (4) GERD (gastroesophageal reflux disease): Plan: Change omeprazole to pantoprazole per formulary interchange (5) BPH (benign prostatic hyperplasia): Plan: Continue tamsulosin and add Proscar (6) Hyperlipidemia: Plan: Continue atorvastatin Plan: 09/23/21: I had a lengthy conversation with patient's brothers, Med and Brad on 09/23, ultimately they're next of kin as Americo's mother recently 2 weeks ago. He does have an adult son however is estranged and the son was adopted by his step father so subsequently Americo no longer is his legal parent. Also an adult daughter who Brain hasn't spoken to in 30 years. Regardless, Brain's brothers want to discuss plans moving forward with the son but they seem to be the primary decision makers. No one holds POA for Brain. At this time, family does not wish to pursue further work-up for possible bladder cancer as they understand that this ultimately will not change his progression in his dementia. Furthermore, they understand that attempting to work him up for this may only further exacerbate his agitation and combative behavior. It is not even certain that he would cooperate with treatment if cancer was diagnosed. I have also discussed with him the possibility of initiating hospice at some point. They do seem to be interested in this. Lastly, it has been decided to make Brain a DNR/DNI as they have verbalized that he would not want aggressive/heroic measures to sustain his life. 09/25/21: Evidently, there was an extensive conversation documented by case management and Med on 09/23/2021 after the conversation that I had with both Kory and Med together. According to the documentation, Med seemed to misinterpret some of the information indicating that I had recommended hospice, that the patient "likely has cancer," and if diagnosed with cancer that it would "likely not be able to be treated." This is not accurate. I actually spoke with Kory on both 09/22 and then again together with his brother, Med, on 09/23. During both discussions, I indicated that it is possible that Brain does have cancer but it is not known without pursuing diagnostic testing including cystoscopy and biopsy. The extent of my conversation also included that it is not certain that he would cooperate with not only the diagnostic testing but the treatment which may or may not include chemotherapy and/or radiation. However, it is not able to be d etermined what type of treatment would be necessary without confirming the diagnosis. Furthermore, I mentioned that hospice could be something to consider as an additional resource and form of support given the extent of social issues that the family is currently dealing with (recent of their mother and personal issues themselves). He would likely be hospice appropriate given his progressive dementia. I told the family that we could provide them with more information regarding hospice if they were interested; but, in the interim, I am treating him for a UTI and working with psychiatry to adjust other medications in hopes that we may see improvement in his behaviors. Lastly, I did NOT state that the patient could not return to [facility]. I did, however, state that if his behaviors did not improve and they did not feel that it would be SAFE for him to return to [facility], that we may have to consider other options, such as a facility that has a locked memory support unit. It was at that time that they verbalized interest in the [place] [facility] which I stated we could look into. I reached back out to Kory on 09/25 and discussed/reviewed the above information. He verbalized understanding. Obtained permission to medicate pt and perform CT scan completed 09/25. Will meet with him at the bedside today (09/26) @ 2pm to discuss results and review input from urology with a plan moving forward. Admission and Anticipated Discharge Date Admission Date: September 22, 2021 Subjective Patient seen on daily rounds this morning. He is currently sedated/sleeping, in 2-point restraints of the upper extremities. He states "I'm not going to hurt you." Per RN, pt was agitated again overnight, required IM Zyprexa this morning, woke up and ate a little breakfast and took pills and then went back to sleep. Review of Systems Review of Systems: Patient unable to contribute to review of systems due to altered mental state and baseline dementia Physical Exam Physical Exam: GENERAL: 70 yo well-developed, well-nourished WM. NAD. LUNGS: Clear to auscultation bilaterally. No w/r/r. CARDIOVASCULAR: Regular rate and rhythm. No M/G/R. No JVD. ABDOMEN: Soft, non-tender and non-distended. BS normal x 4 quad. EXTREMITIES: No edema. Non-tender. Peripheral pulses +2/4. PSYCHIATRIC: Sleeping presently in 2 point restraints (b/l UE) during my exam SKIN: Warm, dry, intact. No rashes or lesions. Results & Data Results & Data ([facility]) Vital Signs (Past 12 Hours) Vital Signs Temp Pulse Resp BP Pulse Ox 09/26/21 07:59 36.5 C 52 L 20 133/74 96 Diagnostic Findings Abdomen/Pelvis CT 09/25/21 14:[address] WITH IV CONTRAST CT DOSE: 329.22 mGy.cm HISTORY: recurrent urinary tract infection, questionable bladder tumor TECHNIQUE: Multiaxial CT images of the abdomen and pelvis were performed following the use of intravenous contrast. A dose lowering technique was utilized adhering to the principles of ALARA. COMPARISON STUDY: Renal ultrasound . FINDINGS: Mild dependent changes seen at the lung bases. Mild motion artifact. No pneumoperitoneum. No pneumatosis. There is a right total hip arthroplasty. Bilateral L5 spondylolysis with associated grade 1 anterolisthesis. No suspicious lytic or blastic osseous lesions. The gallbladder is mildly distended. No gallbladder wall thickening. Normal caliber common bile duct. No hepatic or splenic masses. The adrenal glands, kidneys, and pancreas are unremarkable. The main portal vein is patent. Normal caliber abdominal aorta. No retroperitoneal lymphadenopathy. No hydronephrosis. The prostate gland is moderately enlarged measuring 6 cm. No significant pelvic free fluid. Evaluation the bladder is near nondiagnostic due to the metallic artifact from the right hip prosthesis. No large bladder mass is identified by CT. The bladder is completely filled with gas. Mild bladder wall thickening/trabeculation is noted. This is nonspecific but could be due to chronic outlet obstruction from the enlarged prostate gland or a mild cystitis. Correlation with urinalysis recommended. No pelvic lymphadenopathy. Colonic diverticulosis. There is a single focus of gas within close proximity to the posterior bladder wall best seen image 341. This appears to represent a sigmoid diverticulum. A colovesical fistula is considered less likely but not entirely excluded given the extensive gas within the bladder. There is also mild fat stranding at this location and mild colonic wall thickening raising the possibility of a mild acute diverticulitis. IMPRESSION: 1. Near nondiagnostic evaluation of the bladder due to the metallic artifact the right hip prosthesis. 2. The bladder is almost completely filled with gas. This is nonspecific but could be due to recent catheterization/instrumentation. In addition, there are is a single focus of gas within close proximity to the posterior bladder wall as described above. This appears to represent a sigmoid diverticulum. A colovesical fistula is considered less likely but not entirely excluded given the extensive gas within the bladder. There is also mild fat stranding at this location and mild colonic wall thickening raising the possibility of a mild acute diverticulitis. Consider follow-up endoscopy to exclude the less likely possibility of underlying colonic lesion. 3. Mild bladder wall thickening/trabeculation. This is likely due to the chronic outlet obstruction from the enlarged prostate gland. A mild cystitis could also have a similar appearance. Recommend correlation with urinalysis. 4. Additional findings as described above. ACT 112: Negative or not required by law. Electronically signed by: Noe Oliveira M.D. 09/25/2021 6:48 PM PG Care Time/CCT Total # of Minutes Spent Total Time Spent with Patient: Total time spent is greater than 50% in coordination of care (as documented) at patient's floor/unit and/or counseling patient: Coding Level of Care Code 42261 Subseq Hosp Care Lvl 3 Diagnoses Aggressive behavior R46.89 Acute UTI (urinary tract infection) N39.0 Dementia G30.0; F02.81 Alzheimer's disease onset: early-onset Dementia behavioral disturbance: with behavioral disturbance Dementia type: Alzheimer's GERD (gastroesophageal reflux disease) K21.9 BPH (benign prostatic hyperplasia) N40.0 Hyperlipidemia E78.5 (1) Dementia Alzheimer's disease onset: early-onset Dementia behavioral disturbance: with behavioral disturbance Dementia type: Alzheimer's Qualified Code(s): G30.0 - Alzheimer's disease with early onset; F02.81 - Dementia in other diseases classified elsewhere with behavioral disturbance
--- NOTE | 2021-09-26 11:07 | Urology Consultation ---
Date of Consultation September 26, 2021 Assessment & Plan (1) Acute UTI (urinary tract infection): 70yo M admitted with increasing aggression presumably secondary to encephalopathy from UTI aggravating underlying baseline dementia. Urology consulted for recurrent UTI. - Plan of care reviewed with Dr. Alexis, on-call urologist. - Pt afebrile, hemodynamically stable. - Urine culture 3/ and 09/24 negative for infection. Blood cultures 3/4 final no growth, repeat preliminary no growth x 24 hours - On IV Ertapenem - CTAP notable for gas within the bladder. A single focus of gas within the posterior bladder wall possibly representing a sigmoid diverticulum, a colovesical fistula is considered less likely but not entirely excluded; Mild bladder wall thickening/trabeculation. - The gas within the bladder is non specific and could be from recent catheterization verse the beginning of emphysematous cystitis. - Given the concern for emphysematous cystitis, recommended insertion of Seo catheter for bladder decompression. - Continue broad spectrum antibiotic therapy, supportive care, and close monitoring. - Maintain Seo catheter. - Pt will still need a cystoscopy in the future for further evaluation of the bladder, however will hold off for now in the setting of possible infection. - Urology will follow. Supervising Physician Co-Signing Physician Notes Discussed patient with AWA. Agree with plan. Somewhat odd clinical presentation as urine cultures are negative, but CT is consistenty when air in bladder lumen and wall, which typically indications emphysematous cystitis. Patient was recently straight cathed, which could account for air in the bladder, but unlikely to cause that much air in lumen or air in bladder wall. Recommend seo catheter placement for maximal decompression along with current antibiotic regimen. Catheter will likely need to remain in place for 7-14 days. Ideally would repeat CT scan prior to removal if tolerated by patient. Patient will still require outpatient cystoscopy, however not recommended at this time due to concern for worsening infection or damage to the bladder. CT raises question of colovesical fistula, which does not waste/materials exchange specialist at this time. That can be further evaluated as an outpatient as well. Urology will continue to follow. History of Present Illness Reason for Consultation: recurrent UTI Attending Physician: Ernesto Liang History of Present Illness The patient is a 70 year-old male with history of agitated delirium, dementia with behavioral disturbance, UTI, HLD, expressive aphasia, GERD admitted medically from his personal halfway for increasing aggression presumptively secondary to encephalopathy from UTI aggravating underlying baseline dementia. Urology consulted for recurrent UTI. History of recent admission for acute agitation and worsening aggression in the setting of UTI on top of worsening dementia. Work-up during that admission with renal ultrasound noted a bladder abnormality, possible mass. The patient was seen as an outpatient by Dr. Jefferson on 09/03/21 who recommended further work-up with cystoscopy and contrasted CT imaging. However, he was readmitted to [facility] on 09/19/21 for similar behavioral agitation and concern for UTI. Chart review- Afebrile. Hemodynamically stable. Labs reviewed (09/24)- Wbc-7.08, Creatinine 1.11. Urine culture from admission (09/19) with no growth, but treated empirically with Rocephin x 6 days based on initial UA. Documented fever in chart of 38.4 C on 09/24 @ 0112 - Repeat UA appeared infected. Antibiotics changed from Rocephin to Ertapenem. Culture finalized with no growth. Blood cultures 09/19 final no growth. Repeat blood cultures 09/25 preliminary no growth x [address] abdomen pelvis IMPRESSION: 1. Near nondiagnostic evaluation of the bladder due to the metallic artifact the right hip prosthesis. 2. The bladder is almost completely filled with gas. This is nonspecific but could be due to recent catheterization/instrumentation. In addition, there are is a single focus of gas within close proximity to the posterior bladder wall as described above. This appears to represent a sigmoid diverticulum. A colovesical fistula is considered less likely but not entirely excluded given the extensive gas within the bladder. There is also mild fat stranding at this location and mild colonic wall thickening raising the possibility of a mild acute diverticulitis. Consider follow-up endoscopy to exclude the less likely possibility of underlying colonic lesion. 3. Mild bladder wall thickening/trabeculation. This is likely due to the chronic outlet obstruction from the enlarged prostate gland. A mild cystitis could also have a similar appearance. Recommend correlation with urinalysis. Pt examined at bedside this AM. Sleeping on arrival. Awakened briefly to name. In 2-point restraints of the upper extremities. Appears comfortable and in no acute distress at time of exam. Seo catheter intact, draining cloudy yellow urine with sediment in tubing. HPI otherwise limited due to current cognitive status. Allergies Allergy/AdvReac Type Severity Reaction Status Date / Time No Known Allergies Allergy Verified 09/19/21 21:47 Home Medications Medication Instructions Recorded Confirmed Type aspirin 81 mg tablet,delayed 81 mg PO DAILY #90 tab 02/26/21 09/19/21 Rx release (Aspirin Low Dose) cholecalciferol (vitamin D3) 125 5,000 units PO DAILY #30 tab 02/26/21 09/19/21 Rx mcg (5,000 unit) tablet escitalopram oxalate 20 mg tablet 20 mg PO DAILY #30 tab 02/26/21 09/19/21 Rx omeprazole 20 mg capsule,delayed 20 mg PO DAILY #30 cap 02/26/21 09/19/21 Rx release docusate sodium 100 mg capsule 100 mg PO DAILY 08/25/21 09/19/21 History (Colace) quetiapine 50 mg tablet 50 mg PO HS 08/25/21 09/19/21 History tamsulosin 0.4 mg capsule 0.4 mg PO DAILY #30 cap 09/03/21 09/19/21 Rx atorvastatin 10 mg tablet 10 mg PO HS 09/19/21 09/19/21 History donepezil 10 mg tablet 10 mg PO HS 09/19/21 09/19/21 History drkbphmhumnv-hoztiiej-hqskol tablet 1 tab PO QAM 09/19/21 09/19/21 History Patient History Medical History Arthritis of right hip Cellulitis and abscess of face Dementia Dental abscess Depression with anxiety Elevated BP without diagnosis of hypertension Expressive aphasia Hyperlipidemia Vitamin D insufficiency Surgical History H/O total hip arthroplasty Right History of hernia repair Family History Mother Myocardial infarction Other Hypertension Denies family history of Ovarian cancer Prostate cancer Breast cancer Colorectal cancer Social History Smoking Status: Unknown if ever smoked Second Hand Exposure: No (unknown); Hx Alcohol Use: No (Unknown: Patient unable to answer.) Hx Substance Use: No (Unknown: Patient unable to answer.) Preferred Language: Armenian Communication Ability: Effective Soils Technician Required: No Beliefs That Will Affect Care: None marital status: Single Current Living Situation: [facility] Current Living Situation Comment: [facility]. current occupational status: disabled Other Information That Helps Us Care for You: No Feels Safe at Home: Yes Safety Concerns: Feels Safe At This Time Childhood Exposure to Second-Hand Smoke: No caffeine: Yes during the past year weight has: remained stable Dental Care, Regularly: Yes Seatbelt Use: always Sunscreen Use: No Assistive Devices: None Review of Systems Review of Systems: Unobtainable due to cognitive status Physical Exam Constitutional: well developed and well nourished; no acute distress Neck: normal visual inspection Respiratory: no respiratory distress, no labored breathing and no audible wh eezes Gastrointestinal (Abdomen): Inspection/Auscultation: abdomen normal to inspection Musculoskeletal: Head/Neck/Chest: normocephalic Skin: No visible rashes to exposed skin areas Psychiatric: Sleeping at time of exam. Awakened briefly to name. In 2-point restraints of the upper extremities. Genitourinary: Seo catheter intact, draining cloudy yellow urine with sediment in tubing. Results & Data ([facility]) Vital Signs (Past 12 Hours) Vital Signs Temp Pulse Resp BP Pulse Ox 09/26/21 07:59 36.5 C 52 L 20 133/74 96 PG Care Time/CCT Total # of Minutes Spent Total Time Spent with Patient: Total time spent is greater than 50% in coordination of care (as documented) at patient's floor/unit and/or counseling patient: Coding Level of Care Code 10091 Initial Inpt Care Lvl 2 Diagnoses Acute UTI (urinary tract infection) N39.0
[2021-09-26] MEDS: ATORVASTATIN 10 MG TAB PO SCH (20:19)
[2021-09-26] MEDS: DONEPEZIL HCL 10 MG TAB PO SCH (20:19)
[2021-09-26] MEDS: MELATONIN 3 MG TAB PO PRN (21:09)
[2021-09-27] MEDS: FINASTERIDE 5 MG TAB PO SCH (08:34)
[2021-09-27] MEDS: ASPIRIN 81 MG ECTAB PO SCH (08:34)
[2021-09-27] MEDS: CHOLECALCIFEROL 5,000 UNITS 125 MCG TAB PO SCH (08:34)
[2021-09-27] MEDS: CEROVITE ADV FORMULA TAB PO SCH (08:34)
[2021-09-27] MEDS: PANTOprazole 40 MG TAB PO SCH (08:35)
[2021-09-27] MEDS: ENOXAPARIN INJ 30 MG/0.3 ML SYR SQ SCH (08:35)
[2021-09-27] MEDS: ESCITALOPRAM OXALATE 20 MG TAB PO SCH (08:36)
[2021-09-27] MEDS: QUEtiapine FUMARATE 25 MG TABLET PO SCH (08:36)
[2021-09-27] MEDS: TAMSULOSIN HCL 0.4 MG CAP PO SCH (08:37)
[2021-09-27] MEDS: DOCUSATE SODIUM 100 MG CAP PO SCH (08:45)
--- NOTE | 2021-09-27 08:51 | Urology Progress Note ---
Date of Service September 27, 2021 Assessment & Plan (1) Emphysematous cystitis: Plan: 70yo M admitted with increasing aggression presumably secondary to encephalopathy from UTI aggravating underlying baseline dementia. Urology consulted for recurrent UTI, area in bladder lumen and wall from CT scan on 09/25. - Pt afebrile, hemodynamically stable. Per nursing, less agitated - Urine culture 09/19 and 09/24 negative for infection. Blood cultures 09/19 final no growth, repeat preliminary no growth x 24 hours - On IV Ertapenem - CTAP notable for gas within the bladder lumen and wall. Hard to determine if this was from instrumentation or infection but will treat as emphysematous cystitis in the event that it is infectious related. A single focus of gas within the posterior bladder wall possibly representing a sigmoid diverticulum, a colovesical fistula is considered less likely but not entirely excluded; Mild bladder wall thickening/trabeculation. -Weston was placed on 09/26/2021. Draining clear yellow urine. Maintain indefinitely, likely 7 to 14 days. Can give final recs based on patient's disposition. Ideally would get repeat imaging in form of CT scan before removed if patient allows. - Continue broad spectrum antibiotic therapy, supportive care, and close monitoring. - Pt will still need a cystoscopy in the future as an outpatient for further evaluation of the bladder, however will hold off for now in the setting of possible infection. No cystoscopy to be done while hospitalized. - Urology to follow peripherally. Admission and Anticipated Discharge Date Admission Date: September 22, 2021 Subjective Patient seen on rounds today. Weston catheter is draining clear yellow urine. He is in restraints and eating with nurse. Nurse reports that he has been less agitated. No issues with the catheter. Review of Systems Review of Systems: 14 point review of systems negative outside of what is listed above in HPI Physical Exam Physical Exam: General: Awake HEENT: Normocephalic, mucous membranes moist Pulmonary: Nonlabored respirations Abdomen: Nondistended : Weston catheter draining clear yellow urine. Extremities: Moves all 4 spontaneously Neuro: No gross deficits Skin: Warm, dry, no rashes noted Results & Data ([facility]) Vital Signs (Past 12 Hours) Vital Signs Temp Pulse Pulse Resp BP Pulse Ox 09/27/21 07:30 36.9 C 63 18 134/68 98 09/26/21 21:00 37.3 C 66 20 133/76 97 PG Care Time/CCT Total # of Minutes Spent Total Time Spent with Patient: Total time spent is greater than 50% in coordination of care (as documented) at patient's floor/unit and/or counseling patient: Coding [place] [address] Subseq Hosp Care Lvl 2 Patient Type Established Diagnoses Emphysematous cystitis N30.80
[2021-09-27] MEDS: ERTAPENEM SODIUM 1,000 MG in SYRINGE 0 ML IV SCH (11:12)
--- NOTE | 2021-09-27 11:48 | Hospitalist Progress Note ---
Date of Service September 27, 2021 Assessment & Plan (1) Aggressive behavior: Plan: Aggressive behavior/dementia/agitation history- Patient referred from current living facility at [place] due to severe agitation with aggressive behavior towards nursing Concha from facility reached out, requested psych consult for combative/mood swings as noticed to have progressively worsening and is concerned that patient could act out to other patients On admission assumed acute on chronic with worsened encephalopathy from UTI which patient has experienced before with worsening of baseline dementia Patient has been undergoing work-up for potential bladder cancer, was r ecommended for additional potential cystoscopy which hasn't been done yet. Head CT performed 08/25 although without contrast did not show any acute intracranial pathology. 09/20 - code méndez,: violent behavior yelling out nursing staff with various swings taken at providers/staff. Patient combative and not redirectable, yells that Brain is not his name and repeats "get the f-- out."Required 2 mg of Ativan for sedation in the ER previously. In order to protect patient and staff safety patient did require both physical restraints and pharmacologic treatment with IM Haldol initially 2 mg but ultimately given 5 due to severity of combativeness and 2 mg of IV Ativan. Apparently a staff member was exposed to bodily fluids--obtained consent from brother, Brad, on 09/22 to test pt for HIV which came back negative. Continue UTI treatment as patient has had severe exacerbation with these in the past, but concerned that behaviors reflect dementia with progressive behavioral disturbance vs metabolic encephalopathy d/t UTI as noted below Consulted psych--appreciate assistance. case D/W Dr. Malik today who denotes patient receiving seroquel in addition to the prn zyprexa. She is recommending changing seroquel to standing zyprexa as this may work better for him Four-point restraints to be utilized in event of aggressive and violent behavior. Avoid IV Ativan as if these behaviors are reflective of delirium, benzodiazepines will potentially exacerbate behaviors. Subsequently discontinued. IM Zyprexa will be utilized as needed for agitation as preferred first-line. At this time, cannot rule out delirium/metabolic encephalopathy as an exacerbating factor to him aggressive behaviors/agitation given that his repeat UA on 09/24 appears grossly infected (although final culture with NG)- see below (2) Acute UTI (urinary tract infection): Plan: Acute urinary tract infection/BPH with LUTS- UC with no growth (<1,000 colonies) but treated based on initial UA Treated (empirically) with Rocephin x 6 days Continue tamsulosin Attempted to obtain information re: work up for bladder tumor, he was seen by urology last month with plan to set up o/p cysto. Family is no longer interested in pursuing this work up. A CT of his abdomen and pelvis was attempted during his last admission however he refused the scan after he went down to radiology. Documented fever in chart of 38.4 C on 09/24 @ 0112repeat UA appeared grossly infected, wbc count normal, urine appears concentrated and more acidic Gentle IV fluid hydration as he will tolerated CT scan performed during this hospitalization that does show significant gas within the bladder. This could be from recent instrumentation; however, urology concerned for emphysematous cystitis Changed IV antibiotics as follows: Rocephin d/c'd and started Invanz 1 g IV daily on 09/25 (for anaerobic coverage)-- to complete on 09/25 Urology consulted d/t recurrent UTIs, recurrent grossly infected UAs despite negative cultures, now abnormal CT--appreciate assistance --Urology recommends empiric antibiotic therapy with continued Seo catheter given concern for emphysematous cystitis (3) Dementia: Plan: See above (4) GERD (gastroesophageal reflux disease): Plan: Change omeprazole to pantoprazole per formulary interchange (5) BPH (benign prostatic hyperplasia): Plan: Continue tamsulosin and Proscar added (6) Hyperlipidemia: Plan: Continue atorvastatin Plan: previous provider documented: 09/23/21: I had a lengthy conversation with patient's brothers, Med and Brad on 09/23, ultimately they're next of kin as Americo's mother recently 2 weeks ago. He does have an adult son however is estranged and the son was adopted by his step father so subsequently Americo no longer is his legal parent. Also an adult daughter who Brain hasn't spoken to in 30 years. Regardless, Brain's brothers want to discuss plans moving forward with the son but they seem to be the primary decision makers. No one holds POA for Brain. At this time, family does not wish to pursue further work-up for possible bladder cancer as they understand that this ultimately will not change his progression in his dementia. Furthermore, they understand that attempting to work him up for this may only further exacerbate his agitation and combative behavior. It is not even certain that he would cooperate with treatment if cancer was diagnosed. I have also discussed with him the possibility of initiating hospice at some point. They do seem to be interested in this. Lastly, it has been decided to make Brain a DNR/DNI as they have verbalized that he would not want aggressive/heroic measures to sustain his life. 09/25/21: Evidently, there was an extensive conversation documented by case management and Med on 09/23/2021 after the conversation that I had with both Kory and Med together. According to the documentation, Med seemed to misinterpret some of the information indicating that I had recommended hospice, that the patient "likely has cancer," and if diagnosed with cancer that it would "likely not be able to be treated." This is not accurate. I actually spoke with Kory on both 09/22 and then again together with his brother, Med, on 09/23. During both discussions, I indicated that it is possible that Brain does have cancer but it is not known without pursuing diagnostic testing including cystoscopy and biopsy. The extent of my conversation also included that it is not certain that he would cooperate with not only the diagnostic testing but the treatment which may or may not include chemotherapy and/or radiation. However, it is not able to be determined what type of treatment would be necessary without confirming the diagnosis. Furthermore, I mentioned that hospice could be something to consider as an additional resource and form of support given the extent of social issues that the family is currently dealing with (recent of their mother and personal issues themselves). He would likely be hospice appropriate given his progressive dementia. I told the family that we could provide them with more information regarding hospice if they were interested; but, in the interim, I am treating him for a UTI and working with psychiatry to adjust other medications in hopes that we may see improvement in his behaviors. Lastly, I did NOT state that the patient could not return to [facility]. I did, however, state that if his behaviors did not improve and they did not feel that it would be SAFE for him to return to [facility], that we may have to consider other options, such as a facility that has a locked memory support unit. It was at that time that they verbalized interest in the CT home which I stated we could look into. I reached back out to Kory on 09/25 and discussed/reviewed the above information. He verbalized understanding. Obtained permission to medicate pt and perform CT scan completed 09/25. Admission and Anticipated Discharge Date Admission Date: September 22, 2021 Supervising Physician Co-Signing Physician Notes chart reviewed, case d/w J Karoline PAC - agree w above Subjective Patient seen on daily rounds today. Appears to be trying to get out of bed but easily redirected today. Per nursing staff, was pulling on his Seo catheter which had to be reinserted but otherwise has overall been less agitated compared to days prior. Seo catheter has been maintained due to concern for emphysematous cystitis. Has been seen by urology who recommends maintained seo catheter and empiric abx therapy despite negative seo catheter. Patient from [facility]. Uncertain if they are able to accept him back. Have spoken to case management who will call. Review of Systems Review of Systems: Unobtainable Physical Exam Physical Exam: Exam limited given lack of cooperation General: Resting comfortably in his hospital bed. NAD. HEENT: Head is AT/NC. Buccal mucosa is moist and pink Neck: No JVD. Negative hepatojugular reflex Cardiac: RRR without M/G/R Lungs: CTA without W/R/R Abdomen: Normoactive X4. Abdomen soft. Indwelling Seo catheter Extremities: No peripheral clubbing cyanosis or edema Neuro: Nonverbal. Attempting to get out of bed but easily redirected back to bed Results & Data Results & Data ([facility]) Vital Signs (Past 12 Hours) Vital Signs Temp Pulse Resp BP Pulse Ox 09/27/21 07:30 36.9 C 63 18 134/68 98 Laboratory Results No lab data today PG Care Time/CCT Total # of Minutes Spent Total Time Spent with Patient: Total time spent is greater than 50% in coordination of care (as documented) at patient's floor/unit and/or counseling patient: Coding Level of Care Code 83297 Subseq Hosp Care Lvl 2 Diagnoses Aggressive behavior R46.89 Acute UTI (urinary tract infection) N39.0 Dementia G30.0; F02.81 Alzheimer's disease onset: early-onset Dementia behavioral disturbance: with behavioral disturbance Dementia type: Alzheimer's GERD (gastroesophageal reflux disease) K21.9 BPH (benign prostatic hyperplasia) N40.0 Hyperlipidemia E78.5 (1) Dementia Alzheimer's disease onset: early-onset Dementia behavioral disturbance: with behavioral disturbance Dementia type: Alzheimer's Qualified Code(s): G30.0 - Alzheimer's disease with early onset; F02.81 - Dementia in other diseases classified elsewhere with behavioral disturbance
--- NOTE | 2021-09-27 13:38 | Psychiatric Progress Note ---
Date of Service September 27, 2021 Impression / Recommendations Impression As per initial consult, delirium/encephalopathy superimposed on progressive major cognitive impairment with behavioral disturbance. 09/27--improving, suspect better response to Zyprexa than seroquel at this time. (1) Encephalopathy: (2) Major neurocognitive disorder due to multiple etiologies with behavioral disturbance: (3) Expressive aphasia: suggest d/c all forms of Seroquel in favor of Zyprexa 2.5 mg BID with plan to titrate if needed to minimize prns. Interval History Identifying Information 70 yo man with history of agitated delirium, dementia with behavioral disturbance, UTI, HLD, expressive aphasia, GERD admitted medically from his personal senior care for increasing aggression and concern for UTI. Psychiatry was consulted for recommendations given agitation. Chief Complaint "he's calmer today" per 1-on-1 aide Review of Systems Notes patient is unable to complete due to his mental status. Subjective Subjective Patient was seen & assessed and interval progress reviewed with nursing and briefly with hospitalist service. Patient requiring zyprexa 2.5 mg IM BID around same times Seroquel 50 mg BID scheduled. Zyprexa IM has calming effect, will sometimes sleep after. Has required wrist restraints but today sitting in chair, allowing personal care. Remains quite confused, expressive aphasia and seemingly apraxia as doesn't understand how to use comb, chapstick, etc. Physical Exam Psychiatric Orientation: + not alert and + not oriented to person Apperance: appropriately groomed Eye Contact: + poor eye contact Speech: + abnormal rate/rhythm/volume of speech (brief, soft) Affect: + blunted affect Mood: no irritable mood Thought Process: + incoherent thought process Cognition: language grossly intact (very sparse); + recent memory not intact, + remote memory not intact and + attention not intact Insight: + severely impaired insight Judgement: + severely impaired judgement Vital Signs (Past 24 Hours) Last Vital Signs Temp 36.9 C 09/27/21 07:30 Pulse 63 09/27/21 07:30 Resp 18 09/27/21 07:30 BP 134/68 09/27/21 07:30 Pulse Ox 98 09/27/21 07:30 Results & Data ([facility]) Current Inpatient Medications Current Inpatient Medications: Current Inpatient Medications Acetaminophen (Acetaminophen 325 Mg Tab) 650 mg PO Q4H PRN PRN Reason: pain/fever Stop: 10/20/21 00:21 Aspirin (Aspirin 81 Mg Ectab) 81 mg PO DAILY KAI Stop: 10/20/21 08:59 Last Admin: 09/27/21 08:34 Dose: 81 mg Documented by: Atorvastatin Calcium (Atorvastatin 10 Mg Tab) 10 mg PO HS KAI Stop: 10/20/21 20:59 Last Admin: 09/26/21 20:19 Dose: 10 mg Documented by: Docusate Sodium (Docusate Sodium 100 Mg Cap) 100 mg PO DAILY KAI Stop: 10/20/21 08:59 Last Admin: 09/27/21 08:45 Dose: 100 mg Documented by: Donepezil HCl (Donepezil Hcl 10 Mg Tab) 10 mg PO HS KAI Stop: 10/20/21 20:59 Last Admin: 09/26/21 20:19 Dose: 10 mg Documented by: Enoxaparin Sodium (Enoxaparin Inj 30 Mg/0.3 Ml Syr) 30 mg SQ Q24H KAI Stop: 10/20/21 08:59 Last Admin: 09/27/21 08:35 Dose: 30 mg Documented by: Escitalopram Oxalate (Escitalopram Oxalate 20 Mg Tab) 20 mg PO DAILY KAI Stop: 10/20/21 08:59 Last Admin: 09/27/21 08:36 Dose: 20 mg Documented by: Finasteride (Finasteride 5 Mg Tab) 5 mg PO QAM KAI Stop: 10/26/21 08:59 Last Admin: 09/27/21 08:34 Dose: 5 mg Documented by: Ertapenem 1,000 mg/ Syringe 10 mls @ 2 mls/min IV Q24H KAI Stop: 10/05/21 10:29 Last Admin: 09/27/21 11:12 Dose: 2 mls/min Documented by: Melatonin (Melatonin 3 Mg Tab) 3 mg PO HS PRN PRN Reason: Sleep Stop: 10/20/21 19:08 Last Admin: 09/26/21 21:09 Dose: 3 mg Documented by: Multivitamins/Minerals (Cerovite Adv Formula Tab) 1 tab PO QAM KIA Stop: 10/20/21 08:59 Last Admin: 09/27/21 08:34 Dose: 1 tab Documented by: Olanzapine (Olanzapine 10 Mg/2.1 Ml Sdv) 2.5 mg IM QID PRN PRN Reason: Agitation Stop: 10/22/21 13:34 Last Admin: 09/25/21 15:30 Dose: 2.5 mg Documented by: Olanzapine (Olanzapine Zydis 5 Mg Orally Dis. Tab) 2.5 mg PO BID KAI Stop: 10/27/21 20:59 Ondansetron HCl (Ondansetron Inj 2 Mg/Ml 2 Ml Vial) 4 mg IV Q6H PRN PRN Reason: Nausea Stop: 10/20/21 00:21 Pantoprazole Sodium (Pantoprazole 40 Mg Tab) 40 mg PO DAILY KAI Stop: 10/20/21 08:59 Last Admin: 09/27/21 08:35 Dose: 40 mg Documented by: Tamsulosin HCl (Tamsulosin Hcl 0.4 Mg Cap) 0.4 mg PO DAILY KAI Stop: 10/20/21 08:59 Last Admin: 09/27/21 08:37 Dose: 0.4 mg Documented by: Vitamin D (Cholecalciferol 5,000 Units 125 Mcg Tab) 5,000 units PO DAILY KAI Stop: 10/20/21 08:59 Last Admin: 09/27/21 08:34 Dose: 5,000 units Documented by:
[2021-09-27] MEDS: DONEPEZIL HCL 10 MG TAB PO SCH (21:43)
[2021-09-27] MEDS: OLANZapine ZYDIS 5 MG ORALLY DIS. TAB PO SCH (21:43)
[2021-09-27] MEDS: ATORVASTATIN 10 MG TAB PO SCH (21:43)
[2021-09-27] MEDS: MELATONIN 3 MG TAB PO PRN (21:47)
[2021-09-27] MEDS: ACETAMINOPHEN 325 MG TAB PO PRN (21:47)
[2021-09-28] MEDS: FINASTERIDE 5 MG TAB PO SCH (08:48)
[2021-09-28] MEDS: CEROVITE ADV FORMULA TAB PO SCH (08:48)
[2021-09-28] MEDS: ESCITALOPRAM OXALATE 20 MG TAB PO SCH (08:48)
[2021-09-28] MEDS: ENOXAPARIN INJ 30 MG/0.3 ML SYR SQ SCH (08:48)
[2021-09-28] MEDS: CHOLECALCIFEROL 5,000 UNITS 125 MCG TAB PO SCH (08:48)
[2021-09-28] MEDS: PANTOprazole 40 MG TAB PO SCH (08:48)
[2021-09-28] MEDS: TAMSULOSIN HCL 0.4 MG CAP PO SCH (08:48)
[2021-09-28] MEDS: ASPIRIN 81 MG ECTAB PO SCH (08:48)
[2021-09-28] MEDS: OLANZapine ZYDIS 5 MG ORALLY DIS. TAB PO SCH (08:49)
[2021-09-28] MEDS: DOCUSATE SODIUM 100 MG CAP PO SCH (08:50)
--- NOTE | 2021-09-28 09:11 | Hospitalist Progress Note ---
Date of Service September 28, 2021 Assessment & Plan (1) Aggressive behavior: Plan: Aggressive behavior/dementia/agitation history- Patient referred from current living facility at [facility] due to severe agitation with aggressive behavior towards nursing Concha from facility reached out, requested psych consult for combative/mood swings as noticed to have progressively worsening and is concerned that patient could act out to other patients On admission assumed acute on chronic with worsened encephalopathy from UTI which patient has experienced before with worsening of baseline dementia Patient has been undergoing work-up for potential bladder cancer, was r ecommended for additional potential cystoscopy which hasn't been done yet. Head CT performed 08/25 although without contrast did not show any acute intracranial pathology. 09/20 - code méndez,: violent behavior yelling out nursing staff with various swings taken at providers/staff. Patient combative and not redirectable, yells that Brain is not his name and repeats "get the f-- out."Required 2 mg of Ativan for sedation in the ER previously. In order to protect patient and staff safety patient did require both physical restraints and pharmacologic treatment with IM Haldol initially 2 mg but ultimately given 5 due to severity of combativeness and 2 mg of IV Ativan. Apparently a staff member was exposed to bodily fluids--obtained consent from brother, Brad, on 09/22 to test pt for HIV which came back negative. Continue UTI treatment as patient has had severe exacerbation with these in the past, but concerned that behaviors reflect dementia with progressive behavioral disturbance vs metabolic encephalopathy d/t UTI as noted below Consulted psych--appreciate assistance. Per their recommendations, standing Seroquel was changed to routine Zyprexa as may have better effects. Increase to 5 mg at bedtime with continued two-point 5 in the morning. In addition, change as needed melatonin to scheduled Four-point restraints to be utilized in event of aggressive and violent behavi or but also prevent removal of catheter. Trialed discontinuation of restraints but pulls at seo Avoid IV Ativan as if these behaviors are reflective of delirium, benzodiazepines will potentially exacerbate behaviors. Subsequently discontinued. IM Zyprexa will be utilized as needed for agitation as preferred first-line. At this time, cannot rule out delirium/metabolic encephalopathy as an exacerbating factor to him aggressive behaviors/agitation given that his repeat UA on 09/24 appears grossly infected (although final culture with NG)- see below (2) Acute UTI (urinary tract infection): Plan: Acute urinary tract infection/BPH with LUTS- UC with no growth (<1,000 colonies) but treated based on initial UA Treated (empirically) with Rocephin x 6 days Continue tamsulosin prior provider Attempted to obtain information re: work up for bladder tumor, he was seen by urology last month with plan to set up o/p cysto. Family is no longer interested in pursuing this work up. A CT of his abdomen and pelvis was attempted during his last admission however he refused the scan after he went down to radiology. Documented fever in chart of 38.4 C on 09/24 @ 0112repeat UA appeared grossly infected, wbc count normal, urine appears concentrated and more acidic CT scan performed during this hospitalization that does show significant gas within the bladder. This could be from recent instrumentation; however, urology concerned for emphysematous cystitis Changed IV antibiotics as follows: Rocephin d/c'd and started Invanz 1 g IV daily on 09/25 (for anaerobic coverage)--did reach out to urology regarding length of treatment. Ideally, they advised 2 weeks (to complete on ) Urology consulted d/t recurrent UTIs, recurrent grossly infected UAs despite negative cultures, now abnormal CT--appreciate assistance --Urology recommends empiric antibiotic therapy with continued Seo catheter given concern for emphysematous cystitis --Case discussed additionally with urology on 09/28. Recommendations are for 2 weeks of antibiotics and follow-up CT scan prior to removal of Seo catheter. Although this may be difficult given his lack of cooperation, cystoscopy would be much more difficult (CT in 7-14 days) --In addition, being aggressive to treat possible emphysematous cystitis as given lack of treatment, may need emergent bladder removal (3) Dementia: Plan: See above (4) GERD (gastroesophageal reflux disease): Plan: Change omeprazole to pantoprazole per formulary interchange (5) BPH (benign prostatic hyperplasia): Plan: Continue tamsulosin and Proscar added (6) Hyperlipidemia: Plan: Continue atorvastatin Plan: previous provider documented: 09/23/21: I had a lengthy conversation with patient's brothers, Med and Brad on 09/23, ultimately they're next of kin as Americo's mother recently 2 weeks ago. He does have an adult son however is estranged and the son was adopted by his step father so subsequently Americo no longer is his legal parent. Also an adult daughter who Brain hasn't spoken to in 30 years. Regardless, Brain's brothers want to discuss plans moving forward with the son but they seem to be the primary decision makers. No one holds POA for Brain. At this time, family does not wish to pursue further work-up for possible bladder cancer as they understand that this ultimately will not change his progression in his dementia. Furthermore, they understand that attempting to work him up for this may only further exacerbate his agitation and combative behavior. It is not even certain that he would cooperate with treatment if cancer was diagnosed. I have also discussed with him the possibility of initiating hospice at some point. They do seem to be interested in this. Lastly, it has been decided to make Brain a DNR/DNI as they have verbalized that he would not want aggressive/heroic measures to sustain his life. 09/25/21: Evidently, there was an extensive conversation documented by case management and Med on 09/23/2021 after the conversation that I had with both Kory and Med together. According to the documentation, Med seemed to misinterpret some of the information indicating that I had recommended hospice, that the patient "likely has cancer," and if diagnosed with cancer that it would "likely not be able to be treated." This is not accurate. I actually spoke with Kory on both 09/22 and then again together with his brother, Med, on 09/23. During both discussions, I indicated that it is possible that Brain does have cancer but it is not known without pursuing diagnostic testing including cystoscopy and biopsy. The extent of my conversation also included that it is not certain that he would cooperate with not only the diagnostic testing but the treatment which may or may not include chemotherapy and/or radiation. However, it is not able to be determined what type of treatment would be necessary without confirming the diagnosis. Furthermore, I mentioned that hospice could be something to consider as an additional resource and form of support given the extent of social issues that the family is currently dealing with (recent of their mother and personal issues themselves). He would likely be hospice appropriate given his progressive dementia. I told the family that we could provide them with more information regarding hospice if they were interested; but, in the interim, I am treating him for a UTI and working with psychiatry to adjust other medications in hopes that we may see improvement in his behaviors. Lastly, I did NOT state that the patient could not return to [facility]. I did, however, state that if his behaviors did not improve and they did not feel that it would be SAFE for him to return to [facility], that we may have to consider other options, such as a facility that has a locked memory support unit. It was at that time that they verbalized interest in the [facility] home which I stated we could look into. I reached back out to Kory on 09/25 and discussed/reviewed the above information. He verbalized understanding. Obtained permission to medicate pt and perform CT scan completed 09/25. Admission and Anticipated Discharge Date Admission Date: September 22, 2021 Subjective Patient seen on daily rounds today. Seroquel has since been transitioned to Zyprexa at the recommendations of psychiatry. Staff attempted to remove restraints last evening but patient continued to pull out Seo catheter. He was very agitated but not aggressive. Review of Systems Review of Systems: Unobtainable Physical Exam Physical Exam: Exam limited given lack of cooperation General: Resting comfortably in his hospital bed. NAD. HEENT: Head is AT/NC. Buccal mucosa is moist and pink Neck: No JVD. Negative hepatojugular reflex Cardiac: RRR without M/G/R Lungs: CTA without W/R/R Abdomen: Normoactive X4. Abdomen soft. Indwelling Seo catheter Extremities: No peripheral clubbing cyanosis or edema Neuro: Nonverbal. Attempting to get out of bed but easily redirected back to bed Results & Data Results & Data ([facility]) Vital Signs (Past 12 Hours) Vital Signs Temp Pulse Resp BP Pulse Ox 09/27/21 22:14 37.3 C 65 16 100/63 94 PG Care Time/CCT Total # of Minutes Spent Total Time Spent with Patient: Total time spent is greater than 50% in coordination of care (as documented) at patient's floor/unit and/or counseling patient: Coding Level of Care Code 84937 Subseq Hosp Care Lvl 1 Diagnoses Aggressive behavior R46.89 Acute UTI (urinary tract infection) N39.0 Dementia G30.0; F02.81 Alzheimer's disease onset: early-onset Dementia behavioral disturbance: with behavioral disturbance Dementia type: Alzheimer's GERD (gastroesophageal reflux disease) K21.9 BPH (benign prostatic hyperplasia) N40.0 Hyperlipidemia E78.5 (1) Dementia Alzheimer's disease onset: early-onset Dementia behavioral disturbance: with behavioral disturbance Dementia type: Alzheimer's Qualified Code(s): G30.0 - Alzheimer's disease with early onset; F02.81 - Dementia in other diseases classified elsewhere with behavioral disturbance
[2021-09-28] MEDS: ERTAPENEM SODIUM 1,000 MG in SYRINGE 0 ML IV SCH (10:16)
--- NOTE | 2021-09-28 14:37 | Communication Note ---
Date of Service: September 28, 2021 Interim progress reviewed. Patient was sleeping in room on am rounds. Appears that was tugging at seo and increasingly restless on redirection, hs Zyprexa being increased to 5 mg tonight per hospitalist service. No additional recs at this time.
[2021-09-28] MEDS: DONEPEZIL HCL 10 MG TAB PO SCH (20:02)
[2021-09-28] MEDS: ATORVASTATIN 10 MG TAB PO SCH (20:02)
[2021-09-28] MEDS: ACETAMINOPHEN 325 MG TAB PO PRN (20:03)
[2021-09-28] MEDS ORDERED: MELATONIN 3 MG TAB PO SCH (21:00)
[2021-09-28] MEDS ORDERED: OLANZapine 5 MG TABLET PO SCH (21:00)
--- NOTE | 2021-09-29 07:24 | Hospitalist Progress Note ---
Date of Service September 29, 2021 Assessment & Plan (1) Aggressive behavior: Plan: Aggressive behavior/dementia/agitation history- Patient referred from current living facility at [place] due to severe agitation with aggressive behavior towards nursing Concha from facility reached out, requested psych consult for combative/mood swings as noticed to have progressively worsening and is concerned that patient could act out to other patients On admission assumed acute on chronic with worsened encephalopathy from UTI which patient has experienced before with worsening of baseline dementia Patient has been undergoing work-up for potential bladder cancer, was r ecommended for additional potential cystoscopy which hasn't been done yet. Head CT performed 08/25 although without contrast did not show any acute intracranial pathology. 09/20 - code méndez,: violent behavior yelling out nursing staff with various swings taken at providers/staff. Patient combative and not redirectable, yells that Brain is not his name and repeats "get the f-- out."Required 2 mg of Ativan for sedation in the ER previously. In order to protect patient and staff safety patient did require both physical restraints and pharmacologic treatment with IM Haldol initially 2 mg but ultimately given 5 due to severity of combativeness and 2 mg of IV Ativan. Apparently a staff member was exposed to bodily fluids--obtained consent from brother, Brad, on 09/22 to test pt for HIV which came back negative. Continue UTI treatment as patient has had severe exacerbation with these in the past, but concerned that behaviors reflect dementia with progressive behavioral disturbance vs metabolic encephalopathy d/t UTI as noted below Consulted psych--appreciate assistance. Per their recommendations, standing Seroquel was changed to routine Zyprexa as may have better effects. Increase to 5 mg at bedtime with continued two-point 5 in the morning. In addition, change as needed melatonin to scheduled Four-point restraints to be utilized in event of aggressive and violent behavi or but also prevent removal of catheter. Trialed discontinuation of restraints but pulls at seo Avoid IV Ativan as if these behaviors are reflective of delirium, benzodiazepines will potentially exacerbate behaviors. Subsequently discontinued. IM Zyprexa will be utilized as needed for agitation as preferred first-line. At this time, cannot rule out delirium/metabolic encephalopathy as an exacerbating factor to him aggressive behaviors/agitation given that his repeat UA on 09/24 appears grossly infected (although final culture with NG)- see below (2) Acute UTI (urinary tract infection): Plan: Acute urinary tract infection/BPH with LUTS- UC with no growth (<1,000 colonies) but treated based on initial UA Treated (empirically) with Rocephin x 6 days Continue tamsulosin prior provider Attempted to obtain information re: work up for bladder tumor, he was seen by urology last month with plan to set up o/p cysto. Family is no longer interested in pursuing this work up. A CT of his abdomen and pelvis was attempted during his last admission however he refused the scan after he went down to radiology. Documented fever in chart of 38.4 C on 09/24 @ 0112repeat UA appeared grossly infected, wbc count normal, urine appears concentrated and more acidic CT scan performed during this hospitalization that does show significant gas within the bladder. This could be from recent instrumentation; however, urology concerned for emphysematous cystitis Changed IV antibiotics as follows: Rocephin d/c'd and started Invanz 1 g IV daily on 09/25 (for anaerobic coverage)--did reach out to urology regarding length of treatment. Ideally, they advised 2 weeks (to complete on ) Urology consulted d/t recurrent UTIs, recurrent grossly infected UAs despite negative cultures, now abnormal CT--appreciate assistance --Urology recommends empiric antibiotic therapy with continued Seo catheter given concern for emphysematous cystitis --Case discussed additionally with urology on 09/28. Recommendations are for 2 weeks of antibiotics and follow-up CT scan prior to removal of Seo catheter. Although this may be difficult given his lack of cooperation, cystoscopy would be much more difficult (CT in 7-14 days) --In addition, being aggressive to treat possible emphysematous cystitis as given lack of treatment, may need emergent bladder removal (3) Dementia: Plan: See above (4) GERD (gastroesophageal reflux disease): Plan: Change omeprazole to pantoprazole per formulary interchange (5) BPH (benign prostatic hyperplasia): Plan: Continue tamsulosin and Proscar added (6) Hyperlipidemia: Plan: Continue atorvastatin Plan: previous provider documented: 09/23/21: I had a lengthy conversation with patient's brothers, Med and Brad on 09/23, ultimately they're next of kin as Americo's mother recently 2 weeks ago. He does have an adult son however is estranged and the son was adopted by his step father so subsequently Americo no longer is his legal parent. Also an adult daughter who Brain hasn't spoken to in 30 years. Regardless, Brain's brothers want to discuss plans moving forward with the son but they seem to be the primary decision makers. No one holds POA for Brain. At this time, family does not wish to pursue further work-up for possible bladder cancer as they understand that this ultimately will not change his progression in his dementia. Furthermore, they understand that attempting to work him up for this may only further exacerbate his agitation and combative behavior. It is not even certain that he would cooperate with treatment if cancer was diagnosed. I have also discussed with him the possibility of initiating hospice at some point. They do seem to be interested in this. Lastly, it has been decided to make Brain a DNR/DNI as they have verbalized that he would not want aggressive/heroic measures to sustain his life. 09/25/21: Evidently, there was an extensive conversation documented by case management and Med on 09/23/2021 after the conversation that I had with both Kory and Med together. According to the documentation, Med seemed to misinterpret some of the information indicating that I had recommended hospice, that the patient "likely has cancer," and if diagnosed with cancer that it would "likely not be able to be treated." This is not accurate. I actually spoke with Kory on both 09/22 and then again together with his brother, Med, on 09/23. During both discussions, I indicated that it is possible that Brain does have cancer but it is not known without pursuing diagnostic testing including cystoscopy and biopsy. The extent of my conversation also included that it is not certain that he would cooperate with not only the diagnostic testing but the treatment which may or may not include chemotherapy and/or radiation. However, it is not able to be determined what type of treatment would be necessary without confirming the diagnosis. Furthermore, I mentioned that hospice could be something to consider as an additional resource and form of support given the extent of social issues that the family is currently dealing with (recent of their mother and personal issues themselves). He would likely be hospice appropriate given his progressive dementia. I told the family that we could provide them with more information regarding hospice if they were interested; but, in the interim, I am treating him for a UTI and working with psychiatry to adjust other medications in hopes that we may see improvement in his behaviors. Lastly, I did NOT state that the patient could not return to [facility]. I did, however, state that if his behaviors did not improve and they did not feel that it would be SAFE for him to return to [facility], that we may have to consider other options, such as a facility that has a locked memory support unit. It was at that time that they verbalized interest in the [place] home which I stated we could look into. I reached back out to Kory on 09/25 and discussed/reviewed the above information. He verbalized understanding. Obtained permission to medicate pt and perform CT scan completed 09/25. Admission and Anticipated Discharge Date Admission Date: September 22, 2021 PG Care Time/CCT Total # of Minutes Spent Total Time Spent with Patient: Total time spent is greater than 50% in coordination of care (as documented) at patient's floor/unit and/or counseling patient: Coding Diagnoses Aggressive behavior R46.89 Acute UTI (urinary tract infection) N39.0 Dementia G30.0; F02.81 Alzheimer's disease onset: early-onset Dementia behavioral disturbance: with behavioral disturbance Dementia type: Alzheimer's GERD (gastroesophageal reflux disease) K21.9 BPH (benign prostatic hyperplasia) N40.0 Hyperlipidemia E78.5 (1) Dementia Alzheimer's disease onset: early-onset Dementia behavioral disturbance: with behavioral disturbance Dementia type: Alzheimer's Qualified Code(s): G30.0 - Alzheimer's disease with early onset; F02.81 - Dementia in other diseases classified elsewhere with behavioral disturbance
[2021-09-29] MEDS ORDERED: OLANZAPINE 2.5 MG TAB PO SCH (09:00)
[2021-09-29] MEDS: ESCITALOPRAM OXALATE 20 MG TAB PO SCH (09:02)
[2021-09-29] MEDS: ASPIRIN 81 MG ECTAB PO SCH (09:03)
[2021-09-29] MEDS: TAMSULOSIN HCL 0.4 MG CAP PO SCH (09:03)
[2021-09-29] MEDS: CEROVITE ADV FORMULA TAB PO SCH (09:03)
[2021-09-29] MEDS: PANTOprazole 40 MG TAB PO SCH (09:03)
[2021-09-29] MEDS: CHOLECALCIFEROL 5,000 UNITS 125 MCG TAB PO SCH (09:03)
[2021-09-29] MEDS: FINASTERIDE 5 MG TAB PO SCH (09:03)
[2021-09-29] MEDS: ENOXAPARIN INJ 30 MG/0.3 ML SYR SQ SCH (09:04)
[2021-09-29] MEDS: DOCUSATE SODIUM 100 MG CAP PO SCH (09:06)
[2021-09-29] MEDS: ERTAPENEM SODIUM 1,000 MG in SYRINGE 0 ML IV SCH (10:08)
--- NOTE | 2021-09-29 12:28 | Discharge Summary ---
Date of Service September 29, 2021 Admission HPI Per Admitting Provider Patient was brought to the emergency department by EMS due to agitation at his current living facility. He was found to have a urinary tract infection, but did not show any significant agitation while in the emergency department. Principal Diagnosis 1. Increasing agitation/combative behaviorlikely multifactorial (progressive dementia and questionable UTI) 2. UTI? Emphysematous cystitis Discharge Exam General: Resting comfortably in bedside chair. NAD. HEENT: Head is AT/NC. Buccal mucosa is moist and pink Neck: No JVD. Negative hepatojugular reflex Cardiac: RRR without M/G/R Lungs: CTA without W/R/R Abdomen: Normoactive X4. Abdomen soft. Indwelling Rea catheter Extremities: No peripheral clubbing cyanosis or edema Neuro: pleasantly demented Discharge Data Allergies Allergy/AdvReac Type Severity Reaction Status Date / Time No Known Allergies Allergy Verified 09/19/21 21:47 Consultations 09/19/21 23:11 ED Decision to Admit Stat 09/21/21 16:13 Consult Psychiatry Routine 09/26/21 10:07 Consult Urology Routine 09/29/21 12:22 Consult [facility] tour leader Routine Ordered Studies 09/25/21 14:28 CT abd pelvis IV con only Routine IMPRESSION: 1. Near nondiagnostic evaluation of the bladder due to the metallic artifact the right hip prosthesis. 2. The bladder is almost completely filled with gas. This is nonspecific but could be due to recent catheterization/instrumentation. In addition, there are is a single focus of gas within close proximity to the posterior bladder wall as described above. This appears to represent a sigmoid diverticulum. A colovesical fistula is considered less likely but not entirely excluded given the extensive gas within the bladder. There is also mild fat stranding at this location and mild colonic wall thickening raising the possibility of a mild acute diverticulitis. Consider follow-up endoscopy to exclude the less likely possibility of underlying colonic lesion. 3. Mild bladder wall thickening/trabeculation. This is likely due to the chronic outlet obstruction from the enlarged prostate gland. A mild cystitis could also have a similar appearance. Recommend correlation with urinalysis. 4. Additional findings as described above. Hospital Course (1) Aggressive behavior: Aggressive behavior/dementia/agitation history- Patient referred from current living facility at [facility] due to severe agitation with aggressive behavior towards nursing Concha from facility reached out, requested psych consult for combative/mood swings as noticed to have progressively worsening and is concerned that patient could act out to other patients On admission assumed acute on chronic with worsened encephalopathy from UTI which patient has experienced before with worsening of baseline dementia Head CT performed 08/25 although without contrast did not show any acute intracranial pathology. 09/20 - code méndez,: violent behavior yelling out nursing staff with various swings taken at providers/staff. Patient combative and not redirectable, yells that Brain is not his name and repeats "get the f-- out."Required 2 mg of Ativan for sedation in the ER previously. In order to protect patient and staff safety patient did require both physical restraints and pharmacologic treatment with IM Haldol initially 2 mg but ultimately given 5 due to severity of combativeness and 2 mg of IV Ativan. Apparently a staff member was exposed to bodily fluids--obtained consent from brother, Brad, on 09/22 to test pt for HIV which came back negative. Consulted psych--appreciate assistance: standing Seroquel was changed to routine Zyprexa with titration-- significant improvement noted in agitation In addition, changed prn to scheduled melatonin Four-point restraints utilized upfront given violent behavior toward staff and risk of Rea catheter removal but with antipsychotic transition, no need for continued restraints. Removed yesterday and doing well At this time, cannot rule out delirium/metabolic encephalopathy as an exacerbating factor to him aggressive behaviors/agitation given that his repeat UA on 09/24 appears grossly infected (although final culture with NG)- see below (2) Acute UTI (urinary tract infection): Acute urinary tract infection/BPH with LUTS- UC with no growth (<1,000 colonies) but treated based on initial UA Treated (empirically) with Rocephin x 6 days Continue tamsulosin prior provider Attempted to obtain information re: work up for bladder tumor, he was seen by urology last month with plan to set up o/p cysto. Family is no longer interested in pursuing this work up A CT of his abdomen and pelvis was attempted during his last admission however he refused the scan after he went down to radiology. during this hospitalication: Documented fever in chart of 38.4 C on 09/24 @ 0112repeat UA appeared grossly infected, wbc count normal, urine appears concentrated and more acidic CT scan performed during this hospitalization that does show significant gas within the bladder. This could be from recent instrumentation (straight cath in the ED); however, urology concerned for emphysematous cystitis Changed IV antibiotics as follows: Rocephin d/c'd and started Invanz 1 g IV daily on 09/25 (for anaerobic coverage)--did reach out to urology regarding length of treatment. Ideally, they advised 2 weeks (to complete on 10/09) --not need for IV abx. Since stable for D/C, transition to Cipro/Flagyl (again, lack of culture data but covering mostly for anaerobic organisms) Urology consulted d/t recurrent UTIs, recurrent grossly infected UAs despite negative cultures, now abnormal CT--appreciate assistance --Urology recommends empiric antibiotic therapy with continued Rea catheter given concern for emphysematous cystitis --Case discussed additionally with urology on 09/28. Recommendations are for 2 weeks of antibiotics and follow-up CT scan prior to removal of Rea catheter. Although this may be difficult given his lack of cooperation, cystoscopy would be much more difficult (CT in 7-14 days)-- at discretion of urology --In addition, we have been aggressive to treat possible emphysematous cystitis as given lack of treatment, may need emergent bladder removal --Since adequate control of combative behavior, patient has successfully maintained Rea catheter (3) Dementia: See above (4) GERD (gastroesophageal reflux disease): Change omeprazole to pantoprazole per formulary interchange (5) BPH (benign prostatic hyperplasia): Continue tamsulosin and Proscar added (6) Hyperlipidemia: Continue atorvastatin previous provider documented: 09/23/21: I had a lengthy conversation with patient's brothers, Med and Brad on 09/23, ultimately they're next of kin as Americo's mother recently 2 weeks ago. He does have an adult son however is estranged and the son was adopted by his step father so subsequently Americo no longer is his legal parent. Also an adult daughter who Brain hasn't spoken to in 30 years. Regardless, Brain's brothers want to discuss plans moving forward with the son but they seem to be the primary decision makers. No one holds POA for Brain. At this time, family does not wish to pursue further work-up for possible bladder cancer as they understand that this ultimately will not change his progression in his dementia. Furthermore, they understand that attempting to work him up for this may only further exacerbate his agitation and combative behavior. It is not even certain that he would cooperate with treatment if cancer was diagnosed. I have also discussed with him the possibility of initiating hospice at some point. They do seem to be interested in this. Lastly, it has been decided to make Brain a DNR/DNI as they have verbalized that he would not want aggressive/heroic measures to sustain his life. 09/25/21: Evidently, there was an extensive conversation documented by case management and Med on 09/23/2021 after the conversation that I had with both Kory and Med together. According to the documentation, Med seemed to misinterpret some of the information indicating that I had recommended hospice, that the patient "likely has cancer," and if diagnosed with cancer that it would "likely not be able to be treated." This is not accurate. I actually spoke with Kory on both 09/22 and then again together with his brother, Med, on 09/23. During both discussions, I indicated that it is possible that Brain does have cancer but it is not known without pursuing diagnostic testing including cystoscopy and biopsy. The extent of my conversation also included that it is not certain that he would cooperate with not only the diagnostic testing but the treatment which may or may not include chemotherapy and/or radiation. However, it is not able to be determined what type of treatment would be necessary without confirming the diagnosis. Furthermore, I mentioned that hospice could be something to consider as an additional resource and form of support given the extent of social issues that the family is currently dealing with (recent of their mother and personal issues themselves). He would likely be hospice appropriate given his progressive dementia. I told the family that we could provide them with more information regarding hospice if they were interested; but, in the interim, I am treating him for a UTI and working with psychiatry to adjust other medications in hopes that we may see improvement in his behaviors. Lastly, I did NOT state that the patient could not return to [facility]. I did, however, state that if his behaviors did not improve and they did not feel that it would be SAFE for him to return to [facility], that we may have to consider other options, such as a facility that has a locked memory support unit. It was at that time that they verbalized interest in the [place] [facility] which I stated we could look into. I reached back out to Kory on 09/25 and discussed/reviewed the above information. He verbalized understanding. Obtained permission to medicate pt and perform CT scan completed 09/25. Since I have taken over on 09/27, brother (Med) updated daily.Patient is medically and hemodynamically stable. His behaviors seem to be well controlled.Personal care facility has reassessed the situation and feel comfortable receiving him back to the facility despite the indwelling Rea catheter. [facility]. To follow-up with PCP within 7 to 10 days. To follow-up with Urology within 1 week Total Time Total Time Spent Total Time Spent (In Minutes): 40 minutes including time spent with patient, discussion with brother, coordination of care with case management and preparation of documentation Discharge Plan Discharge Items Patient Disposition: Personal Snf Reason For Visit: UTI, AGITATION Discharge Diagnosis: 1. Increased agitation and combative behavior (likely from dementia and UTI) 2. UTI- concern for Emphysematous Cystitis Activity: Resume your previous activity Non-emergency contact: Primary Care Provider and Urologist Call non-emergency contact if: you have any medication questions and you have a fever Follow-up/Referrals: Kalie Orozco [Primary Care Provider] - Diet: Regular Addtl Attending Provider Instructions: Patient was hospitalized with increased agitation/behaviors It is suspected that this increased agitation is likely due to his progressive dementia. In addition, there is/was concern for urinary tract infection. He did have a grossly infected urinalysis; however, his urine culture has shown no bacterial growth. He did have a fever. In addition, he had a CT scan of his abdomen and pelvis that showed concern for gas within the bladder. This could be consistent with recent straight catheterization prior to imaging but could also be consistent with something called emphysematous cystitis. This would be from a gas forming bacteria (which left untreated can perforate the bladder). The Urologist has seen the patient and is recommending maintenance of the rea catheter. DO NOT REMOVE REA UNTIL CLEARED BY UROLOGY. Urology is planning a repeat CT of the abdomen and pelvis in 7-10 days to then determine if the catheter can be removed. Patient is to complete a full 14 days of antibiotics (to complete on 10/09). --Cipro 500mg by mouth twice a day (to complete on 10/09) --Flagyl 500mg 3x/day (to complete on 10/09) In addition, patient was seen by psychiatry who transitioned Seroquel to Zyprexa as he seemed to respond favorably to this. --Stop Seroquel --Zyprexa 2.5 mg in the morning, 5 mg in the evening --In addition, he was placed on routine melatonin at night Follow-up recommendations: 1. CT scan of the abdomen and pelvisat discretion of urology 2. DO NOT REMOVE REA until cleared by Urology 3. Complete full course antibiotics 4. follow up with Urology: 1 week 5. Follow up with PCP: 7-10 days 6. Return to the ED for new or worsening symptoms Pending Studies at Discharge: No Stand-Alone Forms: [facility] Sk[facility] Items Patient informed of condition?: Yes DNR: Yes Discharge Level of Care: Other Communicable Disease: No Discharge Prognosis: Stable Lines: None Urinary Catheter: Yes Medications and DC Order Prescriptions: New olanzapine 5 mg Tablet 5 mg PO HS Qty: 30 RF: 0 melatonin 3 mg Tablet 3 mg PO HS Qty: 30 RF: 0 olanzapine 2.5 mg Tablet 2.5 mg PO QAM Qty: 30 RF: 0 finasteride [Proscar] 5 mg Tablet 5 mg PO QAM Qty: 30 RF: 0 Continued tamsulosin 0.4 mg capsule 0.4 mg PO DAILY Qty: 30 RF: 11 aspirin [Aspirin Low Dose] 81 mg Tablet,Delayed Release (Dr/Ec) 81 mg PO DAILY Qty: 90 RF: 3 omeprazole 20 mg capsule,delayed release(DR/EC) 20 mg PO DAILY Qty: 30 RF: 5 escitalopram oxalate 20 mg tablet 20 mg PO DAILY Qty: 30 RF: 11 cholecalciferol (vitamin D3) 5,000 unit tablet 5,000 units PO DAILY Qty: 30 RF: 0 Cerovite Silver Tablet 1 tab PO QAM RF: 0 atorvastatin 10 mg tablet 10 mg PO HS RF: 0 donepezil 10 mg tablet 10 mg PO HS RF: 0 docusate sodium [Colace] 100 mg capsule 100 mg PO DAILY RF: 0 Discontinued quetiapine 50 mg tablet 50 mg PO HS RF: 0 Discharge Orders: Discharge Order (Routine); Ordered 09/29/21 Ordered By: Kellen Ramey Admission Data Admit Date/Time: 09/22/21 13:09 Attending Provider: Wang Coles Admit Provider: Quentin Mandujano Primary Care Provider: Kalie Orozco Other Providers: Quentin Mandujano ; Lucinda Rome ; Bailee Malik ; Marilin Boateng ; Aman Ortiz ; Marc Alexis Other Interventions: Discharge Summary Assessment (RN) Last Done: 09/29/21 11:41 Coding Level of Care Code D/C DAY MANAGEMENT >30 MINS Diagnoses Aggressive behavior R46.89 Acute UTI (urinary tract infection) N39.0 Dementia G30.0; F02.81 Alzheimer's disease onset: early-onset Dementia behavioral disturbance: with behavioral disturbance Dementia type: Alzheimer's GERD (gastroesophageal reflux disease) K21.9 BPH (benign prostatic hyperplasia) N40.0 Hyperlipidemia E78.5
== END 2021-09-29 15:35 | disposition home or self-care (01) | DRG 884 ==
LOC: 3E 20:15 → ED 20:15 → SUATTDRO 23:23 → 3E 09-20 00:21 → SUATTDRO 09-22 13:09

== ENCOUNTER 2021-10-07 09:23 | Inpatient (IN) ==
[2021-10-07] MEDS ORDERED: SODIUM CHLORIDE 0.9% 1000ML 1,000 ML IV SCH (09:45)
--- NOTE | 2021-10-07 09:47 | Emergency Department Note ---
History of Present Illness General Chief complaint: Seizure Time Seen by Provider: 10/07/21 09:27 Source: EMS Mode of arrival: EMS Limitations: altered mental status History of Present Illness Provider complaint: seizure Onset (ago): hour(s) Treatments prior to arrival: none This is a 70-year-old male who presents emergency department via EMS after having a witnessed seizure at the facility where he resides. Patient was being assisted to the bathroom by staff when the suddenly noticed he began to be less responsive and stiffen up appearing to start to fall. Staff grabbed him and he began to have shaking and they lowered him to the ground. Staff states that the shaking lasted approximately 30 to 60 seconds and after that he seemed very tired and less responsive. Patient began to slowly arouse again by the time EMS arrived. By arrival here patient was awake and appeared closer to baseline. EMS reports patient was just recently admitted for a urinary tract infection. Patient does have a longstanding history of dementia. No prior seizure history. Pt seen during a time of high acuity and national emergency pandemic while wearing PPE. Home Medications Medication Instructions Recorded Confirmed Type aspirin 81 mg tablet,delayed 81 mg PO DAILY #90 tab 02/26/21 10/07/21 Rx release (Aspirin Low Dose) cholecalciferol (vitamin D3) 125 5,000 units PO DAILY #30 tab 02/26/21 10/07/21 Rx mcg (5,000 unit) tablet escitalopram oxalate 20 mg tablet 20 mg PO DAILY #30 tab 02/26/21 10/07/21 Rx omeprazole 20 mg capsule,delayed 20 mg PO DAILY #30 cap 02/26/21 10/07/21 Rx release docusate sodium 100 mg capsule 100 mg PO DAILY 08/25/21 10/07/21 History (Colace) tamsulosin 0.4 mg capsule 0.4 mg PO DAILY #30 cap 09/03/21 10/07/21 Rx atorvastatin 10 mg tablet 10 mg PO HS 09/19/21 10/07/21 History donepezil 10 mg tablet 10 mg PO HS 09/19/21 10/07/21 History fgymhklxmlvc-jtnzqpuy-gdmxkd tablet 1 tab PO QAM 09/19/21 10/07/21 History ciprofloxacin HCl 500 mg tablet 500 mg PO BID #21 tab 09/29/21 10/07/21 Rx (Cipro) finasteride 5 mg tablet (Proscar) 5 mg PO QAM #30 tab 09/29/21 10/07/21 Rx melatonin 3 mg tablet 3 mg PO HS #30 tab 09/29/21 10/07/21 Rx metronidazole 500 mg tablet 500 mg PO Q8H #32 tab 09/29/21 10/07/21 Rx olanzapine 2.5 mg tablet 2.5 mg PO QAM #30 tab 09/29/21 10/07/21 Rx olanzapine 5 mg tablet 5 mg PO HS #30 tab 09/29/21 10/07/21 Rx Allergies Allergy/AdvReac Type Severity Reaction Status Date / Time No Known Allergies Allergy Verified 09/19/21 21:47 Past Med/Surg History Medical History (Updated 10/08/21 @ 19:11 by Piedad Black DO) Arthritis of right hip BPH (benign prostatic hyperplasia) Cellulitis and abscess of face Dementia Dental abscess Depression with anxiety Elevated BP without diagnosis of hypertension Expressive aphasia GERD (gastroesophageal reflux disease) Hyperlipidemia Vitamin D insufficiency Surgical History H/O total hip arthroplasty Right History of hernia repair Family History Mother Myocardial infarction Other Hypertension Denies family history of Ovarian cancer Prostate cancer Breast cancer Colorectal cancer Social History Smoking Status: Unknown if ever smoked Second Hand Exposure: No; Do You Dip or Chew Tobacco: No; Tobacco Cessation Education Requested by Patient: No Hx Alcohol Use: No Hx Substance Use: No Preferred Language: Kyrgyz Communication Ability: Impaired Senior Art Director Required: No Beliefs That Will Affect Care: None marital status: Single Current Living Situation: [facility] Current Living Situation Comment: na current occupational status: disabled Other Information That Helps Us Care for You: No Feels Safe at Home: Yes Childhood Exposure to Second-Hand Smoke: No caffeine: Yes during the past year weight has: remained stable Dental Care, Regularly: Yes Seatbelt Use: always Sunscreen Use: No Assistive Devices: Glasses Review of Systems A total of 10 systems reviewed and were otherwise negative All systems reviewed & are unremarkable except as noted in HPI & below Physical Exam Vital Signs Vital Signs - 24 hr 10/07/21 09:33 10/07/21 11:03 Pulse Rate 89 Pulse Rate [Apical] 50 L Pulse Rhythm Regular Pulse Rhythm [Apical] Regular Pulse Strength Normal Pulse Strength [Apical] Normal Respiratory Rate 16 12 Respiratory Effort / Characteristics Non-Labored Spontaneous Non-Labored Spontaneous Respiratory Depth Normal Normal Respiratory Pattern Regular Blood Pressure 137/82 Blood Pressure [Right Arm] 109/67 Blood Pressure Mean 100 Blood Pressure Mean [Right Arm] 81 Blood Pressure Position Sitting Blood Pressure Position [Right Arm] Lying Pulse Oximetry 98 97 Oxygen Delivery Method Room Air Room Air Sepsis Recent Fever Within 48 Hours No Sepsis New/Unexplained Change in Mental Status N/A Sepsis Action Taken by Nursing No Action Required GENERAL: alert, well nourished, no distress, non-toxic EYE EXAM: normal conjunctiva, PERRL and EOM's grossly intact OROPHARYNX: no exudate, no erythema, lips, buccal mucosa, and tongue normal and mucous membranes are moist NECK: supple, no nuchal rigidity, no adenopathy, non-tender LUNGS: Clear to auscultation. Normal chest wall mechanics, no w/r/r HEART: no murmurs, S1 normal and S2 normal ABDOMEN: abdomen soft, non-tender, normo-active bowel sounds, no masses, no rebound or guarding. BACK: Back is symmetrical on inspection and there is no deformity, no midline tenderness, no CVA tenderness. SKIN: no rashes and no bruising UPPER EXTREMITIES: upper extremities are grossly normal. FROM, nml pulses b/l. LOWER EXTREMITIES: No pitting edema. FROM, nml pulses b/l. NEURO EXAM: Confused, easily agitated, flat affect, cranial nerves II-XII grossly intact, normal speech, no gross weakness of arms, no gross weakness of legs. Gross sensation intact. Course Course 1145: Discussed with neurology, Dr. Anderson. Recommends admission to have MRI of the brain with and without contrast as well as EEG. While possible seizure related to recent course of Flagyl, may also be related to progression of azul ntia especially in light of unknown etiology. Administered Medications Acetaminophen (Acetaminophen 325 Mg Tab) 650 mg PO Q4H PRN PRN Reason: Pain or Fever Stop: 11/06/21 17:06 Last Admin: 10/08/21 08:40 Dose: 650 mg Documented by: [id number] Aspirin (Aspirin 81 Mg Ectab) 81 mg PO DAILY KAI Stop: 11/07/21 08:59 Last Admin: 10/08/21 07:28 Dose: 81 mg Documented by: [id number] Atorvastatin Calcium (Atorvastatin 10 Mg Tab) 10 mg PO HS [facility] Stop: 11/06/21 20:59 Last Admin: 10/07/21 19:25 Dose: 10 mg Documented by: [id number] Docusate Sodium (Docusate Sodium 100 Mg Cap) 100 mg PO DAILY KAI Stop: 11/07/21 08:59 Last Admin: 10/08/21 07:28 Dose: 100 mg Documented by: [id number] Donepezil HCl (Donepezil Hcl 10 Mg Tab) 10 mg PO HS [facility] Stop: 11/06/21 20:59 Last Admin: 10/07/21 19:25 Dose: 10 mg Documented by: [id number] Escitalopram Oxalate (Escitalopram Oxalate 20 Mg Tab) 20 mg PO DAILY [facility] Stop: 11/07/21 08:59 Last Admin: 10/08/21 07:28 Dose: 20 mg Documented by: [id number] Finasteride (Finasteride 5 Mg Tab) 5 mg PO QAM KAI Stop: 11/07/21 08:59 Last Admin: 10/08/21 08:37 Dose: 5 mg Documented by: [id number] Heparin Sodium (Porcine) (Heparin Sod 5,000 Unit/0.5 Ml Vial) 5,000 units SQ Q12 KAI Stop: 11/06/21 20:59 Last Admin: 10/08/21 07:29 Dose: 5,000 units Documented by: [id number] Admin: 10/07/21 19:24 Dose: 5,000 units Documented by: [id number] Cefepime HCl 1,000 mg/ Syringe 11.3 mls @ 5.5 mls/min IV Q8H [facility]; Protocol Stop: 10/17/21 17:59 Last Admin: 10/08/21 18:42 Dose: 5.5 mls/min Documented by: [id number] Admin: 10/08/21 10:16 Dose: 5.5 mls/min Documented by: [id number] Admin: 10/08/21 02:32 Dose: 5.5 mls/min Documented by: [id number] Admin: 10/07/21 19:05 Dose: 5.5 mls/min Documented by: [id number] Melatonin (Melatonin 3 Mg Tab) 3 mg PO HS KAI Stop: 11/06/21 20:59 Last Admin: 10/07/21 19:31 Dose: 3 mg Documented by: [id number] Olanzapine (Olanzapine 5 Mg Tablet) 5 mg PO HS KAI Stop: 11/06/21 20:59 Last Admin: 10/07/21 19:25 Dose: 5 mg Documented by: [id number] Olanzapine (Olanzapine 2.5 Mg Tab) 2.5 mg PO QAM KAI Stop: 11/07/21 08:59 Last Admin: 10/08/21 08:37 Dose: 2.5 mg Documented by: [id number] Pantoprazole Sodium (Pantoprazole 40 Mg Tab) 40 mg PO DAILY KAI Stop: 11/07/21 08:59 Last Admin: 10/08/21 07:27 Dose: 40 mg Documented by: [id number] Tamsulosin HCl (Tamsulosin Hcl 0.4 Mg Cap) 0.4 mg PO DAILY KAI Stop: 11/07/21 08:59 Last Admin: 10/08/21 07:28 Dose: 0.4 mg Documented by: [id number] Discontinued Medications Sodium Chloride (Nss 1000ml) 1,000 mls @ 125 mls/hr IV .Q8H KAI Stop: 11/06/21 09:44 Last Infusion: 10/07/21 17:30 Dose: 0 mls/hr Documented by: [id number] Admin: 10/07/21 10:03 Dose: 125 mls/hr Documented by: [id number] Lorazepam (Lorazepam 2 Mg/1 Ml Vial) 1 mg IV Q4H PRN PRN Reason: Agitation Stop: 11/06/21 09:38 Last Admin: 10/07/21 15:02 Dose: 1 mg Documented by: [id number] Admin: 10/07/21 10:03 Dose: 1 mg Documented by: [id number] Melatonin (Melatonin 3 Mg Tab) Confirm Administered Dose 3 mg PO .STK-MED ONE Stop: 10/07/21 19:31 Last Admin: 10/07/21 19:32 Dose: Not Given Documented by: [id number] Medical Decision Making Differential Diagnosis Differential diagnosis includes etiologies such as infection, hypoglycemia, electrolyte abnormalities, cardiac sources, intracerebral event, trauma, toxicologic, neurologic, as well as others were entertained. Medical Records Attestation: I reviewed the patient's medical records. Home Medications Current Medication List: was personally reviewed by me Laboratory Data Attestation: I reviewed the patient's lab results. Result diagrams: 10/08/21 07:44 10/08/21 07:44 Lab Results 10/07/21 10/07/21 10/07/21 Range/Units 09:57 09:57 09:57 WBC 5.23 (4.8-10.8) K/uL RBC 3.89 L (4.7-6.1) M/uL Hgb 11.9 L (14.0-18.0) g/dL Hct 36.5 L (42-52) % MCV 93.8 (80-100) fL MCH 30.6 (25-34) pg MCHC 32.6 (32-36) g/dL RDW Std Deviation 47.0 H (36.4-46.3) fL RDW Coeff of Anjelica 13.7 (11.5-14.5) % Plt Count 314 (130-400) K/uL MPV 9.3 (7.4-10.4) fL Immature Gran % (Auto) 0.4 % Neut % (Auto) 68.4 % Lymph % (Auto) 19.9 % [place] % (Auto) 8.4 % Eos % (Auto) 2.5 % Baso % (Auto) 0.4 % Neut # (Auto) 3.58 (1.4-6.5) K/uL Lymph # (Auto) 1.04 L (1.2-3.4) K/uL [place] # (Auto) 0.44 (0.11-0.59) K/uL Eos # (Auto) 0.13 (0-0.5) K/uL Baso # (Auto) 0.02 (0-0.2) K/uL Immature Gran # (Auto) 0.02 (0.00-0.02) K/uL Sodium 141 (136-145) mmol/L Potassium 3.5 (3.5-5.1) mmol/L Chloride 106 (98-107) mmol/L Carbon Dioxide 27 (21-32) mmol/L Anion Gap 8 (3-11) BUN 15 (6-23) mg/dl Creatinine 1.02 (0.6-1.4) mg/dl Est Cr Clr Drug Dosing 68.4 ml/min Est GFR ( Amer) 86.5 ml/min Est GFR (Non-Af Amer) 74.6 ml/min BUN/Creatinine Ratio 14.7 (10-20) Glucose 91 (70-99(Fasting)) mg/dl Calcium 9.3 (8.5-10.1) mg/dl Magnesium 2.1 (1.7-2.4) mg/dl Total Bilirubin 0.4 (0.2-1.0) mg/dl AST 24 (13-39) U/L ALT 21 (7-52) U/L Alkaline Phosphatase 67 (34-104) U/L Troponin I < 0.03 (0-0.04) ng/ml Total Protein 7.1 (6.0-8.3) gm/dl Albumin 3.9 (3.4-5.0) gm/dl Globulin 3.2 (2.5-4.0) gm/dl Albumin/Globulin Ratio 1.2 (0.9-2) Lipase 28 (11-82) U/L Procalcitonin (0-0.5) ng/ml TSH 5.149 H (0.300-4.500) uIu/ml Free T4 0.74 (0.61-1.60) ng/dl Urine Color Urine Appearance (Clear) Urine pH (4.5-7.5) Ur Specific [place] (1.000-1.030) Urine Protein (Negative) Urine Glucose (UA) (Negative) Urine Ketones (Negative) Urine Blood (Negative) Urine Nitrite (Negative) Urine Bilirubin (Negative) Urine Urobilinogen (Negative) Ur Leukocyte Esterase (Negative) Urine WBC (Auto) (0-5) /hpf Urine RBC (Auto) (0-4) /hpf U Hyaline Cast (Auto) (0-5) /lpf U Epithel Cells (Auto) (0-5) /lpf Urine Bacteria (Auto) (Negative) Urine Yeast SARS-CoV-2, RNA, NAAT (NEGATIVE) 10/07/21 10/07/21 10/07/21 Range/Units 09:57 10:24 13:50 WBC (4.8-10.8) K/uL RBC (4.7-6.1) M/uL Hgb (14.0-18.0) g/dL Hct (42-52) % MCV (80-100) fL MCH (25-34) pg MCHC (32-36) g/dL RDW Std Deviation (36.4-46.3) fL RDW Coeff of Anjelica (11.5-14.5) % Plt Count (130-400) K/uL MPV (7.4-10.4) fL Immature Gran % (Auto) % Neut % (Auto) % Lymph % (Auto) % [place] % (Auto) % Eos % (Auto) % Baso % (Auto) % Neut # (Auto) (1.4-6.5) K/uL Lymph # (Auto) (1.2-3.4) K/uL [place] # (Auto) (0.11-0.59) K/uL Eos # (Auto) (0-0.5) K/uL Baso # (Auto) (0-0.2) K/uL Immature Gran # (Auto) (0.00-0.02) K/uL Sodium (136-145) mmol/L Potassium (3.5-5.1) mmol/L Chloride (98-107) mmol/L Carbon Dioxide (21-32) mmol/L Anion Gap (3-11) BUN (6-23) mg/dl Creatinine (0.6-1.4) mg/dl Est Cr Clr Drug Dosing ml/min Est GFR ( Amer) ml/min Est GFR (Non-Af Amer) ml/min BUN/Creatinine Ratio (10-20) Glucose (70-99(Fasting)) mg/dl Calcium (8.5-10.1) mg/dl Magnesium (1.7-2.4) mg/dl Total Bilirubin (0.2-1.0) mg/dl AST (13-39) U/L ALT (7-52) U/L Alkaline Phosphatase (34-104) U/L Troponin I (0-0.04) ng/ml Total Protein (6.0-8.3) gm/dl Albumin (3.4-5.0) gm/dl Globulin (2.5-4.0) gm/dl Albumin/Globulin Ratio (0.9-2) Lipase (11-82) U/L Procalcitonin < 0.05 (0-0.5) ng/ml TSH (0.300-4.500) uIu/ml Free T4 (0.61-1.60) ng/dl Urine Color Yellow Urine Appearance Clear (Clear) Urine pH 5.5 (4.5-7.5) Ur Specific [place] 1.013 (1.000-1.030) Urine Protein Negative (Negative) Urine Glucose (UA) Negative (Negative) Urine Ketones Negative (Negative) Urine Blood 2+ H (Negative) Urine Nitrite Negative (Negative) Urine Bilirubin Negative (Negative) Urine Urobilinogen Negative (Negative) Ur Leukocyte Esterase 1+ H (Negative) Urine WBC (Auto) >30 H (0-5) /hpf Urine RBC (Auto) 10-30 H (0-4) /hpf U Hyaline Cast (Auto) 1-5 (0-5) /lpf U Epithel Cells (Auto) 0-5 (0-5) /lpf Urine Bacteria (Auto) 1+ H (Negative) Urine Yeast Not Reportable SARS-CoV-2, RNA, NAAT NEGATIVE (NEGATIVE) Imaging Data Radiologist's Impression: Chest X-Ray 10/07/21 09:39 SINGLE VIEW CHEST CLINICAL HISTORY: Seizure. FINDINGS: An AP, portable, upright chest radiograph is compared to study dated 09/19/2021. The heart is mildly enlarged. The pulmonary vasculature is noncongested. There are low lung volumes with bibasilar atelectasis. No airspace consolidation or large pleural effusion is identified. No pneumothorax is seen. The skeletal structures are osteopenic. The bony thorax is grossly intact. IMPRESSION: Cardiomegaly and low lung volumes with no acute cardiopulmonary abnormality identified. ACT 112: Negative or not required by law. Electronically signed by: Landon Gillespie M.D. 10/07/2021 9:[address] 10/07/21 09:39 CT SCAN OF THE BRAIN WITHOUT IV CONTRAST CLINICAL HISTORY: Seizure. COMPARISON STUDY: CT of the brain dated 08/25/2021. TECHNIQUE: Unenhanced axial CT scan of the brain is performed from the vertex to the skull base. A dose lowering technique was utilized adhering to the principles of ALARA. The skull base was scanned twice due to motion artifact. CT DOSE: 909.11 mGy.cm FINDINGS: Brain parenchyma: There are age-related involutional changes noting mild subcortical and periventricular microangiopathic change. There is no hemorrhage, mass effect, or evidence of acute territorial ischemia by CT criteria. A chronic lacunar infarct is noted in the left basal ganglia. Cuevas-white matter differentiation is preserved. No extra-axial fluid collection is seen. Ventricles, sulci, cisterns: Prominent secondary to involutional change. Intracranial vasculature: There is atherosclerotic calcification of the cavernous carotid arteries. Calvarium: Unremarkable. Sinuses and mastoids: The paranasal sinuses are clear. The mastoid air cells are well pneumatized. Orbits: The bony orbits are grossly intact. IMPRESSION: There is no hemorrhage, mass effect, or evidence of acute territor ial ischemia by CT criteria. ACT 112: Negative or not required by law. Electronically signed by: Landon Gillespie M.D. 10/07/2021 11:03 AM ECG Data Attestation: I personally reviewed and interpreted this ECG as follows: Indication: + other Rate (beats per minute): 53 Rhythm: + sinus bradycardia ECG Intervals/blocks: + Right Bundle branch block and + Normal QT ECG Chama: + Left axis deviation ECG ST segments: + Nonspecific ST abnormalities MDM Narrative THis is an elderly demented male from a local facility who presents for seizure. By time of arrival in the ER, pt was back to baseline. No seizure history. 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 Patient afebrile and VSS on presentation. Labs reassuring. No leukocytosis noted. Case discussed with neurology given complicated patient with limitations for evaluation and outpatient follow-up. yl does have a listed adr of seizures although less common. No recurrent seizure activity in the ER. Neuro recommended additional evaluation as an inpatient. Patient would likely need sedated for MRI and EEG. No evidence of sepsis. I do not suspect meningitis/encephalitis. Possible related to worsening dementia given unclear etiology of dementia per prior records. An order was placed for continuous cardiac monitoring. The monitor shows a rate of _60_ with _normal sinus_ rhythm. Impression & Plan Seizure, Complicated UTI (urinary tract infection), Dementia Discharge Plan Visit Data Chief Complaint: Seizure ED Provider: Piedad Black Discharge Problem: Seizure, Complicated UTI (urinary tract infection), Dementia Patient Disposition: Admitted As Inpatient Discharge Instructions Interventions: ED Discharge Assessment Last Done: 10/07/21 16:41 Discharge Problem: Dementia Qualifiers: Dementia type: unspecified type Dementia behavioral disturbance: with behavioral disturbance Qualified Code(s): F03.91 - Unspecified dementia with behavioral disturbance
--- NOTE | 2021-10-07 09:59 | XRay Report ---
SINGLE VIEW CHEST CLINICAL HISTORY: Seizure. FINDINGS: An AP, portable, upright chest radiograph is compared to study dated 09/19/2021. The heart is mildly enlarged. The pulmonary vasculature is noncongested. There are low lung volumes with bibasila r atelectasis. No airspace consolidation or large pleural effusion is identified. No pneumothorax is seen. The skeletal structures are osteopenic. The bony thorax is grossly intact. IMPRESSION: Cardiomegaly and low lung volumes with no acute cardiopulmonary abnormality identified. ACT 112: Negative or not required by law. Electronically signed by: Landon Gillespie M.D. 10/07/2021 9:57 AM
[2021-10-07] MEDS: LORazepam 2 MG/1 ML VIAL IV PRN ×2 (10:03→15:02)
[2021-10-07 10:16] LABS: Basophils # (auto) 0.02 K/uL (0-0.2); Basophils % (auto) 0.4 %; Eosinophils # (auto) 0.13 K/uL (0-0.5); Eosinophils % (auto) 2.5 %; Hematocrit (blood only) 36.5 % (42-52); Hemoglobin 11.9 g/dL (14.0-18.0); Immature Granulocytes # (auto) 0.02 K/uL (0.00-0.02); Immature Granulocytes % (auto) 0.4 %; Lymphocytes # (auto) 1.04 K/uL (1.2-3.4); Lymphocytes % (auto) 19.9 %; Mean Corpuscular Hemoglobin 30.6 pg (25-34); Mean Corpuscular Hgb Conc 32.6 g/dL (32-36); Mean Corpuscular Volume 93.8 fL (80-100); Mean Platelet Volume 9.3 fL (7.4-10.4); Monocytes # (auto) 0.44 K/uL (0.11-0.59); Monocytes % (auto) 8.4 %; Neutrophils # (auto) 3.58 K/uL (1.4-6.5); Neutrophils % (auto) 68.4 %; Platelet Count 314 K/uL (130-400); RDW Coefficient of Variation 13.7 % (11.5-14.5); Red Blood Count 3.89 M/uL (4.7-6.1); White Blood Count 5.23 K/uL (4.8-10.8)
[2021-10-07 10:39] LABS: Troponin I < 0.03 ng/ml (0-0.04)
[2021-10-07 10:43] LABS: Alanine Aminotransferase 21 U/L (7-52); Albumin Globulin Ratio 1.2 (0.9-2); Albumin Level 3.9 gm/dl (3.4-5.0); Alkaline Phosphatase 67 U/L (34-104); Anion Gap 8 (3-11); Aspartate Aminotransferase 24 U/L (13-39); BUN Creatinine Ratio 14.7 (10-20); Bilirubin,Total 0.4 mg/dl (0.2-1.0); Blood Urea Nitrogen 15 mg/dl (6-23); Calcium 9.3 mg/dl (8.5-10.1); Carbon Dioxide 27 mmol/L (21-32); Chloride 106 mmol/L (98-107); Creatinine Clr Calc Pharmacy 68.4 ml/min; Est GFR (African American) 86.5 ml/min; Est GFR (Non-African American) 74.6 ml/min; Globulin 3.2 gm/dl (2.5-4.0); Glucose 91 mg/dl (70-99(Fasting)); Lipase 28 U/L (11-82); Magnesium 2.1 mg/dl (1.7-2.4); Potassium 3.5 mmol/L (3.5-5.1); Sodium 141 mmol/L (136-145); Total Protein 7.1 gm/dl (6.0-8.3)
--- NOTE | 2021-10-07 10:50 | Electrocardiogram Report ---
Test Reason : Blood Pressure : / mmHG Vent. Rate : 053 BPM Atrial Rate : 053 BPM P-R Int : 174 ms QRS Dur : 146 ms QT Int : 480 ms P-R-T Axes : 031 -31 -18 degrees QTc Int : 450 ms Sinus bradycardia Left axis deviation Right bundle branch block T wave abnormality, consider lateral ischemia Abnormal ECG When compared with ECG of 19-SEP-2021 22:09, Borderline criteria for Lateral infarct are no longer Present Confirmed by Andres Medellin ([id number]) on 10/07/2021 10:50:10 AM Referred By: Kalie Lee [place] Confirmed By:Cricket Medellin
[2021-10-07 10:54] LABS: Thyroid Stimulating Hormone 5.149 uIu/ml (0.300-4.500)
[2021-10-07 10:56] LABS: Appearance Urine Clear (Clear); Bacteria Urine Automated 1+ (Negative); Bilirubin Urine Negative (Negative); Blood Urine 2+ (Negative); Color Urine Yellow; Epithelial Cell Urine Auto 0-5 /lpf (0-5); Glucose Urine UA Negative (Negative); Ketones Urine Negative (Negative); Leukocyte Esterase Urine 1+ (Negative); Nitrite Urine Negative (Negative); Protein Urine Negative (Negative); Specific Gravity Urine 1.013 (1.000-1.030); Urobilinogen Urine Negative (Negative); WBC Urine Automated >30 /hpf (0-5); pH Urine 5.5 (4.5-7.5)
--- NOTE | 2021-10-07 11:04 | CT Scan Report ---
CT SCAN OF THE BRAIN WITHOUT IV CONTRAST CLINICAL HISTORY: Seizure. COMPARISON STUDY: CT of the brain dated 08/25/2021. TECHNIQUE: Unenhanced axial CT scan of the brain is performed from the vertex to the skull base. A do se lowering technique was utilized adhering to the principles of ALARA. The skull base was scanned tw ice due to motion artifact. CT DOSE: 909.11 mGy.cm FINDINGS: Brain parenchyma: There are age-related involutional changes noting mild subcortical and periventric ular microangiopathic change. There is no hemorrhage, mass effect, or evidence of acute territorial i schemia by CT criteria. A chronic lacunar infarct is noted in the left basal ganglia. Cuevas-white rhonda er differentiation is preserved. No extra-axial fluid collection is seen. Ventricles, sulci, cisterns: Prominent secondary to involutional change. Intracranial vasculature: There is atherosclerotic calcification of the cavernous carotid arteries. Calvarium: Unremarkable. Sinuses and mastoids: The paranasal sinuses are clear. The mastoid air cells are well pneumatized. Orbits: The bony orbits are grossly intact. IMPRESSION: There is no hemorrhage, mass effect, or evidence of acute territorial ischemia by CT crit eria. ACT 112: Negative or not required by law. Electronically signed by: Landon Gillespie M.D. 10/07/2021 11:03 AM
[2021-10-07 11:33] LABS: T4 Free Thyroxine 0.74 ng/dl (0.61-1.60)
--- NOTE | 2021-10-07 14:24 | History & Physical Report ---
Date of Service October 07, 2021 Assessment & Plan (1) Seizure-like activity: Plan: Reported and unable to obtain history- received Ativan in the EMD likely secondary to obtain head imaging - DDX: arrhythmia vs. post syncope awakening vs. seizure - Telemetry overnight evaluate for dysrhythmia- QTC 450 - Discontinue Cipro and Flagyl - CT scan without acute process - EEG - MRI- would be beneficial at some point- avoid stacking effect of sedating meds so hold on admisison - UA stable from previous admission - Electrolytes stable - TSH 5.1 with T 4 0.74 - Glucose normal If seizure confirmed/witnessed- Ativan 2-4 mg IV to break- would initiate Keppra at that time - EEG pending (2) Encephalopathy: Plan: Metabolic vs. medication induced - Currently difficult to ascertain secondary to sedation (3) Aggressive behavior: Plan: Dementia related - superimposed on progressive major cognitive impairment with behavioral disturbance -Brother reports that his behavior has been better since previous admission - Continue with Olanzapine BID 2.5/5mg respectively - Continue Escitalopram - Continue Donepezil - Psych evaluated on previous admission - full note review from 09/24/21 for further information (4) Dementia: Plan: As above - Maintain sleep wake cycles - Avoid further benzodiazepine unless seizure witnessed - Olanzapine IM- if needed for max 15mg- first line - Haldol if failing above (5) UTI (urinary tract infection), bacterial: Plan: Chronic- last admisison was Klebsiella Pneumonia - Discontinue Cipro and Flagyl - Start Cefepime 1GM q8- or change to 2gm q12 (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 requiring seo catheter placment to decompress bladder - Seo not in place on admission - Planned for cystoscopy in the future at some point (7) Insomnia: Plan: Continue Melatonin (8) GERD (gastroesophageal reflux disease): Plan: Continue Omeprazole 20mg PO daily (9) Expressive aphasia: Plan: Chronic likely related to past CVA - Reportedly without any difficulty swallowing- follow History of Present Illness Primary Care Provider: [facility] Marcello Jade 70 YOM resident of [facility] with past medical history of: Complicated UT, Seo catheter, BPH, Dementia, Cerebral Infarct, HLD, GERD, Insomnia, Expressive Aphasia. Patient was brought to the EMD today from [facility] following a reported fall while being assisted to the bathroom, where it was reported that he stiffened up where he was lowered to the floor and began shaking on the ground. ED reports 30-60 second onset. without head strike- and reported as rigid shaking following confusion- with concern of seizure like activity. The patient is currently sedated as well as he suffers from dementia and expressive aphasia. Majority of the HPI is obtained from record review only. In the EMD the patient had CT scan of his head performed, which was negative for acute mass or bleed, but notable for chronic lacunar infarct. Patient was recently discharged from [facility] for acute encephalopathy secondary to UTI with Klebsiella Pneumonia. Patient has no history of seizures, but does carry a family history of seizures with his brother (Brad, whom I spoke to on the phone) and his mother. Patient will be admitted to the hospital for monitoring of his symptoms and telemetry for dysrhythmia. Will discontinue his Ciprofloxacin in light of his other QT prolonging medications as well as his Flagyl with history of his Dementia- both confounding current picture. Will obtain EEG- MRI will require further sedation at this time. COVID Test is: NEGATIVE Allergies Allergy/AdvReac Type Severity Reaction Status Date / Time No Known Allergies Allergy Verified 09/19/21 21:47 Home Medications Medication Instructions Recorded Confirmed Type aspirin 81 mg tablet,delayed 81 mg PO DAILY #90 tab 02/26/21 10/07/21 Rx release (Aspirin Low Dose) cholecalciferol (vitamin D3) 125 5,000 units PO DAILY #30 tab 02/26/21 10/07/21 Rx mcg (5,000 unit) tablet escitalopram oxalate 20 mg tablet 20 mg PO DAILY #30 tab 02/26/21 10/07/21 Rx omeprazole 20 mg capsule,delayed 20 mg PO DAILY #30 cap 02/26/21 10/07/21 Rx release docusate sodium 100 mg capsule 100 mg PO DAILY 08/25/21 10/07/21 History (Colace) tamsulosin 0.4 mg capsule 0.4 mg PO DAILY #30 cap 09/03/21 10/07/21 Rx atorvastatin 10 mg tablet 10 mg PO HS 09/19/21 10/07/21 History donepezil 10 mg tablet 10 mg PO HS 09/19/21 10/07/21 History jgqoouvrjixk-hpwkyupb-vdtloy tablet 1 tab PO QAM 09/19/21 10/07/21 History ciprofloxacin HCl 500 mg tablet 500 mg PO BID #21 tab 09/29/21 10/07/21 Rx (Cipro) finasteride 5 mg tablet (Proscar) 5 mg PO QAM #30 tab 09/29/21 10/07/21 Rx melatonin 3 mg tablet 3 mg PO HS #30 tab 09/29/21 10/07/21 Rx metronidazole 500 mg tablet 500 mg PO Q8H #32 tab 09/29/21 10/07/21 Rx olanzapine 2.5 mg tablet 2.5 mg PO QAM #30 tab 09/29/21 10/07/21 Rx olanzapine 5 mg tablet 5 mg PO HS #30 tab 09/29/21 10/07/21 Rx Past Med/Surg History Medical History (Updated 10/07/21 @ 17:52 by Jessie Ramos MD) Arthritis of right hip BPH (benign prostatic hyperplasia) Cellulitis and abscess of face Dementia Dental abscess Depression with anxiety Elevated BP without diagnosis of hypertension Expressive aphasia GERD (gastroesophageal reflux disease) Hyperlipidemia Vitamin D insufficiency Surgical History H/O total hip arthroplasty Right History of hernia repair Family History Mother Myocardial infarction Other Hypertension Denies family history of Ovarian cancer Prostate cancer Breast cancer Colorectal cancer Social History Smoking Status: Unknown if ever smoked Second Hand Exposure: No; Do You Dip or Chew Tobacco: No; Tobacco Cessation Education Requested by Patient: No Hx Alcohol Use: No Hx Substance Use: No Preferred Language: Belgian Communication Ability: Impaired Dolphin Researcher Required: No Beliefs That Will Affect Care: None marital status: Single Current Living Situation: [facility] Current Living Situation Comment: na current occupational status: disabled Other Information That Helps Us Care for You: No Feels Safe at Home: Yes Childhood Exposure to Second-Hand Smoke: No caffeine: Yes during the past year weight has: remained stable Dental Care, Regularly: Yes Seatbelt Use: always Sunscreen Use: No Assistive Devices: None Review of Systems Review of Systems: REVIEW OF SYSTEMS: Unable to complete secondary to dementia and sedation - Chart reviewed from previous Physical Exam Physical Exam: PHYSICAL EXAM: General: Sedated, awakens with voice and touch- confused and non discernable speech Head: Normocephalic, no open areas or bruising to scalp or head ENT: PERRL, mucous membranes moist Neuro: AAO x 0, speech indiscernible strength intact bilaterally 5/5, moving all extremities, localizes to pain, attempting to sit up in the bed Chest: equal rise and fall of the chest, no accessory muscle use, no heaves or thrills, decreased in bases with scattered crackles, Cardiac: Regular rate and rhythm, telemetry reviewed-NSR, skin warm dry, cap refill <3 seconds, peripheral pulses +2 no JVD, GI: NABS x 4 quadrants, soft, nontender to palpation, no rebound, guarding or tenderness : diapered incontinent Extremities: Normal inspection, no peripheral edema or erythema, calfs nontender to palpation Psych: sedated with history of agressive dementia Skin: no rash or erythema Results & Data Results & Data ([facility] [place]) Vital Signs (Past 12 Hours) Vital Signs Pulse Pulse Resp BP BP Pulse Ox 10/07/21 11:03 50 L 12 109/67 97 10/07/21 09:33 89 16 137/82 98 Laboratory Results Abnormal lab results 10/07/21 10/07/21 10/07/21 Range/Units 09:57 09:57 10:24 RBC 3.89 L (4.7-6.1) M/uL Hgb 11.9 L (14.0-18.0) g/dL Hct 36.5 L (42-52) % RDW Std Deviation 47.0 H (36.4-46.3) fL Lymph # (Auto) 1.04 L (1.2-3.4) K/uL TSH 5.149 H (0.300-4.500) uIu/ml Urine Blood 2+ H (Negative) Ur Leukocyte Esterase 1+ H (Negative) Urine WBC (Auto) >30 H (0-5) /hpf Urine RBC (Auto) 10-30 H (0-4) /hpf Urine Bacteria (Auto) 1+ H (Negative) Diagnostic Findings Chest X-Ray 10/07/21 09:39 SINGLE VIEW CHEST CLINICAL HISTORY: Seizure. FINDINGS: An AP, portable, upright chest radiograph is compared to study dated 09/19/2021. The heart is mildly enlarged. The pulmonary vasculature is noncongested. There are low lung volumes with bibasilar atelectasis. No airspace consolidation or large pleural effusion is identified. No pneumothorax is seen. The skeletal structures are osteopenic. The bony thorax is grossly intact. IMPRESSION: Cardiomegaly and low lung volumes with no acute cardiopulmonary abnormality identified. ACT 112: Negative or not required by law. Electronically signed by: Landon Gillespie M.D. 10/07/2021 9:[address] 10/07/21 09:39 CT SCAN OF THE BRAIN WITHOUT IV CONTRAST CLINICAL HISTORY: Seizure. COMPARISON STUDY: CT of the brain dated 08/25/2021. TECHNIQUE: Unenhanced axial CT scan of the brain is performed from the vertex to the skull base. A dose lowering technique was utilized adhering to the principles of ALARA. The skull base was scanned twice due to motion artifact. CT DOSE: 909.11 mGy.cm FINDINGS: Brain parenchyma: There are age-related involutional changes noting mild subcortical and periventricular microangiopathic change. There is no hemorrhage, mass effect, or evidence of acute territorial ischemia by CT criteria. A chronic lacunar infarct is noted in the left basal ganglia. Cuevas-white matter differentiation is preserved. No extra-axial fluid collection is seen. Ventricles, sulci, cisterns: Prominent secondary to involutional change. Intracranial vasculature: There is atherosclerotic calcification of the cavernous carotid arteries. Calvarium: Unremarkable. Sinuses and mastoids: The paranasal sinuses are clear. The mastoid air cells are well pneumatized. Orbits: The bony orbits are grossly intact. IMPRESSION: There is no hemorrhage, mass effect, or evidence of acute territorial ischemia by CT criteria. ACT 112: Negative or not required by law. Electronically signed by: Landon Gillespie M.D. 10/07/2021 11:03 AM Medications Administered Sodium Chloride (Nss 1000ml) 1,000 mls @ 125 mls/hr IV .Q8H KAI Stop: 11/06/21 09:44 Last Admin: 10/07/21 10:03 Dose: 125 mls/hr Documented by: [id number] Lorazepam (Lorazepam 2 Mg/1 Ml Vial) 1 mg IV Q4H PRN PRN Reason: Agitation Stop: 11/06/21 09:38 Last Admin: 10/07/21 10:03 Dose: 1 mg Documented by: [id number] Home Medications aspirin 81 mg tablet,delayed release (Aspirin Low Dose) 81 mg PO DAILY #90 tab 02/26/21 [Rx Confirmed 10/07/21] cholecalciferol (vitamin D3) 125 mcg (5,000 unit) tablet 5,000 units PO DAILY #30 tab 02/26/21 [Rx Confirmed 10/07/21] escitalopram oxalate 20 mg tablet 20 mg PO DAILY #30 tab 02/26/21 [Rx Confirmed 10/07/21] omeprazole 20 mg capsule,delayed release 20 mg PO DAILY #30 cap 02/26/21 [Rx Confirmed 10/07/21] docusate sodium 100 mg capsule (Colace) 100 mg PO DAILY 08/25/21 [History Confirmed 10/07/21] tamsulosin 0.4 mg capsule 0.4 mg PO DAILY #30 cap 09/03/21 [Rx Confirmed 10/07/21] atorvastatin 10 mg tablet 10 mg PO HS 09/19/21 [History Confirmed 10/07/21] donepezil 10 mg tablet 10 mg PO HS 09/19/21 [History Confirmed 10/07/21] wppopanasygr-whxneklb-rcijah tablet 1 tab PO QAM 09/19/21 [History Confirmed 10/07/21] ciprofloxacin HCl 500 mg tablet (Cipro) 500 mg PO BID #21 tab 09/29/21 [Rx Confirmed 10/07/21] finasteride 5 mg tablet (Proscar) 5 mg PO QAM #30 tab 09/29/21 [Rx Confirmed 10/07/21] melatonin 3 mg tablet 3 mg PO HS #30 tab 09/29/21 [Rx Confirmed 10/07/21] metronidazole 500 mg tablet 500 mg PO Q8H #32 tab 09/29/21 [Rx Confirmed 10/07/21] olanzapine 2.5 mg tablet 2.5 mg PO QAM #30 tab 09/29/21 [Rx Confirmed 10/07/21] olanzapine 5 mg tablet 5 mg PO HS #30 tab 09/29/21 [Rx Confirmed 10/07/21] Active Medications Sodium Chloride (Nss 1000ml) 1,000 mls @ 125 mls/hr IV .Q8H KAI Stop: 11/06/21 09:44 Last Admin: 10/07/21 10:03 Dose: 125 mls/hr Documented by: Lorazepam (Lorazepam 2 Mg/1 Ml Vial) 1 mg IV Q4H PRN PRN Reason: Agitation Stop: 11/06/21 09:38 Last Admin: 10/07/21 10:03 Dose: 1 mg Documented by: ECG Additional Comments: Vent. Rate : 053 BPM Atrial Rate : 053 BPM P-R Int : 174 ms QRS Dur : 146 ms QT Int : 480 ms P-R-T Axes : 031 -31 -18 degrees QTc Int : 450 ms Sinus bradycardia Left axis deviation Right bundle branch block T wave abnormality, consider lateral ischemia Abnormal ECG When compared with ECG of 19-SEP-2021 22:09, Borderline criteria for Lateral infarct are no longer Present Confirmed by Andres Medellin ([id number]) on 10/07/2021 10:50:10 AM Code Status & VTE Plan Code Status CODE: DNR/DNI- confirmed with brother Brad VTE: SCDs, Heparin 5000 units sub q q12 VTE Prophylaxis Plan VTE Prophylaxis will be ordered: Yes Supervising Physician Co-Signing Physician Notes PSYCHIATRIC SPECIALIST Supervision note: I have personally seen and examined the patient and discussed and verified the russ points of the history and physical along with the plan with TATYANA Lee with the following exceptions and/or additions: This patient is a 70-year-old male with recent hospitalization for acute encephalopathy secondary to UTI with known significant agitated delirium in the setting of what sounds like progressive dementia. He presents to the ER today after having a witnessed episode that appeared to be seizure-like. He was started on Zyprexa last admission as well as antibiotics to include Cipro and Flagyl for UTI. The patient was lethargic in the ER and unable to give any history. He is given Ativan. History and ROS reviewed as above Vitals reviewed Gen: Lethargic, but does open eyes to verbal stimulus but does not speak, NAD HEENT: Anicteric sclerae, EOMI, PERRL CV: RRR no mgr nl S1S2 Pulm: CTAB no wcr Abd: +BS soft NT ND no masses or hernias Ext: No edema, 2+ DP pulses Skin: No rashes, warm/dry Neuro: Moves all extremities Labs and rads reviewed, ECG reviewed 70-year-old male with history as above, here with possible seizure activity versus syncope Monitor on telemetry Zyprexa could be contributing both to syncope via orthostasis versus it does lower the seizure threshold EEG consider MRI if will be cooperative Consider consultation with neurology to discuss empiric treatment with antiepileptics Would hesitate to discontinue or decrease the dose of Zyprexa on this patient as he has had severe issues with aggression and psychotic behavior in the past PG Care Time/CCT Total # of Minutes Spent Total Time Spent with Patient: Total time spent is greater than 50% in coordination of care (as documented) at patient's floor/unit and/or counseling patient: Coding Level of Care Code 89833 Initial Inpt Care Lvl 3 Diagnoses Seizure-like activity R56.9 Encephalopathy G93.40 Aggressive behavior R46.89 Dementia G30.0; F02.81 Alzheimer's disease onset: early-onset Dementia behavioral disturbance: with behavioral disturbance Dementia type: Alzheimer's UTI (urinary tract infection), bacterial N39.0; A49.9 Emphysematous cystitis N30.80 Insomnia G47.00 GERD (gastroesophageal reflux disease) K21.9 Expressive aphasia R47.01 (1) Dementia Alzheimer's disease onset: early-onset Dementia behavioral disturbance: with behavioral disturbance Dementia type: Alzheimer's Qualified Code(s): G30.0 - Alzheimer's disease with early onset; F02.81 - Dementia in other diseases classified elsewhere with behavioral disturbance
[2021-10-07] MEDS ORDERED: ONDANSETRON INJ 2 MG/ML 2 ML VIAL IV PRN (17:07)
[2021-10-07] MEDS: CEFEPIME 1,000 MG in SYRINGE 0 ML IV SCH (19:05)
[2021-10-07] MEDS: HEPARIN SOD 5,000 UNIT/0.5 ML VIAL SQ SCH (19:24)
[2021-10-07] MEDS: DONEPEZIL HCL 10 MG TAB PO SCH (19:25)
[2021-10-07] MEDS: ATORVASTATIN 10 MG TAB PO SCH (19:25)
[2021-10-07] MEDS: OLANZapine 5 MG TABLET PO SCH (19:25)
[2021-10-07] MEDS ORDERED: MELATONIN 3 MG TAB PO ONE (19:30)
[2021-10-07] MEDS: MELATONIN 3 MG TAB PO SCH (19:31)
[2021-10-08] MEDS: CEFEPIME 1,000 MG in SYRINGE 0 ML IV SCH ×4 (02:32→18:42)
[2021-10-08] MEDS ORDERED: INFLUENZA VACCINE HIGH DOSE PF 65+ 0.7 ML SYR IM ONE (05:30)
[2021-10-08] MEDS ORDERED: PNEUMOCOCCAL POLYSACCHARIDES 25 MCG/0.5 ML VIAL/SYR IM ONE (05:30)
[2021-10-08] MEDS: PANTOprazole 40 MG TAB PO SCH (07:27)
[2021-10-08] MEDS: ASPIRIN 81 MG ECTAB PO SCH (07:28)
[2021-10-08] MEDS: ESCITALOPRAM OXALATE 20 MG TAB PO SCH (07:28)
[2021-10-08] MEDS: DOCUSATE SODIUM 100 MG CAP PO SCH (07:28)
[2021-10-08] MEDS: TAMSULOSIN HCL 0.4 MG CAP PO SCH (07:28)
[2021-10-08] MEDS: HEPARIN SOD 5,000 UNIT/0.5 ML VIAL SQ SCH ×2 (07:29→20:10)
[2021-10-08 08:08] LABS: Basophils # (auto) 0.03 K/uL (0-0.2); Basophils % (auto) 0.6 %; Eosinophils % (auto) 2.1 %; Hematocrit (blood only) 37.5 % (42-52); Hemoglobin 12.7 g/dL (14.0-18.0); Immature Granulocytes # (auto) 0.01 K/uL (0.00-0.02); Immature Granulocytes % (auto) 0.2 %; Lymphocytes % (auto) 30.9 %; Mean Corpuscular Hemoglobin 31.4 pg (25-34); Mean Corpuscular Hgb Conc 33.9 g/dL (32-36); Mean Corpuscular Volume 92.8 fL (80-100); Mean Platelet Volume 9.3 fL (7.4-10.4); Monocytes # (auto) 0.64 K/uL (0.11-0.59); Monocytes % (auto) 13.2 %; Neutrophils # (auto) 2.58 K/uL (1.4-6.5); Platelet Count 290 K/uL (130-400); RDW Coefficient of Variation 13.5 % (11.5-14.5); RDW Standard Deviation 45.7 fL (36.4-46.3); Red Blood Count 4.04 M/uL (4.7-6.1); White Blood Count 4.86 K/uL (4.8-10.8)
[2021-10-08 08:34] LABS: BUN Creatinine Ratio 8.3 (10-20); Est GFR (African American) 79.8 ml/min; Est GFR (Non-African American) 68.9 ml/min; Potassium 3.9 mmol/L (3.5-5.1)
--- NOTE | 2021-10-08 08:36 | Hospitalist Progress Note ---
Date of Service October 08, 2021 Assessment & Plan (1) Seizure-like activity: Plan: Reported and unable to obtain history- reportedly did stiffen and was lowered to ground at [facility], then had shaking movements received Ativan in the EMD likely secondary to obtain head imaging - DDX: arrhythmia vs. post syncope awakening vs. seizure - Telemetry overnight evaluate for dysrhythmia- QTC 450 - Discontinue Cipro and Flagyl - CT scan without acute process - EEG pending but will not keep still or permit study - MRI- may be beneficial at some point- - UA stable from previous admission - Electrolytes stable - TSH 5.1 with T 4 0.74 - Glucose normal If seizure confirmed/witnessed- Ativan 2-4 mg IV to break- would initiate Keppra at that time - EEG pending (2) Encephalopathy: Plan: Metabolic vs. toxic ie, medication induced - Currently difficult to ascertain secondary to sedation (3) Aggressive behavior: Plan: Dementia related - superimposed on progressive major cognitive impairment with behavioral disturbance -Brother reports that his behavior has been better since previous admission - Continue with Olanzapine BID 2.5/5mg respectively - Continue Escitalopram - Continue Donepezil - Psych evaluated on previous admission - full note review from 09/24/21 for further information (4) Dementia: Plan: As above - Maintain sleep wake cycles - Avoid further benzodiazepine unless seizure witnessed - Olanzapine IM- if needed for max 15mg- first line - Haldol if failing above (5) UTI (urinary tract infection), bacterial: Plan: Chronic- last admisison was Klebsiella Pneumonia - Discontinue Cipro and Flagyl - Started Cefepime (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 Admission and Anticipated Discharge Date Admission Date: October 07, 2021 Subjective pt is pleasantly confused, slighlty more animated than when was discharged but able to be redirected Review of Systems Review of Systems: Unobtainable due to cognitive status Physical Exam Physical Exam: The patient appeared well nourished and normally developed. Vital signs as documented. Head exam is normocephalic atraumatic Neck is without JVD, thyromegaly, or carotid bruits. Lungs are clear to auscultation, no focal loss of breath sounds Cardiac exam, Rhythm is regular.. No murmurs, rubs or gallops. Abdominal exam reveals normal bowel sounds, soft non tender, no masses Extremities are nonedematous and both pedal pulses are present Neurologic exam is alert and oriented x1, no focal loss of strength or sensation Skin is without bruises or rashes Psychologically is with dementia and encephalopathy Results & Data Results & Data ([facility]) Vital Signs (Past 12 Hours) Vital Signs Temp Pulse Pulse Resp BP Pulse Ox 10/08/21 07:06 97.2 F L 54 L 20 130/70 96 10/08/21 04:00 98.2 F 59 L 18 115/68 96 10/07/21 23:00 49 L 10/07/21 22:46 98.2 F 60 18 144/77 H 97 PG Care Time/CCT Total # of Minutes Spent Total Time Spent with Patient: Total time spent is greater than 50% in coordination of care (as documented) at patient's floor/unit and/or counseling patient: Coding Level of Care Code 10675 Subseq Hosp Care Lvl 2 Diagnoses Seizure-like activity R56.9 Encephalopathy G93.40 Aggressive behavior R46.89 Dementia G30.0; F02.81 Alzheimer's disease onset: early-onset Dementia behavioral disturbance: with behavioral disturbance Dementia type: Alzheimer's UTI (urinary tract infection), bacterial N39.0; A49.9 Emphysematous cystitis N30.80 Insomnia G47.00 GERD (gastroesophageal reflux disease) K21.9 Expressive aphasia R47.01 (1) Dementia Alzheimer's disease onset: early-onset Dementia behavioral disturbance: with behavioral disturbance Dementia type: Alzheimer's Qualified Code(s): G30.0 - Alzheimer's disease with early onset; F02.81 - Dementia in other diseases classified elsewhere with behavioral disturbance
[2021-10-08] MEDS: OLANZAPINE 2.5 MG TAB PO SCH (08:37)
[2021-10-08] MEDS: FINASTERIDE 5 MG TAB PO SCH (08:37)
[2021-10-08] MEDS: ACETAMINOPHEN 325 MG TAB PO PRN ×2 (08:40→20:09)
[2021-10-08] MEDS: MELATONIN 3 MG TAB PO SCH (20:09)
[2021-10-08] MEDS: OLANZapine 5 MG TABLET PO SCH (20:10)
[2021-10-08] MEDS: DONEPEZIL HCL 10 MG TAB PO SCH (20:10)
[2021-10-08] MEDS: ATORVASTATIN 10 MG TAB PO SCH (20:10)
[2021-10-09] MEDS: CEFEPIME 1,000 MG in SYRINGE 0 ML IV SCH ×2 (02:20→09:21)
[2021-10-09] MEDS: ACETAMINOPHEN 325 MG TAB PO PRN (03:26)
[2021-10-09 07:26] LABS: Basophils # (auto) 0.03 K/uL (0-0.2); Basophils % (auto) 0.6 %; Eosinophils # (auto) 0.17 K/uL (0-0.5); Eosinophils % (auto) 3.5 %; Hemoglobin 13.7 g/dL (14.0-18.0); Immature Granulocytes # (auto) 0.01 K/uL (0.00-0.02); Immature Granulocytes % (auto) 0.2 %; Lymphocytes # (auto) 1.37 K/uL (1.2-3.4); Lymphocytes % (auto) 28.1 %; Mean Corpuscular Hemoglobin 31.2 pg (25-34); Mean Corpuscular Hgb Conc 34.3 g/dL (32-36); Mean Corpuscular Volume 91.1 fL (80-100); Mean Platelet Volume 8.9 fL (7.4-10.4); Monocytes # (auto) 0.62 K/uL (0.11-0.59); Monocytes % (auto) 12.7 %; Neutrophils # (auto) 2.67 K/uL (1.4-6.5); Neutrophils % (auto) 54.9 %; Platelet Count 299 K/uL (130-400); RDW Coefficient of Variation 13.6 % (11.5-14.5); Red Blood Count 4.39 M/uL (4.7-6.1); White Blood Count 4.87 K/uL (4.8-10.8)
[2021-10-09 07:52] LABS: BUN Creatinine Ratio 12.2 (10-20); Creatinine Clr Calc Pharmacy 71.1 ml/min; Est GFR (African American) 90.8 ml/min; Est GFR (Non-African American) 78.4 ml/min; Potassium 3.5 mmol/L (3.5-5.1)
[2021-10-09] MEDS: ASPIRIN 81 MG ECTAB PO SCH (09:19)
[2021-10-09] MEDS: TAMSULOSIN HCL 0.4 MG CAP PO SCH (09:20)
[2021-10-09] MEDS: PANTOprazole 40 MG TAB PO SCH (09:20)
[2021-10-09] MEDS: DOCUSATE SODIUM 100 MG CAP PO SCH (09:20)
[2021-10-09] MEDS: OLANZAPINE 2.5 MG TAB PO SCH (09:20)
[2021-10-09] MEDS: ESCITALOPRAM OXALATE 20 MG TAB PO SCH (09:20)
[2021-10-09] MEDS: FINASTERIDE 5 MG TAB PO SCH (09:20)
[2021-10-09] MEDS: HEPARIN SOD 5,000 UNIT/0.5 ML VIAL SQ SCH ×2 (09:20→21:13)
--- NOTE | 2021-10-09 18:12 | Hospitalist Progress Note ---
Date of Service October 09, 2021 Assessment & Plan (1) Seizure-like activity: Plan: Reported and unable to obtain history- reportedly did stiffen and was lowered to ground at [facility], then had shaking movements received Ativan in the EMD likely secondary to obtain head imaging - CT scan head without acute process - EEG can not cooperate with study - UA lactobacillus likely not pathogen - Electrolytes stable - TSH 5.1 with T 4 0.74 - Glucose normal doubt new onset seizure, may need to be snf candidate, will have PT/OT (2) Encephalopathy: Plan: Metabolic vs. toxic ie, medication induced may have been toxic encephalopathy from cipro, no further incidents (3) Aggressive behavior: Plan: Dementia related - superimposed on progressive major cognitive impairment with behavioral disturbance -Brother reports that his behavior has been better since previous admission - increase Olanzapine BID 5mg - Continue Escitalopram - Continue Donepezil - Psych evaluated on previous admission - full note review from 09/24/21 for further information (4) Dementia: Plan: As above - Maintain sleep wake cycles - Avoid further benzodiazepine unless seizure witnessed (5) UTI (urinary tract infection), bacterial: Plan: Chronic- last admisison was Klebsiella Pneumonia - Discontinue Cipro and Flagyl - Started Cefepime, no infection now will stop (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 requiring seo catheter placment to decompress bladder - Seo not in place on admission - Planned for cystoscopy in the future at some point (7) Insomnia: Plan: Continue Melatonin (8) GERD (gastroesophageal reflux disease): Plan: Continue Omeprazole 20mg PO daily (9) Expressive aphasia: Plan: Chronic likely related to past CVA - Reportedly without any difficulty swallowing- follow Plan: may benefit from snf over [facility] down[facility] tele to [facility] Admission and Anticipated Discharge Date Admission Date: October 07, 2021 Subjective this pt is pleasantly confused, looking to return to [facility] Review of Systems Review of Systems: Unobtainable due to cognitive status Physical Exam Physical Exam: The patient appeared confused but stable He is demented and confused Vital signs as documented. Head exam is normocephalic atraumatic Neck is without JVD, thyromegaly, or carotid bruits. Lungs are clear to auscultation, no focal loss of breath sounds Cardiac exam, Rhythm is regular.. No murmurs, rubs or gallops. Abdominal exam reveals normal bowel sounds, soft non tender, no masses Neurologic exam is alert and oriented x 1, no focal loss of strength or sensati on Skin is without bruises or rashes Psychologically is with dementia and confusion Results & Data Results & Data ([facility]) Vital Signs (Past 12 Hours) Vital Signs Temp Pulse Pulse Resp BP Pulse Ox 10/09/21 15:47 97.9 F 60 18 133/75 99 10/09/21 11:01 97.3 F L 60 18 145/80 H 100 10/09/21 07:10 98.4 F 65 18 125/85 97 PG Care Time/CCT Total # of Minutes Spent Total Time Spent with Patient: Total time spent is greater than 50% in coordination of care (as documented) at patient's floor/unit and/or counseling patient: Coding Level of Care Code 89287 Subseq Hosp Care Lvl 2 Diagnoses Seizure-like activity R56.9 Encephalopathy G93.40 Aggressive behavior R46.89 Dementia F03.91 Dementia behavioral disturbance: with behavioral disturbance Dementia type: unspecified type UTI (urinary tract infection), bacterial N39.0; A49.9 Emphysematous cystitis N30.80 Insomnia G47.00 GERD (gastroesophageal reflux disease) K21.9 Expressive aphasia R47.01 (1) Dementia Dementia behavioral disturbance: with behavioral disturbance Dementia type: unspecified type Qualified Code(s): F03.91 - Unspecified dementia with behavioral disturbance
[2021-10-09] MEDS: ATORVASTATIN 10 MG TAB PO SCH (21:11)
[2021-10-09] MEDS: DONEPEZIL HCL 10 MG TAB PO SCH (21:12)
[2021-10-09] MEDS: OLANZapine 5 MG TABLET PO SCH (21:14)
[2021-10-09] MEDS: MELATONIN 3 MG TAB PO SCH (21:16)
[2021-10-10 08:52] LABS: Basophils # (auto) 0.01 K/uL (0-0.2); Basophils % (auto) 0.1 %; Eosinophils # (auto) 0.12 K/uL (0-0.5); Eosinophils % (auto) 1.6 %; Hematocrit (blood only) 40.7 % (42-52); Hemoglobin 13.5 g/dL (14.0-18.0); Immature Granulocytes # (auto) 0.02 K/uL (0.00-0.02); Immature Granulocytes % (auto) 0.3 %; Lymphocytes # (auto) 1.02 K/uL (1.2-3.4); Lymphocytes % (auto) 13.4 %; Mean Corpuscular Hemoglobin 30.9 pg (25-34); Mean Corpuscular Hgb Conc 33.2 g/dL (32-36); Mean Corpuscular Volume 93.1 fL (80-100); Mean Platelet Volume 9.5 fL (7.4-10.4); Monocytes # (auto) 0.71 K/uL (0.11-0.59); Monocytes % (auto) 9.3 %; Neutrophils # (auto) 5.76 K/uL (1.4-6.5); Neutrophils % (auto) 75.3 %; Platelet Count 260 K/uL (130-400); RDW Coefficient of Variation 13.8 % (11.5-14.5); Red Blood Count 4.37 M/uL (4.7-6.1); White Blood Count 7.64 K/uL (4.8-10.8)
[2021-10-10] MEDS: PANTOprazole 40 MG TAB PO SCH (09:07)
[2021-10-10] MEDS: TAMSULOSIN HCL 0.4 MG CAP PO SCH (09:07)
[2021-10-10] MEDS: OLANZapine 5 MG TABLET PO SCH ×2 (09:08→20:04)
[2021-10-10] MEDS: ESCITALOPRAM OXALATE 20 MG TAB PO SCH (09:08)
[2021-10-10] MEDS: FINASTERIDE 5 MG TAB PO SCH (09:08)
[2021-10-10] MEDS: HEPARIN SOD 5,000 UNIT/0.5 ML VIAL SQ SCH ×2 (09:08→20:04)
[2021-10-10] MEDS: DOCUSATE SODIUM 100 MG CAP PO SCH (09:09)
[2021-10-10 09:17] LABS: BUN Creatinine Ratio 10.3 (10-20); Calcium 9.1 mg/dl (8.5-10.1); Creatinine Clr Calc Pharmacy 65.2 ml/min; Est GFR (African American) 81.7 ml/min; Est GFR (Non-African American) 70.5 ml/min; Potassium 3.9 mmol/L (3.5-5.1)
[2021-10-10] MEDS: ASPIRIN 81 MG ECTAB PO SCH (09:32)
[2021-10-10] MEDS: ACETAMINOPHEN 325 MG TAB PO PRN (13:11)
--- NOTE | 2021-10-10 13:39 | Hospitalist Progress Note ---
Date of Service October 10, 2021 Assessment & Plan (1) Seizure-like activity: Plan: Reported and unable to obtain history- reportedly did stiffen and was lowered to ground at [facility], then had shaking movements received Ativan in the EMD likely secondary to obtain head imaging - CT scan head without acute process - EEG not obtained as can not cooperate with study - UA lactobacillus likely not pathogen - Electrolytes stable - TSH 5.1 with T 4 0.74 - Glucose normal doubt new onset seizure. ? catatonia from Zyprexa although tolerating this now without issues suspect needs locked memory support unit- ?PC vs SNF. PT/OT consulted-- appreciate recommendations (2) Encephalopathy: Plan: Metabolic vs. toxic ie, medication induced may have been toxic encephalopathy from cipro, no further incidents continue to monitor (3) Aggressive behavior: Plan: Dementia related - superimposed on progressive major cognitive impairment with behavioral disturbance -Brother reports that his behavior has been better since previous admission - Olanzapine increased to 5mg BID -- tolerating this - Continue Escitalopram - Continue Donepezil - Psych evaluated on previous admission - full note review from 09/24/21 for further information (4) Dementia: Plan: As above - Maintain sleep wake cycles - Avoid further benzodiazepine unless seizure witnessed (5) UTI (urinary tract infection), bacterial: Plan: Chronic- last admission- concern for emphysematous cystitis (for which he was D/C'ed with cipro/flagyl and indwelling catheter with plan to repeat CT in 14 days and then potentially remove seo catheter) - inadvertently catheter removed (pt readmitted without the catheter) - Cipro and Flagyl d/c'ed as wasn't sure if this was contributing to the presenting complaints - Started on Cefepime; however, will stop as no anaerobic coverage and was to be on abx through 10/09 - spoke with urology who recommends repeating CT and reinsertion of catheter pending results. 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 He has advanced dementia and unable to provide any for of history. Nursing voices no c/c. Review of Systems Review of Systems: unobtainable Physical Exam Physical Exam: General: Ambulating from the bathroom with staff at bedside. Pleasantly confused. Talking but nonsensical. Does follow one-step and simple commands. HEENT: Head is AT/NC. Buccal mucosa is moist and pink. Poor dentition Neck: No JVD. Negative hepatojugular reflex Cardiac: RRR without M/G/R Lungs: CTA without W/R/R Abdomen: Normoactive X4. Soft Extremities: No peripheral clubbing cyanosis or edema Neuro: No apparent focal neuro deficits Skin: No obvious skin lesions or rashes Psych: Pleasantly confused Results & Data Results & Data ([facility]) Vital Signs (Past 12 Hours) Vital Signs Temp Pulse Resp BP Pulse Ox 10/10/21 06:39 36.7 C 60 18 112/74 96 Laboratory Results 10/10/21 07:52 10/10/21 07:52 PG Care Time/CCT Total # of Minutes Spent Total Time Spent with Patient: Total time spent is greater than 50% in coordination of care (as documented) at patient's floor/unit and/or counseling patient: Coding Level of Care Code 85170 Subseq Hosp Care Lvl 2 Diagnoses Seizure-like activity R56.9 Encephalopathy G93.40 Aggressive behavior R46.89 Dementia F03.91 Dementia behavioral disturbance: with behavioral disturbance Dementia type: unspecified type UTI (urinary tract infection), bacterial N39.0; A49.9 Emphysematous cystitis N30.80 Insomnia G47.00 GERD (gastroesophageal reflux disease) K21.9 Expressive aphasia R47.01 (1) Dementia Dementia behavioral disturbance: with behavioral disturbance Dementia type: unspecified type Qualified Code(s): F03.91 - Unspecified dementia with behavioral disturbance
--- NOTE | 2021-10-10 15:47 | CT Scan Report ---
CT OF THE ABDOMEN AND PELVIS WITHOUT CONTRAST CLINICAL HISTORY: assess for gas in bladder/retention COMPARISON STUDY: Renal ultrasound August 27, 2021. CT of the abdomen and pelvis September 25, 2021. TECHNIQUE: Axial images of the abdomen and pelvis were obtained without IV contrast. Images were revi ewed in the axial, sagittal, and coronal planes. Automated exposure control was utilized for the gurdeep dy. A dose lowering technique was utilized adhering to the principles of ALARA. FINDINGS: Lung bases are unremarkable. Exam is compromised by motion artifact. No renal, ureteral or bladder calculi are present. There is no hydronephrosis. The prostate is enlarged, measuring 5.5 cm i n transverse dimension. Moderate amount of gas within the bladder is noted. However, the amount of ga s has significantly decreased since CT of September 25, 2021. Note is again made of loss of fat plane bet ween the mid sigmoid colon and the posterior bladder dome with adjacent infiltration and a locules of gas shown best on axial image 355 of 466. Bladder wall thickening is suspected. Underlying fistula c annot be excluded. Bladder is mildly distended. Evaluation of the abdomen and pelvis is suboptimal on this unenhanced exam. Liver, spleen, adrenal glands and pancreas are unremarkable. No biliary or amado creatic ductal dilatation is present. Colonic diverticulosis is noted. Sigmoid diverticulitis cannot be excluded on this exam. There is no evidence for a bowel obstruction. Appendix is unremarkable. No lymphadenopathy. No acute fracture or suspicious lesion within the visualized skeletal structures. Im ages of the pelvis are degraded by streak artifact from right hip arthroplasty. IMPRESSION: 1. No urinary calculi or hydronephrosis. 2. Mildly distended bladder with moderate gas within the bladder, decreased in amount since CT of Sep. Persistent bladder wall thickening with adjacent infiltration which could be correlated with urinalysis. Redemonstration of findings raising the possibility of colovesicular fistula due to diverticulitis, as described above. 3. Enlarged prostate. 4. Moderate amount of stool within the colon. No bowel obstruction. ACT 112: Negative or not required by law. Electronically signed by: Tra Fernandez M.D. 10/10/2021 3:46 PM
[2021-10-10] MEDS: ATORVASTATIN 10 MG TAB PO SCH (20:04)
[2021-10-10] MEDS: DONEPEZIL HCL 10 MG TAB PO SCH (20:04)
[2021-10-10] MEDS: MELATONIN 3 MG TAB PO SCH (20:04)
[2021-10-11] MEDS: TAMSULOSIN HCL 0.4 MG CAP PO SCH (08:47)
[2021-10-11] MEDS: ESCITALOPRAM OXALATE 20 MG TAB PO SCH (08:47)
[2021-10-11] MEDS: ASPIRIN 81 MG ECTAB PO SCH (08:47)
[2021-10-11] MEDS: PANTOprazole 40 MG TAB PO SCH (08:47)
[2021-10-11] MEDS: FINASTERIDE 5 MG TAB PO SCH (08:47)
[2021-10-11] MEDS: OLANZapine 5 MG TABLET PO SCH ×2 (08:47→20:45)
[2021-10-11] MEDS: HEPARIN SOD 5,000 UNIT/0.5 ML VIAL SQ SCH ×3 (08:48→21:26)
[2021-10-11] MEDS: DOCUSATE SODIUM 100 MG CAP PO SCH (08:52)
--- NOTE | 2021-10-11 12:01 | Hospitalist Progress Note ---
Date of Service October 11, 2021 Assessment & Plan (1) Seizure-like activity: Plan: Reported and unable to obtain history- reportedly did stiffen and was lowered to ground at [facility], then had shaking movements received Ativan in the EMD likely secondary to obtain head imaging - CT scan head without acute process - EEG not obtained as can not cooperate with study - UA showing lactobacillus. Initially thought to be contaminant but given concern for emphysematous cystitis/colovesicular fistulawe will treat - Electrolytes stable - TSH 5.1 with T 4 0.74 - Glucose normal doubt new onset seizure. ? catatonia from Zyprexa although tolerating this now without issues. ? Reaction to Cipro suspect needs locked memory support unit- ?PC vs SNF. PT/OT consulted-- appreciate recommendations (2) Encephalopathy: Plan: - Metabolic vs. toxic ie, medication induced - may have been toxic encephalopathy from cipro, no further incidents. Cipro since stopped - May be secondary to underlying infection. 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 Will start antibiotics - continue to monitor (3) UTI (urinary tract infection), bacterial: Plan: Chronic- last admission: concern for emphysematous cystitis (for which he was D/C'ed with cipro/flagyl and indwelling catheter with plan to repeat CT in 14 days and then potentially remove seo catheter) - inadvertently catheter removed (pt readmitted without the catheter). Per brother, inadvertently pulled out [place] and the Seo catheter bag was dragging behind him - Cipro and Flagyl d/c'ed as wasn't sure if this was contributing to the presenting complaints (ill effects to Cipro) - Started on Cefepime; however, stopped as anaerobic coverage and was to be on abx through 10/09 - spoke with urology who recommended repeating CT of A/P that shows persistent gas in the bladder, bladder distention and questionable colovesicular fistula due to fistula - Urine culture showing lactobacillus. 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 Brother thinks someone, or patient, stepped on the bag which caused it to pull out) - Repeat CT of A/P performed- see below (5) Abnormal CT of the abdomen: Plan: -CT scan of the abdomen and pelvis shows a distended bladder with moderate gas within the bladder. Persistent bladder wall thickening. The raises the possibility of a colovesicular fistula due to diverticulosis. CT scan report mentions diverticulitis in the impression; however, I did reach out to the radiologist and this is an error that will be corrected in the report. There is no evidence of diverticulitis radiographically or clinically -Regarding concern for fistula, this poses risk of recurrent infection. I had a lengthy discussion with patient's brother, Med, regarding treatment options. In addition, plan of care discussed with urology, Dr. Jefferson. -For now, Dr. Jefferson recommends maintaining Seo catheter to decompress the bladder. Given risk of gas formation, this increases risk of bladder rupture. -Would have very low threshold to treat with antibiotics moving forward. Can consider suppressive antibiotics. Depending on how aggressive family would like to be, may reach out to infectious disease regarding suppressive antibiotic -Discussed with brother, Med, potential repair and that this may lead to colostomy. I have concerns with patient having a colostomy bag as he has not been the most compliant with a Seo catheter. -Med is going to touch base with patient's son and their other brother. Will wean convene tomorrow and have a family meeting to discuss treatment options moving forward. They are leaning towards a conservative approach knowing that his quality of life is poor (6) Aggressive behavior: Plan: Dementia related - superimposed on progressive major cognitive impairment with behavioral disturbance - Brother reports that his behavior has been better since previous admission - Olanzapine increased to 5mg BID -- tolerating this - Continue Escitalopram - Continue Donepezil - Psych evaluated on previous admission - full note review from 09/24/21 for fu rther information (7) Dementia: Plan: As above - Maintain sleep wake cycles - Avoid further benzodiazepine unless seizure witnessed (8) Insomnia: Plan: Continue Melatonin (9) GERD (gastroesophageal reflux disease): Plan: Continue Omeprazole 20mg PO daily (10) Expressive aphasia: Plan: Chronic likely related to past CVA - Reportedly without any difficulty swallowing- follow Plan: may benefit from snf over [facility]. Given advanced dementia, suspect needs a locked memory support unit Admission and Anticipated Discharge Date Admission Date: October 07, 2021 Subjective Patient seen on daily rounds today. Unable to obtain any history from the patient. Sitter at bedside who reports patient has been sleeping. No agitation or combative behavior. CT of the abdomen and pelvis done last evening that does show gas within the bladder along with a distended bladder. There is also now concern for colovesicular fistula. I was able to reach out to the patient's brother, Med, who reports that the Seo catheter was inadvertently removed while at the personal care facility. He reports that the patient was "walking around dragging the catheter on the floor and it subsequently got pulled out". Staff at the personal care facility was trying to teach the patient to carry the bag; however, given his advanced dementia, he was unable to cooperate with this. Review of Systems Review of Systems: unobtainable Physical Exam Physical Exam: General: Ambulating from the bathroom with staff at bedside. When initially seen, sleeping. Did easily awake. Pleasantly confused. Talking but nonsensical. HEENT: Head is AT/NC. Buccal mucosa is moist and pink. Poor dentition Neck: No JVD. Negative hepatojugular reflex Cardiac: RRR without M/G/R Lungs: CTA without W/R/R Abdomen: Normoactive X4. Soft Extremities: No peripheral clubbing cyanosis or edema Neuro: No apparent focal neuro deficits Skin: No obvious skin lesions or rashes Psych: Pleasantly confused Results & Data Results & Data ([facility]) Vital Signs (Past 12 Hours) Vital Signs Temp Pulse Resp BP Pulse Ox 10/11/21 11:32 36.7 C 71 20 105/66 94 Laboratory Results Urine Culture Final 10/09/21-1106 Organism 1 Lactobacillus species [place] Count >100,000 CFU/ml Sens No Sensitivities to Follow +Mix Urine Plus Low Counts of Other Mixed Gabrielle Diagnostic Findings PG Care Time/CCT Total # of Minutes Spent Total Time Spent with Patient: Total time spent is greater than 50% in coordination of care (as documented) at patient's floor/unit and/or counseling patient: Coding Level of Care Code 54478 Subseq Hosp Care Lvl 3 Diagnoses Seizure-like activity R56.9 Encephalopathy G93.40 Aggressive behavior R46.89 Dementia F03.91 Dementia behavioral disturbance: with behavioral disturbance Dementia type: unspecified type UTI (urinary tract infection), bacterial N39.0; A49.9 Emphysematous cystitis N30.80 Insomnia G47.00 GERD (gastroesophageal reflux disease) K21.9 Expressive aphasia R47.[address] of the abdomen R93.5 (1) Dementia Dementia behavioral disturbance: with behavioral disturbance Dementia type: unspecified type Qualified Code(s): F03.91 - Unspecified dementia with behavioral disturbance
[2021-10-11] MEDS: ACETAMINOPHEN 325 MG TAB PO PRN (16:28)
[2021-10-11] MEDS ORDERED: AMOXICILLIN/CLAVULANATE 875 MG TAB PO SCH (17:00)
[2021-10-11] MEDS ORDERED: PIPERACILL/TAZOBAC CONSULT ACTIVE PRN (17:25)
[2021-10-11] MEDS ORDERED: PIPERACILLIN/TAZOBACTAM 3.375 GM in DEXTROSE 5% 100 ML IV ONE (18:00)
[2021-10-11] MEDS: MELATONIN 3 MG TAB PO SCH (20:45)
[2021-10-11] MEDS: ATORVASTATIN 10 MG TAB PO SCH (20:45)
[2021-10-11] MEDS: DONEPEZIL HCL 10 MG TAB PO SCH (20:45)
[2021-10-12] MEDS: PIPERACILLIN/TAZOBACTAM 3.375 GM in DEXTROSE 5% 100 ML IV SCH ×4 (00:08→23:48)
--- NOTE | 2021-10-12 08:12 | Hospitalist Progress Note ---
Date of Service October 12, 2021 Assessment & Plan (1) Seizure-like activity: Plan: Reported and unable to obtain history- reportedly did stiffen and was lowered to ground at [facility], then had shaking movements received Ativan in the EMD likely secondary to obtain head imaging - CT scan head without acute process - EEG not obtained as can not cooperate with study - UA showing lactobacillus. Initially thought to be contaminant but given concern for emphysematous cystitis/colovesicular fistulawe will treat - Electrolytes stable - TSH 5.1 with T 4 0.74 - Glucose normal doubt new onset seizure. ? catatonia from Zyprexa although tolerating this now without issues. ? Reaction to Cipro. ? issues given acute infection suspect needs locked memory support unit- ?PC vs SNF. PT/OT consulted-- appreciate recommendations (2) Encephalopathy: Plan: - Metabolic vs. toxic ie, medication induced - may have been toxic encephalopathy from cipro, no further incidents. Cipro since stopped - May be secondary to underlying infection. 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 Per brother, inadvertently pulled [place] and [place] Seo catheter bag was dragging behind him - Cipro and Flagyl d/c'ed as wasn't sure if this was contributing to the presenting complaints (??ill effects to Cipro) - Started on Cefepime; however, stopped as no anaerobic coverage and was to be on abx through 10/09 - repeat CT of A/P shows persistent gas in the bladder, bladder distention and questionable colovesicular fistula due to fistula - Urine culture showing lactobacillus. This was initially thought to be a contam inant but now with fever, persistent gas in bladder and now concerns for colovesicular fistula-- Now on Zosyn --(lactobacillus is a gas forming anaerobe) (4) Emphysematous cystitis: Plan: Present last admission requiring seo catheter placement to decompress bladder - Seo not in place on admission (inadvertently pulled out when patient was walking and seo bag was dragging behind him. Brother thinks someone, or patient, stepped on the bag which caused it to pull out) - Repeat CT of A/P performed- see below (5) Abnormal CT of the abdomen: Plan: -CT scan of the abdomen and pelvis shows a distended bladder with moderate gas within the bladder. Persistent bladder wall thickening. The raises the possibility of a colovesicular fistula due to diverticulosis. CT scan report mentions diverticulitis in the impression; however, I did reach out to the radiologist and this is an error that will be corrected in the report. There is no evidence of diverticulitis radiographically or clinically -Regarding concern for fistula, this poses risk of recurrent infection. I had a lengthy discussion with patient's brother, Med, regarding treatment options. In addition, plan of care discussed with urology, Dr. Jefferson. -For now, Dr. Jefferson recommends maintaining Seo catheter to decompress the bladder. Given risk of gas formation, this increases risk of bladder rupture. -Would have very low threshold to treat with antibiotics moving forward. Can consider suppressive antibiotics. Consult ID to help gauge Suppressive abx therapy -family uncertain how aggressive they would like to be moving forward -Discussed with brother, Med, potential repair and that this may lead to colostomy. I have concerns with patient having a colostomy bag as he has not been the most compliant with a Seo catheter. -Was to have a family mtg with them today, 10/12 to discuss this further with the rest of his family (both brothers and his son). Called, no answer- message left (6) Aggressive behavior: Plan: Dementia related - none this entire hospitalization - superimposed on progressive major cognitive impairment with behavioral disturbance - continue increased Olanzapine (5mg BID) - Continue Escitalopram - Continue Donepezil - Psych evaluated on previous admission - full note review from 09/24/21 for further information (7) Dementia: Plan: As above - Maintain sleep wake cycles - Avoid further benzodiazepine unless seizure witnessed (8) Insomnia: Plan: Continue Melatonin (9) GERD (gastroesophageal reflux disease): Plan: Continue Omeprazole 20mg PO daily (10) Expressive aphasia: Plan: Chronic likely related to past CVA - Reportedly without any difficulty swallowing- follow Plan: may benefit from snf over [facility]. Given advanced dementia, needs a locked memory support unit. Per staff, independent with feeding self. [facility] but given 3-6month waiting list, need to come up with option in the interim. Admission and Anticipated Discharge Date Admission Date: October 07, 2021 Subjective Patient seen on daily rounds today. After seen on daily rounds yesterday, did spike a fever 101.6 F. Had already been started empirically on antibiotics given concern for emphysematous cystitis. Since, has not had any fever spikes. He remains hemodynamically stable. White blood cell count is normal Per staff, no combative behavior. He has not been agitated. He has been able to feed himself independently. Review of Systems Review of Systems: Unobtainable Physical Exam Physical Exam: General: asleep but easily awakened HEENT: Head is AT/NC. Buccal mucosa is moist and pink. Poor dentition Neck: No JVD. Negative hepatojugular reflex Cardiac: RRR without M/G/R Lungs: CTA without W/R/R Abdomen: Normoactive X4. Soft Extremities: No peripheral clubbing cyanosis or edema Neuro: No apparent focal neuro deficits Skin: No obvious skin lesions or rashes Psych: Pleasantly confused Results & Data Results & Data ([facility]) Vital Signs (Past 12 Hours) Vital Signs Temp Pulse Resp BP Pulse Ox 10/11/21 21:56 36.8 C 78 18 101/69 93 Diagnostic Findings 10/12/21 08:15 10/12/21 08:15 PG Care Time/CCT Total # of Minutes Spent Total Time Spent with Patient: Total time spent is greater than 50% in coordination of care (as documented) at patient's floor/unit and/or counseling patient: Coding Level of Care Code 29742 Subseq Hosp Care Lvl 2 Diagnoses Seizure-like activity R56.9 Encephalopathy G93.40 UTI (urinary tract infection), bacterial N39.0; A49.9 Emphysematous cystitis N30.[address] of the abdomen R93.5 Aggressive behavior R46.89 Dementia F03.91 Dementia behavioral disturbance: with behavioral disturbance Dementia type: unspecified type Insomnia G47.00 GERD (gastroesophageal reflux disease) K21.9 Expressive aphasia R47.01 (1) Dementia Dementia behavioral disturbance: with behavioral disturbance Dementia type: unspecified type Qualified Code(s): F03.91 - Unspecified dementia with behavioral disturbance
[2021-10-12 08:44] LABS: Basophils # (auto) 0.03 K/uL (0-0.2); Basophils % (auto) 0.4 %; Eosinophils # (auto) 0.12 K/uL (0-0.5); Eosinophils % (auto) 1.4 %; Hemoglobin 12.5 g/dL (14.0-18.0); Immature Granulocytes # (auto) 0.01 K/uL (0.00-0.02); Immature Granulocytes % (auto) 0.1 %; Lymphocytes # (auto) 1.31 K/uL (1.2-3.4); Lymphocytes % (auto) 15.4 %; Mean Corpuscular Hemoglobin 30.5 pg (25-34); Mean Corpuscular Hgb Conc 32.9 g/dL (32-36); Mean Corpuscular Volume 92.7 fL (80-100); Mean Platelet Volume 9.7 fL (7.4-10.4); Monocytes # (auto) 0.88 K/uL (0.11-0.59); Monocytes % (auto) 10.3 %; Neutrophils # (auto) 6.17 K/uL (1.4-6.5); Neutrophils % (auto) 72.4 %; Platelet Count 214 K/uL (130-400); RDW Coefficient of Variation 14.1 % (11.5-14.5); RDW Standard Deviation 47.8 fL (36.4-46.3); White Blood Count 8.52 K/uL (4.8-10.8)
[2021-10-12 09:09] LABS: BUN Creatinine Ratio 21.6 (10-20); Calcium 8.8 mg/dl (8.5-10.1); Creatinine Clr Calc Pharmacy 60.1 ml/min; Est GFR (African American) 74.1 ml/min; Est GFR (Non-African American) 63.9 ml/min; Magnesium 1.8 mg/dl (1.7-2.4); Potassium 3.7 mmol/L (3.5-5.1)
[2021-10-12] MEDS: ESCITALOPRAM OXALATE 20 MG TAB PO SCH (11:17)
[2021-10-12] MEDS: TAMSULOSIN HCL 0.4 MG CAP PO SCH (11:17)
[2021-10-12] MEDS: PANTOprazole 40 MG TAB PO SCH (11:17)
[2021-10-12] MEDS: OLANZapine 5 MG TABLET PO SCH ×2 (11:18→20:08)
[2021-10-12] MEDS: ASPIRIN 81 MG ECTAB PO SCH (11:18)
[2021-10-12] MEDS: FINASTERIDE 5 MG TAB PO SCH (11:18)
[2021-10-12] MEDS: HEPARIN SOD 5,000 UNIT/0.5 ML VIAL SQ SCH ×2 (11:21→20:09)
[2021-10-12] MEDS: DOCUSATE SODIUM 100 MG CAP PO SCH (11:25)
[2021-10-12] MEDS: MELATONIN 3 MG TAB PO SCH (20:08)
[2021-10-12] MEDS: ATORVASTATIN 10 MG TAB PO SCH (20:08)
[2021-10-12] MEDS: DONEPEZIL HCL 10 MG TAB PO SCH (20:09)
[2021-10-13] MEDS: ASPIRIN 81 MG ECTAB PO SCH (09:01)
[2021-10-13] MEDS: PANTOprazole 40 MG TAB PO SCH (09:02)
[2021-10-13] MEDS: FINASTERIDE 5 MG TAB PO SCH (09:02)
[2021-10-13] MEDS: OLANZapine 5 MG TABLET PO SCH ×2 (09:02→20:56)
[2021-10-13] MEDS: TAMSULOSIN HCL 0.4 MG CAP PO SCH (09:03)
[2021-10-13] MEDS: ESCITALOPRAM OXALATE 20 MG TAB PO SCH (09:03)
[2021-10-13] MEDS: HEPARIN SOD 5,000 UNIT/0.5 ML VIAL SQ SCH ×2 (09:03→20:55)
[2021-10-13] MEDS: PIPERACILLIN/TAZOBACTAM 3.375 GM in DEXTROSE 5% 100 ML IV SCH (09:08)
[2021-10-13] MEDS: DOCUSATE SODIUM 100 MG CAP PO SCH (09:13)
--- NOTE | 2021-10-13 10:53 | Hospitalist Progress Note ---
Date of Service October 13, 2021 Assessment & Plan (1) Seizure-like activity: Plan: Reported and unable to obtain history- reportedly did stiffen and was lowered to ground at [facility], then had shaking movements received Ativan in the EMD likely secondary to obtain head imaging - CT scan head without acute process - EEG not obtained as can not cooperate with study - UA showing lactobacillus. Initially thought to be contaminant but given concern for emphysematous cystitis/colovesicular fistulawe will treat - Electrolytes stable - TSH 5.1 with T 4 0.74 - Glucose normal doubt new onset seizure. ? catatonia from Zyprexa although tolerating this now without issues. ? Reaction to Cipro. ? issues given acute infection suspect needs locked memory support unit0 which [facility] does not have. Case management looking into locked memory support units at other facilities. Family on board with this plan (2) Encephalopathy: Plan: - Metabolic vs. toxic ie, medication induced - may have been toxic encephalopathy from cipro, no further incidents. Cipro since stopped - May be secondary to underlying infection. 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 Per brother, inadvertently pulled out while [place] and the Seo catheter bag was dragging behind him - Cipro and Flagyl d/c'ed as wasn't sure if this was contributing to the presenting complaints (??ill effects to Cipro) - Started on Cefepime; however, stopped as no anaerobic coverage and was to be on abx through 10/09 - repeat CT of A/P shows persistent gas in the bladder, bladder distention and questionable colovesicular fistula due to fistula - Urine culture showing lactobacillus. This was initially thought to be a contaminant but now with fever, persistent gas in bladder and now concerns for colovesicular fistula --empirically started on Zosyn. Has since defervesced. 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 Brother thinks someone, or patient, stepped on the bag which caused it to pull out) - Repeat CT of A/P performed- see below (5) Abnormal CT of the abdomen: Plan: -CT scan of the abdomen and pelvis shows a distended bladder with moderate gas within the bladder. Persistent bladder wall thickening. The raises the possibility of a colovesicular fistula due to diverticulosis. CT scan report mentions diverticulitis in the impression; however, I did reach out to the radiologist and this is an error that will be corrected in the report. There is no evidence of diverticulitis radiographically or clinically -Regarding concern for fistula, this poses risk of recurrent infection. I had a lengthy discussion with patient's brother, Med, regarding treatment options. In addition, plan of care discussed with urology, Dr. Jefferson. -For now, Dr. Jefferson recommends maintaining Seo catheter to decompress the bladder. Given risk of gas formation, this increases risk of bladder rupture. -Would have very low threshold to treat with antibiotics moving forward. Can consider suppressive antibiotics. Consult ID to help gauge Suppressive abx therapy--appreciate assistance -Family meeting held 10/12 to discuss treatment options. They are aware that surgical intervention is available but this may lead to a colostomy. Patient struggled with the Seo catheter. They are well aware that he will likely not be compliant with a colostomy. In addition, they are aware that he has in creased risk of reoccurring urinary tract infections and sepsis. They are aware that his quality of life is rather poor given his advanced dementia and they do not want to pursue any aggressive intervention at this time. They are on board with leaving the Seo catheter indwelling (patient seems to be tolerating and leg bag/pants) and potentially suppressive antibiotics should infectious disease recommend this (6) Aggressive behavior: Plan: Dementia related - none this entire hospitalization - superimposed on progressive major cognitive impairment with behavioral disturbance - continue increased Olanzapine (5mg BID) - Continue Escitalopram - Continue Donepezil - Psych evaluated on previous admission - full note review from 09/24/21 for further information (7) Dementia: Plan: As above - Maintain sleep wake cycles - Avoid further benzodiazepine unless seizure witnessed (8) Insomnia: Plan: Continue Melatonin (9) GERD (gastroesophageal reflux disease): Plan: Continue Omeprazole 20mg PO daily (10) Expressive aphasia: Plan: Chronic likely related to past CVA - Reportedly without any difficulty swallowing- follow Plan: may benefit from snf over [facility]. Given advanced dementia, needs a locked memory support unit. Per staff, independent with feeding self. Brother set on [place] home but given 3-6month waiting list. Brothers on board with seeking other facilities that have a locked unit. CM on board Admission and Anticipated Discharge Date Admission Date: October 07, 2021 Subjective Patient seen on daily rounds today. Unable to provide any form of history given his advanced dementia. Nursing staff voices no complaints or concerns. He has been feeding himself independently. Has not been pulling at his Seo catheter. Has not required any restraints. Not requiring any additional antipsychotics for agitation or combative behavior. Review of Systems Review of Systems: Unobtainable Physical Exam Physical Exam: General: asleep but easily awakened HEENT: Head is AT/NC. Buccal mucosa is moist and pink. Poor dentition Neck: No JVD. Negative hepatojugular reflex Cardiac: RRR without M/G/R Lungs: CTA without W/R/R Abdomen: Normoactive X4. Soft Extremities: No peripheral clubbing cyanosis or edema Neuro: No apparent focal neuro deficits Skin: No obvious skin lesions or rashes Psych: Pleasantly confused Results & Data Results & Data ([facility]) Laboratory Results 10/12/21 08:15 10/12/21 08:15 PG Care Time/CCT Total # of Minutes Spent Total Time Spent with Patient: Total time spent is greater than 50% in coordination of care (as documented) at patient's floor/unit and/or counseling patient: Coding Level of Care Code 03736 Subseq Hosp Care Lvl 2 Diagnoses Seizure-like activity R56.9 Encephalopathy G93.40 UTI (urinary tract infection), bacterial N39.0; A49.9 Emphysematous cystitis N30.[address] of the abdomen R93.5 Aggressive behavior R46.89 Dementia F03.91 Dementia behavioral disturbance: with behavioral disturbance Dementia type: unspecified type Insomnia G47.00 GERD (gastroesophageal reflux disease) K21.9 Expressive aphasia R47.01 (1) Dementia Dementia behavioral disturbance: with behavioral disturbance Dementia type: unspecified type Qualified Code(s): F03.91 - Unspecified dementia with behavioral disturbance
[2021-10-13] MEDS: AMOXICILLIN/CLAVULANATE 875 MG TAB PO SCH (16:38)
[2021-10-13] MEDS: ATORVASTATIN 10 MG TAB PO SCH (20:55)
[2021-10-13] MEDS: DONEPEZIL HCL 10 MG TAB PO SCH (20:55)
[2021-10-13] MEDS: MELATONIN 3 MG TAB PO SCH (20:56)
[2021-10-14] MEDS: ASPIRIN 81 MG ECTAB PO SCH (08:58)
[2021-10-14] MEDS: OLANZapine 5 MG TABLET PO SCH ×2 (08:58→20:39)
[2021-10-14] MEDS: ESCITALOPRAM OXALATE 20 MG TAB PO SCH (08:58)
[2021-10-14] MEDS: FINASTERIDE 5 MG TAB PO SCH (08:58)
[2021-10-14] MEDS: TAMSULOSIN HCL 0.4 MG CAP PO SCH (08:58)
[2021-10-14] MEDS: PANTOprazole 40 MG TAB PO SCH (08:58)
[2021-10-14] MEDS: HEPARIN SOD 5,000 UNIT/0.5 ML VIAL SQ SCH ×2 (08:59→20:43)
[2021-10-14] MEDS: AMOXICILLIN/CLAVULANATE 875 MG TAB PO SCH ×2 (08:59→17:35)
[2021-10-14 09:07] LABS: Creatinine Clr Calc Pharmacy 67.7 ml/min; Est GFR (African American) 85.5 ml/min; Est GFR (Non-African American) 73.8 ml/min
[2021-10-14] MEDS: DOCUSATE SODIUM 100 MG CAP PO SCH (09:14)
--- NOTE | 2021-10-14 14:09 | Hospitalist Progress Note ---
Date of Service October 14, 2021 Assessment & Plan (1) Seizure-like activity: Plan: Reported and unable to obtain history- reportedly did stiffen and was lowered to ground at [facility], then had shaking movements received Ativan in the EMD likely secondary to obtain head imaging - CT scan head without acute process - EEG not obtained as can not cooperate with study - UA showing lactobacillus. Initially thought to be contaminant but given concern for emphysematous cystitis/colovesicular fistulawe will treat - Electrolytes stable - TSH 5.1 with T 4 0.74 - Glucose normal doubt new onset seizure. ? catatonia from Zyprexa although tolerating this now without issues. ? Reaction to Cipro. ? issues given acute infection suspect needs locked memory support unit0 which [place] does not have. Case management looking into locked memory support units at other facilities; however, cost seems to be a burden. (2) Encephalopathy: Plan: - Metabolic vs. toxic ie, medication induced - may have been toxic encephalopathy from cipro, no further incidents. Cipro since stopped - May be secondary to underlying infection. 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 Per brother, inadvertently pulled out [place] and the Seo catheter bag was dragging behind him - Cipro and Flagyl d/c'ed as wasn't sure if this was contributing to the presenting complaints (??ill effects to Cipro) - Started on Cefepime; however, stopped as no anaerobic coverage and was to be on abx through 10/09 - repeat CT of A/P shows persistent gas in the bladder, bladder distention and questionable colovesicular fistula due to fistula - Urine culture showing lactobacillus. This was initially thought to be a contaminant but now with fever, persistent gas in bladder and now concerns for colovesicular fistula --empirically started on Zosyn. Has since defervesced. 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 Brother thinks someone, or patient, stepped on the bag which caused it to pull out) - Repeat CT of A/P performed- see below (5) Abnormal CT of the abdomen: Plan: -CT scan of the abdomen and pelvis shows a distended bladder with moderate gas within the bladder. Persistent bladder wall thickening. The raises the possibility of a colovesicular fistula due to diverticulosis. CT scan report mentions diverticulitis in the impression; however, I did reach out to the radiologist and this is an error that will be corrected in the report. There is no evidence of diverticulitis radiographically or clinically -Regarding concern for fistula, this poses risk of recurrent infection. I had a lengthy discussion with patient's brother, Med, regarding treatment options. In addition, plan of care discussed with urology, Dr. Jefferson. -For now, Dr. Jefferson recommends maintaining Seo catheter to decompress the bladder. Given risk of gas formation, this increases risk of bladder rupture. -Would have very low threshold to treat with antibiotics moving forward. Can consider suppressive antibiotics. 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 I did send a message with this specific question, awaiting answer --appreciate assistance -Family meeting held 10/12 to discuss treatment options. They are aware that surgical intervention is available but this may lead to a colostomy. Patient struggled with the Seo catheter. They are well aware that he will likely not be compliant with a colostomy. In addition, they are aware that he has increased risk of reoccurring urinary tract infections and sepsis. They are aware that his quality of life is rather poor given his advanced dementia and they do not want to pursue any aggressive intervention at this time. They are on board with leaving the Seo catheter indwelling (patient seems to be tolerating and leg bag/pants) and potentially suppressive antibiotics should infectious disease recommend this (6) Aggressive behavior: Plan: Dementia related - none this entire hospitalization - superimposed on progressive major cognitive impairment with behavioral disturbance - continue increased Olanzapine (5mg BID) - Continue Escitalopram - Continue Donepezil - Psych evaluated on previous admission - full note review from 09/24/21 for further information (7) Dementia: Plan: As above - Maintain sleep wake cycles - Avoid further benzodiazepine unless seizure witnessed (8) Insomnia: Plan: Continue Melatonin (9) GERD (gastroesophageal reflux disease): Plan: Continue Omeprazole 20mg PO daily (10) Expressive aphasia: Plan: Chronic likely related to past CVA - Reportedly without any difficulty swallowing- follow Plan: may benefit from snf over [facility]. Given advanced dementia, needs a locked memory support unit. Per staff, independent with feeding self. Brother set on [place] home but given 3-6month waiting list. Brothers on board with seeking other facilities that have a locked unit. CM on board Admission and Anticipated Discharge Date Admission Date: October 07, 2021 Subjective Patient seen on daily rounds today. Remains an unreliable historian. Has not had any agitation or combative behavior. Has been pleasant. Has been using the blocks at bedside. Eating all of his meals independently. No significant wandering. Has not been pulling on his catheter. Review of Systems Review of Systems: Unobtainable Physical Exam Physical Exam: General: asleep but easily awakened HEENT: Head is AT/NC. Buccal mucosa is moist and pink. Poor dentition Neck: No JVD. Negative hepatojugular reflex Cardiac: RRR without M/G/R Lungs: CTA without W/R/R Abdomen: Normoactive X4. Soft Extremities: No peripheral clubbing cyanosis or edema Neuro: No apparent focal neuro deficits Skin: No obvious skin lesions or rashes Psych: Pleasantly confused Results & Data Results & Data ([facility]) Vital Signs (Past 12 Hours) Vital Signs Temp Pulse Resp BP Pulse Ox 10/14/21 07:14 36.4 C L 58 L 18 119/69 96 Laboratory Results no lab data today PG Care Time/CCT Total # of Minutes Spent Total Time Spent with Patient: Total time spent is greater than 50% in coordination of care (as documented) at patient's floor/unit and/or counseling patient: Coding Level of Care Code 15967 Subseq Hosp Care Lvl 1 Diagnoses Seizure-like activity R56.9 Encephalopathy G93.40 UTI (urinary tract infection), bacterial N39.0; A49.9 Emphysematous cystitis N30.[address] of the abdomen R93.5 Aggressive behavior R46.89 Dementia F03.91 Dementia behavioral disturbance: with behavioral disturbance Dementia type: unspecified type Insomnia G47.00 GERD (gastroesophageal reflux disease) K21.9 Expressive aphasia R47.01 (1) Dementia Dementia behavioral disturbance: with behavioral disturbance Dementia type: unspecified type Qualified Code(s): F03.91 - Unspecified dementia with behavioral disturbance
[2021-10-14] MEDS: MELATONIN 3 MG TAB PO SCH (20:39)
[2021-10-14] MEDS: DONEPEZIL HCL 10 MG TAB PO SCH (20:39)
[2021-10-14] MEDS: ATORVASTATIN 10 MG TAB PO SCH (20:39)
[2021-10-15] MEDS: ASPIRIN 81 MG ECTAB PO SCH (08:59)
[2021-10-15] MEDS: AMOXICILLIN/CLAVULANATE 875 MG TAB PO SCH ×2 (08:59→16:15)
[2021-10-15] MEDS: FINASTERIDE 5 MG TAB PO SCH (09:00)
[2021-10-15] MEDS: ESCITALOPRAM OXALATE 20 MG TAB PO SCH (09:00)
[2021-10-15] MEDS: HEPARIN SOD 5,000 UNIT/0.5 ML VIAL SQ SCH (09:01)
[2021-10-15] MEDS: OLANZapine 5 MG TABLET PO SCH ×2 (09:02→20:29)
[2021-10-15] MEDS: PANTOprazole 40 MG TAB PO SCH (09:03)
[2021-10-15] MEDS: TAMSULOSIN HCL 0.4 MG CAP PO SCH (09:03)
[2021-10-15] MEDS: DOCUSATE SODIUM 100 MG CAP PO SCH (09:05)
--- NOTE | 2021-10-15 13:05 | Hospitalist Progress Note ---
Date of Service October 15, 2021 Assessment & Plan (1) Seizure-like activity: Plan: Reported and unable to obtain history- reportedly did stiffen and was lowered to ground at [facility], then had shaking movements received Ativan in the EMD likely secondary to obtain head imaging - CT scan head without acute process - EEG not obtained as can not cooperate with study - UA showing lactobacillus. Initially thought to be contaminant but given concern for emphysematous cystitis/colovesicular fistulawe will treat - Electrolytes stable - TSH 5.1 with T 4 0.74 - Glucose normal doubt new onset seizure. ? catatonia from Zyprexa although tolerating this now without issues. ? Reaction to Cipro. ? issues given acute infection I do think the patient would benefit from a locked memory support unit (personal care versus SNF). Case management has been looking into facilities. Family has met with [facility]; however, cost seems to be prohibitive. They have applied for additional [place] financial services but this may take 1 to 2 months. Once approved, that would provide additional financial support for him to be in a locked memory support unit. In the interim, he can go back to [place] as he does not qualify for a jail facility as he has been independent. (2) Encephalopathy: Plan: - Metabolic vs. toxic ie, medication induced - may have been toxic encephalopathy from cipro, no further incidents. Cipro since stopped - May be secondary to underlying infection. 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 Per brother, inadvertently pulled out [place] and the Seo catheter bag was dragging behind him - Cipro and Flagyl d/c'ed as wasn't sure if this was contributing to the present ing complaints (??ill effects to Cipro) - Started on Cefepime; however, stopped as no anaerobic coverage and was to be on abx through 10/09 - repeat CT of A/P shows persistent gas in the bladder, bladder distention and questionable colovesicular fistula due to fistula - Urine culture showing lactobacillus. This was initially thought to be a contaminant but now with fever, persistent gas in bladder and now concerns for colovesicular fistula --empirically started on Zosyn. Has since defervesced. 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 Brother thinks someone, or patient, stepped on the bag which caused it to pull out) - Repeat CT of A/P performed- see below (5) Abnormal CT of the abdomen: Plan: -CT scan of the abdomen and pelvis shows a distended bladder with moderate gas within the bladder. Persistent bladder wall thickening. The raises the possibility of a colovesicular fistula due to diverticulosis. CT scan report mentions diverticulitis in the impression; however, I did reach out to the radiologist and this is an error that will be corrected in the report. There is no evidence of diverticulitis radiographically or clinically -Regarding concern for fistula, this poses risk of recurrent infection. I had a lengthy discussion with patient's brother, Med, regarding treatment options. In addition, plan of care discussed with urology, Dr. Jefferson. -For now, Dr. Jefferson recommends maintaining Seo catheter to decompress the bladder. Given risk of gas formation, this increases risk of bladder rupture. -Would have very low threshold to treat with antibiotics moving forward. Can consider suppressive antibiotics. ID consulted who agreed with current abx but didn't answer if [facility]p supressive abx would be advised. I did send a message with this specific question. They report "can consider suppressive antibiotics". -In my personal experience, I do not have great success with suppressive antibiotics as it only increases resistance. I think trialing gentamicin bladder irrigation for this gentleman once a week (since he has an indwelling Seo catheter in place) may help prevent reoccurring infections. I would have a very low threshold to start oral antibiotics -Family meeting held 10/12 to discuss treatment options. They are aware that surgical intervention is available but this may lead to a colostomy. Patient struggled with the Seo catheter. They are well aware that he will likely not be compliant with a colostomy. In addition, they are aware that he has increased risk of reoccurring urinary tract infections and sepsis. They are aware that his quality of life is rather poor given his advanced dementia and they do not want to pursue any aggressive intervention at this time. They are on board with leaving the Seo catheter indwelling (patient seems to be tolerating and leg bag/pants) and potentially suppressive antibiotics should infectious disease recommend this (6) Aggressive behavior: Plan: Dementia related - none this entire hospitalization - superimposed on progressive major cognitive impairment with behavioral disturbance - continue increased Olanzapine (5mg BID) - Continue Escitalopram - Continue Donepezil - Psych evaluated on previous admission - full note review from 09/24/21 for further information (7) Dementia: Plan: As above - Maintain sleep wake cycles - Avoid further benzodiazepine unless seizure witnessed (8) Insomnia: Plan: Continue Melatonin (9) GERD (gastroesophageal reflux disease): Plan: Continue Omeprazole 20mg PO daily (10) Expressive aphasia: Plan: Chronic likely related to past CVA - Reportedly without any difficulty swallowing- follow Plan: [place] facility; however, on a waiting list. This may take 3 to 6 months. In addition, they have filled out [facility] to help get [place] into a locked memory support unit. This may take 1 to 2 months to go through. In the interim, [facility] has agreed to take the patient back. It is imperative that this Seo catheter remain in place. He has a current leg bag. He seems to do well with this and has not tried to remove it. I would encourage that he has underwear or pants on at all times to limit the likelihood of it being unintentionally removed. If the Seo catheter for some reason is i nadvertently removed, it needs to be put back in! He has concern for a colovesicular fistula which will cause gas within the bladder. This can increase his risk of bladder rupture. The Seo catheter is to prevent bladder rupture. He can follow-up with urology as an outpatient but I have had a lengthy discussion with the brothers who want no aggressive management Admission and Anticipated Discharge Date Admission Date: October 07, 2021 Subjective Patient seen on daily rounds today. Unable to provide any history. Staff vocalizes no complaints or concerns. Patient has not been agitated. He has been pleasant and confused. Utilizes the blocks during the day. Enjoys his visits with his brothers at night. Does tend to try to wander out of the room but is easily redirected. Review of Systems Review of Systems: Unobtainable Physical Exam Physical Exam: General: asleep but easily awakened HEENT: Head is AT/NC. Buccal mucosa is moist and pink. Poor dentition Neck: No JVD. Negative hepatojugular reflex Cardiac: RRR without M/G/R Lungs: CTA without W/R/R Abdomen: Normoactive X4. Soft Extremities: No peripheral clubbing cyanosis or edema Neuro: No apparent focal neuro deficits Skin: No obvious skin lesions or rashes Psych: Pleasantly confused Results & Data Results & Data ([facility]) Vital Signs (Past 12 Hours) Vital Signs Temp Pulse Resp BP Pulse Ox 10/15/21 10:18 36.6 C 56 L 18 119/70 96 Laboratory Results no lab data PG Care Time/CCT Total # of Minutes Spent Total Time Spent with Patient: Total time spent is greater than 50% in coordination of care (as documented) at patient's floor/unit and/or counseling patient: Coding Level of Care Code 83003 Subseq Hosp Care Lvl 1 Diagnoses Seizure-like activity R56.9 Encephalopathy G93.40 UTI (urinary tract infection), bacterial N39.0; A49.9 Emphysematous cystitis N30.[address] of the abdomen R93.5 Aggressive behavior R46.89 Dementia F03.91 Dementia behavioral disturbance: with behavioral disturbance Dementia type: unspecified type Insomnia G47.00 GERD (gastroesophageal reflux disease) K21.9 Expressive aphasia R47.01 (1) Dementia Dementia behavioral disturbance: with behavioral disturbance Dementia type: unspecified type Qualified Code(s): F03.91 - Unspecified dementia with behavioral disturbance
[2021-10-15] MEDS: ATORVASTATIN 10 MG TAB PO SCH (20:29)
[2021-10-15] MEDS: DONEPEZIL HCL 10 MG TAB PO SCH (20:30)
[2021-10-15] MEDS: ACETAMINOPHEN 325 MG TAB PO PRN (20:33)
[2021-10-15] MEDS: MELATONIN 3 MG TAB PO SCH (20:34)
[2021-10-16] MEDS: HEPARIN SOD 5,000 UNIT/0.5 ML VIAL SQ SCH ×2 (01:20→08:09)
[2021-10-16] MEDS: AMOXICILLIN/CLAVULANATE 875 MG TAB PO SCH (08:09)
[2021-10-16] MEDS: ASPIRIN 81 MG ECTAB PO SCH (08:09)
[2021-10-16] MEDS: FINASTERIDE 5 MG TAB PO SCH (08:09)
[2021-10-16] MEDS: OLANZapine 5 MG TABLET PO SCH (08:09)
[2021-10-16] MEDS: DOCUSATE SODIUM 100 MG CAP PO SCH (08:09)
[2021-10-16] MEDS: ESCITALOPRAM OXALATE 20 MG TAB PO SCH (08:09)
[2021-10-16] MEDS: TAMSULOSIN HCL 0.4 MG CAP PO SCH (08:09)
[2021-10-16] MEDS: PANTOprazole 40 MG TAB PO SCH (08:09)
--- NOTE | 2021-10-16 11:57 | Discharge Summary ---
Date of Service October 16, 2021 Admission HPI Per Admitting Provider 70 YOM resident of [facility] with past medical history of: Complicated UT, Seo catheter, BPH, Dementia, Cerebral Infarct, HLD, GERD, Insomnia, Expressive Aphasia. Patient was brought to the EMD today from [facility] following a reported fall while being assisted to the bathroom, where it was reported that he stiffened up where he was lowered to the floor and began shaking on the ground. ED reports 30-60 second onset. without head strike- and reported as rigid shaking following confusion- with concern of seizure like activity. The patient is currently sedated as well as he suffers from dementia and expressive aphasia. Majority of the HPI is obtained from record review only. In the EMD the patient had CT scan of his head performed, which was negative for acute mass or bleed, but notable for chronic lacunar infarct. Patient was recently discharged from [facility] for acute encephalopathy secondary to UTI with Klebsiella Pneumonia. Patient has no history of seizures, but does carry a family history of seizures with his brother (Brad, whom I spoke to on the phone) and his mother. Patient will be admitted to the hospital for monitoring of his symptoms and telemetry for dysrhythmia. Will discontinue his Ciprofloxacin in light of his other QT prolonging medications as well as his Flagyl with history of his Dementia- both confounding current picture. Will obtain EEG- MRI will require further sedation at this time. 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 NAD. LUNGS: Clear to auscultation bilaterally. No accessory muscle use. No W/R/R. CARDIOVASCULAR: Regular rate and rhythm. No M/G/R. No JVD. ABDOMEN: Soft, non-tender and non-distended. BS normal x 4 quad. EXTREMITIES: No edema. Non-tender. Peripheral pulses +2/4. NEUROLOGIC: Awake, alert but confused (at his baseline). No focal neurological deficits. PSYCHIATRIC: Cooperative. Appropriate mood and affect. SKIN: Warm, dry, intact. No rashes or lesions. Discharge Data Allergies Allergy/AdvReac Type Severity Reaction Status Date / Time No Known Allergies Allergy Verified 09/19/21 21:47 Consultations 10/07/21 13:49 ED Decision to Admit Stat 10/12/21 11:33 Consult Infectious Diseases Routine Ordered Studies Chest X-Ray 10/07/21 09:39 SINGLE VIEW CHEST CLINICAL HISTORY: Seizure. FINDINGS: An AP, portable, upright chest radiograph is compared to study dated 09/19/2021. The heart is mildly enlarged. The pulmonary vasculature is noncongested. There are low lung volumes with bibasilar atelectasis. No airspace consolidation or large pleural effusion is identified. No pneumothorax is seen. The skeletal structures are osteopenic. The bony thorax is grossly intact. IMPRESSION: Cardiomegaly and low lung volumes with no acute cardiopulmonary abnormality identified. ACT 112: Negative or not required by law. Electronically signed by: Landon Gillespie M.D. 10/07/2021 9:[address] 10/07/21 09:39 CT SCAN OF THE BRAIN WITHOUT IV CONTRAST CLINICAL HISTORY: Seizure. COMPARISON STUDY: CT of the brain dated 08/25/2021. TECHNIQUE: Unenhanced axial CT scan of the brain is performed from the vertex to the skull base. A dose lowering technique was utilized adhering to the principles of ALARA. The skull base was scanned twice due to motion artifact. CT DOSE: 909.11 mGy.cm FINDINGS: Brain parenchyma: There are age-related involutional changes noting mild subcortical and periventricular microangiopathic change. There is no hemorrhage, mass effect, or evidence of acute territorial ischemia by CT criteria. A chronic lacunar infarct is noted in the left basal ganglia. Cuevas-white matter differentiation is preserved. No extra-axial fluid collection is seen. Ventricles, sulci, cisterns: Prominent secondary to involutional change. Intracranial vasculature: There is atherosclerotic calcification of the cavernous carotid arteries. Calvarium: Unremarkable. Sinuses and mastoids: The paranasal sinuses are clear. The mastoid air cells are well pneumatized. Orbits: The bony orbits are grossly intact. IMPRESSION: There is no hemorrhage, mass effect, or evidence of acute territorial ischemia by CT criteria. ACT 112: Negative or not required by law. Electronically signed by: Landon Gillespie M.D. 10/07/2021 11:03 AM Abdomen/Pelvis CT 10/10/21 13:46 CT OF THE ABDOMEN AND PELVIS WITHOUT CONTRAST CLINICAL HISTORY: assess for gas in bladder/retention COMPARISON STUDY: Renal ultrasound August 27, 2021. CT of the abdomen and pelvis September 25, 2021. TECHNIQUE: Axial images of the abdomen and pelvis were obtained without IV contrast. Images were reviewed in the axial, sagittal, and coronal planes. Automated exposure control was utilized for the study. A dose lowering technique was utilized adhering to the principles of ALARA. FINDINGS: Lung bases are unremarkable. Exam is compromised by motion artifact. No renal, ureteral or bladder calculi are present. There is no hydronephrosis. The prostate is enlarged, measuring 5.5 cm in transverse dimension. Moderate amount of gas within the bladder is noted. However, the amount of gas has significantly decreased since CT of September 25, 2021. Note is again made of loss of fat plane between the mid sigmoid colon and the posterior bladder dome with adjacent infiltration and a locules of gas shown best on axial image 355 of 466. Bladder wall thickening is suspected. Underlying fistula cannot be excluded. Bladder is mildly distended. Evaluation of the abdomen and pelvis is suboptimal on this unenhanced exam. Liver, spleen, adrenal glands and pancreas are unremarkable. No biliary or pancreatic ductal dilatation is present. Colonic diverticulosis is noted. Sigmoid diverticulitis cannot be excluded on this exam. There is no evidence for a bowel obstruction. Appendix is unremarkable. No lymphadenopathy. No acute fracture or suspicious lesion within the visualized skeletal structures. Images of the pelvis are degraded by streak artifact from right hip arthroplasty. IMPRESSION: 1. No urinary calculi or hydronephrosis. 2. Mildly distended bladder with moderate gas within the bladder, decreased in amount since CT of September 25, 2021. Persistent bladder wall thickening with adjacent infiltration which could be correlated with urinalysis. Redemonstration of findings raising the possibility of colovesicular fistula due to diverticulitis, as described above. 3. Enlarged prostate. 4. Moderate amount of stool within the colon. No bowel obstruction. ACT 112: Negative or not required by law. Electronically signed by: Tra Fernandez M.D. 10/10/2021 3:46 PM Hospital Course (1) Seizure-like activity: Reported and unable to obtain history- reportedly did stiffen and was lowered to ground at [facility], then had shaking movements received Ativan in the EMD likely secondary to obtain head imaging - CT scan head without acute process - EEG not obtained as can not cooperate with study - UA showing lactobacillus. Initially thought to be contaminant but given concern for emphysematous cystitis/colovesicular fistulawe will treat - Electrolytes stable - TSH 5.1 with T 4 0.74 - Glucose normal doubt new onset seizure. ? catatonia from Zyprexa although tolerating this now without issues. ? Reaction to Cipro. ? issues given acute infection I do think the patient would benefit from a locked memory support unit (personal care versus SNF). Case management has been looking into facilities. Family has met with [facility]; however, cost seems to be prohibitive. They have applied for additional [place] financial services but this may take 1 to 2 months. Once approved, that would provide additional financial support for him to be in a locked memory support unit. In the interim, he can go back to [place] as he does not qualify for a senior care facility as he has been independent. (2) Encephalopathy: - Metabolic vs. toxic ie, medication induced -- RESOLVED - may have been toxic encephalopathy from cipro, no further incidents. Cipro since stopped - May be secondary to underlying infection. Patient seems to have concern for colovesicular fistula with emphysematous cystitis-- now on abx (3) UTI (urinary tract infection), bacterial: Chronic- last admission: concern for emphysematous cystitis (for which he was D/C'ed with cipro/flagyl and indwelling catheter with plan to repeat CT in 14 days and then potentially remove seo catheter) - inadvertently catheter removed (pt readmitted without the catheter). Per brother, inadvertently pulled out while he was walking down the [place] and the Seo catheter bag was dragging behind him - Cipro and Flagyl d/c'ed as wasn't sure if this was contributing to the presenting complaints (??ill effects to Cipro) - Started on Cefepime; however, stopped as no anaerobic coverage and was to be on abx through 10/09 - repeat CT of A/P shows persistent gas in the bladder, bladder distention and questionable colovesicular fistula due to fistula - Urine culture showing lactobacillus. This was initially thought to be a contaminant but now with fever, persistent gas in bladder and now concerns for colovesicular fistula --empirically started on Zosyn. Has since defervesced. Transitioned to oral Augmentin x7 days --(lactobacillus is a gas forming anaerobe) (4) Emphysematous cystitis: Present last admission requiring seo catheter placement to decompress bladder - Seo not in place on admission (inadvertently pulled out when patient was walking and seo bag was dragging behind him. Brother thinks someone, or patient, stepped on the bag which caused it to pull out) - Repeat CT of A/P performed- see below (5) Abnormal CT of the abdomen: -CT scan of the abdomen and pelvis shows a distended bladder with moderate gas within the bladder. Persistent bladder wall thickening. The raises the possibility of a colovesicular fistula due to diverticulosis. CT scan report mentions diverticulitis in the impression; however, I did reach out to the ra diologist and this is an error that will be corrected in the report. There is no evidence of diverticulitis radiographically or clinically -Regarding concern for fistula, this poses risk of recurrent infection. I had a lengthy discussion with patient's brother, Med, regarding treatment options. In addition, plan of care discussed with urology, Dr. Jefferson. -For now, Dr. Jefferson recommends maintaining Seo catheter to decompress the bladder. Given risk of gas formation, this increases risk of bladder rupture. -Would have very low threshold to treat with antibiotics moving forward. Can consider suppressive antibiotics. ID consulted who agreed with current abx but didn't answer if usp supressive abx would be advised. I did send a message with this specific question. They report "can consider suppressive antibiotics". -In my personal experience, I do not have great success with suppressive antibiotics as it only increases resistance. I think trialing gentamicin bladder irrigation for this gentleman once a week (since he has an indwelling Seo catheter in place) may help prevent reoccurring infections. I would have a very low threshold to start oral antibiotics -Family meeting held 10/12 to discuss treatment options. They are aware that surgical intervention is available but this may lead to a colostomy. Patient struggled with the Seo catheter. They are well aware that he will likely not be compliant with a colostomy. In addition, they are aware that he has increased risk of reoccurring urinary tract infections and sepsis. They are aware that his quality of life is rather poor given his advanced dementia and they do not want to pursue any aggressive intervention at this time. They are on board with leaving the Seo catheter indwelling (patient seems to be tolerating and leg bag/pants) and potentially suppressive antibiotics should infectious disease recommend this (6) Aggressive behavior: Dementia related - none this entire hospitalization - superimposed on progressive major cognitive impairment with behavioral disturbance - continue increased Olanzapine (5mg BID) - Continue Escitalopram - Continue Donepezil - Psych evaluated on previous admission - full note review from 09/24/21 for further information (7) Dementia: As above - Maintain sleep wake cycles - Avoid further benzodiazepine unless seizure witnessed (8) Insomnia: Continue Melatonin (9) GERD (gastroesophageal reflux disease): Continue Omeprazole 20mg PO daily (10) Expressive aphasia: Chronic likely related to past CVA - Reportedly without any difficulty swallowing- follow Family attempting to get [place] into the [place] senior care facility; however, on a waiting list. This may take 3 to 6 months. In addition, they have filled out for financial assistance from the [place] to help get [place] into a locked memory support unit. This may take 1 to 2 months to go through. In the interim, [facility] has agreed to take the patient back. It is imperative that this Seo catheter remain in place. He has a current leg bag. He seems to do well with this and has not tried to remove it. I would encourage that he has underwear or pants on at all times to limit the likelihood of it being unintentionally removed. If the Seo catheter for some reason is inadvertently removed, it needs to be put back in! He has concern for a colovesicular fistula which will cause gas within the bladder. This can increase his risk of bladder rupture. The Seo catheter is to prevent bladder rupture. He can follow-up with urology as an outpatient but I have had a lengthy discussion with the brothers who want no aggressive management. He is medically and hemodynamically stable for discharge back to [facility] and await word back re: placement at [facility] in locked memory support unit. Transitioned to oral Augmentin which he has received total of 7 days in house, will continue for additional 7 days as outpatient for total of 14. He will f/u with urology as outpatient. Plan of care has been d/w Dr. Quinones who has also seen and evaluated this patient and is in agreement with the aforementioned. Total Time Total Time Spent Total Time Spent (In Minutes): >30 minutes Discharge Plan Discharge Items Patient Disposition: Personal Long Term Reason For Visit: SYNCOPE VS. FALL ? SEIZURE Discharge Diagnosis: Seizure-like activity Urinary tract infection Activity: Resume your previous activity Non-emergency contact: Primary Care Provider Call non-emergency contact if: you have any medication questions and your symptoms worsen Follow-up/Referrals: Kalie Orozco [Primary Care Provider] - Diet: Regular Addtl Attending Provider Instructions: It is uncertain if patient had a true seizure or just a medication affect. Work up for seizure as not able to completed due to patient's inability to cooperate with testing. Continue Augmentin as prescribed for additional 7 days. Follow up with urology as scheduled. Maintain catheter with leg bag in order to reduce air in the bladder which can cause rupture. If catheter gets accidently removed, it must be replaced. Recommend instilling 30 mL of gentamicin bladder irrigant (clamp tubing x 60 minutes then unclamp)--perform every 2 weeks and as needed. Advise seo catheter to be exchanged every 30 days unless otherwise directed by urology. Follow up with family doctor within 1 week. Pending Studies at Discharge: No Stand-Alone Forms: My [facility] Cerebrex, Smoking Cessation Skilled Items Patient informed of condition?: Yes DNR: Yes Discharge Level of Care: Other Communicable Disease: No Discharge Prognosis: Stable Lines: None Urinary Catheter: Yes Medications and DC Order Prescriptions: New amoxicillin-pot clavulanate 875-125 mg tablet 1 tab PO BID Qty: 14 RF: 0 Continued tamsulosin 0.4 mg capsule 0.4 mg PO DAILY Qty: 30 RF: 11 aspirin [Aspirin Low Dose] 81 mg Tablet,Delayed Release (Dr/Ec) 81 mg PO DAILY Qty: 90 RF: 3 omeprazole 20 mg capsule,delayed release(DR/EC) 20 mg PO DAILY Qty: 30 RF: 5 escitalopram oxalate 20 mg tablet 20 mg PO DAILY Qty: 30 RF: 11 cholecalciferol (vitamin D3) 5,000 unit tablet 5,000 units PO DAILY Qty: 30 RF: 0 [id number] Tablet 1 tab PO QAM RF: 0 atorvastatin 10 mg tablet 10 mg PO HS RF: 0 donepezil 10 mg tablet 10 mg PO HS RF: 0 olanzapine 5 mg Tablet 5 mg PO HS Qty: 30 RF: 0 melatonin 3 mg Tablet 3 mg PO HS Qty: 30 RF: 0 olanzapine 2.5 mg Tablet 2.5 mg PO QAM Qty: 30 RF: 0 finasteride [Proscar] 5 mg Tablet 5 mg PO QAM Qty: 30 RF: 0 docusate sodium [Colace] 100 mg capsule 100 mg PO DAILY RF: 0 Discontinued ciprofloxacin HCl [Cipro] 500 mg tablet 500 mg PO BID Qty: 21 RF: 0 metronidazole 500 mg tablet 500 mg PO Q8H Qty: 32 RF: 0 Discharge Orders: Discharge Order (Routine); Ordered 10/16/21 Ordered By: Peyton Guzman Admission Data Admit Date/Time: 10/07/21 14:03 Attending Provider: Aman Quinones Admit Provider: Jessie Ramos Primary Care Provider: Kalie Orozco Other Providers: Jessie Ramos ; Giovanni Romero ; Juanita Haynes ; Nelson Rod I. ; Norberto Head II ; Juanita Arenas ; Devonte Em ; [place] Other Interventions: Discharge Summary Assessment (RN) Last Done: 10/16/21 11:18 Supervising Physician Co-Signing Physician Notes Case discussed with LEIGH ANN Guzman, agree with above except as otherwise noted. Patient seen and examined prior to discharge. Patient was admitted with concern for seizure-like activity, and concern for UTI with inadvertent Seo removal prior to admission. Patient did have a history of emphysematous cystitis and with Seo to remain in pending follow-up to urology. Patient does have recurrent history of dementia with aggressive behavior. Patient is pending admission to [place], this is being arranged as outpatient but may take several months. Patient is in no distress at time of discharge. Seo is in place, will be discharged with leg bag which should remain covered. Not oriented to date at time of assessment, but is cooperative and not aggressive prior to discharge. No pain at time of assessment. Stable for discharge back to [place]. We will complete a 1 week course of Augmentin. Coding Level of Care Code D/C DAY MANAGEMENT >30 MINS Diagnoses Seizure-like activity R56.9 Encephalopathy G93.40 UTI (urinary tract infection), bacterial N39.0; A49.9 Emphysematous cystitis N30.[address] of the abdomen R93.5 Aggressive behavior R46.89 Dementia F03.91 Dementia behavioral disturbance: with behavioral disturbance Dementia type: unspecified type Insomnia G47.00 GERD (gastroesophageal reflux disease) K21.9 Expressive aphasia R47.01
== END 2021-10-16 13:05 | disposition home health service (06) | DRG 100 ==
LOC: ED 09:23 → 2N 14:03 → SUATTDRO 14:03 → 2N 16:41 → 2W 10-09 11:08
DX: G92.8 Other toxic encephalopathy; B96.89 Other specified bacterial agents as the cause of diseases classified elsewhere; N32.1 Vesicointestinal fistula; G47.00 Insomnia, unspecified; N30.80 Other cystitis without hematuria; E78.5 Hyperlipidemia, unspecified; Z79.82 Long term (current) use of aspirin; Z96.641 Presence of right artificial hip joint; Y92.89 Other specified places as the place of occurrence of the external cause; I69.320 Aphasia following cerebral infarction; G93.41 Metabolic encephalopathy; F03.91 Unspecified dementia, unspecified severity, with behavioral disturbance; K21.9 Gastro-esophageal reflux disease without esophagitis; T36.8X5A Adverse effect of other systemic antibiotics, initial encounter; N40.0 Benign prostatic hyperplasia without lower urinary tract symptoms; N39.0 Urinary tract infection, site not specified; R56.9 Unspecified convulsions; Z66 Do not resuscitate

== ENCOUNTER 2021-12-03 11:23 | Inpatient (IN) ==
[2021-12-03] MEDS ORDERED: CEFEPIME 2,000 MG/20 ML VIAL IV STA (11:45)
[2021-12-03] MEDS ORDERED: ACETAMINOPHEN 1000 MG/100 ML IV IV STA (11:45)
[2021-12-03] MEDS ORDERED: SODIUM CHLORIDE 0.9% 1000ML 1,000 ML IV SCH (11:45)
--- NOTE | 2021-12-03 11:51 | Emergency Department Note ---
Impression & Plan Weakness, Acute UTI, Fever, COVID-19 ED Provider Note NAME: LAURA DOE AGE: 70 SEX: M : 1950 ARRIVES VIA: Ambulance INFORMANT: [ems, nurses] ED PROVIDER(S): [Landon Lopez MD] CHIEF COMPLAINT: Confusion HISTORY OF PRESENT ILLNESS: The patient is a 70-year-old male presents to the ED with confusion and a low- grade fever. The patient is unable to give any history, he currently is nonverbal. The staff at his care center felt he was more weak and lethargic appearing today. He was sent for evaluation by EMS. Of note, the patient did pull out his Weston catheter about 2 weeks ago, he apparently has done well without the Weston. Given the current mental state, no further history obtainable. REVIEW OF SYSTEMS: Unobtainable given the current mental state. PMHx/PSHx: See Below SOCIAL HISTORY: See Below. PHYSICAL EXAM: GENERAL: Patient is in no acute distress. HEENT: No acute trauma, normocephalic atraumatic, mucous membranes moist, no nasal congestion, no scleral icterus. NECK: No stridor, no adenopathy, no meningismus, trachea is midline. LUNGS: Clear to auscultation bilaterally when listening anterior, no wheeze, no rhonchi, breath sounds equal. HEART: No obvious murmur but the heart tones are quite distant. Rhythm does se em regular. ABDOMEN: Soft, nontender, bowel sounds positive, no hernias, no peritonitis. EXTREMITIES: No cyanosis or edema, full range of motion of all the joints without pain or difficulty, no signs for acute trauma. NEUROLOGIC: Awake, nonverbal, no obvious focal motor deficit. SKIN: No rash, no jaundice, no diaphoresis. Groin: No scrotal erythema. DIFFERENTIAL DIAGNOSIS: Sepsis, UTI, COVID-19, influenza, pneumonia, metabolic abnormality, electrolyte abnormalities, cardiac sources, cellulitis, bacteremia, intracerebral event, toxicologic etiology, neurologic event, as well as other pathologies. EMERGENCY DEPARTMENT COURSE/PROCEDURES: ECG: Indication was weakness and possible sepsis. The ECG shows a normal sinus rhythm with a rate of 78. There is a right bundle branch block. There is no ST elevation, no PVCs. The QTc is 458. Compared to an ECG from 07 October 2021, there is no significant change. Continuous Cardiac Monitoring: An order was placed for continuous cardiac monitoring. The monitor shows a rate of 82 with normal sinus rhythm. Critical Care Note: I have personally spent 38 minutes of critical care time in the direct management of this patient. This includes bedside care, interpretation of diagnostic studies, and testing, discussion with consultants, patient, and family members, and other required patient management activities. This 38 minutes is in excess of all separately billable procedures. MEDICAL DECISION MAKING: There is no leukocytosis, in fact, the white count is somewhat low and more consistent with a viral illness. The patient does have a very mild anemia, the anemia has been documented before. There is a normal platelet count. No concerning coagulopathy. No renal failure or significant electrolyte abnormality. Lactic acid level is not elevated making severe sepsis less likely. There is no concerning liver enzyme elevation. Urinalysis is potentially consistent with infection. COVID test returned positive. Influenza and RSV test returned negative. Chest film did not show pneumonia or CHF. The patient received IV saline, 2 L. He was given IV cefepime and IV Tylenol. The patient is currently resting comfortably. His blood pressure has been somewhat low during his ED stay but he has been asymptomatic with it. The low blood pressure did seem to respond to IV fluids. The patient is in need of a hospital stay. He presents with weakness, fever. He was found to have a UTI as well as COVID-19. I did talk with case management, the on-call hospitalist has been consulted. Past Med/Surg History Medical History Arthritis of right hip BPH (benign prostatic hyperplasia) Cellulitis and abscess of face Dementia Dental abscess Depression with anxiety Elevated BP without diagnosis of hypertension Expressive aphasia GERD (gastroesophageal reflux disease) Hyperlipidemia Vitamin D insufficiency Surgical History H/O total hip arthroplasty Right History of hernia repair Family History Mother Myocardial infarction Other Hypertension Denies family history of Ovarian cancer Prostate cancer Breast cancer Colorectal cancer Social History Smoking Status: Unknown if ever smoked Second Hand Exposure: No; Hx Alcohol Use: No Hx Substance Use: No Preferred Language: Surinamese Communication Ability: Impaired Hydraulic Mechanic Required: No Beliefs That Will Affect Care: None marital status: Single Current Living Situation: Group Home Current Living Situation Comment: na current occupational status: disabled Feels Safe at Home: Yes Childhood Exposure to Second-Hand Smoke: No caffeine: Yes during the past year weight has: remained stable Dental Care, Regularly: Yes Seatbelt Use: always Sunscreen Use: No Assistive Devices: None Allergies Allergies Allergy/AdvReac Type Severity Reaction Status Date / Time No Known Allergies Allergy Verified 12/03/21 14:46 Home Meds Home Medications Medication Instructions Recorded Confirmed docusate sodium 100 mg capsule 100 mg PO DAILY 08/25/21 12/03/21 (Colace) atorvastatin 10 mg tablet 10 mg PO HS 09/19/21 12/03/21 donepezil 10 mg tablet 10 mg PO HS 09/19/21 12/03/21 trhnuzzvojou-kocsuraj-zqsiio tablet 1 tab PO QAM 09/19/21 12/03/21 Previous Rx's Medication Instructions Recorded aspirin 81 mg tablet,delayed 81 mg PO DAILY #90 tab 02/26/21 release (Aspirin Low Dose) cholecalciferol (vitamin D3) 125 5,000 units PO DAILY #30 tab 02/26/21 mcg (5,000 unit) tablet escitalopram oxalate 20 mg tablet 20 mg PO DAILY #30 tab 02/26/21 omeprazole 20 mg capsule,delayed 20 mg PO DAILY #30 cap 02/26/21 release tamsulosin 0.4 mg capsule 0.4 mg PO DAILY #30 cap 09/03/21 finasteride 5 mg tablet (Proscar) 5 mg PO QAM #30 tab 09/29/21 melatonin 3 mg tablet 3 mg PO HS #30 tab 09/29/21 olanzapine 2.5 mg tablet 2.5 mg PO QAM #30 tab 09/29/21 olanzapine 5 mg tablet 5 mg PO HS #30 tab 09/29/21 Results & Data (ED) Vital Signs Vital Signs - 24 hr 12/03/21 11:30 12/03/21 11:45 12/03/21 12:00 Temperature 37.7 C H Temperature Source Oral Pulse Rate 78 75 Pulse Rate [Apical] 81 Pulse Rate from SpO2 Sensor 75 Pulse Rhythm Regular Pulse Rhythm [Apical] Pulse Strength Normal Pulse Strength [Apical] Respiratory Rate 18 18 20 Respiratory Effort / Characteristics Non-Labored Non-Labored Respiratory Depth Normal Normal Respiratory Pattern Regular Regular Blood Pressure 115/69 105/71 Blood Pressure [Left Arm] 98/67 L Blood Pressure Mean 84 82 Blood Pressure Mean [Left Arm] 77 Blood Pressure Position Lying Blood Pressure Position [Left Arm] Lying Pulse Oximetry 95 97 96 Oxygen Delivery Method Room Air Room Air Sepsis Recent Fever Within 48 Hours Yes Sepsis New/Unexplained Change in Mental Status Yes Sepsis Action Taken by Nursing No Action Required 12/03/21 12:15 12/03/21 12:20 12/03/21 12:40 Temperature Temperature Source Pulse Rate 79 83 Pulse Rate [Apical] Pulse Rate from SpO2 Sensor 78 83 Pulse Rhythm Pulse Rhythm [Apical] Pulse Strength Pulse Strength [Apical] Respiratory Rate 18 23 21 Respiratory Effort / Characteristics Non-Labored Respiratory Depth Respiratory Pattern Blood Pressure 98/67 L 101/59 L Blood Pressure [Left Arm] Blood Pressure Mean 77 73 Blood Pressure Mean [Left Arm] Blood Pressure Position Blood Pressure Position [Left Arm] Pulse Oximetry 97 93 96 Oxygen Delivery Method Room Air Sepsis Recent Fever Within 48 Hours Sepsis New/Unexplained Change in Mental Status Sepsis Action Taken by Nursing 12/03/21 12:46 12/03/21 13:10 12/03/21 13:20 Temperature 37.1 C Temperature Source Oral Pulse Rate 94 H 69 Pulse Rate [Apical] 82 Pulse Rate from SpO2 Sensor 91 H 69 Pulse Rhythm Pulse Rhythm [Apical] Regular Pulse Strength Pulse Strength [Apical] Normal Respiratory Rate 18 17 17 Respiratory Effort / Characteristics Non-Labored Respiratory Depth Normal Respiratory Pattern Regular Blood Pressure 85/58 L 92/56 L Blood Pressure [Left Arm] 101/59 L Blood Pressure Mean 67 68 Blood Pressure Mean [Left Arm] 73 Blood Pressure Position Blood Pressure Position [Left Arm] Lying Pulse Oximetry 96 96 94 Oxygen Delivery Method Room Air Sepsis Recent Fever Within 48 Hours Sepsis New/Unexplained Change in Mental Status Sepsis Action Taken by Nursing 12/03/21 13:30 12/03/21 13:33 12/03/21 13:44 Temperature Temperature Source Pulse Rate 74 73 63 Pulse Rate [Apical] 72 Pulse Rate from SpO2 Sensor 71 73 63 Pulse Rhythm Pulse Rhythm [Apical] Pulse Strength Pulse Strength [Apical] Respiratory Rate 17 18 19 Respiratory Effort / Characteristics Non-Labored Respiratory Depth Normal Respiratory Pattern Regular Blood Pressure 84/57 L 85/63 L 100/58 L Blood Pressure [Left Arm] 84/57 L Blood Pressure Mean 66 70 72 Blood Pressure Mean [Left Arm] 66 Blood Pressure Position Blood Pressure Position [Left Arm] Lying Pulse Oximetry 95 95 96 Oxygen Delivery Method Room Air Room Air Sepsis Recent Fever Within 48 Hours Sepsis New/Unexplained Change in Mental Status Sepsis Action Taken by Nursing 12/03/21 14:00 12/03/21 14:30 12/03/21 14:50 Temperature Temperature Source Pulse Rate 62 69 53 L Pulse Rate [Apical] Pulse Rate from SpO2 Sensor 62 67 53 L Pulse Rhythm Pulse Rhythm [Apical] Pulse Strength Pulse Strength [Apical] Respiratory Rate 16 19 15 Respiratory Effort / Characteristics Respiratory Depth Respiratory Pattern Blood Pressure 95/63 L 99/67 L Blood Pressure [Left Arm] Blood Pressure Mean 73 77 Blood Pressure Mean [Left Arm] Blood Pressure Position Blood Pressure Position [Left Arm] Pulse Oximetry 95 94 94 Oxygen Delivery Method Room Air Room Air Room Air Sepsis Recent Fever Within 48 Hours Sepsis New/Unexplained Change in Mental Status Sepsis Action Taken by Nursing 12/03/21 15:16 Temperature Temperature Source Pulse Rate Pulse Rate [Apical] 60 Pulse Rate from SpO2 Sensor Pulse Rhythm Pulse Rhythm [Apical] Pulse Strength Pulse Strength [Apical] Respiratory Rate 18 Respiratory Effort / Characteristics Non-Labored Respiratory Depth Normal Respiratory Pattern Regular Blood Pressure Blood Pressure [Left Arm] 105/67 Blood Pressure Mean Blood Pressure Mean [Left Arm] 79 Blood Pressure Position Blood Pressure Position [Left Arm] Lying Pulse Oximetry 98 Oxygen Delivery Method Room Air Sepsis Recent Fever Within 48 Hours Sepsis New/Unexplained Change in Mental Status Sepsis Action Taken by Group Home Medications Current Medication List: was personally reviewed by me Laboratory Data Attestation: I reviewed the patient's lab results. Result diagrams: 12/03/21 12:13 12/03/21 12:13 Lab Results 12/03/21 12/03/21 12/03/21 Range/Units 11:58 12:13 12:13 WBC 3.52 L (4.8-10.8) K/uL RBC 4.22 L (4.7-6.1) M/uL Hgb 12.8 L (14.0-18.0) g/dL Hct 38.6 L (42-52) % MCV 91.5 (80-100) fL MCH 30.3 (25-34) pg MCHC 33.2 (32-36) g/dL RDW Std Deviation 45.5 (36.4-46.3) fL RDW Coeff of Anjelica 13.6 (11.5-14.5) % Plt Count 173 (130-400) K/uL MPV 9.6 (7.4-10.4) fL Immature Gran % (Auto) 0.3 % Neut % (Auto) 62.1 % Lymph % (Auto) 18.8 % Mclennan % (Auto) 17.9 % Eos % (Auto) 0.3 % Baso % (Auto) 0.6 % Neut # (Auto) 2.19 (1.4-6.5) K/uL Lymph # (Auto) 0.66 L (1.2-3.4) K/uL Mclennan # (Auto) 0.63 H (0.11-0.59) K/uL Eos # (Auto) 0.01 (0-0.5) K/uL Baso # (Auto) 0.02 (0-0.2) K/uL Immature Gran # (Auto) 0.01 (0.00-0.02) K/uL PT (9.0-12.0) Seconds INR (0.9-1.1) APTT (21.0-31.0) Seconds PTT Ratio Sodium (136-145) mmol/L Potassium (3.5-5.1) mmol/L Chloride (98-107) mmol/L Carbon Dioxide (21-32) mmol/L Anion Gap (3-11) BUN (6-23) mg/dl Creatinine (0.6-1.4) mg/dl Est Cr Clr Drug Dosing ml/min Est GFR ( Amer) ml/min Est GFR (Non-Af Amer) ml/min BUN/Creatinine Ratio (10-20) Glucose (70-99(Fasting)) mg/dl Lactate (0.4-2.0) mmol/L Calcium (8.5-10.1) mg/dl Magnesium (1.7-2.4) mg/dl Total Bilirubin (0.2-1.0) mg/dl AST (13-39) U/L ALT (7-52) U/L Alkaline Phosphatase (34-104) U/L Troponin I High Sens 4.8 (0-20) pg/ml Total Protein (6.0-8.3) gm/dl Albumin (3.4-5.0) gm/dl Globulin (2.5-4.0) gm/dl Albumin/Globulin Ratio (0.9-2) Procalcitonin (0-0.5) ng/ml Urine Color Yellow Urine Appearance Turbid A (Clear) Urine pH 6.0 (4.5-7.5) Ur Specific [place] 1.022 (1.000-1.030) Urine Protein Trace H (Negative) Urine Glucose (UA) Negative (Negative) Urine Ketones Negative (Negative) Urine Blood 2+ H (Negative) Urine Nitrite Negative (Negative) Urine Bilirubin Negative (Negative) Urine Urobilinogen Negative (Negative) Ur Leukocyte Esterase 3+ H (Negative) Urine WBC (Auto) >30 H (0-5) /hpf Urine RBC (Auto) 5-10 H (0-4) /hpf U Hyaline Cast (Auto) 10-30 H (0-5) /lpf U Epithel Cells (Auto) >30 H (0-5) /lpf Urine Bacteria (Auto) 2+ H (Negative) Granular Casts 1-5 H (0) /lpf Urine Yeast Not Reportable SARS-CoV-2 (PCR) (Negative) Influenza Type A (PCR) (Neg) Influenza Type B (PCR) (Neg) RSV (RT-PCR) (Neg) 12/03/21 12/03/21 12/03/21 Range/Units 12:13 12:13 12:13 WBC (4.8-10.8) K/uL RBC (4.7-6.1) M/uL Hgb (14.0-18.0) g/dL Hct (42-52) % MCV (80-100) fL MCH (25-34) pg MCHC (32-36) g/dL RDW Std Deviation (36.4-46.3) fL RDW Coeff of Anjelica (11.5-14.5) % Plt Count (130-400) K/uL MPV (7.4-10.4) fL Immature Gran % (Auto) % Neut % (Auto) % Lymph % (Auto) % Mclennan % (Auto) % Eos % (Auto) % Baso % (Auto) % Neut # (Auto) (1.4-6.5) K/uL Lymph # (Auto) (1.2-3.4) K/uL Mclennan # (Auto) (0.11-0.59) K/uL Eos # (Auto) (0-0.5) K/uL Baso # (Auto) (0-0.2) K/uL Immature Gran # (Auto) (0.00-0.02) K/uL PT 11.4 (9.0-12.0) Seconds INR 1.1 (0.9-1.1) APTT 32.2 H (21.0-31.0) Seconds PTT Ratio 1.2 Sodium 136 (136-145) mmol/L Potassium 4.3 (3.5-5.1) mmol/L Chloride 102 (98-107) mmol/L Carbon Dioxide 28 (21-32) mmol/L Anion Gap 6 (3-11) BUN 20 (6-23) mg/dl Creatinine 1.10 (0.6-1.4) mg/dl Est Cr Clr Drug Dosing 58.9 ml/min Est GFR ( Amer) 79.0 ml/min Est GFR (Non-Af Amer) 68.1 ml/min BUN/Creatinine Ratio 18.2 (10-20) Glucose 85 (70-99(Fasting)) mg/dl Lactate 1.2 (0.4-2.0) mmol/L Calcium 9.1 (8.5-10.1) mg/dl Magnesium 1.8 (1.7-2.4) mg/dl Total Bilirubin 0.6 (0.2-1.0) mg/dl AST 25 (13-39) U/L ALT 25 (7-52) U/L Alkaline Phosphatase 89 (34-104) U/L Troponin I High Sens (0-20) pg/ml Total Protein 7.0 (6.0-8.3) gm/dl Albumin 3.7 (3.4-5.0) gm/dl Globulin 3.3 (2.5-4.0) gm/dl Albumin/Globulin Ratio 1.1 (0.9-2) Procalcitonin (0-0.5) ng/ml Urine Color Urine Appearance (Clear) Urine pH (4.5-7.5) Ur Specific [place] (1.000-1.030) Urine Protein (Negative) Urine Glucose (UA) (Negative) Urine Ketones (Negative) Urine Blood (Negative) Urine Nitrite (Negative) Urine Bilirubin (Negative) Urine Urobilinogen (Negative) Ur Leukocyte Esterase (Negative) Urine WBC (Auto) (0-5) /hpf Urine RBC (Auto) (0-4) /hpf U Hyaline Cast (Auto) (0-5) /lpf U Epithel Cells (Auto) (0-5) /lpf Urine Bacteria (Auto) (Negative) Granular Casts (0) /lpf Urine Yeast SARS-CoV-2 (PCR) (Negative) Influenza Type A (PCR) (Neg) Influenza Type B (PCR) (Neg) RSV (RT-PCR) (Neg) 12/03/21 12/03/21 Range/Units 12:13 12:23 WBC (4.8-10.8) K/uL RBC (4.7-6.1) M/uL Hgb (14.0-18.0) g/dL Hct (42-52) % MCV (80-100) fL MCH (25-34) pg MCHC (32-36) g/dL RDW Std Deviation (36.4-46.3) fL RDW Coeff of Anjelica (11.5-14.5) % Plt Count (130-400) K/uL MPV (7.4-10.4) fL Immature Gran % (Auto) % Neut % (Auto) % Lymph % (Auto) % Mclennan % (Auto) % Eos % (Auto) % Baso % (Auto) % Neut # (Auto) (1.4-6.5) K/uL Lymph # (Auto) (1.2-3.4) K/uL Mclennan # (Auto) (0.11-0.59) K/uL Eos # (Auto) (0-0.5) K/uL Baso # (Auto) (0-0.2) K/uL Immature Gran # (Auto) (0.00-0.02) K/uL PT (9.0-12.0) Seconds INR (0.9-1.1) APTT (21.0-31.0) Seconds PTT Ratio Sodium (136-145) mmol/L Potassium (3.5-5.1) mmol/L Chloride (98-107) mmol/L Carbon Dioxide (21-32) mmol/L Anion Gap (3-11) BUN (6-23) mg/dl Creatinine (0.6-1.4) mg/dl Est Cr Clr Drug Dosing ml/min Est GFR ( Amer) ml/min Est GFR (Non-Af Amer) ml/min BUN/Creatinine Ratio (10-20) Glucose (70-99(Fasting)) mg/dl Lactate (0.4-2.0) mmol/L Calcium (8.5-10.1) mg/dl Magnesium (1.7-2.4) mg/dl Total Bilirubin (0.2-1.0) mg/dl AST (13-39) U/L ALT (7-52) U/L Alkaline Phosphatase (34-104) U/L Troponin I High Sens (0-20) pg/ml Total Protein (6.0-8.3) gm/dl Albumin (3.4-5.0) gm/dl Globulin (2.5-4.0) gm/dl Albumin/Globulin Ratio (0.9-2) Procalcitonin < 0.05 (0-0.5) ng/ml Urine Color Urine Appearance (Clear) Urine pH (4.5-7.5) Ur Specific [place] (1.000-1.030) Urine Protein (Negative) Urine Glucose (UA) (Negative) Urine Ketones (Negative) Urine Blood (Negative) Urine Nitrite (Negative) Urine Bilirubin (Negative) Urine Urobilinogen (Negative) Ur Leukocyte Esterase (Negative) Urine WBC (Auto) (0-5) /hpf Urine RBC (Auto) (0-4) /hpf U Hyaline Cast (Auto) (0-5) /lpf U Epithel Cells (Auto) (0-5) /lpf Urine Bacteria (Auto) (Negative) Granular Casts (0) /lpf Urine Yeast SARS-CoV-2 (PCR) POSITIVE A* (Negative) Influenza Type A (PCR) Negative (Neg) Influenza Type B (PCR) Negative (Neg) RSV (RT-PCR) Negative (Neg) Administered Medications Discontinued Medications Acetaminophen (Acetaminophen 1000 Mg/100 Ml Iv) 1,000 mg IV NOW STA Stop: 12/03/21 11:46 Last Admin: 12/03/21 12:16 Dose: 1,000 mg Documented by: [id number] Sodium Chloride (Nss 1000ml) 1,000 mls @ 999 mls/hr IV .Q1H1M KAI Stop: 12/03/21 12:45 Last Infusion: 12/03/21 13:21 Dose: 0 mls/hr Documented by: [id number] Admin: 12/03/21 12:16 Dose: 999 mls/hr Documented by: [id number] Cefepime HCl (Maxipime) 2,000 mg in 20 mls @ 5 mls/min IV NOW STA; Protocol Stop: 12/03/21 11:48 Last Admin: 12/03/21 12:16 Dose: 5 mls/min Documented by: [id number] Sodium Chloride (Nss 1000ml) 1,000 mls @ 999 mls/hr IV .Q1H1M ONE Stop: 12/03/21 14:57 Last Infusion: 12/03/21 15:17 Dose: 0 mls/hr Documented by: [id number] Admin: 12/03/21 13:35 Dose: 999 mls/hr Documented by: [id number] Imaging Data Radiologist's Impression: Chest X-Ray 12/03/21 11:45 XR chest 1V portable CLINICAL HISTORY: SEPSIS. COMPARISON STUDY: 10/07/2021 TECHNIQUE: 1 view of the chest FINDINGS: Single frontal view of the chest demonstrates the cardiomediastinal silhouette to be within normal limits. There is again elevation of hemidiaphragms bilaterally. The lungs are clear of alveolar opacities. There is no evidence for pleural effusion. There is no evidence for vascular congestion. There is no acute osseous pathology. IMPRESSION: 1. No acute cardiopulmonary disease. ACT 112: Negative or not required by law. Electronically signed by: Kemal Downs M.D. 12/03/2021 12:17 PM Discharge Plan Visit Data Chief Complaint: Confusion Stated Complaint: fever, confusion ED Provider: Landon Lopez Discharge Problem: Weakness, Acute UTI, Fever, COVID-19 Patient Disposition: Admitted As Inpatient Condition: Fair Forms Stand Alone Forms: My [facility] [employer] Prescriptions Prescriptions: No Action tamsulosin 0.4 mg capsule 0.4 mg PO DAILY Qty: 30 RF: 11 aspirin [Aspirin Low Dose] 81 mg Tablet,Delayed Release (Dr/Ec) 81 mg PO DAILY Qty: 90 RF: 3 omeprazole 20 mg capsule,delayed release(DR/EC) 20 mg PO DAILY Qty: 30 RF: 5 escitalopram oxalate 20 mg tablet 20 mg PO DAILY Qty: 30 RF: 11 cholecalciferol (vitamin D3) 5,000 unit tablet 5,000 units PO DAILY Qty: 30 RF: 0 meviktxnkica-hzlhwvbn-geklub Tablet 1 tab PO QAM RF: 0 atorvastatin 10 mg tablet 10 mg PO HS RF: 0 donepezil 10 mg tablet 10 mg PO HS RF: 0 olanzapine 5 mg Tablet 5 mg PO HS Qty: 30 RF: 0 melatonin 3 mg Tablet 3 mg PO HS Qty: 30 RF: 0 olanzapine 2.5 mg Tablet 2.5 mg PO QAM Qty: 30 RF: 0 finasteride [Proscar] 5 mg Tablet 5 mg PO QAM Qty: 30 RF: 0 docusate sodium [Colace] 100 mg capsule 100 mg PO DAILY RF: 0 Referrals Referrals: Kalie Orozco [Primary Care Provider] -
--- NOTE | 2021-12-03 12:19 | XRay Report ---
XR chest 1V portable CLINICAL HISTORY: SEPSIS. COMPARISON STUDY: 10/07/2021 TECHNIQUE: 1 view of the chest FINDINGS: Single frontal view of the chest demonstrates the cardiomediastinal silhouette to be within normal li mits. There is again elevation of hemidiaphragms bilaterally. The lungs are clear of alveolar opaciti es. There is no evidence for pleural effusion. There is no evidence for vascular congestion. There is no acute osseous pathology. IMPRESSION: 1. No acute cardiopulmonary disease. ACT 112: Negative or not required by law. Electronically signed by: Kemal Downs M.D. 12/03/2021 12:17 PM
[2021-12-03 12:20] LABS: Appearance Urine Turbid (Clear); Bacteria Urine Automated 2+ (Negative); Bilirubin Urine Negative (Negative); Blood Urine 2+ (Negative); Color Urine Yellow; Epithelial Cell Urine Auto >30 /lpf (0-5); Glucose Urine UA Negative (Negative); Ketones Urine Negative (Negative); Leukocyte Esterase Urine 3+ (Negative); Nitrite Urine Negative (Negative); Protein Urine Trace (Negative); Specific Gravity Urine 1.022 (1.000-1.030); Urobilinogen Urine Negative (Negative); WBC Urine Automated >30 /hpf (0-5)
[2021-12-03 12:28] LABS: Basophils # (auto) 0.02 K/uL (0-0.2); Basophils % (auto) 0.6 %; Eosinophils # (auto) 0.01 K/uL (0-0.5); Eosinophils % (auto) 0.3 %; Hematocrit (blood only) 38.6 % (42-52); Hemoglobin 12.8 g/dL (14.0-18.0); Immature Granulocytes # (auto) 0.01 K/uL (0.00-0.02); Immature Granulocytes % (auto) 0.3 %; Lymphocytes # (auto) 0.66 K/uL (1.2-3.4); Lymphocytes % (auto) 18.8 %; Mean Corpuscular Hemoglobin 30.3 pg (25-34); Mean Corpuscular Hgb Conc 33.2 g/dL (32-36); Mean Corpuscular Volume 91.5 fL (80-100); Mean Platelet Volume 9.6 fL (7.4-10.4); Monocytes # (auto) 0.63 K/uL (0.11-0.59); Monocytes % (auto) 17.9 %; Neutrophils # (auto) 2.19 K/uL (1.4-6.5); Neutrophils % (auto) 62.1 %; Platelet Count 173 K/uL (130-400); RDW Coefficient of Variation 13.6 % (11.5-14.5); RDW Standard Deviation 45.5 fL (36.4-46.3); Red Blood Count 4.22 M/uL (4.7-6.1); White Blood Count 3.52 K/uL (4.8-10.8)
[2021-12-03 12:45] LABS: INR 1.1 (0.9-1.1); Partial Thromboplastin Ratio 1.2; Partial Thromboplastin Time 32.2 Seconds (21.0-31.0); Prothrombin Time 11.4 Seconds (9.0-12.0)
[2021-12-03 12:55] LABS: Albumin Globulin Ratio 1.1 (0.9-2); Albumin Level 3.7 gm/dl (3.4-5.0); BUN Creatinine Ratio 18.2 (10-20); Bilirubin,Total 0.6 mg/dl (0.2-1.0); Calcium 9.1 mg/dl (8.5-10.1); Creatinine Clr Calc Pharmacy 58.9 ml/min; Est GFR (Non-African American) 68.1 ml/min; Globulin 3.3 gm/dl (2.5-4.0); Magnesium 1.8 mg/dl (1.7-2.4); Potassium 4.3 mmol/L (3.5-5.1)
[2021-12-03 13:49] LABS: Influenza A virus by PCR Negative (Neg); Influenza B virus by PCR Negative (Neg); RSV by PCR Negative (Neg)
[2021-12-03] MEDS ORDERED: SODIUM CHLORIDE 0.9% 1000ML 1,000 ML IV ONE (13:57)
[2021-12-03 13:59] LABS: SARS CoV2 RNA(COVID-19) InHosp POSITIVE (Negative)
--- NOTE | 2021-12-03 14:59 | Electrocardiogram Report ---
Test Reason : Blood Pressure : / mmHG Vent. Rate : 078 BPM Atrial Rate : 078 BPM P-R Int : 178 ms QRS Dur : 128 ms QT Int : 402 ms P-R-T Axes : 033 -34 -06 degrees QTc Int : 458 ms Poor data quality, interpretation may be adversely affected Normal sinus rhythm Left axis deviation Right bundle branch block Abnormal ECG When compared with ECG of 07-OCT-2021 10:07, T wave inversion no longer evident in Lateral leads Confirmed by Andres Medellin ([id number]) on 12/03/2021 2:59:39 PM Referred By: REFERRED SELF Confirmed By:Cricket Medellin
[2021-12-03] MEDS ORDERED: ACETAMINOPHEN 325 MG TAB PO PRN (15:36)
[2021-12-03] MEDS ORDERED: ENOXAPARIN INJ 40 MG/0.4 ML SYR SQ SCH (15:45)
--- NOTE | 2021-12-03 16:56 | History & Physical Report ---
Date of Service December 03, 2021 Assessment & Plan (1) COVID-19: Plan: COVID 19 positive- unsure of day of onset of symptoms - received 1liter crystalloid with improvement in BP and he has urinated - Continue with supportive care at this time - fluids as needed and oxygen if needed - currently without oxygen requirement- consider steroids if needed - will hold on Remdisivir at this time secondary to unkonwn onset of symptoms as well as unable to have informed discussion with patient or family - ESR, CRP, LDH pending in am - PCT negative - VTE- Lovenox 40mg subq daily- high fall risk (2) Weakness: Plan: Chronic but likely worsened by above - continue supportive care (3) 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 History of Present Illness Primary Care Provider: [facility] 70 YOM with medical history of: end stage dementia, chronic emphysematous bladder with colovesicular fistula, HTN, GERD, UTI, HLD, CVA. Patient is resident to the [facility] and was brought to the emergency room today for concern of increase in fatigue and worsening encephalopathy. The patient also pulled his Weston catheter out over this week. In the EMD the patient had routine labs performed to include blood culture, UA with urine culture, and COVID test. The pateint lab work is notable for lymphopenia and positive COVID. His urine is noted with LE, WBC and epis without nitrite. He was given a dose of Cefepime by EMD. This is likely chronic and will wait for his urine culture, his PCT is negative. He remains demented and with expressive aphasia from previous CVA. Likely fatigued related to COVID. Attempted to call his two brothers who have been involved with his care in the past, but there is no answer. Will attempt later in the evening. COVID PCR: NEGATIVE Allergies Allergy/AdvReac Type Severity Reaction Status Date / Time No Known Allergies Allergy Verified 12/03/21 14:46 Home Medications Medication Instructions Recorded Confirmed Type aspirin 81 mg tablet,delayed 81 mg PO DAILY #90 tab 02/26/21 12/03/21 Rx release (Aspirin Low Dose) cholecalciferol (vitamin D3) 125 5,000 units PO DAILY #30 tab 02/26/21 12/03/21 Rx mcg (5,000 unit) tablet escitalopram oxalate 20 mg tablet 20 mg PO DAILY #30 tab 02/26/21 12/03/21 Rx omeprazole 20 mg capsule,delayed 20 mg PO DAILY #30 cap 02/26/21 12/03/21 Rx release docusate sodium 100 mg capsule 100 mg PO DAILY 08/25/21 12/03/21 History (Colace) tamsulosin 0.4 mg capsule 0.4 mg PO DAILY #30 cap 09/03/21 12/03/21 Rx atorvastatin 10 mg tablet 10 mg PO HS 09/19/21 12/03/21 History donepezil 10 mg tablet 10 mg PO HS 09/19/21 12/03/21 History foxfavxbjcas-xibkqrtm-jtvaiy tablet 1 tab PO QAM 09/19/21 12/03/21 History finasteride 5 mg tablet (Proscar) 5 mg PO QAM #30 tab 09/29/21 12/03/21 Rx melatonin 3 mg tablet 3 mg PO HS #30 tab 09/29/21 12/03/21 Rx olanzapine 2.5 mg tablet 2.5 mg PO QAM #30 tab 09/29/21 12/03/21 Rx olanzapine 5 mg tablet 5 mg PO HS #30 tab 09/29/21 12/03/21 Rx Past Med/Surg History Medical History Arthritis of right hip Aspiration into airway BPH (benign prostatic hyperplasia) Cellulitis and abscess of face Dementia Dental abscess Depression with anxiety Elevated BP without diagnosis of hypertension Expressive aphasia GERD (gastroesophageal reflux disease) Hyperlipidemia Obtunded Vitamin D insufficiency Surgical History H/O total hip arthroplasty Right History of hernia repair Family History Mother Myocardial infarction Other Hypertension Denies family history of Ovarian cancer Prostate cancer Breast cancer Colorectal cancer Social History Smoking Status: Unknown if ever smoked Second Hand Exposure: No; Hx Alcohol Use: No Hx Substance Use: No Preferred Language: Portuguese Communication Ability: Unable Chemical Processor Required: No Beliefs That Will Affect Care: None marital status: Single Current Living Situation: Custodial Current Living Situation Comment: na current occupational status: disabled Feels Safe at Home: Yes Childhood Exposure to Second-Hand Smoke: No caffeine: Yes during the past year weight has: remained stable Dental Care, Regularly: Yes Seatbelt Use: always Sunscreen Use: No Assistive Devices: None Review of Systems Review of Systems: REVIEW OF SYSTEMS: Unable to complete secondary dementia Physical Exam Physical Exam: PHYSICAL EXAM: General: awake, no apparent distress Head: Normocephalic, atraumatic ENT: PERRL, EOMI, no pharyngeal exudate, mucous membranes moist Neuro: AAO x 1, speech garbled and nonsensical, strength intact bilaterally 5/5, withdraws to pain, and equal all extremities and dermatomes, no pronator drift Chest: equal rise and fall of the chest, no accessory muscle use, no heaves or thrills, Clear to auscultation, on room air, Cardiac: Regular rate and rhythm, telemetry reviewed, skin warm dry, cap refill <3 seconds, peripheral pulses +2 no JVD, no murmur, no edema GI: NABS x 4 quadrants, soft, nontender to palpation, no rebound, guarding or tenderness : incontinent will replace Weston Extremities: Normal inspection, no peripheral edema or erythema, calfs nontender to palpation Psych: dementia- came to the hospital "for something to do" Results & Data Results & Data ([facility]) Vital Signs (Past 12 Hours) Vital Signs Temp Pulse Pulse Resp BP BP Pulse Ox 12/03/21 16:01 56 L 56 L 18 109/75 96 12/03/21 15:16 60 18 105/67 98 12/03/21 14:50 53 L 15 99/67 L 94 12/03/21 14:30 69 19 94 12/03/21 14:00 62 16 95/63 L 95 12/03/21 13:44 63 19 100/58 L 96 12/03/21 13:33 73 18 85/63 L 95 12/03/21 13:30 74 72 17 84/57 L 84/57 L 95 12/03/21 13:20 69 17 92/56 L 94 12/03/21 13:10 94 H 17 85/58 L 96 12/03/21 12:46 37.1 C 82 18 101/59 L 96 12/03/21 12:40 83 21 101/59 L 96 12/03/21 12:20 79 23 98/67 L 93 12/03/21 12:15 18 97 12/03/21 12:00 75 20 105/71 96 12/03/21 11:45 81 18 98/67 L 97 12/03/21 11:30 37.7 C H 78 18 115/69 95 Laboratory Results Abnormal lab results 12/03/21 12/03/21 12/03/21 Range/Units 11:58 12:13 12:13 WBC 3.52 L (4.8-10.8) K/uL RBC 4.22 L (4.7-6.1) M/uL Hgb 12.8 L (14.0-18.0) g/dL Hct 38.6 L (42-52) % Lymph # (Auto) 0.66 L (1.2-3.4) K/uL [place] # (Auto) 0.63 H (0.11-0.59) K/uL APTT 32.2 H (21.0-31.0) Seconds Urine Appearance Turbid A (Clear) Urine Protein Trace H (Negative) Urine Blood 2+ H (Negative) Ur Leukocyte Esterase 3+ H (Negative) Urine WBC (Auto) >30 H (0-5) /hpf Urine RBC (Auto) 5-10 H (0-4) /hpf U Hyaline Cast (Auto) 10-30 H (0-5) /lpf U Epithel Cells (Auto) >30 H (0-5) /lpf Urine Bacteria (Auto) 2+ H (Negative) Granular Casts 1-5 H (0) /lpf SARS-CoV-2 (PCR) (Negative) 12/03/21 Range/Units 12:23 WBC (4.8-10.8) K/uL RBC (4.7-6.1) M/uL Hgb (14.0-18.0) g/dL Hct (42-52) % Lymph # (Auto) (1.2-3.4) K/uL [place] # (Auto) (0.11-0.59) K/uL APTT (21.0-31.0) Seconds Urine Appearance (Clear) Urine Protein (Negative) Urine Blood (Negative) Ur Leukocyte Esterase (Negative) Urine WBC (Auto) (0-5) /hpf Urine RBC (Auto) (0-4) /hpf U Hyaline Cast (Auto) (0-5) /lpf U Epithel Cells (Auto) (0-5) /lpf Urine Bacteria (Auto) (Negative) Granular Casts (0) /lpf SARS-CoV-2 (PCR) POSITIVE A* (Negative) Diagnostic Findings Chest X-Ray 12/03/21 11:45 XR chest 1V portable CLINICAL HISTORY: SEPSIS. COMPARISON STUDY: 10/07/2021 TECHNIQUE: 1 view of the chest FINDINGS: Single frontal view of the chest demonstrates the cardiomediastinal silhouette to be within normal limits. There is again elevation of hemidiaphragms bilaterally. The lungs are clear of alveolar opacities. There is no evidence for pleural effusion. There is no evidence for vascular congestion. There is no acute osseous pathology. IMPRESSION: 1. No acute cardiopulmonary disease. ACT 112: Negative or not required by law. Electronically signed by: Kemal Downs M.D. 12/03/2021 12:17 PM Medications Administered Home Medications aspirin 81 mg tablet,delayed release (Aspirin Low Dose) 81 mg PO DAILY #90 tab 02/26/21 [Rx Confirmed 12/03/21] cholecalciferol (vitamin D3) 125 mcg (5,000 unit) tablet 5,000 units PO DAILY #30 tab 02/26/21 [Rx Confirmed 12/03/21] escitalopram oxalate 20 mg tablet 20 mg PO DAILY #30 tab 02/26/21 [Rx Confirmed 12/03/21] omeprazole 20 mg capsule,delayed release 20 mg PO DAILY #30 cap 02/26/21 [Rx Confirmed 12/03/21] docusate sodium 100 mg capsule (Colace) 100 mg PO DAILY 08/25/21 [History Confirmed 12/03/21] tamsulosin 0.4 mg capsule 0.4 mg PO DAILY #30 cap 09/03/21 [Rx Confirmed 12/03/21] atorvastatin 10 mg tablet 10 mg PO HS 09/19/21 [History Confirmed 12/03/21] donepezil 10 mg tablet 10 mg PO HS 09/19/21 [History Confirmed 12/03/21] nyxywabdtarc-jnolihul-wblelr tablet 1 tab PO QAM 09/19/21 [History Confirmed 12/03/21] finasteride 5 mg tablet (Proscar) 5 mg PO QAM #30 tab 09/29/21 [Rx Confirmed 12/03/21] melatonin 3 mg tablet 3 mg PO HS #30 tab 09/29/21 [Rx Confirmed 12/03/21] olanzapine 2.5 mg tablet 2.5 mg PO QAM #30 tab 09/29/21 [Rx Confirmed 12/03/21] olanzapine 5 mg tablet 5 mg PO HS #30 tab 09/29/21 [Rx Confirmed 12/03/21] Active Medications Acetaminophen (Acetaminophen 325 Mg Tab) 650 mg PO Q4H PRN PRN Reason: Pain or Fever Stop: 01/02/22 15:35 Enoxaparin Sodium (Enoxaparin Inj 40 Mg/0.4 Ml Syr) 40 mg SQ Q24H KAI Stop: 01/02/22 15:44 ECG Additional Comments: Test Reason : Blood Pressure : / mmHG Vent. Rate : 078 BPM Atrial Rate : 078 BPM P-R Int : 178 ms QRS Dur : 128 ms QT Int : 402 ms P-R-T Axes : 033 -34 -06 degrees QTc Int : 458 ms Poor data quality, interpretation may be adversely affected Normal sinus rhythm Left axis deviation Right bundle branch block Abnormal ECG When compared with ECG of 07-OCT-2021 10:07, T wave inversion no longer evident in Lateral leads Confirmed by Andres Medellin ([id number]) on 12/03/2021 2:59:39 PM Referred By: REFERRED SELF Confirmed By:Cricket Medellin Code Status & VTE Plan Code Status CODE: DNR/DNI- based on previous discussion with family and documentation- need to confirm again with family VTE: SCDS, Lovenox 40mg sub q daily VTE Prophylaxis Plan VTE Prophylaxis will be ordered: Yes Supervising Physician Co-Signing Physician Notes I personally saw and examined the patient. I verified all russ points and agree with TATYANA Ace with the following exceptions and/or additions: 70 year old male admission for COVID-19. Unable to get any history from patient. O/E Rhonchi bilaterally, no accessory muscle use, regular rate rhythm, no murmur, no edema, alert but not orientated x3, PERRL A/P COVID-19 -symptomatic treatment only at this stage as not requiring oxygen. Agree with holding remdesivir on admission. PG Care Time/CCT Total # of Minutes Spent Total Time Spent with Patient: Total time spent is greater than 50% in coordination of care (as documented) at patient's floor/unit and/or counseling patient: Coding Level of Care Code 20399 Initial Inpt Care Lvl 3 Diagnoses COVID-19 U07.1 Weakness R53.1 Emphysematous cystitis N30.80 Major neurocognitive disorder due to multiple etiologies with behavioral disturbance F02.81 Hyperlipidemia E78.5
[2021-12-04] MEDS: ATORVASTATIN 10 MG TAB PO SCH ×2 (00:42→21:35)
[2021-12-04] MEDS: MELATONIN 3 MG TAB PO SCH ×2 (00:42→21:36)
[2021-12-04] MEDS: DONEPEZIL HCL 10 MG TAB PO SCH ×2 (00:42→21:36)
[2021-12-04] MEDS: OLANZapine 5 MG TABLET PO SCH ×2 (00:42→21:37)
[2021-12-04 06:44] LABS: Basophils # (auto) 0.01 K/uL (0-0.2); Basophils % (auto) 0.1 %; Hemoglobin 12.3 g/dL (14.0-18.0); Immature Granulocytes # (auto) 0.02 K/uL (0.00-0.02); Immature Granulocytes % (auto) 0.3 %; Lymphocytes # (auto) 0.85 K/uL (1.2-3.4); Lymphocytes % (auto) 11.6 %; Mean Corpuscular Hemoglobin 30.6 pg (25-34); Mean Corpuscular Hgb Conc 33.2 g/dL (32-36); Mean Platelet Volume 10.3 fL (7.4-10.4); Monocytes # (auto) 0.86 K/uL (0.11-0.59); Monocytes % (auto) 11.7 %; Neutrophils # (auto) 5.59 K/uL (1.4-6.5); Neutrophils % (auto) 76.3 %; Platelet Count 154 K/uL (130-400); RDW Coefficient of Variation 13.7 % (11.5-14.5); RDW Standard Deviation 46.2 fL (36.4-46.3); Red Blood Count 4.02 M/uL (4.7-6.1); White Blood Count 7.33 K/uL (4.8-10.8)
[2021-12-04 06:56] LABS: BUN Creatinine Ratio 18.4 (10-20); C Reactive Protein 3.8 mg/dl (0-0.5); Calcium 8.5 mg/dl (8.5-10.1); Creatinine Clr Calc Pharmacy 54.7 ml/min; Est GFR (African American) 75.6 ml/min; Est GFR (Non-African American) 65.3 ml/min; Magnesium 1.7 mg/dl (1.7-2.4); Potassium 3.5 mmol/L (3.5-5.1)
[2021-12-04] MEDS: DOCUSATE SODIUM 100 MG CAP PO SCH (08:25)
[2021-12-04] MEDS: FINASTERIDE 5 MG TAB PO SCH (08:25)
[2021-12-04] MEDS: CHOLECALCIFEROL 5,000 UNITS 125 MCG TAB PO SCH (08:25)
[2021-12-04] MEDS: TAMSULOSIN HCL 0.4 MG CAP PO SCH (08:25)
[2021-12-04] MEDS: ESCITALOPRAM OXALATE 20 MG TAB PO SCH (08:25)
[2021-12-04] MEDS: PANTOprazole 40 MG TAB PO SCH (08:25)
[2021-12-04] MEDS: OLANZAPINE 2.5 MG TAB PO SCH (08:25)
[2021-12-04] MEDS: ASPIRIN 81 MG ECTAB PO SCH (08:25)
[2021-12-04] MEDS: ENOXAPARIN INJ 40 MG/0.4 ML SYR SQ SCH (09:23)
--- NOTE | 2021-12-04 12:43 | Hospitalist Progress Note ---
Date of Service December 04, 2021 Assessment & Plan (1) COVID-19: Plan: COVID 19 positive- unsure of day of onset of symptoms. Per RN, no one else at [facility] testing positive, so no known time frame for exposure. 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 - Replaced Weston catheter to assist with emptying bladder - [facility] at [facility]. - Continue Flomax - Started ceftriaxone on 12/04 for urine cx growing Gram(-) bacilli and Alpha St rep. (3) Weakness: Plan: Chronic but likely worsened by above. - Continue supportive care (4) Major neurocognitive disorder due to multiple etiologies with behavioral disturbance: Plan: Seems to have improved following last admission with adition of olanzapine. - Continue donepezil for his dementia - Continue olanzapine - Continue with escitalopram -> All meds as able; presently not able to take any oral meds. (5) Hyperlipidemia: Plan: Hx of CVA as well. - Continue atorvastatin and ASA (6) DVT prophylaxis: Plan: Lovenox 40 mg SQ daily Admission and Anticipated Discharge Date Admission Date: December 03, 2021 Subjective Unresponsive. He does grasp my hand and try to pull it back if I pull. He coughed while in the room and opened his eyes slightly. Review of Systems Review of Systems: Unobtainable due to cognitive status Physical Exam Constitutional: + acute distress and + ill appearing Eyes: no conjunctival abnormality and + EOM not intact ENMT: external ear and nose normal, oropharynx normal Neck: trachea midline, no thyromegaly normal visual inspection Respiratory: + cough; no respiratory distress Auscultation: + rhonchi; no wheezes Cardiovascular: RRR, no murmur, no edema Gastrointestinal (Abdomen): Inspection/Auscultation: abdomen normal to inspection; abdomen not distended Musculoskeletal: no cyanosis or clubbing, extremities motor strength 5/5 S trength tested as best as able by pushing/pulling on limbs Skin: no rashes, warm and dry Neurologic: moves all extremities; + not awake Psychiatric: Orientation: + not alert and + not oriented to person Results & Data Results & Data ([facility]) Vital Signs (Past 12 Hours) Vital Signs Temp Pulse Pulse Resp BP Pulse Ox 12/04/21 12:08 36.8 C 85 16 141/71 H 92 12/04/21 08:00 86 12/04/21 07:53 36.8 C 83 20 121/72 92 12/04/21 04:00 37 C 90 16 157/79 H 91 PG Care Time/CCT Total # of Minutes Spent Total Time Spent with Patient: Total time spent is greater than 50% in coordination of care (as documented) at patient's floor/unit and/or counseling patient: Coding Level of Care Code 33064 Subseq Hosp Care Lvl 3 Diagnoses COVID-19 U07.1 Weakness R53.1 Emphysematous cystitis N30.80 Major neurocognitive 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
[2021-12-04] MEDS ORDERED: cefTRIAXone SODIUM 1,000 MG in DEXTROSE 5% 50 ML IV SCH (13:00)
[2021-12-05] MEDS ORDERED: ACETAMINOPHEN 1,000 MG/100 ML VIAL IV PRN (05:23)
[2021-12-05 07:00] LABS: Basophils # (auto) 0.01 K/uL (0-0.2); Basophils % (auto) 0.1 %; Hematocrit (blood only) 40.4 % (42-52); Hemoglobin 13.9 g/dL (14.0-18.0); Immature Granulocytes # (auto) 0.05 K/uL (0.00-0.02); Immature Granulocytes % (auto) 0.5 %; Lymphocytes # (auto) 0.85 K/uL (1.2-3.4); Lymphocytes % (auto) 8.9 %; Mean Corpuscular Hemoglobin 31.2 pg (25-34); Mean Corpuscular Hgb Conc 34.4 g/dL (32-36); Mean Corpuscular Volume 90.8 fL (80-100); Mean Platelet Volume 10.4 fL (7.4-10.4); Monocytes # (auto) 0.97 K/uL (0.11-0.59); Monocytes % (auto) 10.1 %; Neutrophils # (auto) 7.71 K/uL (1.4-6.5); Neutrophils % (auto) 80.4 %; Platelet Count 131 K/uL (130-400); RDW Coefficient of Variation 13.4 % (11.5-14.5); RDW Standard Deviation 44.6 fL (36.4-46.3); Red Blood Count 4.45 M/uL (4.7-6.1); White Blood Count 9.59 K/uL (4.8-10.8)
[2021-12-05 07:23] LABS: BUN Creatinine Ratio 20.7 (10-20); Calcium 8.8 mg/dl (8.5-10.1); Creatinine Clr Calc Pharmacy 50.9 ml/min; Est GFR (African American) 70.4 ml/min; Est GFR (Non-African American) 60.7 ml/min; Magnesium 1.7 mg/dl (1.7-2.4); Potassium 3.3 mmol/L (3.5-5.1)
[2021-12-05] MEDS: ESCITALOPRAM OXALATE 20 MG TAB PO SCH (09:28)
[2021-12-05] MEDS: CHOLECALCIFEROL 5,000 UNITS 125 MCG TAB PO SCH (09:28)
[2021-12-05] MEDS: DOCUSATE SODIUM 100 MG CAP PO SCH (09:28)
[2021-12-05] MEDS: ASPIRIN 81 MG ECTAB PO SCH (09:28)
[2021-12-05] MEDS: FINASTERIDE 5 MG TAB PO SCH (09:28)
[2021-12-05] MEDS: TAMSULOSIN HCL 0.4 MG CAP PO SCH (09:28)
[2021-12-05] MEDS: OLANZAPINE 2.5 MG TAB PO SCH (09:28)
[2021-12-05] MEDS: PANTOprazole 40 MG TAB PO SCH (09:28)
[2021-12-05] MEDS: ENOXAPARIN INJ 40 MG/0.4 ML SYR SQ SCH (09:49)
--- NOTE | 2021-12-05 10:45 | CT Scan Report ---
CT chest diagnostic wo con, CT abd pelvis wo con CT DOSE: 892.30 mGycm CLINICAL HISTORY: 70 years-old Male with Fever, increased respiratory distress. Acute fever with res piratory distress. COVID Positive. TECHNIQUE: Multiaxial CT images of the chest, abdomen and pelvis were performed without contrast. A dose lowering technique was utilized adhering to the principles of ALARA. COMPARISON: Chest radiograph 12/03/2021, CT abdomen and pelvis 09/25/2021 FINDINGS: CT CHEST: Mildly heterogeneous thyroid. No pathologically enlarged lymph nodes. Cardiomegaly with moderate ruby nary artery calcifications. Trace pericardial effusion. Trace right and small left pleural effusions. Mild left hemidiaphragmatic elevation. No pneumothorax. Mild subsegmental dependent atelectasis of t he right lower lobe. Dense airspace consolidation of the left lower lobe with additional scattered ce ntrilobular nodular consolidative opacities within the superior segment left lower lobe, lingula and to lesser extent within the right upper and lower lobes. Mild tracheobronchial secretions. Study is d egraded by respiratory motion artifact. Limited study secondary to upper extremity positioning. Degen erative changes of the spine and shoulders. No destructive bone lesions are identified. CT ABDOMEN/PELVIS: No pneumatosis or pneumoperitoneum. The study is degraded by extremity positioning and respiratory mo tion artifact. Unremarkable unenhanced spleen, visualized pancreas, and adrenal glands. There is sugg estion of mild hepatic steatosis. Moderately distended gallbladder without cholelithiasis or wall thi ckening. Atherosclerosis of the aorta without aneurysm. There is no lymphadenopathy. Mild nonspecific bilateral perinephric stranding. No hydronephrosis. Streak artifact from the right h ip total joint arthroplasty limits evaluation of the pelvic structures. Prostamegaly. Decompressed ur inary bladder with Weston catheter in place. There is moderate bladder wall thickening with perivesicu lar stranding. Air and debris is noted within the urinary bladder. There is a suggested colovesicular fistula redemonstrated on image 339 series 6. Bowel contents appear to extend from the sigmoid bowel lumen into the urinary bladder through the fistulous tract. There is associated moderate sigmoid wal l thickening. Small hiatal hernia. Moderate fecal retention. Colonic diverticulosis. No bowel obstruc tion. The appendix is not definitively seen. Unremarkable soft tissues. Degenerative changes of the s pine. Chronic bilateral L5 pars defects with grade 1 anterolisthesis. IMPRESSION: 1. Limited exam as above. 2. Trace right and small left pleural effusions with dense airspace consolidation of the left lower l obe. Additional centrilobular opacities seen predominantly throughout the left lung are also noted wi th constellation of findings suggestive of multifocal pneumonia. 3. A colovesicular fistula is noted with moderate amount of air and debris within the urinary bladder . Urinary bladder wall thickening is suggestive of associated cystitis. 4. Moderate circumferential wall thickening of the mid sigmoid colon adjacent to the fistula site. 5. Moderate fecal retention. Nonobstructive bowel gas pattern. 6. Additional findings as above. ACT 112: Negative or not required by law. Electronically signed by: Jose Luis Encinas M.D. 12/05/2021 10:44 AM
--- NOTE | 2021-12-05 11:56 | Hospitalist Progress Note ---
Date of Service December 05, 2021 Assessment & Plan (1) COVID-19: Plan: COVID 19 positive- unsure of day of onset of symptoms. Per RN, no one else at [facility] testing positive, so no known time frame for exposure. - Continue with supportive care at this time - fluids as needed and oxygen if needed - Will hold on remdesivir at this time secondary to unknown onset of symptoms - Much worse pulmonary status on 12/05 - Now on 11 L from room air yesterday. Much more labored breathing. Will begin dexamethasone 6 mg IV daily. 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 - Replaced Weston catheter to assist with emptying bladder - Patient had pulled [facility] at [facility]F. - Continue Flomax - Started ceftriaxone on 12/04 for urine cx growing Enterobacter cloacae and Alpha Strep. (3) Weakness: Plan: Chronic but likely worsened by above. - Continue supportive care (4) Major neurocognitive disorder due to multiple etiologies with behavioral disturbance: Plan: Seems to have improved following last admission with adition of olanzapine. - Continue donepezil for his dementia - Continue olanzapine - Continue with escitalopram -> All meds as able; presently not able to take any oral meds. (5) Hyperlipidemia: Plan: Hx of CVA as well. - Continue atorvastatin and ASA (6) DVT prophylaxis: Plan: Lovenox 40 mg SQ daily Admission and Anticipated Discharge Date Admission Date: December 03, 2021 Subjective No response today. Review of Systems Review of Systems: Unobtainable due to cognitive status and Unobtainable due to reduced consciousness Physical Exam Constitutional: + acute distress and + ill appearing Eyes: no conjunctival abnormality and + EOM not intact ENMT: external ear and nose normal, oropharynx normal Neck: trachea midline, no thyromegaly normal visual inspection Respiratory: + labored breathing and + cough Auscultation: + rhonchi; no wheezes Cardiovascular: RRR, no murmur, no edema Gastrointestinal (Abdomen): Inspection/Auscultation: abdomen normal to inspection; abdomen not distended Musculoskeletal: no cyanosis or clubbing, extremities motor strength 5/5 Skin: no rashes, warm and dry Neurologic: moves all extremities; + not awake Psychiatric: Orientation: + not alert and + not oriented to person Results & Data Results & Data ([facility]) Vital Signs (Past 12 Hours) Vital Signs Temp Pulse Pulse Resp BP Pulse Ox 12/05/21 08:00 77 12/05/21 06:27 37.8 C H 73 26 H 92 12/05/21 05:20 38.8 C H 12/05/21 04:27 37.5 C 87 22 92 12/05/21 03:16 38.0 C H 96 H 22 108/66 91 PG Care Time/CCT Total # of Minutes Spent Total Time Spent with Patient: Total time spent is greater than 50% in coordination of care (as documented) at patient's floor/unit and/or counseling patient: Coding Level of Care Code 47867 Subseq Hosp Care Lvl 3 Diagnoses COVID-19 U07.1 Emphysematous cystitis N30.80 Weakness R53.1 Major neurocognitive 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
[2021-12-05] MEDS: dexAMETHasone 6 MG in SYRINGE 0 ML IV SCH (13:40)
[2021-12-05] MEDS: CEFEPIME 2,000 MG in SYRINGE 0 ML IV SCH (13:41)
[2021-12-05] MEDS: AZITHROMYCIN 500 MG in DEXTROSE 5% 250 ML IV SCH (15:38)
[2021-12-05] MEDS: ATORVASTATIN 10 MG TAB PO SCH (22:21)
[2021-12-05] MEDS: MELATONIN 3 MG TAB PO SCH (22:22)
[2021-12-05] MEDS: OLANZapine 5 MG TABLET PO SCH (22:22)
[2021-12-05] MEDS: DONEPEZIL HCL 10 MG TAB PO SCH (22:22)
[2021-12-06] MEDS: DOCUSATE SODIUM 100 MG CAP PO SCH (07:18)
[2021-12-06] MEDS: CHOLECALCIFEROL 5,000 UNITS 125 MCG TAB PO SCH (07:20)
[2021-12-06] MEDS: ASPIRIN 81 MG ECTAB PO SCH (07:20)
[2021-12-06] MEDS: ESCITALOPRAM OXALATE 20 MG TAB PO SCH (07:20)
[2021-12-06] MEDS: TAMSULOSIN HCL 0.4 MG CAP PO SCH (07:21)
[2021-12-06] MEDS: FINASTERIDE 5 MG TAB PO SCH (07:21)
[2021-12-06] MEDS: OLANZAPINE 2.5 MG TAB PO SCH (07:21)
[2021-12-06] MEDS: PANTOprazole 40 MG TAB PO SCH (07:21)
[2021-12-06 08:32] LABS: Hematocrit (blood only) 42.3 % (42-52); Hemoglobin 14.6 g/dL (14.0-18.0); Mean Corpuscular Hemoglobin 30.5 pg (25-34); Mean Corpuscular Hgb Conc 34.5 g/dL (32-36); Mean Corpuscular Volume 88.5 fL (80-100); Mean Platelet Volume 10.7 fL (7.4-10.4); Platelet Count 153 K/uL (130-400); RDW Coefficient of Variation 13.5 % (11.5-14.5); RDW Standard Deviation 44.1 fL (36.4-46.3); Red Blood Count 4.78 M/uL (4.7-6.1); White Blood Count 10.49 K/uL (4.8-10.8)
[2021-12-06 08:40] LABS: BUN Creatinine Ratio 39.4 (10-20); Calcium 9.7 mg/dl (8.5-10.1); Creatinine Clr Calc Pharmacy 60.3 ml/min; Est GFR (African American) 89.7 ml/min; Est GFR (Non-African American) 77.4 ml/min; Potassium 3.9 mmol/L (3.5-5.1)
[2021-12-06] MEDS: ENOXAPARIN INJ 40 MG/0.4 ML SYR SQ SCH (08:51)
[2021-12-06] MEDS: dexAMETHasone 6 MG in SYRINGE 0 ML IV SCH (08:51)
[2021-12-06 09:22] LABS: Immature Granulocytes # (auto) 0.02 K/uL (0.00-0.02); Immature Granulocytes % (auto) 0.2 %; Lymphocytes # (auto) 1.11 K/uL (1.2-3.4); Lymphocytes % (auto) 10.6 %; Monocytes # (auto) 0.54 K/uL (0.11-0.59); Monocytes % (auto) 5.1 %; Neutrophils # (auto) 8.82 K/uL (1.4-6.5); Neutrophils % (auto) 84.1 %
--- NOTE | 2021-12-06 13:20 | Electrocardiogram Report ---
Test Reason : Blood Pressure : / mmHG Vent. Rate : 061 BPM Atrial Rate : 061 BPM P-R Int : 176 ms QRS Dur : 154 ms QT Int : 510 ms P-R-T Axes : 052 -49 033 degrees QTc Int : 513 ms Poor data quality, interpretation may be adversely affected Normal sinus rhythm Left axis deviation Right bundle branch block Abnormal ECG When compared with ECG of 03-DEC-2021 11:44, QRS duration has increased Nonspecific T wave abnormality has replaced inverted T waves in Inferior leads QT has lengthened Confirmed by Khurram Mckeon ([id number]) on 12/06/2021 1:19:57 PM Referred By: REFERRED SELF Confirmed By:Khurram Mckeon
[2021-12-06] MEDS: CEFEPIME 2,000 MG in SYRINGE 0 ML IV SCH (13:33)
[2021-12-06] MEDS: AZITHROMYCIN 500 MG in DEXTROSE 5% 250 ML IV SCH (13:33)
[2021-12-06] MEDS: D5W AND NSS 1,000 ML IV SCH (13:53)
[2021-12-06] MEDS: POTASSIUM CHLORIDE / WTR 10 MEQ/100 ML PLCT IV SCH ×2 (13:53→14:56)
--- NOTE | 2021-12-06 13:57 | Hospitalist Progress Note ---
Date of Service December 06, 2021 Assessment & Plan (1) COVID-19: Plan: COVID 19 positive- unsure of day of onset of symptoms. Per RN, no one else at [facility] testing positive, so no known time frame for exposure. 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 - Replaced Weston catheter to assist with emptying bladder - [facility] had [facility] at [facility]. - Continue Flomax (5) Weakness: Plan: Chronic but likely worsened by above. - Continue supportive care (6) Malnutrition: Plan: Patient has not really eaten much since admission according to RN Will start IV dextrose saline Speech consult for swallow eval Nutritional consult (7) Major neurocognitive disorder due to multiple etiologies with behavioral disturbance: Plan: Seems to have improved following last admission with adition of olanzapine. - Continue donepezil for his dementia - Continue olanzapine - Continue with escitalopram -> All meds as able; presently not able to take any oral meds. (8) Hyperlipidemia: Plan: Hx of CVA as well. - Continue atorvastatin and ASA (9) DVT prophylaxis: Plan: Lovenox 40 mg SQ daily Plan: continue hospitalization Admission and Anticipated Discharge Date Admission Date: December 03, 2021 Subjective patient seen and examined, awake and alert, but I was unable to understand what he was trying to say Review of Systems Review of Systems: unreliable Physical Exam Physical Exam: The patient is awake, alert HEENT--PERRL, EOMI, mucous membranes and oropharynx mildly dry Neck--supple. No JVD. No bruits. Thyroid normal, trachea midline, no adenopathy. Heart--normal S1 and S2. No murmurs, rubs or gallops. Lungs--Reduced air entry on auscultation Abdomen--normal bowel sounds and soft. Mild epigastric and left sided abdominal pain Extremities--no cyanosis or clubbing. No edema. Dermatologic--normal skin turgor, normal color, no abnormal lymph nodes, no rash. Neurologic--cranial nerves II through XII grossly intact. Rheumatologic--normal range of motion. Psychiatric--unable to assess Results & Data Results & Data ([facility]) Vital Signs (Past 12 Hours) Vital Signs Temp Pulse Pulse Resp BP Pulse Ox 12/06/21 08:00 63 12/06/21 07:50 97.3 F L 89 20 168/106 H 95 12/06/21 04:50 97.9 F 60 21 158/80 H 93 Laboratory Results Laboratory Results - last 24 hr 12/06/21 12/06/21 07:59 07:59 WBC 10.49 RBC 4.78 Hgb 14.6 Hct 42.3 MCV 88.5 MCH 30.5 MCHC 34.5 RDW Std Deviation 44.1 RDW Coeff of Anjelica 13.5 Plt Count 153 MPV 10.7 H Immature Gran % (Auto) 0.2 Neut % (Auto) 84.1 Lymph % (Auto) 10.6 [place] % (Auto) 5.1 Eos % (Auto) 0.0 Baso % (Auto) 0.0 Neut # (Auto) 8.82 H Lymph # (Auto) 1.11 L [place] # (Auto) 0.54 Eos # (Auto) 0.00 Baso # (Auto) 0.00 Immature Gran # (Auto) 0.02 Sodium 136 Potassium 3.9 Chloride 102 Carbon Dioxide 25 Anion Gap 9 BUN 39 H Creatinine 0.99 Est Cr Clr Drug Dosing 60.3 Est GFR ( Amer) 89.7 Est GFR (Non-Af Amer) 77.4 BUN/Creatinine Ratio 39.4 H Glucose 126 H Calcium 9.7 Magnesium 2.0 PG Care Time/CCT Total # of Minutes Spent Total Time Spent with Patient: Total time spent is greater than 50% in coordination of care (as documented) at patient's floor/unit and/or counseling patient: Coding Level of Care Code 39631 Subseq Hosp Care Lvl 2 Diagnoses COVID-19 U07.1 Emphysematous cystitis N30.80 Weakness R53.1 Major neurocognitive 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 Respiratory failure with hypoxia J96.91 Acute UTI N39.0 Malnutrition E46 Time Spent (min) 35
[2021-12-06] MEDS: ATORVASTATIN 10 MG TAB PO SCH (20:08)
[2021-12-06] MEDS: OLANZapine 5 MG TABLET PO SCH (20:08)
[2021-12-06] MEDS: DONEPEZIL HCL 10 MG TAB PO SCH (20:08)
[2021-12-06] MEDS: MELATONIN 3 MG TAB PO SCH (20:08)
[2021-12-06] MEDS ORDERED: hydrALAZINE HCL 20 MG/ML VIAL IV PRN (21:15)
[2021-12-07] MEDS: D5W AND NSS 1,000 ML IV SCH ×4 (00:52→16:27)
[2021-12-07] MEDS: DOCUSATE SODIUM 100 MG CAP PO SCH (07:11)
[2021-12-07] MEDS: ENOXAPARIN INJ 40 MG/0.4 ML SYR SQ SCH (08:12)
[2021-12-07] MEDS: dexAMETHasone 6 MG in SYRINGE 0 ML IV SCH (08:12)
[2021-12-07] MEDS: FINASTERIDE 5 MG TAB PO SCH (08:31)
[2021-12-07] MEDS: ASPIRIN 81 MG ECTAB PO SCH (08:31)
[2021-12-07] MEDS: PANTOprazole 40 MG TAB PO SCH (08:31)
[2021-12-07] MEDS: TAMSULOSIN HCL 0.4 MG CAP PO SCH (08:31)
[2021-12-07] MEDS: OLANZAPINE 2.5 MG TAB PO SCH (08:31)
[2021-12-07] MEDS: ESCITALOPRAM OXALATE 20 MG TAB PO SCH (08:31)
[2021-12-07] MEDS: CHOLECALCIFEROL 5,000 UNITS 125 MCG TAB PO SCH (08:31)
[2021-12-07 09:05] LABS: Est GFR (African American) 100.6 ml/min; Est GFR (Non-African American) 86.8 ml/min
[2021-12-07] MEDS: CEFEPIME 2,000 MG in SYRINGE 0 ML IV SCH ×2 (11:23→23:57)
--- NOTE | 2021-12-07 12:56 | Pulmonary Consultation ---
Date of Consultation December 07, 2021 Assessment & Plan (1) Respiratory failure with hypoxia: (2) COVID-19: (3) Dementia: Dementia behavioral disturbance: with behavioral disturbance Dementia type: unspecified type Qualified Code(s): F03.91 - Unspecified dementia with behavioral disturbance (4) Expressive aphasia: Attending: Dr. Ortega Impression: This is a 70-year-old male that is a resident of the [facility]. He has a history of early onset dementia and expressive aphasia. Patient was found to have COVID positivity at the [facility] with out major symptoms. It is unclear as to when patient acquired COVID exposure. Patient is unable to provide review of systems or history. He was empirically started on azithromycin, dexamethasone, and remdesivir on admission 12/04/2021. Procalcitonin slightly elevated at 0.33. It should be noted the patient has a colovesicular fistula and that there is stool in the Weston bag and is also evidenced on the CT scan as being debris in the bladder. Currently on dexamethasone 6 mg IV daily, cefepime 2 g IV every 12 hours, azithromycin 500 mg IV daily, and remdesivir. Recommendations: 1. COVID-19: * CT scan with multifocal pneumonia and consolidation in the left base. * Unsure when patient contracted COVID-19. Would consider discontinuing remdesivir * Will continue steroids while patient is still requiring 4 L/min by nasal cannula for maintaining saturations above 90% * Patient in no acute distress * Continue to treat per COVID-19 protocol 2. Pneumonia: * CT scan and x-ray showed consolidation in the left base. This appears to be consistent with aspiration. Bedside swallow evaluation was completed and patient did pass that. * Procalcitonin is 0.33. This is most likely secondary to colovesicular fistula and cystitis and/or aspiration pneumonia. * Will continue to treat for aspiration pneumonia. Cefepime is adequate * Would keep head of bed greater than 30 degrees * Supervised feedings * Full aspiration precautions 3. Acute respiratory failure: * Most likely multifactorial COVID-19 as well as probable aspiration * Continue antibiotic therapy * Continue steroids * Will consider palliative care consult as patient has known colovesicular fistula with stool in the bladder. Thank you for this consult. At this time the pulmonary service will sign off. Please feel free to call or reconsult with any questions. Please refer to Dr. Ortega's addendum for any further recommendations. No History of Present Illness Reason for Consultation: Acute respiratory failure in the setting of COVID-19 Attending Physician: Ihsan Melgoza MD History of Present Illness Attending: Dr. Ortega This is a 70-year-old male that is currently a resident at [facility]. He appears to be demented and is nonverbal. Patient does not appear to be any acute distress. Past medical history includes malnutrition with a BMI of 19.6 kg/m, seizure-like activity, cystitis, history of aggressive behavior, dementia, bladder mass, vitamin D insufficiency, hyperlipidemia, arthritis of the right hip, expressive aphasia. Patient was found to be positive for COVID-19 at [facility] and transferred to [facility] for further management. Time of afshin COVID-19 is unknown. On admission patient was started on remdesivir and dexamethasone. He was also started on cefepime and azithromycin. Patient is nonverbal. He is unable to give me review of systems or any history. There are no behavioral disturbances at the time of my examination. Patient was rolled to do posterior exam for auscultation. There is no difficulty with this. Patient was cooperative for the entire examination. Review of chart as well as outpatient medications show no evidence of pulmonary disease or use of pulmonary inhalers. CT scan of the chest without contrast shows trace right and small left pleural effusion. There is also evidence of dense airspace consolidation of left lower lobe. In addition there appeared to be centrilobular opacities seen predominantly in the left lung suggestive of multifocal pneumonia. Bedside swallow study was completed this morning and patient was able to swallow without evidence of aspiration. It is unknown if the patient is ever smoked in the past. No reports of aspiration. T-max this admission was 38.8 C on 12/05/2021 at oh 5:20 AM. Patient has been afebrile since that time. Patient was hypoxic to 85% on 12/04/2021. Currently he is oxygenating 91% on 4 L/min via nasal cannula Allergies Allergy/AdvReac Type Severity Reaction Status Date / Time No Known Allergies Allergy Verified 12/03/21 14:46 Home Medications Medication Instructions Recorded Confirmed Type aspirin 81 mg tablet,delayed 81 mg PO DAILY #90 tab 02/26/21 12/03/21 Rx release (Aspirin Low Dose) cholecalciferol (vitamin D3) 125 5,000 units PO DAILY #30 tab 02/26/21 12/03/21 Rx mcg (5,000 unit) tablet escitalopram oxalate 20 mg tablet 20 mg PO DAILY #30 tab 02/26/21 12/03/21 Rx omeprazole 20 mg capsule,delayed 20 mg PO DAILY #30 cap 02/26/21 12/03/21 Rx release docusate sodium 100 mg capsule 100 mg PO DAILY 08/25/21 12/03/21 History (Colace) tamsulosin 0.4 mg capsule 0.4 mg PO DAILY #30 cap 09/03/21 12/03/21 Rx atorvastatin 10 mg tablet 10 mg PO HS 09/19/21 12/03/21 History donepezil 10 mg tablet 10 mg PO HS 09/19/21 12/03/21 History zmhqbamoevma-qzjomfio-acujfm tablet 1 tab PO QAM 09/19/21 12/03/21 History finasteride 5 mg tablet (Proscar) 5 mg PO QAM #30 tab 09/29/21 12/03/21 Rx melatonin 3 mg tablet 3 mg PO HS #30 tab 09/29/21 12/03/21 Rx olanzapine 2.5 mg tablet 2.5 mg PO QAM #30 tab 09/29/21 12/03/21 Rx olanzapine 5 mg tablet 5 mg PO HS #30 tab 09/29/21 12/03/21 Rx Patient History Medical History Arthritis of right hip BPH (benign prostatic hyperplasia) Cellulitis and abscess of face Dementia Dental abscess Depression with anxiety Elevated BP without diagnosis of hypertension Expressive aphasia GERD (gastroesophageal reflux disease) Hyperlipidemia Vitamin D insufficiency Surgical History H/O total hip arthroplasty Right History of hernia repair Family History Mother Myocardial infarction Other Hypertension Denies family history of Ovarian cancer Prostate cancer Breast cancer Colorectal cancer Social History Smoking Status: Unknown if ever smoked Second Hand Exposure: No; Do You Dip or Chew Tobacco: No; Tobacco Cessation Education Requested by Patient: No Hx Alcohol Use: No Hx Substance Use: No Preferred Language: Dutch Communication Ability: Unable Plant General Manager Required: No Beliefs That Will Affect Care: None marital status: Single Current Living Situation: [facility] Current Living Situation Comment: na current occupational status: disabled Feels Safe at Home: Yes Childhood Exposure to Second-Hand Smoke: No caffeine: Yes during the past year weight has: remained stable Dental Care, Regularly: Yes Seatbelt Use: always Sunscreen Use: No Assistive Devices: None Review of Systems Review of Systems: Unobtainable due to cognitive status Physical Exam Physical Exam: GENERAL : No acute distress EYES: No icterus, gaze conjugate NOSE: No evidence of epistaxis MOUTH: No lesions or candidiasis NECK: Supple LUNGS: Patient unable to cooperate with deep breath and holding. No overt bronchospasm, rales, rhonchi HEART: Regular, rate controlled ABDOMEN: Soft, NT, ND, BS Present EXTREMITIES: No LE edema, pedal pulses intact and equal bilaterally NEURO: A&OX3 Results & Data Results & Data ([facility]) Vital Signs (Past 12 Hours) Vital Signs Temp Pulse Pulse Resp BP Pulse Ox 12/07/21 12:16 94 12/07/21 11:34 99 12/07/21 08:00 63 12/07/21 03:53 36.5 C 66 24 154/83 H 100 Critical Care Results & Data Vital Signs (Past 12 Hours) Vital Signs Temp Pulse Pulse Resp BP Pulse Ox 12/07/21 12:16 94 12/07/21 11:34 99 12/07/21 08:00 63 12/07/21 03:53 36.5 C 66 24 154/83 H 100 Lab & Micro Results (Past 24 Hours) No Data to Display Creatinine 0.90 mg/dl (0.6-1.4) 12/07/21 Estimated GFR ( Amer) 100.6 ml/min 12/07/21 Estimated GFR (Non-Af Amer) 86.8 ml/min 12/07/21 No Data to Display Microbiology 12/05/21 08:55 Aerobic Blood Culture - Preliminary Blood No growth in Aerobic bottle after 48 hours. Anaerobic Blood Culture - Preliminary No growth in Anaerobic bottle after 48 hours. 12/05/21 08:55 Aerobic Blood Culture - Preliminary Blood No growth in Aerobic bottle after 48 hours. Anaerobic Blood Culture - Preliminary No growth in Anaerobic bottle after 48 hours. Diagnostic Findings (Past 24 Hours) CT chest diagnostic wo con, CT abd pelvis wo con CT DOSE: 892.30 mGycm CLINICAL HISTORY: 70 years-old Male with Fever, increased respiratory distress. Acute fever with respiratory distress. COVID Positive. TECHNIQUE: Multiaxial CT images of the chest, abdomen and pelvis were performed without contrast. A dose lowering technique was utilized adhering to the principles of ALARA. COMPARISON: Chest radiograph 12/03/2021, CT abdomen and pelvis 09/25/2021 FINDINGS: CT CHEST: Mildly heterogeneous thyroid. No pathologically enlarged lymph nodes. Cardiomegaly with moderate coronary artery calcifications. Trace pericardial effusion. Trace right and small left pleural effusions. Mild left hemidiaphragmatic elevation. No pneumothorax. Mild subsegmental dependent atelectasis of the right lower lobe. Dense airspace consolidation of the left lower lobe with additional scattered centrilobular nodular consolidative opacities within the superior segment left lower lobe, lingula and to lesser extent within the right upper and lower lobes. Mild tracheobronchial secretions. Study is degraded by respiratory motion artifact. Limited study secondary to upper extremity positioning. Degenerative changes of the spine and shoulders. No destructive bone lesions are identified. CT ABDOMEN/PELVIS: No pneumatosis or pneumoperitoneum. The study is degraded by extremity positioning and respiratory motion artifact. Unremarkable unenhanced spleen, visualized pancreas, and adrenal glands. There is suggestion of mild hepatic steatosis. Moderately distended gallbladder without cholelithiasis or wall thickening. Atherosclerosis of the aorta without aneurysm. There is no lymphadenopathy. Mild nonspecific bilateral perinephric stranding. No hydronephrosis. Streak artifact from the right hip total joint arthroplasty limits evaluation of the pelvic structures. Prostamegaly. Decompressed urinary bladder with Weston catheter in place. There is moderate bladder wall thickening with perivesicular stranding. Air and debris is noted within the urinary bladder. There is a suggested colovesicular fistula redemonstrated on image 339 series 6. Bowel contents appear to extend from the sigmoid bowel lumen into the urinary bladder through the fistulous tract. There is associated moderate sigmoid wall thickening. Small hiatal hernia. Moderate fecal retention. Colonic diverticulosis. No bowel obstruction. The appendix is not definitively seen. Unremarkable soft tissues. Degenerative changes of the spine. Chronic bilateral L5 pars defects with grade 1 anterolisthesis. IMPRESSION: 1. Limited exam as above. 2. Trace right and small left pleural effusions with dense airspace consolidation of the left lower lobe. Additional centrilobular opacities seen predominantly throughout the left lung are also noted with constellation of findings suggestive of multifocal pneumonia. 3. A colovesicular fistula is noted with moderate amount of air and debris within the urinary bladder. Urinary bladder wall thickening is suggestive of associated cystitis. 4. Moderate circumferential wall thickening of the mid sigmoid colon adjacent to the fistula site. 5. Moderate fecal retention. Nonobstructive bowel gas pattern. 6. Additional findings as above. ACT 112: Negative or not required by law. Electronically signed by: Jose Luis Encinas M.D. 12/05/2021 10:44 AM I & O Totals 24 Hours 12/06/21 12/07/21 12/08/21 06:59 06:59 06:59 Intake Total 255 / 255 1455 / 1455 1000 / 1000 Output Total 306 / 306 3 / 3 Balance -51 / -51 1452 / 1452 1000 / 1000 Cumulative 12/03/21 10:48 thru 12/07/21 10:52 Intake Total 4870 Output Total 2709 Balance 2161 RT Ventilator Mngmt (Last Documented) Ventilator Ordered Settings Respiratory Rate 24 12/07/21 03:53 Ventilator - PT Measurements Respiratory Rate 24 PG Care Time/CCT Total # of Minutes Spent Total Time Spent with Patient: Total time spent is greater than 50% in coordination of care (as documented) at patient's floor/unit and/or counseling patient: 60 minutes Coding Level of Care Code 79672 Inpt Consult Level 5 Exam Comprehensive Diagnoses Respiratory failure with hypoxia J96.91 COVID-19 U07.1 Dementia F03.91 Dementia behavioral disturbance: with behavioral disturbance Dementia type: unspecified type Expressive aphasia R47.01 Time Spent (min) 60
[2021-12-07] MEDS: AZITHROMYCIN 500 MG in DEXTROSE 5% 250 ML IV SCH (13:36)
--- NOTE | 2021-12-07 14:24 | Hospitalist Progress Note ---
Date of Service December 07, 2021 Assessment & Plan (1) COVID-19: Plan: COVID 19 positive- unsure of day of onset of symptoms. Per RN, no one else at [facility] testing positive, so no known time frame for exposure. Continue with supportive care at this time Was not started on remdesivir at this time secondary to unknown onset of symptoms Continue Dexamethasone (2) Respiratory failure with hypoxia: Plan: Secondary to COVID 19 PNA Patient currently on 4L of oxygen, will continue to wean as tolerated Appreciate Pulmonology recs (3) Malnutrition: Plan: passed swallow evaluation has been started on feeding Add nutritional supplements (4) Emphysematous cystitis: (5) Dementia: (6) UTI (urinary tract infection), bacterial: Plan: Urine cultures growing Enterobacter cloacae, amado sensitive Will continue ceftriaxone (7) Major neurocognitive disorder due to multiple etiologies with behavioral disturbance: Plan: Seems to have improved following last admission with addition of olanzapine. 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 -CT abdomen and pelvis shows evidence of likely fecal material in the bladder -Patient may need chronic antibiotic suppression - Replaced Weston catheter to assist with emptying bladder - Continue Flomax Plan: Back to [facility] when medically stable Lovenox DNR/DNI Admission and Anticipated Discharge Date Admission Date: December 03, 2021 Subjective patient seen and examined today, more awake and alert, but incoherent and disoriented Review of Systems Review of Systems: unrelaible due to confusion Physical Exam Physical Exam: The patient is awake, alert disoriented and chronically ill looking HEENT--PERRL, EOMI, mucous membranes and oropharynx mildly dry Neck--supple. No JVD. No bruits. Thyroid normal, trachea midline, no adenopathy. Heart--normal S1 and S2. No murmurs, rubs or gallops. Lungs--clear bilaterally, no respiratory distress, no accessory muscle use. Abdomen--normal bowel sounds and soft. Mild epigastric and left sided abdominal pain Extremities--no cyanosis or clubbing. No edema. Dermatologic--normal skin turgor, normal color, no abnormal lymph nodes, no rash. Neurologic--cranial nerves II through XII grossly intact. Rheumatologic--normal range of motion. Psychiatric--normal affect. Results & Data Results & Data ([facility]) Vital Signs (Past 12 Hours) Vital Signs Temp Pulse Pulse Resp BP Pulse Ox 12/07/21 13:05 97.7 F 68 18 98/63 L 99 12/07/21 12:16 94 12/07/21 11:34 99 12/07/21 08:00 63 12/07/21 03:53 97.7 F 66 24 154/83 H 100 PG Care Time/CCT Total # of Minutes Spent Total Time Spent with Patient: Total time spent is greater than 50% in coordination of care (as documented) at patient's floor/unit and/or counseling patient: Coding Level of Care Code 23596 Subseq Hosp Care Lvl 2 Diagnoses COVID-19 U07.1 Respiratory failure with hypoxia J96.91 Malnutrition E46 Emphysematous cystitis N30.80 Dementia F03.91 Dementia behavioral disturbance: with behavioral disturbance Dementia type: unspecified type UTI (urinary tract infection), bacterial N39.0; A49.9 Major neurocognitive disorder due to multiple etiologies with behavioral disturbance F02.81 Colovesical fistula N32.1 Time Spent (min) 35 (1) Dementia Dementia behavioral disturbance: with behavioral disturbance Dementia type: unspecified type Qualified Code(s): F03.91 - Unspecified dementia with behavioral disturbance
[2021-12-07] MEDS: SODIUM CHLORIDE 0.9% 1000ML 1,000 ML IV SCH ×2 (17:08→23:57)
[2021-12-07] MEDS: ATORVASTATIN 10 MG TAB PO SCH (22:30)
[2021-12-07] MEDS: MELATONIN 3 MG TAB PO SCH (22:31)
[2021-12-07] MEDS: DONEPEZIL HCL 10 MG TAB PO SCH (22:31)
[2021-12-07] MEDS: OLANZapine 5 MG TABLET PO SCH (22:31)
[2021-12-08 08:26] LABS: Hematocrit (blood only) 37.3 % (42-52); Hemoglobin 12.4 g/dL (14.0-18.0); Mean Corpuscular Hgb Conc 33.2 g/dL (32-36); Mean Corpuscular Volume 90.1 fL (80-100); Mean Platelet Volume 10.5 fL (7.4-10.4); Platelet Count 171 K/uL (130-400); RDW Coefficient of Variation 13.8 % (11.5-14.5); RDW Standard Deviation 45.8 fL (36.4-46.3); Red Blood Count 4.14 M/uL (4.7-6.1); White Blood Count 8.54 K/uL (4.8-10.8)
[2021-12-08 08:52] LABS: BUN Creatinine Ratio 46.5 (10-20); Calcium 9.3 mg/dl (8.5-10.1); Est GFR (African American) 102.5 ml/min; Est GFR (Non-African American) 88.5 ml/min; Potassium 3.1 mmol/L (3.5-5.1)
[2021-12-08] MEDS: SODIUM CHLORIDE 0.9% 1000ML 1,000 ML IV SCH (10:27)
[2021-12-08] MEDS: FINASTERIDE 5 MG TAB PO SCH (10:30)
[2021-12-08] MEDS: ASPIRIN 81 MG ECTAB PO SCH (10:30)
[2021-12-08] MEDS: CHOLECALCIFEROL 5,000 UNITS 125 MCG TAB PO SCH (10:31)
[2021-12-08] MEDS: TAMSULOSIN HCL 0.4 MG CAP PO SCH (10:31)
[2021-12-08] MEDS: ESCITALOPRAM OXALATE 20 MG TAB PO SCH (10:31)
[2021-12-08] MEDS: PANTOprazole 40 MG TAB PO SCH (10:31)
[2021-12-08] MEDS: OLANZAPINE 2.5 MG TAB PO SCH (10:31)
[2021-12-08] MEDS: dexAMETHasone 6 MG in SYRINGE 0 ML IV SCH (10:32)
[2021-12-08] MEDS: ENOXAPARIN INJ 40 MG/0.4 ML SYR SQ SCH (10:32)
[2021-12-08] MEDS: DOCUSATE SODIUM 100 MG CAP PO SCH (10:36)
[2021-12-08] MEDS: CEFEPIME 2,000 MG in SYRINGE 0 ML IV SCH ×2 (12:37→21:18)
[2021-12-08] MEDS ORDERED: amLODIPine BESYLATE 5 MG TAB PO ONE (13:57)
--- NOTE | 2021-12-08 14:30 | Hospitalist Progress Note ---
Date of Service December 08, 2021 Assessment & Plan (1) COVID-19: Plan: COVID 19 positive- unsure of day of onset of symptoms. Per RN, no one else at [facility] testing positive, so no known time frame for exposure. Continue with supportive care at this time Was not started on remdesivir at this time secondary to unknown onset of symptoms Continue Dexamethasone (2) Respiratory failure with hypoxia: Plan: Now resolved Currently on room air (3) Malnutrition: Plan: passed swallow evaluation has been started on feeding Add nutritional supplements (4) Emphysematous cystitis: (5) Dementia: (6) UTI (urinary tract infection), bacterial: Plan: Urine cultures growing Enterobacter cloacae, amado sensitive Will continue ceftriaxone Patient may need chronic suppression with antibiotics given persistent colovesical fistula (7) Major neurocognitive disorder due to multiple etiologies with behavioral disturbance: Plan: Seems to have improved following last admission with addition of olanzapine. 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 -CT abdomen and pelvis shows evidence of likely fecal material in the bladder -Patient may need chronic antibiotic suppression - Replaced Weston catheter to assist with emptying bladder - Continue Flomax Plan: Back to [facility] when medically stable, in the next 24-48 hrs Lovenox DNR/DNI Admission and Anticipated Discharge Date Admission Date: December 03, 2021 Subjective patient seen and examined today, more awake and alert, but incoherent and disoriented Review of Systems Review of Systems: unrelaible due to confusion Physical Exam Physical Exam: The patient is awake, alert disoriented and chronically ill looking HEENT--PERRL, EOMI, mucous membranes and oropharynx mildly dry Neck--supple. No JVD. No bruits. Thyroid normal, trachea midline, no adenopathy. Heart--normal S1 and S2. No murmurs, rubs or gallops. Lungs--clear bilaterally, no respiratory distress, no accessory muscle use. Abdomen--normal bowel sounds and soft. Mild epigastric and left sided abdominal pain Extremities--no cyanosis or clubbing. No edema. Dermatologic--normal skin turgor, normal color, no abnormal lymph nodes, no rash. Neurologic--cranial nerves II through XII grossly intact. Rheumatologic--normal range of motion. Psychiatric--normal affect. Results & Data Results & Data ([facility]) Vital Signs (Past 12 Hours) Vital Signs Temp Pulse Resp BP Pulse Ox 12/08/21 11:49 97.3 F L 62 19 176/87 H 92 12/08/21 08:14 98.4 F 59 L 18 158/82 H 92 12/08/21 04:53 97.9 F 79 16 174/85 H 92 PG Care Time/CCT Total # of Minutes Spent Total Time Spent with Patient: Total time spent is greater than 50% in coordination of care (as documented) at patient's floor/unit and/or counseling patient: Coding Level of Care Code 74101 Subseq Hosp Care Lvl 2 Diagnoses COVID-19 U07.1 Respiratory failure with hypoxia J96.91 Malnutrition E46 Emphysematous cystitis N30.80 Dementia F03.91 Dementia behavioral disturbance: with behavioral disturbance Dementia type: unspecified type UTI (urinary tract infection), bacterial N39.0; A49.9 Major neurocognitive disorder due to multiple etiologies with behavioral disturbance F02.81 Colovesical fistula N32.1 Time Spent (min) 35 (1) Dementia Dementia behavioral disturbance: with behavioral disturbance Dementia type: unspecified type Qualified Code(s): F03.91 - Unspecified dementia with behavioral disturbance
[2021-12-08] MEDS: DEXTROSE 5% 1,000 ML IV SCH ×2 (14:59→21:18)
[2021-12-08] MEDS: ATORVASTATIN 10 MG TAB PO SCH (21:19)
[2021-12-08] MEDS: DONEPEZIL HCL 10 MG TAB PO SCH (21:19)
[2021-12-08] MEDS: MELATONIN 3 MG TAB PO SCH (21:19)
[2021-12-08] MEDS: OLANZapine 5 MG TABLET PO SCH (21:19)
[2021-12-09] MEDS ORDERED: LORazepam 2 MG/1 ML VIAL ONE ×2 (09:23→09:52)
[2021-12-09] MEDS: DEXTROSE 5% 1,000 ML IV SCH ×2 (09:31→20:17)
[2021-12-09] MEDS: CHOLECALCIFEROL 5,000 UNITS 125 MCG TAB PO SCH (10:09)
[2021-12-09] MEDS: amLODIPine BESYLATE 5 MG TAB PO SCH (10:09)
[2021-12-09] MEDS: ASPIRIN 81 MG ECTAB PO SCH (10:09)
[2021-12-09] MEDS: DOCUSATE SODIUM 100 MG CAP PO SCH (10:09)
[2021-12-09] MEDS: TAMSULOSIN HCL 0.4 MG CAP PO SCH (10:10)
[2021-12-09] MEDS: FINASTERIDE 5 MG TAB PO SCH (10:10)
[2021-12-09] MEDS: ESCITALOPRAM OXALATE 20 MG TAB PO SCH (10:10)
[2021-12-09] MEDS: PANTOprazole 40 MG TAB PO SCH (10:10)
[2021-12-09] MEDS: OLANZAPINE 2.5 MG TAB PO SCH (10:10)
[2021-12-09 10:11] LABS: Hemoglobin 13.4 g/dL (14.0-18.0); Mean Corpuscular Hemoglobin 31.2 pg (25-34); Mean Corpuscular Hgb Conc 34.4 g/dL (32-36); Mean Corpuscular Volume 90.7 fL (80-100); Mean Platelet Volume 10.4 fL (7.4-10.4); Platelet Count 205 K/uL (130-400); RDW Coefficient of Variation 14.3 % (11.5-14.5); RDW Standard Deviation 47.4 fL (36.4-46.3); White Blood Count 15.26 K/uL (4.8-10.8)
[2021-12-09] MEDS: ENOXAPARIN INJ 40 MG/0.4 ML SYR SQ SCH (10:12)
[2021-12-09] MEDS ORDERED: VALPROATE SOD 500 MG in DEXTROSE 5% 50 ML IV STA (10:38)
[2021-12-09 10:39] LABS: BUN Creatinine Ratio 19.1 (10-20); Calcium 9.7 mg/dl (8.5-10.1); Est GFR (Non-African American) 18.1 ml/min; Potassium 3.8 mmol/L (3.5-5.1)
[2021-12-09] MEDS: dexAMETHasone 6 MG in SYRINGE 0 ML IV SCH (10:43)
--- NOTE | 2021-12-09 11:08 | Neurology Consultation ---
Date of Consultation December 09, 2021 Assessment & Plan (1) Seizure-like activity: (2) Major neurocognitive disorder due to multiple etiologies with behavioral disturbance: (3) Dementia: (4) Aggressive behavior: patient has new onset of seizure activity starting this morning of uncertain etiology. It seems generalized and there is a distinct myoclonic component to this. The patient has an elevated white count with no source of infection. He is rigid in all 4 limbs including his neck and has an end-stage dementia with behavioral disturbance and aggressive behavior Recommendations: 1. Depakote IV 500 milligrams loading dose now. 2.After the loading dose initiate Depakote IV 250 milligrams Q 6 hours starting at noon. 3. Trough Depakote level each morning. 4. CT scan of the head stat 5. EEG stat 6. obtain magnesium, TSH, B12 7. I will consider other testing such as MRI depending on his clinical course and the above tests. Overall, I spent a total of 60 minutes with this case including review of records, direct evaluation of the patient at bedside, and discussion of the case with the RN at bedside, pharmacist, and Dr. Melgoza including differential diagnosis and treatment options. History of Present Illness Reason for Consultation: Patient is a 70-year-old, who I was asked to see the request of Dr. Melgoza, for neurologic evaluation regarding new onset seizures in the face of end-stage dementia. Requesting Physician: Dr. Melgoza Attending Physician: Ihsan Melgoza MD History of Present Illness This patient is a resident of [facility] who was transferred to the hospital December 03 for increasing weakness and confusion. He was Covid-19 positive. This patient has a history of end-stage dementia, depression and anxiety, dyslipidemia , and a history of stroke. The patient was noted around 0900 this morning to have generalized shaking and jerking of all 4 limbs with his eyes rolled up in his head. This come down with Ativan and was given 2 milligrams twice. When I came in to see the patient, closer to 1030, he was still having intermittent twitching and jerking of the arms and legs individually, but not rhythmically or continuously. Blood pressure was 124/78 with a pulse of 116 and he was afebrile at 36.7. White count was elevated at 15.2 with some mild anemia Chem profile showed markedly elevated BUN and creatinine and glucose of 146. The patient had been getting olanzapine which has helped his behavior and he remains on donepezil 10 milligrams a day. Allergies Allergy/AdvReac Type Severity Reaction Status Date / Time No Known Allergies Allergy Verified 12/03/21 14:46 Home Medications Medication Instructions Recorded Confirmed Type aspirin 81 mg tablet,delayed 81 mg PO DAILY #90 tab 02/26/21 12/03/21 Rx release (Aspirin Low Dose) cholecalciferol (vitamin D3) 125 5,000 units PO DAILY #30 tab 02/26/21 12/03/21 Rx mcg (5,000 unit) tablet escitalopram oxalate 20 mg tablet 20 mg PO DAILY #30 tab 02/26/21 12/03/21 Rx omeprazole 20 mg capsule,delayed 20 mg PO DAILY #30 cap 02/26/21 12/03/21 Rx release docusate sodium 100 mg capsule 100 mg PO DAILY 08/25/21 12/03/21 History (Colace) tamsulosin 0.4 mg capsule 0.4 mg PO DAILY #30 cap 09/03/21 12/03/21 Rx atorvastatin 10 mg tablet 10 mg PO HS 09/19/21 12/03/21 History donepezil 10 mg tablet 10 mg PO HS 09/19/21 12/03/21 History foyiwvsjskqb-jmidcfux-ojharu tablet 1 tab PO QAM 09/19/21 12/03/21 History finasteride 5 mg tablet (Proscar) 5 mg PO QAM #30 tab 09/29/21 12/03/21 Rx melatonin 3 mg tablet 3 mg PO HS #30 tab 09/29/21 12/03/21 Rx olanzapine 2.5 mg tablet 2.5 mg PO QAM #30 tab 09/29/21 12/03/21 Rx olanzapine 5 mg tablet 5 mg PO HS #30 tab 09/29/21 12/03/21 Rx Patient History Medical History Arthritis of right hip BPH (benign prostatic hyperplasia) Cellulitis and abscess of face Dementia Dental abscess Depression with anxiety Elevated BP without diagnosis of hypertension Expressive aphasia GERD (gastroesophageal reflux disease) Hyperlipidemia Vitamin D insufficiency Surgical History H/O total hip arthroplasty Right History of hernia repair Family History Mother Myocardial infarction Other Hypertension Denies family history of Ovarian cancer Prostate cancer Breast cancer Colorectal cancer Social History Smoking Status: Unknown if ever smoked Second Hand Exposure: No; Do You Dip or Chew Tobacco: No; Tobacco Cessation Education Requested by Patient: No Hx Alcohol Use: No Hx Substance Use: No Preferred Language: Bengali Communication Ability: Unable 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 Beliefs That Will Affect Care: None marital status: Single Current Living Situation: [facility] Current Living Situation Comment: na current occupational status: disabled Feels Safe at Home: Yes Childhood Exposure to Second-Hand Smoke: No caffeine: Yes during the past year weight has: remained stable Dental Care, Regularly: Yes Seatbelt Use: always Sunscreen Use: No Assistive Devices: None Review of Systems Review of Systems: Unobtainable due to cognitive status and Unobtainable due to reduced consciousness Exam (Neuro) Physical Exam: The patient was lying in bed with his eyes closed and his eyes rolled up vertically when I 1st saw him. He was unresponsive to voice, shout, or shake. He would grimace with deep pain in all 4 limbs but not make any vocalizations. Later on his eyes were sometimes conjugant frontally when I passively open his eyelids and other times skewed. Pupils were 3 millimeters bilaterally and reactive to light. Patient's neck was very stiff and all 4 limbs were stiff. He had some oculocephalic responses to head turning. There was no facial droop and tongue was midline. He gagged appropriately with tongue blade on either side of his throat and he had positive corneal reflexes bilaterally although the left with sluggish compared to the right. He is very rigid in all 4 limbs. Strength was symmetrical and that he tended to resist movement. Reflexes were 2/4 in the biceps, triceps, brachioradialis, and quadriceps tendons bilaterally. Achilles tendon reflexes were absent bilaterally. He withdrew to fairly mild stimuli in all 4 limbs and toes were equivocal to plantar stimulation ( with a lot of withdrawal) bilaterally. The patient had myoclonic like jerking movements of the arms greater than legs intermittently. Occasionally he would have a few rhythmic beats of twitching in his right greater than left hand lasting a few seconds. Results & Data ([facility]) Vital Signs (Past 12 Hours) Vital Signs Temp Pulse Pulse Pulse Resp BP Pulse Ox 12/09/21 10:12 116 H 20 124/78 95 12/09/21 08:05 36.7 C 95 H 21 149/77 H 98 12/09/21 06:45 91 H 12/09/21 03:38 36.5 C 90 16 149/90 H 95 12/09/21 00:59 37.0 C 87 20 165/91 H 94 12/08/21 22:59 78 PG Care Time/CCT Total # of Minutes Spent Total Time Spent with Patient: Total time spent is greater than 50% in coordination of care (as documented) at patient's floor/unit and/or counseling patient: Coding Level of Care Code 30834 Initial Inpt Care Lvl 3 Diagnoses Seizure-like activity R56.9 Major neurocognitive disorder due to multiple etiologies with behavioral disturbance F02.81 Dementia F03.90 Aggressive behavior R46.89 Time Spent (min) 60
[2021-12-09] MEDS: VALPROATE SOD 250 MG in DEXTROSE 5% 50 ML IV SCH ×2 (12:09→17:44)
[2021-12-09] MEDS: CEFEPIME 2,000 MG in SYRINGE 0 ML IV SCH (12:15)
--- NOTE | 2021-12-09 13:14 | CT Scan Report ---
CT head/brain wo con CLINICAL HISTORY: seizure Technique: Contiguous axial CT images of the head were acquired from the base of the skull to the christa quinton without intravenous contrast administration. Images were viewed in brain, subdural and bone [facility]. Automated dose lowering techniques and/or adjustment according to patient size were utilized for this exam. Comparison: Comparison is made to CT head 10/07/2021 Findings: Areas of decreased attenuation are present in the periventricular and subcortical white matter bilate rally consistent with small vessel ischemic disease. Generalized cerebral atrophy with commensurate e nlargement of the ventricles, sulci, and cisterns is also present. There is no acute intracranial hem orrhage or evidence of acute territorial infarction. No shift of the midline structures, mass effect, or extra-axial abnormalities are shown. Atherosclerotic calcifications are present in the intracran ial segments of the internal carotid arteries. Imaged portions of the paranasal sinuses and mastoid air cells are clear. The orbits appear normal. There are no acute fractures of the calvaria or scalp swelling. Impression: No acute intracranial hemorrhage, no evidence of acute territorial infarction or other acute intracra nial disease process. ACT 112: Negative or not required by law. Electronically signed by: Alan De Leon M.D. 12/09/2021 1:13 PM
--- NOTE | 2021-12-09 14:05 | Hospitalist Progress Note ---
Date of Service December 09, 2021 Assessment & Plan (1) COVID-19: Plan: COVID 19 positive- unsure of day of onset of symptoms. Per RN, no one else at [facility] testing positive, so no known time frame for exposure. Continue with supportive care at this time Was not started on remdesivir at this time secondary to unknown onset of symptoms Continue Dexamethasone (2) Respiratory failure with hypoxia: Plan: Now resolved Currently on room air, but started having difficulty breathing this afternoon will obtain chest x ray Put on BIPAP 06/22 (3) Malnutrition: Plan: passed swallow evaluation has been started on feeding Add nutritional supplements (4) Seizure: Plan: Observed to be having a seziure like activity this morning, which failed to resolve after 2 doses of IV Ativan 2mg CT head was normal EEG has been requested Started on Depakote by Neurology, mauro walker patient seems to have a strong family hx of seizures in parent and siblings ( I spoke to his brother Kory) (5) Major neurocognitive disorder due to multiple etiologies with behavioral di sturbance: Plan: Seems to have improved following last admission with addition of olanzapine. - Continue donepezil for his dementia - Continue olanzapine - Continue with escitalopram (6) Colovesical fistula: Plan: Known with colovesicular fistula - previous admission and discussions with family was no aggressive treatment/surgical intervention. -CT abdomen and pelvis shows evidence of likely fecal material in the bladder -Patient may need chronic antibiotic suppression - Replaced Weston catheter to assist with emptying bladder - Continue Flomax (7) UTI (urinary tract infection), bacterial: Plan: Urine cultures growing Enterobacter cloacae, amado sensitive Will continue ceftriaxone Patient may need chronic suppression with antibiotics given persistent colovesical fistula (8) Emphysematous cystitis: (9) Dementia: Plan: Back to [facility] when medically stable, in the next 24-48 hrs Lovenox DNR/DNI Admission and Anticipated Discharge Date Admission Date: December 03, 2021 Subjective patient seen and examined today, observed to be having a seizure like activity Review of Systems Review of Systems: unrelaible due to confusion Physical Exam Physical Exam: The patient is awake, alert disoriented and chronically ill looking HEENT--PERRL, EOMI, mucous membranes and oropharynx mildly dry Neck--supple. No JVD. No bruits. Thyroid normal, trachea midline, no adenopathy. Heart--normal S1 and S2. No murmurs, rubs or gallops. Lungs--clear bilaterally, no respiratory distress, no accessory muscle use. Abdomen--normal bowel sounds and soft. Mild epigastric and left sided abdominal pain Extremities--no cyanosis or clubbing. No edema. Dermatologic--normal skin turgor, normal color, no abnormal lymph nodes, no rash. Neurologic--cranial nerves II through XII grossly intact. Rheumatologic--normal range of motion. Psychiatric--normal affect. Results & Data Results & Data ([facility]) Vital Signs (Past 12 Hours) Vital Signs Temp Pulse Pulse Pulse Resp BP BP 12/09/21 13:41 108 H 30 H 141/97 H 12/09/21 12:22 98.4 F 99 H 20 120/82 120/82 12/09/21 11:04 117/82 12/09/21 10:12 116 H 20 124/78 12/09/21 08:05 98.1 F 95 H 21 149/77 H 12/09/21 06:45 91 H 12/09/21 03:38 97.7 F 90 16 149/90 H Pulse Ox 12/09/21 13:41 91 12/09/21 12:22 91 12/09/21 11:04 95 12/09/21 10:12 95 12/09/21 08:05 98 12/09/21 06:45 12/09/21 03:38 95 PG Care Time/CCT Total # of Minutes Spent Total Time Spent with Patient: Total time spent is greater than 50% in coordination of care (as documented) at patient's floor/unit and/or counseling patient: Coding Level of Care Code 80116 Subseq Hosp Care Lvl 2 Diagnoses COVID-19 U07.1 Respiratory failure with hypoxia J96.91 Malnutrition E46 Emphysematous cystitis N30.80 Dementia F03.91 Dementia behavioral disturbance: with behavioral disturbance Dementia type: unspecified type UTI (urinary tract infection), bacterial N39.0; A49.9 Major neurocognitive disorder due to multiple etiologies with behavioral disturbance F02.81 Colovesical fistula N32.1 Seizure R56.9 Time Spent (min) 35 (1) Dementia Dementia behavioral disturbance: with behavioral disturbance Dementia type: unspecified type Qualified Code(s): F03.91 - Unspecified dementia with behavio ral disturbance
--- NOTE | 2021-12-09 14:58 | Electroencephalogram ---
EEG Procedure Note Date of Service December 09, 2021 Start / End Times Start Time: 1211 End Time: [address] Melgoza History 70-year-old with end-stage dementia and onset of generalized seizures. Home Medication List Medication Instructions Recorded Confirmed Type aspirin 81 mg tablet,delayed 81 mg PO DAILY #90 tab 02/26/21 12/03/21 Rx release (Aspirin Low Dose) cholecalciferol (vitamin D3) 125 5,000 units PO DAILY #30 tab 02/26/21 12/03/21 Rx mcg (5,000 unit) tablet escitalopram oxalate 20 mg tablet 20 mg PO DAILY #30 tab 02/26/21 12/03/21 Rx omeprazole 20 mg capsule,delayed 20 mg PO DAILY #30 cap 02/26/21 12/03/21 Rx release docusate sodium 100 mg capsule 100 mg PO DAILY 08/25/21 12/03/21 History (Colace) tamsulosin 0.4 mg capsule 0.4 mg PO DAILY #30 cap 09/03/21 12/03/21 Rx atorvastatin 10 mg tablet 10 mg PO HS 09/19/21 12/03/21 History donepezil 10 mg tablet 10 mg PO HS 09/19/21 12/03/21 History viyigjcxsfqs-yufsbivt-fikqzn tablet 1 tab PO QAM 09/19/21 12/03/21 History finasteride 5 mg tablet (Proscar) 5 mg PO QAM #30 tab 09/29/21 12/03/21 Rx melatonin 3 mg tablet 3 mg PO HS #30 tab 09/29/21 12/03/21 Rx olanzapine 2.5 mg tablet 2.5 mg PO QAM #30 tab 09/29/21 12/03/21 Rx olanzapine 5 mg tablet 5 mg PO HS #30 tab 09/29/21 12/03/21 Rx Inpatient Medication List Amlodipine Besylate (Amlodipine Besylate 5 Mg Tab) 5 mg PO QAM [facility] Stop: 01/08/22 08:59 Last Admin: 12/09/21 10:09 Dose: Not Given Documented by: [id number] Aspirin (Aspirin 81 Mg Ectab) 81 mg PO DAILY KAI Stop: 01/03/22 08:59 Last Admin: 12/09/21 10:09 Dose: Not Given Documented by: [id number] Admin: 12/08/21 10:30 Dose: 81 mg Documented by: [id number] Admin: 12/07/21 08:31 Dose: Not Given Documented by: [id number] Admin: 12/06/21 07:20 Dose: Not Given Documented by: [id number] Admin: 12/05/21 09:28 Dose: Not Given Documented by: [id number] Admin: 12/04/21 08:25 Dose: Not Given Documented by: [id number] Atorvastatin Calcium (Atorvastatin 10 Mg Tab) 10 mg PO HS [facility] Stop: 01/02/22 20:59 Last Admin: 12/08/21 21:19 Dose: 10 mg Documented by: [id number] Admin: 12/07/21 22:30 Dose: Not Given Documented by: [id number] Admin: 12/06/21 20:08 Dose: Not Given Documented by: [id number] Admin: 12/05/21 22:21 Dose: Not Given Documented by: [id number] Admin: 12/04/21 21:35 Dose: Not Given Documented by: [id number] Admin: 12/04/21 00:42 Dose: Not Given Documented by: [id number] Docusate Sodium (Docusate Sodium 100 Mg Cap) 100 mg PO DAILY KAI Stop: 01/03/22 08:59 Last Admin: 12/09/21 10:09 Dose: Not Given Documented by: [id number] Admin: 12/08/21 10:36 Dose: 100 mg Documented by: [id number] Admin: 12/07/21 07:11 Dose: Not Given Documented by: [id number] Admin: 12/06/21 07:18 Dose: Not Given Documented by: [id number] Admin: 12/05/21 09:28 Dose: Not Given Documented by: [id number] Admin: 12/04/21 08:25 Dose: Not Given Documented by: [id number] Donepezil HCl (Donepezil Hcl 10 Mg Tab) 10 mg PO HS KAI Stop: 01/02/22 20:59 Last Admin: 12/08/21 21:19 Dose: 10 mg Documented by: [id number] Admin: 12/07/21 22:31 Dose: Not Given Documented by: [id number] Admin: 12/06/21 20:08 Dose: Not Given Documented by: [id number] Admin: 12/05/21 22:22 Dose: Not Given Documented by: [id number] Admin: 12/04/21 21:36 Dose: Not Given Documented by: [id number] Admin: 12/04/21 00:42 Dose: Not Given Documented by: [id number] Escitalopram Oxalate (Escitalopram Oxalate 20 Mg Tab) 20 mg PO DAILY KAI Stop: 01/03/22 08:59 Last Admin: 12/09/21 10:10 Dose: Not Given Documented by: [id number] Admin: 12/08/21 10:31 Dose: 20 mg Documented by: [id number] Admin: 12/07/21 08:31 Dose: Not Given Documented by: [id number] Admin: 12/06/21 07:20 Dose: Not Given Documented by: [id number] Admin: 12/05/21 09:28 Dose: Not Given Documented by: [id number] Admin: 12/04/21 08:25 Dose: Not Given Documented by: [id number] Finasteride (Finasteride 5 Mg Tab) 5 mg PO QAM [facility] Stop: 01/03/22 08:59 Last Admin: 12/09/21 10:10 Dose: Not Given Documented by: [id number] Admin: 12/08/21 10:30 Dose: 5 mg Documented by: [id number] Admin: 12/07/21 08:31 Dose: Not Given Documented by: [id number] Admin: 12/06/21 07:21 Dose: Not Given Documented by: [id number] Admin: 12/05/21 09:28 Dose: Not Given Documented by: [id number] Admin: 12/04/21 08:25 Dose: Not Given Documented by: [id number] Hydralazine HCl (Hydralazine Hcl 20 Mg/Ml Vial) 5 mg IV Q6 PRN PRN Reason: Hypertension Stop: 01/05/22 21:14 Last Admin: 12/06/21 21:59 Dose: 5 mg Documented by: [id number] Dexamethasone 6 mg/ Syringe 1.5 mls @ 1 mls/min IV QAM KAI Stop: 12/14/21 09:02 Last Admin: 12/09/21 10:43 Dose: 1 mls/min Documented by: [id number] Admin: 12/08/21 10:32 Dose: 1 mls/min Documented by: [id number] Admin: 12/07/21 08:12 Dose: 1 mls/min Documented by: [id number] Admin: 12/06/21 08:51 Dose: 1 mls/min Documented by: [id number] Admin: 12/05/21 13:40 Dose: 1 mls/min Documented by: [id number] Dextrose (D5w) 1,000 mls @ 80 mls/hr IV .[id number] KAI Stop: 01/07/22 14:29 Last Admin: 12/09/21 09:31 Dose: 80 mls/hr Documented by: [id number] Infusion: 12/09/21 09:31 Dose: 80 mls/hr Documented by: [id number] Admin: 12/08/21 21:18 Dose: 80 mls/hr Documented by: [id number] Infusion: 12/08/21 21:18 Dose: 80 mls/hr Documented by: [id number] Admin: 12/08/21 14:59 Dose: 80 mls/hr Documented by: [id number] Valproic Acid 250 mg/ Dextrose 52.5 mls @ 55 mls/hr IV Q6H KAI Stop: 01/08/22 11:59 Last Infusion: 12/09/21 13:07 Dose: 0 mls/hr Documented by: [id number] Admin: 12/09/21 12:09 Dose: 55 mls/hr Documented by: [id number] Melatonin (Melatonin 3 Mg Tab) 3 mg PO HS KAI Stop: 01/02/22 20:59 Last Admin: 12/08/21 21:19 Dose: 3 mg Documented by: [id number] Admin: 12/07/21 22:31 Dose: Not Given Documented by: [id number] Admin: 12/06/21 20:08 Dose: Not Given Documented by: [id number] Admin: 12/05/21 22:22 Dose: Not Given Documented by: [id number] Admin: 12/04/21 21:36 Dose: Not Given Documented by: [id number] Admin: 12/04/21 00:42 Dose: Not Given Documented by: [id number] Olanzapine (Olanzapine 5 Mg Tablet) 5 mg PO HS KAI Stop: 01/02/22 20:59 Last Admin: 12/08/21 21:19 Dose: 5 mg Documented by: [id number] Admin: 12/07/21 22:31 Dose: Not Given Documented by: [id number] Admin: 12/06/21 20:08 Dose: Not Given Documented by: [id number] Admin: 12/05/21 22:22 Dose: Not Given Documented by: [id number] Admin: 12/04/21 21:37 Dose: Not Given Documented by: [id number] Admin: 12/04/21 00:42 Dose: Not Given Documented by: [id number] Olanzapine (Olanzapine 2.5 Mg Tab) 2.5 mg PO QAM KAI Stop: 01/03/22 08:59 Last Admin: 12/09/21 10:10 Dose: Not Given Documented by: [id number] Admin: 12/08/21 10:31 Dose: 2.5 mg Documented by: [id number] Admin: 12/07/21 08:31 Dose: Not Given Documented by: [id number] Admin: 12/06/21 07:21 Dose: Not Given Documented by: [id number] Admin: 12/05/21 09:28 Dose: Not Given Documented by: [id number] Admin: 12/04/21 08:25 Dose: Not Given Documented by: [id number] Pantoprazole Sodium (Pantoprazole 40 Mg Tab) 40 mg PO DAILY KAI Stop: 01/03/22 08:59 Last Admin: 12/09/21 10:10 Dose: Not Given Documented by: [id number] Admin: 12/08/21 10:31 Dose: 40 mg Documented by: [id number] Admin: 12/07/21 08:31 Dose: Not Given Documented by: [id number] Admin: 12/06/21 07:21 Dose: Not Given Documented by: [id number] Admin: 12/05/21 09:28 Dose: Not Given Documented by: [id number] Admin: 12/04/21 08:25 Dose: Not Given Documented by: [id number] Tamsulosin HCl (Tamsulosin Hcl 0.4 Mg Cap) 0.4 mg PO DAILY KAI Stop: 01/03/22 08:59 Last Admin: 12/09/21 10:10 Dose: Not Given Documented by: [id number] Admin: 12/08/21 10:31 Dose: 0.4 mg Documented by: [id number] Admin: 12/07/21 08:31 Dose: Not Given Documented by: [id number] Admin: 12/06/21 07:21 Dose: Not Given Documented by: [id number] Admin: 12/05/21 09:28 Dose: Not Given Documented by: [id number] Admin: 12/04/21 08:25 Dose: Not Given Documented by: [id number] Vitamin D (Cholecalciferol 5,000 Units 125 Mcg Tab) 5,000 units PO DAILY KAI Stop: 01/03/22 08:59 Last Admin: 12/09/21 10:09 Dose: Not Given Documented by: [id number] Admin: 12/08/21 10:31 Dose: 5,000 units Documented by: [id number] Admin: 12/07/21 08:31 Dose: Not Given Documented by: [id number] Admin: 12/06/21 07:20 Dose: Not Given Documented by: [id number] Admin: 12/05/21 09:28 Dose: Not Given Documented by: [id number] Admin: 12/04/21 08:25 Dose: Not Given Documented by: [id number] Discontinued Medications Acetaminophen (Acetaminophen 1000 Mg/100 Ml Iv) 1,000 mg IV NOW STA Stop: 12/03/21 11:46 Last Admin: 12/03/21 12:16 Dose: 1,000 mg Documented by: [id number] Amlodipine Besylate (Amlodipine Besylate 5 Mg Tab) 5 mg PO NOW ONE Stop: 12/08/21 13:58 Last Admin: 12/08/21 14:54 Dose: 5 mg Documented by: [id number] Enoxaparin Sodium (Enoxaparin Inj 40 Mg/0.4 Ml Syr) 40 mg SQ Q24H KAI Stop: 01/02/22 15:44 Last Admin: 12/03/21 18:17 Dose: Not Given Documented by: [id number] Enoxaparin Sodium (Enoxaparin Inj 40 Mg/0.4 Ml Syr) 40 mg SQ QAM KAI Stop: 01/03/22 08:59 Last Admin: 12/09/21 10:12 Dose: 40 mg Documented by: [id number] Admin: 12/08/21 10:32 Dose: 40 mg Documented by: [id number] Admin: 12/07/21 08:12 Dose: 40 mg Documented by: [id number] Admin: 12/06/21 08:51 Dose: 40 mg Documented by: [id number] Admin: 12/05/21 09:49 Dose: 40 mg Documented by: [id number] Admin: 12/04/21 09:23 Dose: 40 mg Documented by: [id number] Sodium Chloride (Nss 1000ml) 1,000 mls @ 999 mls/hr IV .Q1H1M KAI Stop: 12/03/21 12:45 Last Infusion: 12/03/21 13:21 Dose: 0 mls/hr Documented by: [id number] Admin: 12/03/21 12:16 Dose: 999 mls/hr Documented by: [id number] Cefepime HCl (Maxipime) 2,000 mg in 20 mls @ 5 mls/min IV NOW STA; Protocol Stop: 12/03/21 11:48 Last Admin: 12/03/21 12:16 Dose: 5 mls/min Documented by: [id number] Sodium Chloride (Nss 1000ml) 1,000 mls @ 999 mls/hr IV .Q1H1M ONE Stop: 12/03/21 14:57 Last Infusion: 12/03/21 15:17 Dose: 0 mls/hr Documented by: [id number] Admin: 12/03/21 13:35 Dose: 999 mls/hr Documented by: [id number] Ceftriaxone Sodium 1,000 mg/ (Dextrose) 60 mls @ 120 mls/hr IV Q24H [facility] Stop: 12/09/21 12:59 Last Infusion: 12/04/21 14:40 Dose: 0 mls/hr Documented by: [id number] Admin: 12/04/21 14:02 Dose: 120 mls/hr Documented by: [id number] Acetaminophen (Ofirmev) 1,000 mg in 100 mls @ 400 mls/hr IV Q8H PRN PRN Reason: fever or pain Stop: 12/08/21 05:22 Last Infusion: 12/05/21 06:00 Dose: 0 mls/hr Documented by: [id number] Admin: 12/05/21 05:40 Dose: 400 mls/hr Documented by: [id number] Cefepime HCl 2,000 mg/ Syringe 20 mls @ 5 mls/min IV DAILY@1400 KAI; Protocol Stop: 12/15/21 12:59 Last Admin: 12/06/21 13:33 Dose: 5 mls/min Documented by: [id number] Admin: 12/05/21 13:41 Dose: 5 mls/min Documented by: [id number] Azithromycin 500 mg/ Dextrose 255 mls @ 125 mls/hr IV Q24H KAI Stop: 12/07/21 16:03 Last Infusion: 12/07/21 15:41 Dose: 0 mls/hr Documented by: [id number] Admin: 12/07/21 13:36 Dose: 125 mls/hr Documented by: [id number] Infusion: 12/06/21 15:38 Dose: 0 mls/hr Documented by: [id number] Admin: 12/06/21 13:33 Dose: 125 mls/hr Documented by: [id number] Infusion: 12/05/21 18:11 Dose: 0 mls/hr Documented by: [id number] Admin: 12/05/21 15:38 Dose: 125 mls/hr Documented by: [id number] Dextrose/Sodium Chloride (D5w And Nss) 1,000 mls @ 100 mls/hr IV .Q10H KAI Stop: 01/05/22 13:29 Last Infusion: 12/07/21 17:08 Dose: 0 mls/hr Documented by: [id number] Admin: 12/07/21 11:36 Dose: 125 mls/hr Documented by: [id number] Infusion: 12/07/21 10:52 Dose: 100 mls/hr Documented by: [id number] Admin: 12/07/21 00:52 Dose: 100 mls/hr Documented by: [id number] Infusion: 12/06/21 23:53 Dose: 100 mls/hr Documented by: [id number] Admin: 12/06/21 13:53 Dose: 100 mls/hr Documented by: [id number] Potassium Chloride (K Paulino / Wtr) 10 meq in 100 mls @ 100 mls/hr IV Q1H KAI; Protocol Stop: 12/06/21 15:29 Last Infusion: 12/06/21 15:58 Dose: 0 mls/hr Documented by: [id number] Admin: 12/06/21 14:56 Dose: 100 mls/hr Documented by: [id number] Infusion: 12/06/21 14:53 Dose: 0 mls/hr Documented by: [id number] Admin: 12/06/21 13:53 Dose: 100 mls/hr Documented by: [id number] Cefepime HCl 2,000 mg/ Syringe 20 mls @ 5 mls/min IV Q12H KAI; Protocol Stop: 12/15/21 11:59 Last Admin: 12/09/21 12:15 Dose: 5 mls/min Documented by: [id number] Admin: 12/08/21 21:18 Dose: 5 mls/min Documented by: [id number] Admin: 12/08/21 12:37 Dose: 5 mls/min Documented by: [id number] Admin: 12/07/21 23:57 Dose: 5 mls/min Documented by: [id number] Admin: 12/07/21 11:23 Dose: 5 mls/min Documented by: [id number] Dextrose/Sodium Chloride (D5w And Nss) 1,000 mls @ 125 mls/hr IV .Q8H KAI Stop: 01/06/22 11:44 Last Infusion: 12/07/21 19:49 Dose: 0 mls/hr Documented by: [id number] Admin: 12/07/21 16:27 Dose: 125 mls/hr Documented by: [id number] Infusion: 12/07/21 16:27 Dose: 125 mls/hr Documented by: [id number] Admin: 12/07/21 11:36 Dose: 125 mls/hr Documented by: [id number] Sodium Chloride (Nss 1000ml) 1,000 mls @ 125 mls/hr IV .Q8H KAI Stop: 01/06/22 16:44 Last Infusion: 12/08/21 19:03 Dose: 0 mls/hr Documented by: [id number] Infusion: 12/08/21 14:55 Dose: 0 mls/hr Documented by: [id number] Admin: 12/08/21 10:27 Dose: 125 mls/hr Documented by: [id number] Infusion: 12/08/21 07:57 Dose: 125 mls/hr Documented by: [id number] Admin: 12/07/21 23:57 Dose: 125 mls/hr Documented by: [id number] Infusion: 12/07/21 23:57 Dose: 125 mls/hr Documented by: [id number] Admin: 12/07/21 17:08 Dose: 125 mls/hr Documented by: [id number] Valproic Acid 500 mg/ Dextrose 55 mls @ 55 mls/hr IV NOW STA Stop: 12/09/21 11:37 Last Infusion: 12/09/21 12:10 Dose: 0 mls/hr Documented by: [id number] Admin: 12/09/21 11:02 Dose: 55 mls/hr Documented by: [id number] Lorazepam (Lorazepam 2 Mg/1 Ml Vial) Confirm Administered Dose 2 mg .ROUTE .STK- MED ONE Stop: 12/09/21 09:24 Last Admin: 12/09/21 09:28 Dose: 2 mg Documented by: [id number] Lorazepam (Lorazepam 2 Mg/1 Ml Vial) Confirm Administered Dose 2 mg .ROUTE .STK- MED ONE Stop: 12/09/21 09:53 Last Admin: 12/09/21 10:02 Dose: 2 mg Documented by: [id number] Description This is a 21 electrode EEG with a single channel dedicated to limited EKG. The electrodes were placed in accordance with the International 10-20 system. Interpretation The predominant background activity consists of and irregular 5-7 hertz activity of low to medium amplitude seen throughout all head regions throughout this recording. this background activity had little to no attenuation with eye opening or other alerting procedures. Sometimes the amplitude was higher posteriorly than anteriorly bilaterally. Photic stimulation was performed and elicited no change in the background activity and no abnormal responses were seen. Hyperventilation was not performed. A mild amount of muscle and movement artifact activity contaminated the recording and did not hinder interpretation to any significant degree. Throughout the recording were rare, occasional sharply contoured waveforms emanating from the left central temporal head region. They did not correlate with any clinical movement and they were isolated transients. The patient had myoclonic like jerking throughout the recording with no electrocerebral accompaniment. In summary, this EEG was abnormal And revealed moderate slowing in general. In addition, there was no obvious focal abnormalities. There were some potentially epileptogenic discharges on occasion without clinical accompaniment. Patient did have myoclonic jerks throughout the recording without electrocerebral cognitive. Clinical Correlation moderate slowing is nonspecific and could be due to a wide variety of causes of encephalopathy. there were some potentially epileptogenic discharges seen. [facility] EEG Procedure Codes Indication for Procedure (1) Seizure: (2) Seizure-like activity: Neurology Neurology: 20194 EEG include record awake & drowsy
--- NOTE | 2021-12-09 15:08 | XRay Report ---
XR chest 1V portable CLINICAL HISTORY: Shortness of breath. COMPARISON STUDY: Chest CT December 05, 2021. FINDINGS: Lung volumes are mildly diminished. This is unchanged. No pneumothorax or pleural effusion is noted. There is persistent left basilar retrocardiac opacity. Cardiomediastinal silhouette is stab le. There is no evidence for pulmonary edema. IMPRESSION: Persistent left lower lobe airspace opacity, better depicted on prior chest CT. This favo rs pneumonia although atelectasis could be similar. ACT 112: Negative or not required by law. Electronically signed by: Tra Fernandez M.D. 12/09/2021 3:07 PM
[2021-12-09] MEDS: DONEPEZIL HCL 10 MG TAB PO SCH (20:12)
[2021-12-09] MEDS: MELATONIN 3 MG TAB PO SCH (20:12)
[2021-12-09] MEDS: ATORVASTATIN 10 MG TAB PO SCH (20:12)
[2021-12-09] MEDS: OLANZapine 5 MG TABLET PO SCH (20:13)
[2021-12-10] MEDS: VALPROATE SOD 250 MG in DEXTROSE 5% 50 ML IV SCH ×4 (00:05→18:24)
[2021-12-10] MEDS ORDERED: METOPROLOL TARTRATE 1 MG/ML VIAL IV STA (01:50)
[2021-12-10] MEDS: ASPIRIN 81 MG ECTAB PO SCH (07:26)
[2021-12-10] MEDS: DOCUSATE SODIUM 100 MG CAP PO SCH (07:26)
[2021-12-10] MEDS: CHOLECALCIFEROL 5,000 UNITS 125 MCG TAB PO SCH (07:26)
[2021-12-10] MEDS: amLODIPine BESYLATE 5 MG TAB PO SCH (07:26)
[2021-12-10] MEDS: FINASTERIDE 5 MG TAB PO SCH (07:26)
[2021-12-10] MEDS: ESCITALOPRAM OXALATE 20 MG TAB PO SCH (07:26)
[2021-12-10] MEDS: PANTOprazole 40 MG TAB PO SCH (07:27)
[2021-12-10] MEDS: TAMSULOSIN HCL 0.4 MG CAP PO SCH (07:27)
[2021-12-10] MEDS: DEXTROSE 5% 1,000 ML IV SCH (08:18)
[2021-12-10 08:46] LABS: HCO3 ABG 16 mmol/L (19-24); Oxygen Saturation ABG 96.9 % (90-95); PCO2 ABG 27 mmHg (35-46); PO2 ABG 88 mmHg (80-95); pH ABG 7.38 (7.35-7.45)
[2021-12-10 08:49] LABS: Allen Test Pos (Pos)
[2021-12-10 08:51] LABS: Creatinine Clr Calc Pharmacy 8.8 ml/min; Est GFR (African American) 8.8 ml/min; Est GFR (Non-African American) 7.6 ml/min
[2021-12-10] MEDS ORDERED: CEFEPIME 1,000 MG in SYRINGE 0 ML IV SCH (09:00)
--- NOTE | 2021-12-10 09:25 | CT Scan Report ---
ABDOMEN AND PELVIS CT WITHOUT CONTRAST CT DOSE: 376.09 mGy.cm HISTORY: Progressive fevers. obstructive uropathy TECHNIQUE: Multiaxial CT images of the abdomen and pelvis were performed without contrast. A dose lo wering technique was utilized adhering to the principles of ALARA. COMPARISON STUDY: Abdomen and pelvis CT 12/05/2021. FINDINGS: Progressive right lower lobe consolidative airspace opacities consistent with a pneumonia. The left lower lobe airspace opacities have improved in the interval. No pneumoperitoneum. No pneumat osis. There is a right total hip arthroplasty. Bilateral L5 spondylolysis again noted. No acute fract ures identified. The ascending thoracic ureter measuring up to 4.1 cm in diameter. The unenhanced rohith er, gallbladder, spleen, adrenal glands, and pancreas are unremarkable. No retroperitoneal lymphadeno gustavo. No renal or ureteral stones. No hydronephrosis. Bilateral perinephric edema, right greater bhavin n left. There is also low density fluid along the right retroperitoneal space and within the adjacent right paracolic gutter. This is new from the prior study and could be related to the right kidney. T his abuts the ascending colon. However, there is no definite bowel wall thickening identified at this location. There are few colonic diverticula. No evidence for acute diverticulitis at this time delio l appendix. The bladder is moderately distended. There is bladder wall thickening with adjacent fat s tranding. There is gas within the bladder lumen likely due to the catheterization. However, the Weston balloon is now located within the prostate gland likely resulting in bladder outlet obstruction. The prostate gland is enlarged. No abscess or bowel obstruction. Normal caliber abdominal aorta. No retr operitoneal lymphadenopathy. Mild thickening of the sigmoid colon has improved. The colovesical fistu la seen on the prior study is not clearly identified on this examination. IMPRESSION: 1. Progressive right lower lobe consolidative airspace opacities consistent with a pneumonia. The lef t lower lobe airspace opacities have improved. This could be due to aspiration. 2. The Weston balloon is located within the prostatic urethra. This likely accounts for the apparent b ladder outlet obstruction. Recommend removal/repositioning of the Weston catheter. 3. Small amount of low density fluid within the right retroperitoneal space and the adjacent paracoli c gutter. This is new from the prior study and could be related to the right kidney. This abuts the a scending colon. However, there is no definite bowel wall thickening to suggest a colitis/diverticulit is at this time. This bears watching future examinations. 4. Bladder wall thickening which may represent a cystitis. 5. Mild thickening of the sigmoid colon has improved. The colovesical fistula seen on the prior study is not clearly identified on this examination. 6. Additional findings as described above. 7. These findings were discussed with Dr. Melgoza at 9:25 AM on 12/10/2021. ACT 112: Negative or not required by law. Electronically signed by: Noe Oliveira M.D. 12/10/2021 9:24 AM
[2021-12-10] MEDS: dexAMETHasone 6 MG in SYRINGE 0 ML IV SCH (09:27)
[2021-12-10] MEDS: OLANZAPINE 2.5 MG TAB PO SCH (09:50)
--- NOTE | 2021-12-10 10:12 | Pulmonology Progress Note ---
Date of Service December 10, 2021 Assessment & Plan (1) Aspiration into airway: (2) Respiratory failure with hypoxia: (3) COVID-19: (4) Dementia: Dementia behavioral disturbance: with behavioral disturbance Dementia type: unspecified type Qualified Code(s): F03.91 - Unspecified dementia with behavioral disturbance Plan: Impression: This is a 70-year-old male with a past medical history of dementia presented to the hospital due to pneumonia and altered mental status. Recommendations: Patient is completely obtunded at present likely due to metabolic encephalopathy. ABG pending. He is a DNR/DNI. I reviewed his CT abdomen and pelvis imaging which noted that the left lower lobe opacities have improved but there has been a consolidative process in the right lower lobe. There also appears to be obstruction of the bladder outlet. I am doubtful that the patient has COVID-19 pneumonia at this time. I think the COVID-19 findings are incidental. BiPAP is a relative contraindication in this patient given the risk for aspiration when obtunde, but unfortunately options are limited given his DNI status. Should his mental status improve and no hypercapnia is identified on a blood gas, would recommend transitioning him to high flow nasal cannula to help reduce his work of breathing. Continue broad- spectrum antibiotics. Continue full aspiration precautions. Would make the patient NPO. Discussed with hospitalist and bedside nurse. Patient's prognosis is extremely poor. No other interventions required by pulmonology at this time. Please call with questions. Admission and Anticipated Discharge Date Admission Date: December 03, 2021 Subjective Patient seen and examined. BiPAP mask in place. Patient is unresponsive at this time. He just came back from CT scan of his abdomen. It turned out that his Weston catheter was kinked and he has obstructive uropathy. His blood pressures have been trending downwards. Review of Systems Review of Systems: Unobtainable due to cognitive status Physical Exam Physical Exam: GENERAL : Severe distress EYES: No icterus, gaze conjugate NOSE: No evidence of epistaxis MOUTH: No lesions or candidiasis NECK: Supple LUNGS: Tachypneic. Increased work of breathing. Crackles noted in the right lower lobe. HEART: Regular, rate controlled ABDOMEN: Soft, NT, ND, BS Present EXTREMITIES: No LE edema, pedal pulses intact and equal bilaterally NEURO: Patient is obtunded. Results & Data Results & Data ([facility]) Vital Signs (Past 12 Hours) Vital Signs Temp Pulse Pulse Pulse Resp BP BP 12/10/21 09:44 36.6 C 91 H 30 H 97/65 L 12/10/21 07:30 120 H 37 H 12/10/21 05:18 36.7 C 114 H 33 H 145/97 H 12/10/21 03:01 112 H 29 H 12/10/21 02:11 140 H 141/100 H 12/10/21 01:24 109 H 12/10/21 00:11 36.7 C 120 H 40 H 141/100 H 12/09/21 22:22 102 H 32 H Pulse Ox 12/10/21 09:44 98 12/10/21 07:30 94 12/10/21 05:18 100 12/10/21 03:01 93 12/10/21 02:11 12/10/21 01:24 12/10/21 00:11 95 12/09/21 22:22 93 PG Care Time/CCT Total # of Minutes Spent Total Time Spent with Patient: Total time spent is greater than 50% in coordination of care (as documented) at patient's floor/unit and/or counseling patient: Coding Level of Care Code 27693 Subseq Hosp Care Lvl 3 Diagnoses Respiratory failure with hypoxia J96.91 COVID-19 U07.1 Dementia F03.91 Dementia behavioral disturbance: with behavioral disturbance Dementia type: unspecified type Aspiration into airway [id number]
--- NOTE | 2021-12-10 10:37 | Neurology Progress Note ---
Date of Service December 10, 2021 Assessment & Plan (1) Seizure: (2) Seizure-like activity: Plan: Patient had new onset of seizure activity The morning December 09. It seemed generalized with a distinct myoclonic component bilaterally. The patient had an elevated white count December 09, with right lower lobe pneumonia. He was rigid in all 4 limbs including his neck, and he is less rigid today, in all 4 limbs and the neck. on examination he is withdrawing the right side less than the left with decreased reflexes compared to the left and his head and eyes turned to the right. This is reminiscent of a postictal state stemming from the left hemisphere. I cannot exclude a stroke but his CAT scan did not show any acute findings. 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 Recommendations: 1. Continue Depakote 250 milligrams IV q.6 hours. 2. Obtain Depakote levels q.a.m. for 3 days. 3. Consider MRI of the brain, to evaluate for stroke 4. I will consider other testing such as MRI depending on his clinical course and the above tests. Overall, I spent a total of 40 minutes with this case including review of records, direct evaluation of the patient at bedside, and discussion of the case with the RN at bedside, pharmacist, and Dr. Melgoza including differential diagnosis and treatment options. Admission and Anticipated Discharge Date Admission Date: December 03, 2021 Subjective Patient is unresponsive /obtunded. Nursing reports some seizure activity overnight but no seizure activity this morning. Depakote level was 72. Creatinine was elevated at 6.7. The patient had a bladder obstruction. This was cleared and he was making urine well. He has been sinus tachycardia and blood pressure is 97/65. He is afebrile. Patient has right lower lobe consolidated air space consistent with pneumonia. The patient may have had aspiration pneumonia. EEG yesterday showed generalized slowing from the encephalopathy with some potentially epileptogenic discharges emanating from the left hemisphere Results & Data ([facility]) Vital Signs (Past 12 Hours) Vital Signs Temp Pulse Pulse Pulse Resp BP BP 12/10/21 09:44 36.6 C 91 H 30 H 97/65 L 12/10/21 07:30 120 H 37 H 12/10/21 05:18 36.7 C 114 H 33 H 145/97 H 12/10/21 03:01 112 H 29 H 12/10/21 02:11 140 H 141/100 H 12/10/21 01:24 109 H 12/10/21 00:11 36.7 C 120 H 40 H 141/100 H Pulse Ox 12/10/21 09:44 98 12/10/21 07:30 94 12/10/21 05:18 100 12/10/21 03:01 93 12/10/21 02:11 12/10/21 01:24 12/10/21 00:11 95 Exam (Neuro) Physical Exam: Patient is lying still in bed with little spontaneous movement, eyes closed. He is breathing heavily and rapidly. The pattern is consistent. He has no response to voice, clap, or gentle shaking. He will open his eyes some and grimace with deep pain in each extremity. He withdraws the left side quicker than the right side. His reflexes are brisker in the left arm and leg than the right arm and leg. He turns his head and eyes to the right after stimulation. Prior to stimulation his eyes were ski you would with the right being down and to the right and the left being upward and to the left There is no seizure activity or myoclonus noted. PG Care Time/CCT Total # of Minutes Spent Total Time Spent with Patient: Total time spent is greater than 50% in coordination of care (as documented) at patient's floor/unit and/or counseling patient: Coding Level of Care Code 42137 Subseq Hosp Care Lvl 3 Diagnoses Seizure R56.9 Seizure-like activity R56.9
[2021-12-10] MEDS: HEPARIN SOD 5,000 UNIT/0.5 ML VIAL SQ SCH (12:45)
--- NOTE | 2021-12-10 15:03 | Hospitalist Progress Note ---
Date of Service December 10, 2021 Assessment & Plan (1) COVID-19: Plan: COVID 19 positive- unsure of day of onset of symptoms. Per RN, no one else at [facility] testing positive, so no known time frame for exposure. Continue with supportive care at this time Was not started on remdesivir at this time secondary to unknown onset of symptoms Continue Dexamethasone (2) Acute encephalopathy: Plan: acute metabolic encephlaopathy, likely multi factorial from PNA, seizure, acute uremia CT chest shows new infiltrate in the lung suggestive of aspiration PNA EEG also showed slowing and epileptiform wave (3) Respiratory failure with hypoxia: Plan: A combination of COVID, Aspiration PNA Pulmonology on consult, Recommends high flow oxygen when patient is more awake (4) CHRISTA (acute kidney injury): Plan: Cr jumped from normal to 6.7 Due to obstruction, eso ballon in prostatic urethra This has been replaced Recheck BMP tomorpw (5) Malnutrition: Plan: passed swallow evaluation However, keep NPO for now in view of unresponsiveness (6) Seizure: Plan: Observed to be having a seziure like activity this morning, which failed to resolve after 2 doses of IV Ativan 2mg CT head was normal EEG shows generalized slowing and epileptogenic wave Started on Depakote by Neurology, appreciate recs patient seems to have a strong family hx of seizures in parent and siblings ( I spoke to his brother Kory) (7) Major neurocognitive disorder due to multiple etiologies with behavioral disturbance: Plan: Seems to have improved following last admission with addition of olanzapine. 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 I updated his Brother [place] DNR/DNI Admission and Anticipated Discharge Date Admission Date: December 03, 2021 Subjective obtunded, non responsive Review of Systems Review of Systems: patient is obtunded Physical Exam Physical Exam: The patient is obtunded, non responsive HEENT--PERRL, EOMI, mucous membranes and oropharynx mildly dry Neck--supple. No JVD. No bruits. Thyroid normal, trachea midline, no adenopathy. Heart--normal S1 and S2. No murmurs, rubs or gallops. Lungs--Reduced air entry on auscultation Abdomen--normal bowel sounds and soft.seo catheter in situ Extremities--no cyanosis or clubbing. No edema. Dermatologic--normal skin turgor, normal color, no abnormal lymph nodes, no rash. Neurologic--unable to fully evaluate Rheumatologic--normal range of motion. Psychiatric--unable to assess Results & Data Results & Data ([facility]) Vital Signs (Past 12 Hours) Vital Signs Temp Pulse Pulse Pulse Resp BP Pulse Ox 12/10/21 10:52 84 28 H 92 12/10/21 09:44 97.9 F 91 H 30 H 97/65 L 98 12/10/21 08:00 120 H 12/10/21 07:30 120 H 37 H 94 12/10/21 05:18 98.1 F 114 H 33 H 145/97 H 100 12/10/21 03:01 112 H 29 H 93 Diagnostic Findings Laboratory Results - last 24 hr 12/10/21 12/10/21 12/10/21 07:28 07:28 07:53 ABG pH ABG pCO2 ABG pO2 ABG HCO3 ABG O2 Saturation ABG Base Excess Candelario Test Barometric Pressure Oxygen Given Creatinine 6.73 H* D Est Cr Clr Drug Dosing 8.8 Est GFR ( Amer) 8.8 Est GFR (Non-Af Amer) 7.6 POC Glucose 89 Valproic Acid 72 12/10/21 08:18 ABG pH 7.38 ABG pCO2 27 L ABG pO2 88 ABG HCO3 16 L ABG O2 Saturation 96.9 H ABG Base Excess -8.0 Candelario Test Pos Barometric Pressure 740.1 Oxygen Given 60% Creatinine Est Cr Clr Drug Dosing Est GFR ( Amer) Est GFR (Non-Af Amer) POC Glucose Valproic Acid PG Care Time/CCT Total # of Minutes Spent Total Time Spent with Patient: Total time spent is greater than 50% in coordination of care (as documented) at patient's floor/unit and/or counseling patient: Coding Level of Care Code 55751 Subseq Hosp Care Lvl 2 Diagnoses COVID-19 U07.1 Respiratory failure with hypoxia J96.91 Malnutrition E46 Seizure R56.9 Major neurocognitive disorder due to multiple etiologies with behavioral disturbance F02.81 Colovesical fistula N32.1 UTI (urinary tract infection), bacterial N39.0; A49.9 Emphysematous cystitis N30.80 Dementia F03.91 Dementia behavioral disturbance: with behavioral disturbance Dementia type: unspecified type Acute encephalopathy G93.40 CHRISTA (acute kidney injury) N17.9 Time Spent (min) 35 (1) Dementia Dementia behavioral disturbance: with behavioral disturbance Dementia type: unspecified type Qualified Code(s): F03.91 - Unspecified dementia with behavioral disturbance
[2021-12-10] MEDS ORDERED: LORazepam 0.5 MG TAB PO PRN (15:58)
[2021-12-10] MEDS ORDERED: ONDANSETRON 4 MG OD TAB SL PRN (15:58)
[2021-12-10] MEDS ORDERED: ONDANSETRON INJ 2 MG/ML 2 ML VIAL IV PRN (15:58)
[2021-12-10] MEDS: LORazepam 2 MG/1 ML VIAL IV PRN ×2 (16:32→21:10)
[2021-12-10] MEDS: HYDROmorphone INJ 0.5 MG/0.5 ML SYR IV PRN (21:06)
[2021-12-11] MEDS: MELATONIN 3 MG TAB PO SCH (00:14)
[2021-12-11] MEDS: DONEPEZIL HCL 10 MG TAB PO SCH (00:14)
[2021-12-11] MEDS: ATORVASTATIN 10 MG TAB PO SCH (00:14)
[2021-12-11] MEDS: OLANZapine 5 MG TABLET PO SCH (00:15)
[2021-12-11] MEDS: HEPARIN SOD 5,000 UNIT/0.5 ML VIAL SQ SCH ×4 (00:15→18:35)
[2021-12-11] MEDS: HYDROmorphone INJ 0.5 MG/0.5 ML SYR IV PRN ×8 (01:20→23:21)
[2021-12-11] MEDS: LORazepam 2 MG/1 ML VIAL IV PRN ×4 (01:34→19:37)
[2021-12-11] MEDS: DEXTROSE 5% 1,000 ML IV SCH (04:54)
[2021-12-11] MEDS: VALPROATE SOD 250 MG in DEXTROSE 5% 50 ML IV SCH ×5 (05:17→23:21)
--- NOTE | 2021-12-11 08:48 | Neurology Progress Note ---
Date of Service December 11, 2021 Assessment & Plan (1) Seizure: (2) Seizure-like activity: Plan: Patient had new onset of seizure activity the morning December 09. It seemed generalized with a distinct myoclonic component bilaterally. He has had no seizure activity observed by the nursing staff in the last 2 days. The patient had an elevated white count December 09, with right lower lobe pneumonia. He was rigid in all 4 limbs including his neck, and he is less rigid today, in all 4 limbs and the neck. today he is much less rigid In the neck and limbs. 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 Continue Depakote IV 250 q.6 hours 2. Consider MRI of the brain, to evaluate for stroke, but this will likely not change our overall treatment plan at this time. 3. Otherwise, I have no further neurologic testing or treatment recommendations to make. Please contact me if I can be of further assistance. Overall, I spent a total of 45 minutes with this case including review of records, direct evaluation of the patient at bedside, and discussion of the case with the RN at bedside and Dr. Melgoza including differential diagnosis and treatment options. Admission and Anticipated Discharge Date Admission Date: December 03, 2021 Subjective Patient Is unresponsive to voice /shout/clap. Nursing reports no seizures overnight and his last seizures were about 2 days ago. He is on Depakote 250 mg q.6 hours with a level of 72 on December 10. Blood pressure is 104/70 pulse of 100 me he is respiratory rate is fairly steady and deep 20/min Results & Data ([facility]) Vital Signs (Past 12 Hours) Vital Signs Pulse 12/10/21 22:17 108 H Exam (Neuro) Physical Exam: he will withdrawal and slightly grimace to deep pain in all 4 limbs although the right side is not withdrawing quite as well as the left. He has some rigidity of the neck and limbs but this is much less compared to previously in this hospitalization am able to go through a full range of motion with each limb. Eyes are closed but will open snf with the,. Eyes passively open and pupils are 2 mm and reactive to light. Primary gaze is skewed with the left being midline the right being slightly abducted. with head turning oculocephalic reactions are fairly normal in the left eye and decreased horizontally in the right eye. It is decreased vertically bilaterally. He has slight positive corneal reactions bilaterally. Tongue is midline and there is no facial droop. He has a diminished gag bilaterally. He has no spontaneous movement of the limbs. Reflexes are 2/4 in the arms and quadriceps bilaterally although the left side was slightly brisker than the right. Achilles tendon reflexes were absent bilaterally. Toes were downgoing with plantar stimulation bilaterally. PG Care Time/CCT Total # of Minutes Spent Total Time Spent with Patient: Total time spent is greater than 50% in coordination of care (as documented) at patient's floor/unit and/or counseling patient: Coding Level of Care Code 81522 Subseq Hosp Care Lvl 3 Diagnoses Seizure R56.9 Seizure-like activity R56.9 Time Spent (min) 45
[2021-12-11] MEDS ORDERED: CEFEPIME 500 MG in SYRINGE 0 ML IV SCH (09:00)
[2021-12-11] MEDS: ASPIRIN 81 MG ECTAB PO SCH (11:01)
[2021-12-11] MEDS: amLODIPine BESYLATE 5 MG TAB PO SCH (11:01)
[2021-12-11] MEDS: TAMSULOSIN HCL 0.4 MG CAP PO SCH (11:02)
[2021-12-11] MEDS: DOCUSATE SODIUM 100 MG CAP PO SCH (11:02)
[2021-12-11] MEDS: dexAMETHasone 6 MG in SYRINGE 0 ML IV SCH (11:02)
[2021-12-11] MEDS: PANTOprazole 40 MG TAB PO SCH (11:02)
[2021-12-11] MEDS: CHOLECALCIFEROL 5,000 UNITS 125 MCG TAB PO SCH (11:02)
[2021-12-11] MEDS: ESCITALOPRAM OXALATE 20 MG TAB PO SCH (11:02)
[2021-12-11] MEDS: FINASTERIDE 5 MG TAB PO SCH (11:02)
[2021-12-11] MEDS: OLANZAPINE 2.5 MG TAB PO SCH (11:02)
--- NOTE | 2021-12-11 12:22 | Palliative Care Consultation ---
Date of Consultation December 11, 2021 Assessment & Plan (1) Dyspnea: Continue hydromorphone prn. Given renal failure, would avoid morphine due to risk of toxicity. (2) Palliative care encounter: I spoke with Mr. Anderson's brother, Brad and Med on the phone. Americo witnessed the of his grandfather in the past and has said that he would not want aggressive care if he were near his dying time. They tell me that he has a living will and would not want resuscitation. They feel that he has suffered over the last few months and recognize that he is approaching his dying time. "We don't want him to be poked and prodded." They have been in contact with his son, Jonh who agrees. At this time, they would like focus of care to be comfort and for him to be able to peacefully. We discussed adjusting medications to focus only on those that will relieve his symptoms and provide comfort for him and that is their preference. (3) DVT prophylaxis: (4) Dementia: Dementia behavioral disturbance: with behavioral disturbance Dementia type: unspecified type Qualified Code(s): F03.91 - Unspecified azul ntia with behavioral disturbance History of Present Illness Reason for Consultation: comfort measures Requesting Physician: Dr. Melgoza Attending Physician: Ihsan Melgoza MD History of Present Illness 70 yo gentleman with dementia who has been hospitalized three times in the last four months. He was admitted from [facility] with worsening encephalopathy. He was found to be covid positive on admission though that may be incidental. He is being treated with maxipime and steroids with bilateral lung opacities on CT and rising WBC. He has progressive CHRISTA with creatinine yesterday of 6.73 and GFR of 7.6. He has also had new onset seizure activity in the last few days and is on IV depakote. Despite treatment he has had neurologic deterioration over the last two days. Dr. Melgoza has spoken with his brother, Brad, who has indicated that family would like to pursue a comfort focused approach to his care at this time. Mr. Anderson is obtunded with baseline dementia. He appears comfortable at rest. He has received hydromorphone x 4 in the last 24 hours. Per RN, he has had labored breathing. Allergies Allergy/AdvReac Type Severity Reaction Status Date / Time No Known Allergies Allergy Verified 12/03/21 14:46 Home Medications Medication Instructions Recorded Confirmed Type aspirin 81 mg tablet,delayed 81 mg PO DAILY #90 tab 02/26/21 12/03/21 Rx release (Aspirin Low Dose) cholecalciferol (vitamin D3) 125 5,000 units PO DAILY #30 tab 02/26/21 12/03/21 Rx mcg (5,000 unit) tablet escitalopram oxalate 20 mg tablet 20 mg PO DAILY #30 tab 02/26/21 12/03/21 Rx omeprazole 20 mg capsule,delayed 20 mg PO DAILY #30 cap 02/26/21 12/03/21 Rx release docusate sodium 100 mg capsule 100 mg PO DAILY 08/25/21 12/03/21 History (Colace) tamsulosin 0.4 mg capsule 0.4 mg PO DAILY #30 cap 09/03/21 12/03/21 Rx atorvastatin 10 mg tablet 10 mg PO HS 09/19/21 12/03/21 History donepezil 10 mg tablet 10 mg PO HS 09/19/21 12/03/21 History dsobtscpzhhq-wqqwnrjk-bnelpp tablet 1 tab PO QAM 09/19/21 12/03/21 History finasteride 5 mg tablet (Proscar) 5 mg PO QAM #30 tab 09/29/21 12/03/21 Rx melatonin 3 mg tablet 3 mg PO HS #30 tab 09/29/21 12/03/21 Rx olanzapine 2.5 mg tablet 2.5 mg PO QAM #30 tab 09/29/21 12/03/21 Rx olanzapine 5 mg tablet 5 mg PO HS #30 tab 09/29/21 12/03/21 Rx Patient History Medical History Arthritis of right hip Aspiration into airway BPH (benign prostatic hyperplasia) Cellulitis and abscess of face Dementia Dental abscess Depression with anxiety Elevated BP without diagnosis of hypertension Expressive aphasia GERD (gastroesophageal reflux disease) Hyperlipidemia Obtunded Vitamin D insufficiency Surgical History H/O total hip arthroplasty Right History of hernia repair Family History Mother Myocardial infarction Other Hypertension Denies family history of Ovarian cancer Prostate cancer Breast cancer Colorectal cancer Social History Smoking Status: Unknown if ever smoked Second Hand Exposure: No; Do You Dip or Chew Tobacco: No; Tobacco Cessation Education Requested by Patient: No Hx Alcohol Use: No Hx Substance Use: No Preferred Language: Occitan Communication Ability: Unable Manager Marketing Communication Required: No Beliefs That Will Affect Care: None marital status: Single Current Living Situation: Half-Way Current Living Situation Comment: na current occupational status: disabled Feels Safe at Home: Yes Childhood Exposure to Second-Hand Smoke: No caffeine: Yes during the past year weight has: remained stable Dental Care, Regularly: Yes Seatbelt Use: always Sunscreen Use: No Assistive Devices: None Review of Systems Review of Systems: Unobtainable due to cognitive status and Unobtainable due to reduced consciousness [place]ino Symptom Assessment Scale Pain AD 0/3 Dyspnea by observation 0/3 Palliative Performance Score 10% Physical Exam Constitutional: + ill appearing and + thin ENMT: Mouth: + dry oral mucous membranes Respiratory: no respiratory distress Musculoskeletal: Extremities: + muscle atrophy Neurologic: + obtunded Genitourinary: Weston catheter Results & Data ([facility]) Vital Signs (Past 12 Hours) Vital Signs Temp Pulse Resp BP Pulse Ox 12/11/21 08:00 97.7 F 115 H 18 114/61 96 PG Care Time/CCT Total # of Minutes Spent Total Time Spent: 62 Total Time Spent with Patient: Total time spent is greater than 50% in coordination of care (as documented) at patient's floor/unit and/or counseling patient: goals of care, symptom management, family education and support Coding Level of Care Code 56314 Initial Inpt Care Lvl 2 Diagnoses Dyspnea R06.00 Palliative care encounter Z51.5 DVT prophylaxis Z29.9 Dementia F03.91 Dementia behavioral disturbance: with behavioral disturbance Dementia type: unspecified type
--- NOTE | 2021-12-11 12:58 | Hospitalist Progress Note ---
Date of Service December 11, 2021 Assessment & Plan (1) COVID-19: Plan: COVID 19 positive- unsure of day of onset of symptoms. Per RN, no one else at [facility] testing positive, so no known time frame for exposure. Continue with supportive care at this time Was not started on remdesivir at this time secondary to unknown onset of symptoms Continue Dexamethasone (2) Acute encephalopathy: Plan: acute metabolic encephlaopathy, likely multi factorial from PNA, seizure, acute uremia CT chest shows new infiltrate in the lung suggestive of aspiration PNA EEG also showed slowing and epileptiform wave (3) Respiratory failure with hypoxia: Plan: A combination of COVID, Aspiration PNA Pulmonology on consult, Recommends high flow oxygen when patient is more awake (4) CHRISTA (acute kidney injury): Plan: Due to obstruction, seo ballon in prostatic urethra This has been replaced (5) Malnutrition: Plan: passed swallow evaluation However, keep NPO for now in view of unresponsiveness (6) Seizure: Plan: Observed to be having a seziure like activity this morning, which failed to resolve after 2 doses of IV Ativan 2mg CT head was normal EEG shows generalized slowing and epileptogenic wave Started on Depakote by Neurology, appreciate recs patient seems to have a strong family hx of seizures in parent and siblings ( I spoke to his brother Kory) (7) Major neurocognitive disorder due to multiple etiologies with behavioral disturbance: Plan: Seems to have improved following last admission with addition of olanzapine. 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 I updated his Brother [place], patient is now palliative. Will continue only medication which offer comfort DNR/DNI Admission and Anticipated Discharge Date Admission Date: December 03, 2021 Subjective patient seen and examined, unresponsive, but breathing Review of Systems Review of Systems: patient is obtunded Physical Exam Physical Exam: The patient is obtunded, non responsive HEENT--PERRL, EOMI, mucous membranes and oropharynx mildly dry Neck--supple. No JVD. No bruits. Thyroid normal, trachea midline, no adenopathy. Heart--normal S1 and S2. No murmurs, rubs or gallops. Lungs--Reduced air entry on auscultation Abdomen--normal bowel sounds and soft.seo catheter in situ Extremities--no cyanosis or clubbing. No edema. Dermatologic--normal skin turgor, normal color, no abnormal lymph nodes, no rash. Neurologic--unable to fully evaluate Rheumatologic--normal range of motion. Psychiatric--unable to assess Results & Data Results & Data ([facility]) Vital Signs (Past 12 Hours) Vital Signs Temp Pulse Resp BP Pulse Ox 12/11/21 11:00 98.1 F 108 H 16 128/67 97 12/11/21 08:00 97.7 F 115 H 18 114/61 96 PG Care Time/CCT Total # of Minutes Spent Total Time Spent with Patient: Total time spent is greater than 50% in coordination of care (as documented) at patient's floor/unit and/or counseling patient: Coding Level of Care Code 40947 Subseq Hosp Care Lvl 2 Diagnoses COVID-19 U07.1 Acute encephalopathy G93.40 Respiratory failure with hypoxia J96.91 CHRISTA (acute kidney injury) N17.9 Malnutrition E46 Seizure R56.9 Major neurocognitive disorder due to multiple etiologies with behavioral disturbance F02.81 Colovesical fistula N32.1 UTI (urinary tract infection), bacterial N39.0; A49.9 Emphysematous cystitis N30.80 Dementia F03.91 Dementia behavioral disturbance: with behavioral disturbance Dementia type: unspecified type Time Spent (min) 35 (1) Dementia Dementia behavioral disturbance: with behavioral disturbance Dementia type: unspecified type Qualified Code(s): F03.91 - Unspecified dementia with behavioral disturbance
[2021-12-12] MEDS: HYDROmorphone INJ 0.5 MG/0.5 ML SYR IV PRN ×7 (00:23→06:41)
[2021-12-12] MEDS: VALPROATE SOD 250 MG in DEXTROSE 5% 50 ML IV SCH ×3 (05:04→16:50)
[2021-12-12] MEDS: HEPARIN SOD 5,000 UNIT/0.5 ML VIAL SQ SCH (05:07)
[2021-12-12 07:21] LABS: Creatinine Clr Calc Pharmacy 18.5 ml/min; Est GFR (African American) 21.7 ml/min; Est GFR (Non-African American) 18.7 ml/min
--- NOTE | 2021-12-12 11:14 | Palliative Care Progress Note ---
Date of Service December 12, 2021 Assessment & Plan (1) Dyspnea: Plan: He currently does not appear short of breath but having expected breathing patterns for near . Continue prn hydromorphone. Discussed with RN (2) Terminal respiratory secretions: Plan: Continue glycopyrrolate (3) Palliative care encounter: Plan: He appears to be actively dying. I spoke with Brad on the phone and updated him. Reassured him that Brain is comfortable. He and his brother are preparing for his mother's estate sale this weekend and dealing with the impending of their brother. They are hoping to call later and be able to speak to him with the phone held up to his ear. (4) Respiratory failure with hypoxia: (5) Seizure-like activity: Plan: Continue depakote. Admission and Anticipated Discharge Date Admission Date: December 03, 2021 Subjective No response to voice or touch. Sats drop to the low 60s with turn and reposition. No grimacing or restlessness. He has had 6mg hydromorphone in last 24 hours for respiratory distress. Currently agonal breathing. Review of Systems Review of Systems: Unobtainable due to cognitive status and Unobtainable due to reduced consciousness [place] Symptom Assessment Scale Pain AD 0/3 Dyspnea by observation 0/3 Palliative Performance Score 10% Physical Exam Constitutional: + cachectic; no acute distress ENMT: Mouth: + dry oral mucous membranes Respiratory: + uses accessory muscles; no respiratory distress audible rhonchi Cardiovascular: Rate/Rhythm: + tachycardic Musculoskeletal: Extremities: + muscle atrophy Skin: mottled knees Neurologic: + obtunded no rigidity PG Care Time/CCT Total # of Minutes Spent Total Time Spent: 38 Total Time Spent with Patient: Total time spent is greater than 50% in coordination of care (as documented) at patient's floor/unit and/or counseling patient: symptom management, family education and support, coordination of care. Coding Level of Care Code 38342 Subseq Hosp Care Lvl 3 Diagnoses Dyspnea R06.00 Terminal respiratory secretions R09.89 Palliative care encounter Z51.5 Respiratory failure with hypoxia J96.91 Seizure-like activity R56.9
[2021-12-12] MEDS: GLYCOPYRROLATE 0.2 MG/ML VIAL IV PRN (13:38)
--- NOTE | 2021-12-12 14:13 | Hospitalist Progress Note ---
Date of Service December 12, 2021 Assessment & Plan (1) COVID-19: Plan: COVID 19 positive- unsure of day of onset of symptoms. Per RN, no one else at [facility] testing positive, so no known time frame for exposure. Continue with supportive care at this time Was not started on remdesivir at this time secondary to unknown onset of symptoms Patient currently receiving only palliative medications (2) Acute encephalopathy: Plan: acute metabolic encephlaopathy, likely multi factorial from PNA, seizure, acute uremia CT chest shows new infiltrate in the lung suggestive of aspiration PNA EEG also showed slowing and epileptiform wave He is now actively dying, with agonal breathing (3) Respiratory failure with hypoxia: Plan: A combination of COVID, Aspiration PNA (4) CHRISTA (acute kidney injury): Plan: Due to obstruction, seo ballon in prostatic urethra This has been replaced (5) Malnutrition: Plan: passed swallow evaluation However, keep NPO for now in view of unresponsiveness (6) Seizure: Plan: Observed to be having a seziure like activity this morning, which failed to resolve after 2 doses of IV Ativan 2mg CT head was normal EEG shows generalized slowing and epileptogenic wave Started on Depakote by Neurology, appreciate denise patient seems to have a strong family hx of seizures in parent and siblings ( I spoke to his brother Kory) However, no longer on any medication in view of his palliative status (7) Major neurocognitive disorder due to multiple etiologies with behavioral disturbance: Plan: Not on any meds anymore due to palliative status (8) Colovesical fistula: Plan: Known with colovesicular fistula - previous admission and discussions with family was no aggressive treatment/surgical intervention. 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 I updated his Brother North, patient is now palliative. Will continue only medication which offer comfort DNR/DNI Admission and Anticipated Discharge Date Admission Date: December 03, 2021 Subjective patient is unresponsive, agonal breathing Review of Systems Review of Systems: patient is obtunded Physical Exam Physical Exam: The patient is obtunded, non responsive, agonal breathing HEENT--PERRL, EOMI, mucous membranes and oropharynx mildly dry Neck--supple. No JVD. No bruits. Thyroid normal, trachea midline, no adenopathy. Heart--normal S1 and S2. No murmurs, rubs or gallops. Lungs--Reduced air entry on auscultation Abdomen--normal bowel sounds and soft.seo catheter in situ Extremities--no cyanosis or clubbing. No edema. Dermatologic--normal skin turgor, normal color, no abnormal lymph nodes, no rash. Neurologic--unable to fully evaluate Rheumatologic--normal range of motion. Psychiatric--unable to assess PG Care Time/CCT Total # of Minutes Spent Total Time Spent with Patient: Total time spent is greater than 50% in coordination of care (as documented) at patient's floor/unit and/or counseling patient: Coding Level of Care Code 04643 Subseq Hosp Care Lvl 2 Diagnoses COVID-19 U07.1 Acute encephalopathy G93.40 Respiratory failure with hypoxia J96.91 CHRISTA (acute kidney injury) N17.9 Malnutrition E46 Seizure R56.9 Major neurocognitive disorder due to multiple etiologies with behavioral disturbance F02.81 Colovesical fistula N32.1 UTI (urinary tract infection), bacterial N39.0; A49.9 Emphysematous cystitis N30.80 Dementia F03.91 Dementia behavioral disturbance: with behavioral disturbance Dementia type: unspecified type Time Spent (min) 35 (1) Dementia Dementia behavioral disturbance: with behavioral disturbance Dementia type: unspecified type Qualified Code(s): F03.91 - Unspecified dementia with behavioral disturbance
[2021-12-13] MEDS: VALPROATE SOD 250 MG in DEXTROSE 5% 50 ML IV SCH ×3 (00:05→15:33)
[2021-12-13] MEDS: HYDROmorphone INJ 0.5 MG/0.5 ML SYR IV PRN ×2 (06:43→15:33)
--- NOTE | 2021-12-13 12:57 | Hospitalist Progress Note ---
Date of Service December 13, 2021 Assessment & Plan (1) COVID-19: Plan: COVID-19 positive; was residing at [facility]. Converted to comfort measures. Ativan prn anxiety; Dilaudid prn pain/SOB; Robinul prn secretions. Was not started on remdesivir secondary to unknown onset of symptoms (2) Acute encephalopathy: Plan: Acute metabolic encephlaopathy, likely multi factorial from PNA, seizure, acute uremia CT chest shows new infiltrate in the lung suggestive of aspiration PNA EEG also showed slowing and epileptiform wave (3) Respiratory failure with hypoxia: Plan: Combination of COVID & Aspiration PNA (4) CHRISTA (acute kidney injury): Plan: Due to obstruction, seo ballon in prostatic urethra Discontinued lab work monitoring due to comfort care status. (5) Malnutrition: Plan: Keep NPO due to unresponsiveness. (6) Seizure: Plan: Observed to be having a seizure like activity during this hospitalization, which failed to resolve after 2 doses of IV Ativan 2mg CT head was normal; EEG showed generalized slowing and epileptogenic wave Neurology consulted, appreciate recs. D/c Valproic acid. Patient seems to have a strong family hx of seizures in parent and siblings (per discussion with his brother Kory) (7) Major neurocognitive disorder due to multiple etiologies with behavioral disturbance: Plan: Not on any meds anymore due to palliative status. (8) Colovesical fistula: Plan: Known with colovesicular fistula - previous admission and discussions with family was no aggressive treatment/surgical intervention. (9) UTI (urinary tract infection), bacterial: Plan: Not currently on abx coverage. 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 (11) Dementia: Plan: Chronic. Plan: Comfort measures, DNI/DNR per brother North. Downgrade to med/surg. Admission and Anticipated Discharge Date Admission Date: December 03, 2021 Supervising Physician Co-Signing Physician Notes Attending Attestation - Chart reviewed, care plan d/w LAST Gallardo. I agree with the russ components of her documentation. Continue comfort care pathway. Jonh Lowry MD Subjective Patient is unresponsive, remains comfortable. Will transfer to med/surg. Review of Systems Review of Systems: Unobtainable. Physical Exam Physical Exam: Constitutional: Elderly male, appears comfortable. Unresponsive. Cardiovascular: +Tachycardic Skin: The skin was negative for jaundice. Extremities: Negative for edema or erythema Results & Data Results & Data ([facility]) Vital Signs (Past 12 Hours) Vital Signs Temp Pulse Pulse Resp Pulse Ox 12/13/21 11:00 38.6 C H 133 H 8 L 81 L 12/13/21 07:30 125 H 12/13/21 04:39 115 H PG Care Time/CCT Total # of Minutes Spent Total Time Spent with Patient: Total time spent is greater than 50% in coordination of care (as documented) at patient's floor/unit and/or counseling patient: Coding [place] [address] Subseq Hosp Care Lvl 1 Patient Type Established Diagnoses COVID-19 U07.1 Acute encephalopathy G93.40 Respiratory failure with hypoxia J96.91 CHRISTA (acute kidney injury) N17.9 Malnutrition E46 Seizure R56.9 Major neurocognitive disorder due to multiple etiologies with behavioral disturbance F02.81 Colovesical fistula N32.1 UTI (urinary tract infection), bacterial N39.0; A49.9 Emphysematous cystitis N30.80 Dementia F03.91 Dementia behavioral disturbance: with behavioral disturbance Dementia type: unspecified type (1) Dementia Dementia behavioral disturbance: with behavioral disturbance Dementia type: unspecified type Qualified Code(s): F03.91 - Unspecified dementia with behavioral disturbance
[2021-12-13] MEDS: GLYCOPYRROLATE 0.2 MG/ML VIAL IV PRN (15:33)
[2021-12-14] MEDS: HYDROmorphone INJ 0.5 MG/0.5 ML SYR IV PRN ×5 (01:45→12:58)
[2021-12-14] MEDS: GLYCOPYRROLATE 0.2 MG/ML VIAL IV PRN ×4 (01:45→12:02)
--- NOTE | 2021-12-14 14:34 | Death Pronouncement Note ---
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. Converted to comfort measures. Ativan prn anxiety; Dilaudid prn pain/SOB; Robinul prn secretions. Was not started on remdesivir secondary to unknown onset of symptoms Patient passed peaecfully (2) Acute encephalopathy: Plan: Acute metabolic encephlaopathy, likely multi factorial from PNA, seizure, acute uremia CT chest shows new infiltrate in the lung suggestive of aspiration PNA EEG also showed slowing and epileptiform wave (3) Respiratory failure with hypoxia: Plan: Combination of COVID & Aspiration PNA (4) CHRISTA (acute kidney injury): Plan: Due to obstruction, seo ballon in prostatic urethra Discontinued lab work monitoring due to comfort care status. (5) Malnutrition: Plan: Keep NPO due to unresponsiveness. (6) Seizure: Plan: Observed to be having a seizure like activity during this hospitalization, which failed to resolve after 2 doses of IV Ativan 2mg CT head was normal; EEG showed generalized slowing and epileptogenic wave Neurology consulted, appreciate recs. D/c Valproic acid. Patient seems to have a strong family hx of seizures in parent and siblings (per discussion with his brother Kory) (7) Major neurocognitive disorder due to multiple etiologies with behavioral disturbance: Plan: Not on any meds anymore due to palliative status. (8) Colovesical fistula: Plan: Known with colovesicular fistula - previous admission and discussions with family was no aggressive treatment/surgical intervention. (9) UTI (urinary tract infection), bacterial: Plan: Not currently on abx coverage. 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 (11) Dementia: Plan: Chronic. Plan: Comfort measures, DNI/DNR per brother North. Summary Additional details: Called to the patient's bedside by nursing as patient had ceased to breath. On examination, he had no heartbeat and pupils were fixed and dilated in addition to his apnea. Additional Data Confirmation of : no pulse, no respirations, no heart sounds and pupils fixed and dilated Attending/PCP notified?: Yes Attending physician: Jonh Lowry Was code activated?: No Autopsy requested?: No plan examiner notified?: No Organ bank notified?: No Coding Level of Care Code D/C DAY MANAGEMENT <30 MINS Diagnoses COVID-19 U07.1 Acute encephalopathy G93.40 Respiratory failure with hypoxia J96.91 CHRISTA (acute kidney injury) N17.9 Malnutrition E46 Seizure R56.9 Major neurocognitive disorder due to multiple etiologies with behavioral disturbance F02.81 Colovesical fistula N32.1 UTI (urinary tract infection), bacterial N39.0; A49.9 Emphysematous cystitis N30.80 Dementia F03.91 Dementia behavioral disturbance: with behavioral disturbance Dementia type: unspecified type
--- NOTE | 2021-12-22 07:46 | Discharge Summary ---
Date of Service Date of admission - December 03, 2021 Date of - December 14, 2021 Time of - 14:10 Admission HPI Per Admitting Provider 70 YOM with medical history of: end stage dementia, chronic emphysematous bladder with colovesicular fistula, HTN, GERD, UTI, HLD, CVA. Patient is re sident to the [facility] and was brought to the emergency room today for concern of increase in fatigue and worsening encephalopathy. The patient also pulled his Seo catheter out over this week. In the EMD the patient had routine labs performed to include blood culture, UA with urine culture, and COVID test. The pateint lab work is notable for lymphopenia and positive COVID. His urine is noted with LE, WBC and epis without nitrite. He was given a dose of Cefepime by EMD. This is likely chronic and will wait for his urine culture, his PCT is negative. He remains demented and with expressive aphasia from previous CVA. Likely fatigued related to COVID. Attempted to call his two brothers who have been involved with his care in the past, but there is no answer. Will attempt later in the evening. Principal Diagnosis Acute hypoxic respiratory failure COVID-19 pneumonia Aspiration pneumonia Discharge Exam at time of - pronounced by Landon NI - pupils fixed & dilated; no response to pain/voice; no audible heart tones; no spontaneous respiratory effort Discharge Data Allergies Allergy/AdvReac Type Severity Reaction Status Date / Time No Known Allergies Allergy Verified 12/03/21 14:46 Consultations 12/06/21 13:22 Consult Pulmonology Routine 12/09/21 10:08 Consult Neurology Routine 12/10/21 15:59 Consult Palliative Care Routine Procedures Performed EEG Ordered Studies 12/05/21 08:17 CT abd pelvis wo con Urgent 12/05/21 08:18 CT chest diagnostic wo con Urgent 12/09/21 10:06 CT head/brain wo con Stat 12/10/21 07:37 CT abd pelvis wo con Urgent Hospital Course (1) Respiratory failure with hypoxia: 2nd to combination of COVID-19 & Aspiration pneumonia. (2) Pneumonia due to COVID-19 virus: CXR on day of admission did not show discrete pneumonia. However, within 24 hours of admission, the patient was requiring NC O2. CT chest on 12/05/21 showed extensive b/l multifocal pneumonia. This was likely a combination of COVID-19 pneumonia & aspiration pneumonia. (3) Aspiration pneumonia: (4) Acute encephalopathy: Acute metabolic encephalopathy - due to #1, #2, #3, CHRISTA, and seizure -- all in the setting of dementia. EEG also showed slowing and epileptiform wave (5) CHRISTA (acute kidney injury): Due to obstruction from seo balloon in the prostatic urethra. COVID-19 infection and other infectious factors probably also contributed. (6) Malnutrition: (7) Seizure: Observed to be having a seizure like activity during this hospitalization. EEG showed generalized slowing and epileptogenic activity. (8) Major neurocognitive disorder due to multiple etiologies with behavioral disturbance: (9) Colovesical fistula: Known colovesicular fistula with previous admissions for complicated UTIs, etc. (10) UTI (urinary tract infection), bacterial: 2nd enterobacter & alpha strep. (11) Emphysematous cystitis: Chronic. (12) Dementia: Chronic. Severe. (13) BPH (benign prostatic hyperplasia): (14) Expressive aphasia: (15) Need for comfort care: (16) Palliative care patient: Patient was admitted due to lethargy and confusion in the setting of COVID-19 infection. By 12/04 (hospital day #2) he developed an O2 requirement. 12/[address] with b/l, multifocal pneumonia. He received a combination of IV steroids and IV antibiotics. Mental status waxed/waned and overall status was fair at best early in the stay. On 12/09 his respiratory status worsened with escalating O2 requirements. On 12/10 the patient developed acute kidney injury, seizure like activity, and mental status worsened significantly (essentially he was unresponsive). 12/11 - the patient was transitioned to comfort care / palliative care pathway. 12/14 - the patient passed peacefully on comfort care measures. Total Time Total Time Spent Total Time Spent (In Minutes): 25 Discharge Plan Discharge Items Patient Disposition: Other Date/Time: 12/14/21 14:10 Coding Level of Care Code None Diagnoses Acute encephalopathy G93.40 Respiratory failure with hypoxia J96.91 CHRISTA (acute kidney injury) N17.9 Malnutrition E46 Seizure R56.9 Major neurocognitive disorder due to multiple etiologies with behavioral disturbance F02.81 Colovesical fistula N32.1 UTI (urinary tract infection), bacterial N39.0; A49.9 Emphysematous cystitis N30.80 Dementia F03.91 Dementia behavioral disturbance: with behavioral disturbance Dementia type: unspecified type Pneumonia due to COVID-19 virus U07.1; J12.82 BPH (benign prostatic hyperplasia) N40.0 Expressive aphasia R47.01 Aspiration pneumonia J69.0 Need for comfort care Palliative care patient Z51.5
== END 2021-12-14 15:40 | disposition expired | DRG 177 ==
LOC: ED 11:23 → SUATTDRO 15:37 → EDINP 15:37 → 2S 18:18 → 3W 12-13 10:47